=== PATIENT | female | born 1945 | race Two or more races ===

== ENCOUNTER → 2020-07-17 09:01 | Outpatient (REF) | payer MEDICARE, SELFPAY ==
--- NOTE | 2020-07-17 10:30 | CA_ITS ---
Transthoracic Echocardiogram Patient (Last, First, Middle): Meredith Carranza E Gender: Female Date of : 1945 Age: 75 Procedure Date: 07/17/2020 Procedure Type: Transthoracic Echocardiogram Location: OP Height: 160. cm Weight: 68. 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 The visually estimated ejection fraction is between 60-65%. - There is mild calcification of the aortic valve. - There is mild tricuspid valve regurgitation. Findings Left Ventricle Normal left ventricular cavity size. There is normal left ventricular wall thickness. The left ventricular systolic function is normal. The visually estimated ejection fraction is between 60-65%. There is no evidence of regional wall motion abnormalities. E/E prime ratio is between 8 and 15 consistent with indeterminate filling pressures. Evidence suggests grade I (mild) diastolic dysfunction. Right Ventricle Normal right ventricular cavity size and systolic function. Atria The left atrium is normal in size. The right atrium is normal in size. Aortic Valve There is a normal trileaflet aortic valve. There is mild calcification of the aortic valve. There is no aortic valve stenosis. There is no aortic valve regurgitation. Mitral Valve The mitral valve appears normal. There is trace mitral valve regurgitation. There is no mitral valve stenosis. Pulmonic Valve The pulmonic valve was not well visualized. Tricuspid Valve Normal tricuspid valve structure. There is mild tricuspid valve regurgitation. The pulmonary artery systolic pressure is normal. Great Vessels The aortic annulus, sinuses of valsalva, and asc aorta are normal in size. Venous The inferior vena cava is normal in size and collapses greater than 50% with inspiration. Pericardium/Pleural There is no evidence of pericardial effusion. Prior Study Comparison No significant change compared to prior study dated: 01/06/2019. Measurements 2D Linear Measurements IVSd: 1.19 0.6-0.9/0.6-1.0 cm LVIDd: 4.41 3.9-5.3/4.2-5.9 cm LVIDd Index: 2.58 2.4-3.2/2.2-3.1 cm/m2 LVIDs: 2.65 2.0-3.6 cm LVPWd: 0.98 0.7-1.1 cm Ao Root: 2.60 2.1-3.5 cm LA Diam: 3.30 2.7-3.8/3.0-4.0 cm LAIDs Index: 1.93 1.5-2.3 cm/m2 LV Mass: 207.36 67-162/88-224 g LV Mass Index: 121.26 43-95/49-115 g/m2 LVOT Diam: 2.00 3.0+(-)1.3 cm 2D Systolic Function EF 4C: 64.30 >55% EF 2C: 56.60 >55% EF BiP: 59.50 >55% Mitral Valve MV Pk E: 0.58 MV PK A: 0.74 MV Decel Time: 106.00 E/A: 0.80 E'Lateral: 6.87 E'Medial: 5.61 E/E' Med: 10.40 E/E' Lat: 8.50 PHT: 31.00 MVA PHT: 7.10 Decel Mag[place]in: 5.51 Aortic Valve AoV Pk Dominik: 1.33 AoV Pk Grad: 7.00 LVOT LVOT Pk Dominik: 0.98 LVOT Mn Dominik: 0.68 LVOT VTI: 0.23 LVOT Pk Grad: 4.00 LVOT Mn Grad: 2.00 LVOT Diam: 2.00 LVOT Area: 3.14 Diastolic Function MV Pk E: 0.58 MV Pk A: 0.74 E/A: 0.80 E'Medial: 5.61 E/E' Med: 10.40 E' Laterial: 6.87 E/E' Lat: 8.50 Tricuspid Valve TR Pk Dominik: 2.27 TR Pk Grad: 21.00 RA Press: 3.00 RVSP: 24.00 Great Vessels Aorta Ao Root-2D: 2.60 2.0-3.7 cm Ao Asc: 3.40 2.1-3.4 cm Updated in Other Vendor System with Status of Final Vernon Plata MD electronically signed on 07/18/2020 11:09:34 AM with status of Final
== END ==
LOC: HO.CARD 09:01
PROVIDERS: PCP Internal Medicine; Visit Provider Internal Medicine
DX: I25.10 Atherosclerotic heart disease of native coronary artery without angina pectoris (principal); R06.02 Shortness of breath; Z95.5 Presence of coronary angioplasty implant and graft
CPT/HCPCS: 93306

== ENCOUNTER 2020-09-24 11:41 | Outpatient (REF) | payer MEDICARE, SELFPAY ==
--- NOTE | 2020-09-24 | MM_ITS ---
EXAMINATION: MM SCREENING DIGITAL BREAST TOMOSYNTHESIS, BILATERAL CLINICAL INFORMATION: Screening. Asymptomatic. The lifetime risk of breast cancer based on the Tyrer-Cuzick Model is 5%. COMPARISON: Mammography: 01/21/2019, 12/16/2017, 09/18/2016 TECHNIQUE: Digital breast tomosynthesis is performed in both the craniocaudal and mediolateral oblique views along with computer-aided detection (CAD). Synthesized 2D images are generated from the tomosynthesis. FINDINGS: The breasts are heterogeneously dense, which may obscure small masses (ACR BI-RADS breast composition Category c). There are no significant masses, abnormal calcifications, or other abnormalities. There is biopsy clip marker again noted mid upper outer right breast. Scattered bilateral punctate, vascular, and coarse round calcifications are again noted. The axilla and skin contours are unremarkable. No significant changes. MM/MM tomosynthesis screening BI IMPRESSION: No mammographic evidence of malignancy. ASSESSMENT: BI-RADS 2: Benign RECOMMENDATION: Routine annual mammography screening. This patient's information was entered into a reminder system with a target due date for their next mammogram.
== END 2020-09-24 11:42 | disposition home or self-care (01) ==
LOC: HO.MAMMO 11:41
PROVIDERS: Visit Provider Internal Medicine
DX: Z12.31 Encounter for screening mammogram for malignant neoplasm of breast (principal)
CPT/HCPCS: 77063; 77067

== ENCOUNTER 2020-10-02 12:15 | Outpatient (REF) | payer MEDICARE, SELFPAY ==
[2020-10-02 14:10] LABS: MANUAL DIFF FLAG NO
[2020-10-02 14:22] LABS: Basophils Absolute Auto 0.1 X10*3/uL (0.0-0.2); Basophils Percent Auto 0.9 % (0-2); Eosinophils Absolute Auto 0.1 X10*3/uL (0.0-0.4); Eosinophils Percent Auto 1.9 % (0-4); Hematocrit 36.7 % (37-47); Hemoglobin 11.4 g/dl (12.0-16.0); Imm Gran Abs Auto 0.03 X10*3/uL (0.00-0.03); Imm Gran Pct Auto 0.4 % (0.0-0.4); Lymphocytes Percent Auto 29.1 % (20-40); Mean Corpuscular HGB Conc 31.1 g/dl (31.0-35.0); Mean Corpuscular Hemoglobin 27.3 pg (27.0-33.0); Mean Corpuscular Volume 87.8 fL (80-98); Mean Platelet Volume 11.5 fL (9.4-12.3); Monocytes Absolute Auto 0.6 X10*3/uL (0.1-1.2); Monocytes Percent Auto 8.6 % (2-11); Neutrophils Absolute Auto 4.1 X10*3/uL (2.0-8.3); Neutrophils Percent Auto 59.1 % (45-73); Platelet Count 315 X10*3/uL (160-400); Red Blood Count 4.18 X10*6/uL (4.20-5.50); Red Cell Distribution Width 14.7 % (11.0-16.0); White Blood Count 6.9 X10*3/uL (4.8-10.8)
[2020-10-02 14:40] LABS: Creatinine Urine 70.14 mg/dL
[2020-10-02 14:42] LABS: Albumin Level 4.5 g/dL (3.5-5.0); Anion Gap 14 (12-20); Blood Urea Nitrogen 13 mg/dL (9-16); Carbon Dioxide 29 mmol/L (22-29); Chloride 103 mmol/L (96-108); Estimated Glomerular Filt Rate > 60; Magnesium 2.1 mg/dL (1.6-2.6); Phosphorus 3.5 mg/dL (2.7-4.5); Potassium 4.7 mmol/L (3.3-5.1); Sodium 141 mmol/L (135-145)
[2020-10-02 14:48] LABS: Glucose Urine UA NEG (NEG); Leukocyte Esterase Urine NEG (NEG); Nitrite Urine NEG (NEG); Specific Gravity - Urine 1.015 (1.005-1.025); Urine Blood NEG (NEG); Urine Ketones NEG (NEG); Urine Protein TRACE MG/DL (NEG-TRACE)
[2020-10-02 14:49] LABS: Appearance Urine CLEAR; Color Urine YELLOW
== END 2020-10-02 12:16 | disposition home or self-care (01) ==
LOC: HO.LAB 12:15
PROVIDERS: PCP Internal Medicine; Visit Provider Internal Medicine Hypertension Specialist
DX: R80.9 Proteinuria, unspecified (principal); I10 Essential (primary) hypertension; E83.52 Hypercalcemia
CPT/HCPCS: 36415; 80051; 81003; 82040; 82310; 82565; 83735; 84100; 84520; 85025

== ENCOUNTER 2020-11-09 13:04 | Outpatient (REF) | payer MEDICARE, SELFPAY ==
--- NOTE | ~2020-11-09 | CT_ITS ---
EXAMINATION: CT CHEST SCREENING CLINICAL INFORMATION: Lung screen. Pulmonary nodules. COMPARISON: 09/07/2019 and 02/11/2019. TECHNIQUE: Multidetector volumetric CT imaging of the chest is performed without contrast using low dose technique. Additional 2D coronal and sagittal reformatted images and axial 3D maximum intensity projection (MIP) images are generated on the CT workstation. This CT examination was performed using dose optimization techniques as appropriate, variously including the following: *Automated exposure control *Adjustment of mA and/or kV according to patient size (this includes techniques or standardized protocols for targeted exams where dose is matched to indication/reason for exam; i.e. extremities or head) *Use of iterative reconstruction technique DLP: 48 mGy-cm FINDINGS: LUNGS: There are changes of centrilobular emphysema seen bilaterally. Central airways are patent. No bronchial wall thickening seen. No bronchiectasis. Calcified granuloma present right lower lobe. There are a few sub-4 mm densities present bilaterally. Within the right upper lobe posteriorly there is a 6 x 4 mm noncalcified subpleural nodule on image 189 of 515 in series 5. This is stable. There is a 1.5 cm region of ground-glass opacity with microcyst within the superior segment of the right lower lobe which can be seen on image 232 of 515. This is stable. There is a 4 mm noncalcified nodular density seen within the left upper lobe on image 149 of 515. This is stable. There is a region of perivascular ground-glass opacity within the left upper lobe on image 176 of 515. This is stable. MEDIASTINUM: Heart normal size. No thoracic aortic aneurysm. There is aortic valve calcification as well as prominent coronary artery calcification. No pericardial effusion. No mediastinal or hilar lymphadenopathy identified. There is a calcified subcarinal lymph node seen. PLEURA: There is no pleural effusion. No pleural mass or thickening. AXILLA: No lymphadenopathy. UPPER ABDOMEN: Unremarkable. OSSEOUS STRUCTURES: No suspicious destructive bony lesions identified. There is calcific tendinitis of the right shoulder. CT/CT lung screen follow up IMPRESSION: Stable appearance of the chest. Lung nodules and regions of ground-glass opacity with microcyst formation as described. ASSESSMENT: Lung-RADS category 2: Benign. RECOMMENDATION: Routine annual low-dose CT screening in 12 months.
== END 2020-11-09 13:05 | disposition home or self-care (01) ==
LOC: HO.CT 13:04
PROVIDERS: Visit Provider Physician Assistant Medical
DX: Z12.2 Encounter for screening for malignant neoplasm of respiratory organs (principal); Z87.891 Personal history of nicotine dependence
CPT/HCPCS: 71250

== ENCOUNTER → 2020-11-16 11:08 | Outpatient (BNVA) | payer MEDICARE, SELFPAY | PROVIDERS: PCP Internal Medicine; Visit Provider Internal Medicine Pulmonary Disease | DX: J44.9 Chronic obstructive pulmonary disease, unspecified (principal); R91.8 Other nonspecific abnormal finding of lung field; F17.210 Nicotine dependence, cigarettes, uncomplicated; Z71.6 Tobacco abuse counseling | CPT/HCPCS: 99212 ==

== ENCOUNTER 2021-03-06 10:45 | Outpatient (REF) | payer MEDICARE, SELFPAY ==
--- NOTE | ~2021-03-06 | MM_ITS ---
EXAMINATION: BONE DENSITOMETRY CLINICAL INDICATION: Asymptomatic menopausal state. COMPARISON: Baseline BD dated 06/22/2009. TECHNIQUE: Using a [employer] DXA System (software version: 13.1) manufactured by [employer], dual-energy x-ray absorptiometry was performed of the lumbar spine and left hip. The images are of good technical quality. Summary results are attached. FINDINGS: AP SPINE L1-L3 (excluding L4): The data of L1-L4 has been changed to exclude the L4 vertebral body, because degenerative changes at this level may cause overestimation of lumbar spine density. Current: BMD 0.866 g/cm2, Z-score -1.0, T-score -2.5, osteoporosis, 6.3% increase from baseline (<5% change is not significant). Baseline: BMD 0.815 g/cm2. LEFT FEMUR, NECK: Current: BMD 0.736 g/cm2, Z-score -0.3, T-score -2.2, osteopenia. Baseline: BMD 0.870 g/cm2. LEFT FEMUR, TOTAL: Current: BMD 0.787 g/cm2, Z-score -0.1, T-score -1.7, osteopenia, 12.4% decrease from baseline (<5% change is not significant). Baseline: BMD 0.898 g/cm2. IDENTIFIED RISK FACTORS: Osteoporosis, history of fracture (adult), height loss, low calcium intake, anticonvulsants, menopause. HISTORY OF FRACTURE: Sacrum. MEDICATIONS: Calcium supplements or multivitamin, vitamin D. MM/XR DEXA axial skeleton IMPRESSION: 1. DIAGNOSIS: Osteoporosis based on the lowest T-score value of -2.5 in the lumbar spine applying World Health Organization criteria. 2. 10-YEAR FRACTURE RISK PREDICTION, FRAX: Major osteoporotic fracture (clinical spine, forearm, hip or shoulder) 13.0%. Hip fracture 3.3%. 3. Treatment Recommendations: NOF guidelines recommend consideration for treatment in postmenopausal women and men age 50 and older presenting with the following: -A hip or vertebral (clinical or morphometric) fracture. -T-score less than or equal to -2.5 at the femoral neck or spine after appropriate evaluation to exclude secondary causes. -Low bone mass at the hip or spine and a 10-year fracture probability by FRAX of greater than or equal to 3% for hip fracture or greater than or equal to 20% for major osteoporotic fracture based on the [place] adapted WHO algorithm. 4. Other Recommendations: All treatment decisions require clinical judgment and consideration of individual patient factors, including patient preferences, comorbidities, previous drug use, risk factors not captured in the FRAX model (e.g. frailty, falls, vitamin D deficiency, increased bone turnover, interval significant decline in bone density) and possible under or overestimation of fracture risk by FRAX. Additional medical evaluation for secondary cause of low bone mineral density may be appropriate. FUTURE SCAN RECOMMENDATION: People with diagnosed cases of osteoporosis or at high risk for fracture should have regular bone mineral density tests. For patients eligible for Medicare, routine testing is allowed once every 2 years. The testing frequency can be increased to one year for patients who have rapidly progressing disease, those who are receiving or discontinuing medical therapy to restore bone mass, or have additional risk factors.
== END 2021-03-06 10:46 | disposition home or self-care (01) ==
LOC: HO.MAMMO 10:45
PROVIDERS: Visit Provider Internal Medicine
DX: Z13.820 Encounter for screening for osteoporosis (principal); M85.80 Other specified disorders of bone density and structure, unspecified site; Z78.0 Asymptomatic menopausal state; Z87.81 Personal history of (healed) traumatic fracture; Z79.899 Other long term (current) drug therapy
CPT/HCPCS: 77080

== ENCOUNTER → 2021-03-25 11:32 | Outpatient (BNVA) | payer MEDICARE, SELFPAY | PROVIDERS: PCP Internal Medicine; Visit Provider Internal Medicine Pulmonary Disease | DX: J44.9 Chronic obstructive pulmonary disease, unspecified (principal) | CPT/HCPCS: 99212 ==

== ENCOUNTER 2021-05-08 09:20 | Outpatient (REF) | payer MEDICARE, SELFPAY ==
[2021-05-08 10:29] LABS: MANUAL DIFF FLAG NO
[2021-05-08 10:33] LABS: Basophils Absolute Auto 0.1 X10*3/uL (0.0-0.2); Basophils Percent Auto 0.8 % (0-2); Eosinophils Absolute Auto 0.3 X10*3/uL (0.0-0.4); Eosinophils Percent Auto 3.8 % (0-4); Hematocrit 36.1 % (37-47); Hemoglobin 11.3 g/dl (12.0-16.0); Imm Gran Abs Auto 0.02 X10*3/uL (0.00-0.03); Imm Gran Pct Auto 0.3 % (0.0-0.4); Lymphocytes Absolute Auto 2.2 X10*3/uL (1.2-4.9); Lymphocytes Percent Auto 32.8 % (20-40); Mean Corpuscular HGB Conc 31.3 g/dl (31.0-35.0); Mean Corpuscular Hemoglobin 27.6 pg (27.0-33.0); Mean Platelet Volume 11.1 fL (9.4-12.3); Monocytes Absolute Auto 0.6 X10*3/uL (0.1-1.2); Monocytes Percent Auto 9.1 % (2-11); Neutrophils Absolute Auto 3.5 X10*3/uL (2.0-8.3); Neutrophils Percent Auto 53.2 % (45-73); Platelet Count 302 X10*3/uL (160-400); Red Cell Distribution Width 14.1 % (11.0-16.0); White Blood Count 6.6 X10*3/uL (4.8-10.8)
[2021-05-08 10:41] LABS: Appearance Urine CLEAR; Color Urine YELLOW; Glucose Urine UA NEG (NEG); Leukocyte Esterase Urine NEG (NEG); Nitrite Urine NEG (NEG); Urine Blood NEG (NEG); Urine Ketones NEG (NEG); Urine Protein NEG (NEG-TRACE)
[2021-05-08 11:08] LABS: Creatinine Urine 39.94 mg/dL; Microalbum/Creatinine Ratio Ur 37.5 ug/mg cr
[2021-05-08 11:08] LABS: Alanine Aminotransferase 17 U/L (0-31); Albumin Level 4.3 g/dL (3.5-5.0); Alkaline Phosphatase 52 U/L (39-117); Anion Gap 13 (12-20); Aspartate Amino Transferase 18 U/L (5-31); Bilirubin Total 0.5 mg/dL (0.0-1.0); Blood Urea Nitrogen 16 mg/dL (9-16); Calcium 10.4 mg/dL (8.4-10.2); Carbon Dioxide 28 mmol/L (22-29); Chloride 104 mmol/L (96-108); Cholesterol 121 mg/dL; Estimated Glomerular Filt Rate > 60; Glucose Fasting 141 mg/dL (60-99); HDL Cholesterol 40 mg/dL; LDL Cholesterol Calculated 56 mg/dl; Potassium 5.1 mmol/L (3.3-5.1); Sodium 140 mmol/L (135-145); Total Protein 7.2 g/dL (6.5-8.0); Triglycerides 127 mg/dL
[2021-05-08 11:31] LABS: TSH reflex Free T4 3.23 uIU/mL (0.32-4.0)
== END 2021-05-08 09:21 | disposition home or self-care (01) ==
LOC: HO.LAB 09:20
PROVIDERS: PCP Internal Medicine; Visit Provider Internal Medicine
DX: E66.3 Overweight (principal); E78.2 Mixed hyperlipidemia; E11.9 Type 2 diabetes mellitus without complications; I25.10 Atherosclerotic heart disease of native coronary artery without angina pectoris; M51.36 Other intervertebral disc degeneration, lumbar region
CPT/HCPCS: 36415; 80053; 80061; 81003; 82043; 84443; 85025

== ENCOUNTER 2021-05-30 14:26 | Outpatient (REF) | payer MEDICARE, SELFPAY ==
--- NOTE | ~2021-05-30 | US_ITS ---
EXAMINATION: US SOFT TISSUE NECK CLINICAL INFORMATION: Mass of the left jaw. COMPARISON: None TECHNIQUE: Ultrasound of the neck soft tissues is performed with high- frequency webster-scale imaging and color Doppler. FINDINGS: Imaging through the area around the left jaw/area of concern reveals no mass, anechoic fluid collection or abnormal vascularity. The left parotid gland appears homogeneous in echotexture. US/US soft tiss head and/or neck IMPRESSION: No visible mass seen around the left jaw, in the area of concern.
== END 2021-05-30 14:27 | disposition home or self-care (01) ==
LOC: HO.US 14:26
PROVIDERS: Visit Provider Internal Medicine
DX: K11.8 Other diseases of salivary glands (principal)
CPT/HCPCS: 76536

== ENCOUNTER 2021-06-27 03:31 | Emergency (ER) | payer MEDICARE, SELFPAY ==
--- NOTE | ~2021-06-27 | CT_ITS ---
EXAMINATION: CT HEAD WITHOUT CONTRAST CLINICAL INFORMATION: Dizziness, headache COMPARISON: 02/15/2020 TECHNIQUE: Contiguous axial imaging was performed from the skull base to vertex without intravenous administration of contrast. This CT examination was performed using dose optimization techniques as appropriate, variously including the following: *Automated exposure control *Adjustment of mA and/or kV according to patient size (this includes techniques or standardized protocols for targeted exams where dose is matched to indication/reason for exam; i.e. extremities or head) *Use of iterative reconstruction technique DLP: 669 mGy-cm FINDINGS: There is no evidence of acute intracranial hemorrhage or territorial infarction. No abnormal mass effect or midline shift is seen. [place] to white matter differentiation is well preserved. No extra-axial fluid collections are identified. The ventricles are normal in size. There is no abnormal attenuation within the brain parenchyma. The osseous structures and soft tissues are normal. The mastoid air cells and visualized portions of the paranasal sinuses are well aerated. CT/CT head/brain wo con IMPRESSION: No acute intracranial pathology.
[2021-06-27 03:36] VITALS: BP 167/67; PULSE 79; RESP 18; TEMP 37; O2SAT 97; BMI 28.3
[2021-06-27 03:39] VITALS: BP 180/80; PULSE 78; O2SAT 98
--- NOTE | 2021-06-27 03:45 | ECG_ITS ---
Test Reason : dizziness Blood Pressure : / mmHG Vent. Rate : 074 BPM Atrial Rate : 074 BPM P-R Int : 164 ms QRS Dur : 094 ms QT Int : 388 ms P-R-T Axes : 056 -06 027 degrees QTc Int : 430 ms Normal sinus rhythm Normal ECG When compared with ECG of 14-FEB-2020 23:14, No significant change was found Referred By: Rita Rodriguez Electronically Signed By:KESHA ANDUJAR MD
--- NOTE | 2021-06-27 03:46 | ED_ITS ---
HPI - Dizziness General Chief Complaint: Headache Stated Complaint: dizziness,headache and nausea Time Seen by Provider: 06/27/21 03:40 Source: patient Mode of arrival: ambulatory Limitations: no limitations History of Present Illness MD elicited complaint: dizziness and other (headache) Pertinent past history: BPPV Onset (ago): day(s) (3 days of headache, dizziness since 2am) Timing: gradual onset Severity: moderate Description: sense of movement and room spinning Context: change in body position History of similar symptoms: Yes (feels like the onset of her vertigo ) Exacerbating factors: movement/ambulation Relieving factors: remaining still and keeping eyes closed Associated symptoms: nausea Related Data Previous Rx's Medication Instructions Recorded gabapentin 100 mg capsule 100 mg PO TID #90 cap 08/23/20 umeclidinium 62.5 mcg-vilanterol 1 inh INHALATION DAILY 30 Days #1 11/16/20 25 mcg/actuation powdr for ea inhalation (Anoro Ellipta) albuterol sulfate 90 mcg/actuation 2 puff PO Q6H PRN #8.5 g 12/06/20 aerosol inhaler rosuvastatin 40 mg tablet 40 mg PO DAILY #90 tab 12/27/20 metformin 1,000 mg tablet 1,000 mg PO BID #180 tab 03/26/21 aspirin 81 mg tablet,delayed 81 mg PO DAILY #90 tab 06/09/21 release omeprazole 20 mg capsule,delayed 40 mg PO DAILY #180 cap 06/09/21 release alprazolam 0.25 mg tablet 0.25 mg PO BID PRN 30 Days #60 tab 06/10/21 ondansetron 4 mg disintegrating 4 mg PO Q8H PRN #20 tab 06/27/21 tablet Allergies Allergy/AdvReac Type Severity Reaction Status Date / Time clarithromycin [From PREVPAC] Allergy Mild hives Verified 05/15/21 10:42 lansoprazole [From PREVPAC] Allergy Mild hives Verified 05/15/21 10:42 lisinopril [LISINOPRIL] Allergy Mild COUGHING, Verified 05/15/21 10:42 cough, cough amoxicillin [AMOXICILLIN] Allergy Unknown RASH Verified 05/15/21 10:42 cephalexin Allergy Unknown rash Verified 05/15/21 10:42 clavulanic acid [Augmentin] Allergy Unknown rash Verified 05/15/21 10:42 dicyclomine Allergy Unknown loopiness Verified 05/15/21 10:42 duloxetine [Cymbalta] Allergy Unknown weight Verified 05/15/21 10:42 gain, increase appetite levofloxacin [From LEVAQUIN] Allergy Unknown RASH Verified 05/15/21 10:42 linaclotide [Linzess] Allergy Unknown nausea Verified 05/15/21 10:42 penicillin V Allergy Unknown rash Verified 05/15/21 10:42 Penicillins [PENICILLINS] Allergy Unknown RASH Verified 05/15/21 10:42 Prevpac Allergy Unknown rash Verified 05/15/21 10:42 Sulfa (Sulfonamide Allergy Unknown rash Verified 05/15/21 10:42 Antibiotics) tramadol Allergy Unknown pruritus Verified 05/15/21 10:42 triamcinolone [Kenalog] Allergy Unknown Unknown Verified 05/15/21 10:42 umeclidinium Allergy Unknown abdominal Verified 05/15/21 10:42 [Incruse Ellipta] pain prednisone [Prednisone] AdvReac Mild YEAST Verified 05/15/21 10:42 INFECTION cetirizine AdvReac Unknown dizziness? Verified 05/15/21 10:42 Review of Systems Review of Systems: Constitutional : No Fever, No Chills, No Fatigue ENT/Mouth : No sore throat, No Rhinorrhea Eyes: No Eye Pain, No Swelling, No Redness Cardiovascular : No Chest Pain, No SOB, No Dyspnea on Exertion Respiratory : No Cough, No Sputum Gastrointestinal : pos Nausea, No Vomiting, No Diarrhea, No abdominal Pain Genitourinary : No Dysuria, No Urinary Frequency, No Hematuria, Musculoskeletal : No joint pain, No Myalgias, No Joint Swelling Skin : No Skin Lesions, No rash Neuro : No Weakness, No Numbness, pos Dizziness, positive Headache Psych : No Anxiety/Panic, No Depression Heme/Lymph: No Bruising, No Bleeding,No Lymphadenopathy Endocrine : No Polyuria, No Polydipsia All other systems reviewed and are negative PMFSH Past Medical History Attestation statement: The following information was validated with the patient. Medical History Anxiety Asthma Atherosclerotic cardiovascular disease Borderline diabetes Chronic headache Constipation Degenerative lumbar disc Diabetes mellitus Fibromyalgia GERD without esophagitis Hypercholesteremia Irritable bowel syndrome Lumbar degenerative disc disease Mixed hyperlipidemia Osteoporosis Overweight (BMI 25.0-29.9) Pulmonary emphysema Vertigo Vitamin D deficiency Surgical History H/O angioplasty H/O Spinal surgery Hx of tubal ligation Family History Family History Father No problems noted. Mother Depression S/P CABG x 4 Diabetes Hypertension Sister Poor high blood pressure control Cervical cancer Breast cancer Social History Social History Housing: Apartment Alcohol intake: current Alcohol intake frequency: holidays/special occasions only Alcohol type: beer and wine Patient Tobacco Use Status: Former Tobacco user Advance Directives: No Advance Directives Information Provided: Yes service: No Current occupational status: retired and disabled Physical Exam Vital Signs: Vital Signs: Last Vital Signs Temp 98.6 F 06/27/21 03:36 Pulse 80 06/27/21 04:11 Resp 18 06/27/21 04:11 BP 154/68 H 06/27/21 04:11 Pulse Ox 98 06/27/21 04:11 Body Mass Index 28.3 Appearance: Alert. Oriented X3. No acute distress. Eyes: Pupils equal, round and reactive to light. ENT: Pharynx normal. normal TMs, no nystagmus Neck: Normal inspection. Neck supple. CVS: Normal heart rate and rhythm. Pulses normal. Respiratory: No respiratory distress. Breath sounds normal. Abdomen: Soft and nontender. Skin: Skin warm and dry. Normal skin color. Normal skin turgor. Extremities: No lower extremity edema. No calf ttp Neuro: Oriented X 3. No motor deficit. No sensory deficit. no drift, CN 2-12 intact Course Course Course Narrative: refusing pain medications, initially refused labs and IV, now refusing antivert - patient called EMS to take her to the hospital but she is very resistant to care at this time no chest pain/sob. EKG is nonischemic and trop is in her usual range. doubt ACS ortho VS negative, states the symptoms resolve - stable for DC MDM - Dizziness MDM Narrative Medical decision making narrative: 76 yo female with CAD, vertigo, GERD, HLD presents witih a chronic headache but since 2am feels dizzy like the room is spinning worse with turning her head and moving. She states this is typically how her vertigo attacks start. 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 She lacks any neuro deficits so I do not suspect posterior stroke. Lab Data Result diagrams: 06/27/21 03:59 06/27/21 03:59 Labs: Lab Results 06/27/21 06/27/21 06/27/21 Range/Units 03:59 03:59 03:59 WBC 6.1 (4.8-10.8) X10*3/uL RBC 3.87 L (4.20-5.50) X10*6/uL Hgb 11.0 L (12.0-16.0) g/dl Hct 34.8 L (37-47) % MCV 89.9 (80-98) fL MCH 28.4 (27.0-33.0) pg MCHC 31.6 (31.0-35.0) g/dl RDW 14.0 (11.0-16.0) % Plt Count 306 (160-400) X10*3/uL MPV 10.2 (9.4-12.3) fL Immature Gran % (Auto) 0.3 (0.0-0.4) % Neut % (Auto) 49.9 (45-73) % Lymph % (Auto) 36.9 (20-40) % [place] % (Auto) 8.1 (2-11) % Eos % (Auto) 4.0 (0-4) % Baso % (Auto) 0.8 (0-2) % Lymph # (Auto) 2.2 (1.2-4.9) X10*3/uL [place] # (Auto) 0.5 (0.1-1.2) X10*3/uL Eos # (Auto) 0.2 (0.0-0.4) X10*3/uL Baso # (Auto) 0.1 (0.0-0.2) X10*3/uL Abs Immat Gran (auto) 0.02 (0.00-0.03) X10*3/uL Absolute Neuts (auto) 3.0 (2.0-8.3) X10*3/uL Absolute Nucleated RBC 0.000 (0.0-0.012) X10*3/uL Nucleated RBC % (auto) 0.0 (0.0-0.2) /100WBC Sodium 140 (135-145) mmol/L Potassium 3.9 D (3.3-5.1) mmol/L Chloride 106 (96-108) mmol/L Carbon Dioxide 27 (22-29) mmol/L Anion Gap 11 L (12-20) BUN 19 H (9-16) mg/dL Creatinine 0.93 (0.5-1.4) mg/dL Estim Creat Clear Calc 49.0 Estimated GFR 59 Random Glucose 157 H (60-115) mg/dL Calcium 9.6 D (8.4-10.2) mg/dL Magnesium 1.9 (1.6-2.6) mg/dL Total Bilirubin < 0.2 (0.0-1.0) mg/dL Direct Bilirubin < 0.2 (0.0-0.5) mg/dL AST 16 (5-31) U/L ALT 16 (0-31) U/L Alkaline Phosphatase 47 (39-117) U/L Troponin I High Sens (<3.5-17.0) ng/L Total Protein 6.8 (6.5-8.0) g/dL Albumin 4.1 (3.5-5.0) g/dL COVID-19 (BEBA) Negative (Negative) COVID-19 Clin Com See Note 06/27/21 Range/Units 03:59 WBC (4.8-10.8) X10*3/uL RBC (4.20-5.50) X10*6/uL Hgb (12.0-16.0) g/dl Hct (37-47) % MCV (80-98) fL MCH (27.0-33.0) pg MCHC (31.0-35.0) g/dl RDW (11.0-16.0) % Plt Count (160-400) X10*3/uL MPV (9.4-12.3) fL Immature Gran % (Auto) (0.0-0.4) % Neut % (Auto) (45-73) % Lymph % (Auto) (20-40) % [place] % (Auto) (2-11) % Eos % (Auto) (0-4) % Baso % (Auto) (0-2) % Lymph # (Auto) (1.2-4.9) X10*3/uL [place] # (Auto) (0.1-1.2) X10*3/uL Eos # (Auto) (0.0-0.4) X10*3/uL Baso # (Auto) (0.0-0.2) X10*3/uL Abs Immat Gran (auto) (0.00-0.03) X10*3/uL Absolute Neuts (auto) (2.0-8.3) X10*3/uL Absolute Nucleated RBC (0.0-0.012) X10*3/uL Nucleated RBC % (auto) (0.0-0.2) /100WBC Sodium (135-145) mmol/L Potassium (3.3-5.1) mmol/L Chloride (96-108) mmol/L Carbon Dioxide (22-29) mmol/L Anion Gap (12-20) BUN (9-16) mg/dL Creatinine (0.5-1.4) mg/dL Estim Creat Clear Calc Estimated GFR Random Glucose (60-115) mg/dL Calcium (8.4-10.2) mg/dL Magnesium (1.6-2.6) mg/dL Total Bilirubin (0.0-1.0) mg/dL Direct Bilirubin (0.0-0.5) mg/dL AST (5-31) U/L ALT (0-31) U/L Alkaline Phosphatase (39-117) U/L Troponin I High Sens 14.6 (<3.5-17.0) ng/L Total Protein (6.5-8.0) g/dL Albumin (3.5-5.0) g/dL COVID-19 (BEBA) (Negative) COVID-19 Clin Com ECG Data Attestation: I personally reviewed and interpreted this ECG as follows: ECG interpretation date: 06/27/21 ECG interpretation time: 03:57 Interpretation: Rate: 74 Rhythm: NSR [place]: normal Normal P waves. Normal LAURENT. Normal QRS complex. ST T wave : normal no EVELIN qTC: normal prior studies: no acute ischemia The study has been interpreted contemporaneously by me. . Discharge Plan Discharge Clinical Impression: Tension headache, Dizziness Patient Disposition: Home, Self-Care Instructions: Tension Headache (ED), Dizziness (ED) Additional Instructions: return to ED for any worsening symptoms or concerns Prescriptions: New ondansetron 4 mg tablet,disintegrating 4 mg PO Q8H PRN (Reason: nausea and vomiting) Qty: 20 RF: 0 No Action gabapentin 100 mg capsule 100 mg PO TID Qty: 90 RF: 2 albuterol sulfate 90 mcg/actuation HFA aerosol inhaler 2 puff PO Q6H PRN (Reason: for muscle spasm) Qty: 8.5 RF: 3 rosuvastatin 40 mg tablet 40 mg PO DAILY Qty: 90 RF: 1 metformin 1,000 mg tablet 1,000 mg PO BID Qty: 180 RF: 1 omeprazole 20 mg capsule,delayed release(DR/EC) 40 mg PO DAILY Qty: 180 RF: 0 aspirin 81 mg tablet,delayed release (DR/EC) 81 mg PO DAILY Qty: 90 RF: 0 alprazolam 0.25 mg tablet 0.25 mg PO BID PRN (Reason: anxiety) 30 Days Qty: 60 RF: 0 Anoro Ellipta 62.5-25 mcg/actuation blister with device 1 inh inhalation DAILY 30 Days Qty: 1 RF: 6
--- NOTE | 2021-06-27 03:46 | PC.NURSE ---
pt to room with c/o dizziness. Pt arrives alert, respirations easy, n/l. skin w/d. will continue to monitor pt.
[2021-06-27 04:02] VITALS: RESP 18
[2021-06-27 04:03] LABS: MANUAL DIFF FLAG NO
[2021-06-27] MEDS: 0.9 % Sodium Chloride 1,000 ML 999 ML IVCONT (04:03)
[2021-06-27] MEDS: ondansetron HCL 4 MG/2 ML VIAL IVPUSH (04:03)
[2021-06-27 04:04] VITALS: BP 150/70; BP 162/73; PULSE 68; PULSE 74
[2021-06-27 04:05] LABS: Basophils Absolute Auto 0.1 X10*3/uL (0.0-0.2); Basophils Percent Auto 0.8 % (0-2); Eosinophils Absolute Auto 0.2 X10*3/uL (0.0-0.4); Hematocrit 34.8 % (37-47); Imm Gran Abs Auto 0.02 X10*3/uL (0.00-0.03); Imm Gran Pct Auto 0.3 % (0.0-0.4); Lymphocytes Absolute Auto 2.2 X10*3/uL (1.2-4.9); Lymphocytes Percent Auto 36.9 % (20-40); Mean Corpuscular HGB Conc 31.6 g/dl (31.0-35.0); Mean Corpuscular Hemoglobin 28.4 pg (27.0-33.0); Mean Corpuscular Volume 89.9 fL (80-98); Mean Platelet Volume 10.2 fL (9.4-12.3); Monocytes Absolute Auto 0.5 X10*3/uL (0.1-1.2); Monocytes Percent Auto 8.1 % (2-11); Neutrophils Percent Auto 49.9 % (45-73); Platelet Count 306 X10*3/uL (160-400); Red Blood Count 3.87 X10*6/uL (4.20-5.50); White Blood Count 6.1 X10*3/uL (4.8-10.8)
[2021-06-27 04:07] VITALS: BP 154/68; PULSE 80
[2021-06-27 04:11] VITALS: BP 154/68; PULSE 80; RESP 18; O2SAT 98
[2021-06-27 04:19] LABS: COVID-19 Test Negative (Negative)
--- NOTE | 2021-06-27 04:19 | PC.NURSE ---
Ortho's obtained, pt on monitor. IV placed to LAC, labs drawn and COVID swab obtained to lab for eval. pt refuses Morphine which was witness wasted with Sylvia Carlson RN and Meclizine PO. Dr. Rodriguez aware. Pt to [facility] will continue to monitor pt.
[2021-06-27 04:26] LABS: Alanine Aminotransferase 16 U/L (0-31); Albumin Level 4.1 g/dL (3.5-5.0); Alkaline Phosphatase 47 U/L (39-117); Anion Gap 11 (12-20); Aspartate Amino Transferase 16 U/L (5-31); Bilirubin Direct < 0.2 mg/dL (0.0-0.5); Bilirubin Total < 0.2 mg/dL (0.0-1.0); Blood Urea Nitrogen 19 mg/dL (9-16); Calcium 9.6 mg/dL (8.4-10.2); Carbon Dioxide 27 mmol/L (22-29); Chloride 106 mmol/L (96-108); Estimated Glomerular Filt Rate 59; Glucose Random 157 mg/dL (60-115); Magnesium 1.9 mg/dL (1.6-2.6); Potassium 3.9 mmol/L (3.3-5.1); Sodium 140 mmol/L (135-145); Total Protein 6.8 g/dL (6.5-8.0)
[2021-06-27 04:32] LABS: Troponin-I High Sensitivity 14.6 ng/L (<3.5-17.0)
[2021-06-27] MEDS: LORazepam 2 MG/ML VIAL 0.5 MG IVPUSH (04:35)
--- NOTE | 2021-06-27 04:45 | PC.NURSE ---
PT REFUSING TO GET INTO GOWN. NS UP AND RUNNING W/O, SITE INTACT. PT AGREES TO A SMALL DOSE OF ATIVAN. MD AWARE AND PT MEDICATED WITH ATIVAN IVP.
--- NOTE | 2021-06-27 06:04 | PC.NURSE ---
pt made calls to [facility] for ride home. pt requesting water and wants the IV out of her arm. f
--- NOTE | 2021-06-27 07:10 | PC.NURSE ---
pt medically cleared for discharge. discharge summary printed and given by overnight nurse. pt assisted to waiting room by digital editor. vss.
== END 2021-06-27 07:11 | disposition home or self-care (01) ==
PROVIDERS: Emergency Provider Emergency Medicine
DX: G44.209 Tension-type headache, unspecified, not intractable (principal); R42 Dizziness and giddiness; E78.00 Pure hypercholesterolemia, unspecified; Z20.822 Contact with and (suspected) exposure to COVID-19
CPT/HCPCS: 36415; 70450; 80048; 80076; 83735; 84484; 85025; 87635; 93005; 96361; 96374; 96375; 99284; J2060; J2405

== ENCOUNTER 2021-08-10 19:18 | Emergency (ER) | payer MEDICARE, SELFPAY ==
--- NOTE | ~2021-08-10 | CT_ITS ---
EXAMINATION: CT ANGIOGRAM NECK AND HEAD CLINICAL INFORMATION: Lightheadedness COMPARISON: 02/15/2020 TECHNIQUE: Initial noncontrast head CT was performed. Test bolus sequences followed by intravenous administration 70 mL of Omnipaque 350. Helical imaging was performed in the axial plane from the thoracic inlet to the skull vertex. Delayed postcontrast imaging of the head was also performed. The data was processed at the molecular technologist's workstation for generation of MIP sequences. Angled MIPs and volume rendered reformatted images were also generated at an offline 3D workstation. Stenoses are assessed in accordance with NASCET criteria unless otherwise indicated. DOSE LOWERING TECHNIQUES: This CT examination was performed using dose optimization techniques as appropriate, variously including the following: - Automated exposure control - Adjustment of mA and/or kV according to patient size (this includes techniques or standardized protocols for targeted exams were dose is matched to indication/reason for exam; i.e. extremities or head) - Use of iterative reconstruction technique DLP: 2219 mGy-cm FINDINGS: Neck CTA: There is a classic 3 vessel branching pattern of the aortic arch. There is calcification of the aortic arch. No evidence of stenosis at the branch origins. Both vertebral arteries are widely patent throughout their extracranial cervical course. There is calcification at the origin/proximal portions of the bilateral internal carotid arteries, without significant stenosis. Otherwise normal appearance of the common and internal carotid arteries without focal stenosis. Brain CTA: Normal appearance of the intradural vertebral arteries. Normal appearance of the basilar and superior cerebellar arteries. Normally opacified posterior cerebral arteries bilaterally. Normal appearance of the intradural internal carotid arteries without focal stenosis. The A1 segment of the right anterior cerebral artery appears atretic. Otherwise normal appearance of the anterior cerebral and middle cerebral arteries without focal occlusion or stenosis. Normal anterior communicating artery. Normal arborization of the middle cerebral arteries. CT Head: No intracranial mass, hemorrhage, extra-axial collection, or midline shift. The webster-white matter differentiation is preserved. No pathologic intra-axial enhancement or regional oligemia. No hydrocephalus. The mastoid air cells and paranasal sinuses remain well aerated. CT Neck: Right parotid gland appears somewhat atrophic, with a calcification noted. The remaining cervical soft tissues are normal in appearance. Grade 1 anterolisthesis of C7 on T1 is favored to be chronic/degenerative in nature. There is multilevel intervertebral disc space narrowing, endplate osteophyte formation, and facet arthropathy of the cervical spine. Upper Chest: No acute abnormalities in the visualized lung apices or upper mediastinum. Biapical emphysema is noted. CT/CT angio head neck IMPRESSION: No hemodynamically significant stenosis in the major arteries of the neck. No large vessel occlusion or significant stenosis in the intracranial circulation.
[2021-08-10 19:22] VITALS: BP 192/102; PULSE 76; O2SAT 99
[2021-08-10 19:26] VITALS: BP 172/79; PULSE 73; RESP 18; TEMP 36.7; O2SAT 99; BMI 31.8
--- NOTE | 2021-08-10 19:29 | ECG_ITS ---
Test Reason : DIZZY Blood Pressure : / mmHG Vent. Rate : 067 BPM Atrial Rate : 067 BPM P-R Int : 162 ms QRS Dur : 092 ms QT Int : 408 ms P-R-T Axes : 055 -12 028 degrees QTc Int : 431 ms Normal sinus rhythm Normal ECG When compared with ECG of 27-JUN-2021 03:54, No significant change was found Referred By: Blaire Sifuentes Electronically Signed By:Wicho Mosquera
[2021-08-10 19:42] LABS: MANUAL DIFF FLAG NO
[2021-08-10 19:45] LABS: Basophils Absolute Auto 0.1 X10*3/uL (0.0-0.2); Eosinophils Absolute Auto 0.2 X10*3/uL (0.0-0.4); Eosinophils Percent Auto 2.7 % (0-4); Hematocrit 35.8 % (37.0-47.0); Hemoglobin 11.3 g/dl (12.0-16.0); Imm Gran Abs Auto 0.02 X10*3/uL (0.00-0.03); Imm Gran Pct Auto 0.2 % (0.0-0.4); Lymphocytes Absolute Auto 2.6 X10*3/uL (1.2-4.9); Lymphocytes Percent Auto 32.3 % (20-40); Mean Corpuscular HGB Conc 31.6 g/dl (31.0-35.0); Mean Corpuscular Hemoglobin 28.4 pg (27.0-33.0); Mean Corpuscular Volume 89.9 fL (80.0-98.0); Mean Platelet Volume 10.6 fL (9.4-12.3); Monocytes Absolute Auto 0.6 X10*3/uL (0.1-1.2); Neutrophils Absolute Auto 4.6 x10*3/uL (2.0-8.3); Neutrophils Percent Auto 56.8 % (45-73); Platelet Count 282 X10*3/uL (160-400); Red Blood Count 3.98 X10*6/uL (4.20-5.50); Red Cell Distribution Width 13.5 % (11.0-16.0); White Blood Count 8.1 X10*3/uL (4.8-10.8)
[2021-08-10 19:56] LABS: Anion Gap 14 (12-20); Blood Urea Nitrogen 16 mg/dL (9-16); Calcium 10.4 mg/dL (8.4-10.2); Carbon Dioxide 24 mmol/L (22-29); Chloride 106 mmol/L (96-108); Creatinine Clr Calc Pharmacy 53.8; Estimated Glomerular Filt Rate > 60; Glucose Random 88 mg/dL (60-115); Potassium 4.1 mmol/L (3.3-5.1); Sodium 140 mmol/L (135-145)
[2021-08-10 20:04] LABS: Troponin-I High Sensitivity 14.6 ng/L (<3.5-17.0)
--- NOTE | 2021-08-10 22:28 | ED.DIZZY ---
HPI - Dizziness General Chief Complaint: Dizziness Stated Complaint: dizziness/headache Time Seen by Provider: 08/10/21 22:28 Source: patient Mode of arrival: EMS History of Present Illness HPI Narrative: 76-year-old female who presents with onset of lightheadedness that started at 5:45 p.m. this evening. This was not associated with any headache, sweating, nausea, shortness of breath, heart palpitations and patient denied any corresponding extremity numbness/tingling/weakness or speech or hearing changes. Patient denies being ill recently and states that she did not follow-up with her primary care provider after the last incident. Patient states that she is fully vaccinated and that this episode of lightheadedness is less than in May and that it has progressively improved during her with 8 in the waiting area. Related Data Previous Rx's Medication Instructions Recorded gabapentin 100 mg capsule 100 mg PO TID #90 cap 08/23/20 umeclidinium 62.5 mcg-vilanterol 1 inh INHALATION DAILY 30 Days #1 11/16/20 25 mcg/actuation powdr for ea inhalation (Anoro Ellipta) albuterol sulfate 90 mcg/actuation 2 puff PO Q6H PRN #8.5 g 12/06/20 aerosol inhaler rosuvastatin 40 mg tablet 40 mg PO DAILY #90 tab 12/27/20 metformin 1,000 mg tablet 1,000 mg PO BID #180 tab 03/26/21 aspirin 81 mg tablet,delayed 81 mg PO DAILY #90 tab 06/09/21 release ondansetron 4 mg disintegrating 4 mg PO Q8H PRN #20 tab 06/27/21 tablet alprazolam 0.25 mg tablet 0.25 mg PO BID PRN 30 Days #60 tab 08/07/21 omeprazole 20 mg capsule,delayed 40 mg PO DAILY #180 cap 08/07/21 release Allergies Allergy/AdvReac Type Severity Reaction Status Date / Time clarithromycin [[facility]] Allergy Mild hives Verified 05/15/21 10:42 lansoprazole [From [facility]] Allergy Mild hives Verified 05/15/21 10:42 lisinopril [LISINOPRIL] Allergy Mild COUGHING, Verified 05/15/21 10:42 cough, cough amoxicillin [AMOXICILLIN] Allergy Unknown RASH Verified 05/15/21 10:42 cephalexin Allergy Unknown rash Verified 05/15/21 10:42 clavulanic acid [Augmentin] Allergy Unknown rash Verified 05/15/21 10:42 dicyclomine Allergy Unknown loopiness Verified 05/15/21 10:42 duloxetine [Cymbalta] Allergy Unknown weight Verified 05/15/21 10:42 gain, increase appetite levofloxacin [From [facility]] Allergy Unknown RASH Verified 05/15/21 10:42 linaclotide [Linzess] Allergy Unknown nausea Verified 05/15/21 10:42 penicillin V Allergy Unknown rash Verified 05/15/21 10:42 Penicillins [PENICILLINS] Allergy Unknown RASH Verified 05/15/21 10:42 Prevpac Allergy Unknown rash Verified 05/15/21 10:42 Sulfa (Sulfonamide Allergy Unknown rash Verified 05/15/21 10:42 Antibiotics) tramadol Allergy Unknown pruritus Verified 05/15/21 10:42 triamcinolone [Kenalog] Allergy Unknown Unknown Verified 05/15/21 10:42 umeclidinium Allergy Unknown abdominal Verified 05/15/21 10:42 [Incruse Ellipta] pain prednisone [Prednisone] AdvReac Mild YEAST Verified 05/15/21 10:42 INFECTION cetirizine AdvReac Unknown dizziness? Verified 05/15/21 10:42 Review of Systems Review of Systems: Pertinent positives and negatives as stated in HPI 10 point review of systems is otherwise negative. [facility] Past Medical History Source: nursing notes reviewed Medical History Anxiety Asthma Atherosclerotic cardiovascular disease Borderline diabetes Chronic headache Constipation Degenerative lumbar disc Diabetes mellitus Fibromyalgia GERD without esophagitis Hypercholesteremia Irritable bowel syndrome Lumbar degenerative disc disease Mixed hyperlipidemia Osteoporosis Overweight (BMI 25.0-29.9) Pulmonary emphysema Vertigo Vitamin D deficiency Surgical History H/O angioplasty H/O Spinal surgery Hx of tubal ligation Family History Family History Father No problems noted. Mother Depression S/P CABG x 4 Diabetes Hypertension Sister Poor high blood pressure control Cervical cancer Breast cancer Social History Social History Housing: Apartment Alcohol intake: current Alcohol intake frequency: holidays/special occasions only Alcohol type: beer and wine Patient Tobacco Use Status: Former Tobacco user Advance Directives: No Advance Directives Information Provided: Yes service: No Current occupational status: retired and disabled Physical Exam Vital Signs: Vital Signs: Last Vital Signs Temp 98.1 F 08/10/21 19:26 Pulse 60 08/10/21 23:19 Resp 14 08/10/21 23:19 BP 145/72 H 08/10/21 23:19 Pulse Ox 99 08/10/21 19:26 BMI result Body Mass Index 31.8 VITAL SIGNS: Reviewed. GENERAL: Well developed, well nourished, in no acute distress. HEAD: Normocephalic/atraumatic EYES: PERRLA, EOMI intact without pain, no nystagmus EARS: Ext canals without abnormality, TMs non-bulging and non-erythematous NOSE: Nares patent bilateral OROPHARYNX: no oral lesions noted, posterior pharynx clear, mildly dry mucosa NECK: Supple, no adenopathy LUNGS: Normal breath sounds. No adventitious sounds or accessory muscle use. SpO2<99> CARDIOVASCULAR: Regular rate and rhythm without noted murmurs, no JVD or lower extremity edema. ABDOMEN: Soft, non-tender, non-distended with bowel sounds. MUSCULOSKELETAL: No tenderness, deformities, or effusions noted on gross inspection. EXTREMITIES: No cyanosis, clubbing or edema. SKIN: Inspection of the skin reveals no rashes NEUROLOGIC: Alert and oriented x 4. Strength and sensation to light touch were grossly intact x 4, no facial asymmetry, no pronator drift, cranial nerves 2-12 grossly back, cerebellar testing is grossly normal. Course Course Course Narrative: 76-year-old female with history and clinical presentation of recurrent lightheadedness and on review of documentation patient was seen in May for similar symptoms and at that time was noted to reports that she had a history of vertigo but at that time had declined taking any Antivert. Orthostatics are negative and on review of all investigations there are no acute findings such as infection, anemia, arrhythmia to better explain patient's presentation. Patient is adamant in stating that this is different from her prior episodes vertigo but is similar to her episode in May. Review of all investigations negative for acute findings, patient continues to decline Antivert, patient is otherwise completely nonfocal. Patient ambulated around the ER and denies dizziness/vertigo and was noted to be quite steady on her feet. Very low clinical suspicion for posterior circulation issues and patient was discharged home in stable condition. MDM - Dizziness Lab Data Result diagrams: 08/10/21 19:35 08/10/21 19:35 Labs: Lab Results 08/10/21 08/10/21 08/10/21 Range/Units 19:35 19:35 19:35 WBC 8.1 (4.8-10.8) X10*3/uL RBC 3.98 L (4.20-5.50) X10*6/uL Hgb 11.3 L (12.0-16.0) g/dl Hct 35.8 L (37.0-47.0) % MCV 89.9 (80.0-98.0) fL MCH 28.4 (27.0-33.0) pg MCHC 31.6 (31.0-35.0) g/dl RDW 13.5 (11.0-16.0) % Plt Count 282 (160-400) X10*3/uL MPV 10.6 (9.4-12.3) fL Immature Gran % (Auto) 0.2 (0.0-0.4) % Neut % (Auto) 56.8 (45-73) % Lymph % (Auto) 32.3 (20-40) % Vilas % (Auto) 7.0 (2-11) % Eos % (Auto) 2.7 (0-4) % Baso % (Auto) 1.0 (0-2) % Lymph # (Auto) 2.6 (1.2-4.9) X10*3/uL Vilas # (Auto) 0.6 (0.1-1.2) X10*3/uL Eos # (Auto) 0.2 (0.0-0.4) X10*3/uL Baso # (Auto) 0.1 (0.0-0.2) X10*3/uL Abs Immat Gran (auto) 0.02 (0.00-0.03) X10*3/uL Absolute Neuts (auto) 4.6 (2.0-8.3) x10*3/uL Absolute Nucleated RBC 0.000 (0.0-0.012) X10*3/uL Nucleated RBC % (auto) 0.0 (0.0-0.2) /100WBC Sodium 140 (135-145) mmol/L Potassium 4.1 (3.3-5.1) mmol/L Chloride 106 (96-108) mmol/L Carbon Dioxide 24 (22-29) mmol/L Anion Gap 14 (12-20) BUN 16 (9-16) mg/dL Creatinine 0.90 (0.5-1.4) mg/dL Estim Creat Clear Calc 53.8 Estimated GFR > 60 Random Glucose 88 (60-115) mg/dL Calcium 10.4 H D (8.4-10.2) mg/dL Troponin I High Sens 14.6 (<3.5-17.0) ng/L Urine Color Urine Appearance Urine pH (5.0-8.0) Ur Specific [place] (1.005-1.025) Urine Protein (NEG-TRACE) MG/DL Urine Glucose (UA) (NEG) MG/DL Urine Ketones (NEG) MG/DL Urine Blood (NEG) Urine Nitrite (NEG) Ur Leukocyte Esterase (NEG) 08/10/21 Range/Units 23:02 WBC (4.8-10.8) X10*3/uL RBC (4.20-5.50) X10*6/uL Hgb (12.0-16.0) g/dl Hct (37.0-47.0) % MCV (80.0-98.0) fL MCH (27.0-33.0) pg MCHC (31.0-35.0) g/dl RDW (11.0-16.0) % Plt Count (160-400) X10*3/uL MPV (9.4-12.3) fL Immature Gran % (Auto) (0.0-0.4) % Neut % (Auto) (45-73) % Lymph % (Auto) (20-40) % Vilas % (Auto) (2-11) % Eos % (Auto) (0-4) % Baso % (Auto) (0-2) % Lymph # (Auto) (1.2-4.9) X10*3/uL Vilas # (Auto) (0.1-1.2) X10*3/uL Eos # (Auto) (0.0-0.4) X10*3/uL Baso # (Auto) (0.0-0.2) X10*3/uL Abs Immat Gran (auto) (0.00-0.03) X10*3/uL Absolute Neuts (auto) (2.0-8.3) x10*3/uL Absolute Nucleated RBC (0.0-0.012) X10*3/uL Nucleated RBC % (auto) (0.0-0.2) /100WBC Sodium (135-145) mmol/L Potassium (3.3-5.1) mmol/L Chloride (96-108) mmol/L Carbon Dioxide (22-29) mmol/L Anion Gap (12-20) BUN (9-16) mg/dL Creatinine (0.5-1.4) mg/dL Estim Creat Clear Calc Estimated GFR Random Glucose (60-115) mg/dL Calcium (8.4-10.2) mg/dL Troponin I High Sens (<3.5-17.0) ng/L Urine Color STRAW Urine Appearance CLEAR Urine pH 6.5 (5.0-8.0) Ur Specific [place] <= 1.005 (1.005-1.025) Urine Protein NEG (NEG-TRACE) MG/DL Urine Glucose (UA) NEG (NEG) MG/DL Urine Ketones NEG (NEG) MG/DL Urine Blood NEG (NEG) Urine Nitrite NEG (NEG) Ur Leukocyte Esterase NEG (NEG) ECG Data Attestation: I personally reviewed and interpreted this ECG as follows: Prior ECG tracings: available for review Interpretation: Normal sinus rhythm, HR-67, no STEMI, HI/QRS/QTC are within normal limits. Discharge Plan Discharge Clinical Impression: Anxiety, Light-headedness Patient Disposition: Home, Self-Care Instructions: Lightheadedness (ED) Additional Instructions: 1. Resume your home medications as prescribed. 2. Please follow-up with your primary care provider for further evaluation of your blood pressure, intermittent lightheadedness as there are many other reasons that this may be occurring. Return to the emergency room for worsening symptoms. Prescriptions: No Action gabapentin 100 mg capsule 100 mg PO TID Qty: 90 RF: 2 albuterol sulfate 90 mcg/actuation HFA aerosol inhaler 2 puff PO Q6H PRN (Reason: for muscle spasm) Qty: 8.5 RF: 3 rosuvastatin 40 mg tablet 40 mg PO DAILY Qty: 90 RF: 1 metformin 1,000 mg tablet 1,000 mg PO BID Qty: 180 RF: 1 aspirin 81 mg tablet,delayed release (DR/EC) 81 mg PO DAILY Qty: 90 RF: 0 omeprazole 20 mg capsule,delayed release(DR/EC) 40 mg PO DAILY Qty: 180 RF: 0 alprazolam 0.25 mg tablet 0.25 mg PO BID PRN (Reason: anxiety) 30 Days Qty: 60 RF: 0 ondansetron 4 mg tablet,disintegrating 4 mg PO Q8H PRN (Reason: nausea and vomiting) Qty: 20 RF: 0 Anoro Ellipta 62.5-25 mcg/actuation blister with device 1 inh inhalation DAILY 30 Days Qty: 1 RF: 6
[2021-08-10 23:18] VITALS: BP 139/71; BP 142/69; BP 145/72; PULSE 60; PULSE 66; PULSE 68
[2021-08-10 23:19] VITALS: BP 145/72; PULSE 60; RESP 14
[2021-08-10 23:37] LABS: Appearance Urine CLEAR; Color Urine STRAW; Glucose Urine UA NEG (NEG); Leukocyte Esterase Urine NEG (NEG); Nitrite Urine NEG (NEG); PH 6.5 (5.0-8.0); Specific Gravity - Urine <= 1.005 (1.005-1.025); Urine Blood NEG (NEG); Urine Ketones NEG (NEG); Urine Protein NEG (NEG-TRACE)
[2021-08-10 23:41] LABS: UACC Culture Trigger NO
[2021-08-11] MEDS: iohexoL 350 MG/ML 100 ML INFUS..BTL IV (01:28)
--- NOTE | 2021-08-11 02:43 | PC.NURSE ---
pt ambulated around the ed 2 times around with a steady gait and at a very good pace, denies sob, denies dizziness, pt was talking in full sentences the complete time. pt lives alone and has a retail personal banker come to her house to do her house work, shopping. pt states she doesnt get out much. pt hr maintained at 82-84 and sat low of 94 and high of 99%. no increase in rr noted.
== END 2021-08-11 03:07 | disposition home or self-care (01) ==
PROVIDERS: Emergency Medicine; Emergency Provider Student in an Organized Health Care Education/Training Program
DX: R42 Dizziness and giddiness (principal); F41.9 Anxiety disorder, unspecified; E11.9 Type 2 diabetes mellitus without complications; F17.200 Nicotine dependence, unspecified, uncomplicated
CPT/HCPCS: 36415; 70496; 70498; 80048; 81003; 84484; 85025; 93005; 99284; Q9967

== ENCOUNTER 2021-08-20 10:08 | Outpatient (REF) | payer MEDICARE, SELFPAY ==
[2021-08-20 10:27] LABS: MANUAL DIFF FLAG NO
[2021-08-20 10:34] LABS: Basophils Absolute Auto 0.1 X10*3/uL (0.0-0.2); Basophils Percent Auto 0.9 % (0-2); Eosinophils Absolute Auto 0.2 X10*3/uL (0.0-0.4); Eosinophils Percent Auto 3.6 % (0-4); Hematocrit 37.8 % (37.0-47.0); Hemoglobin 11.7 g/dl (12.0-16.0); Imm Gran Abs Auto 0.01 X10*3/uL (0.00-0.03); Imm Gran Pct Auto 0.2 % (0.0-0.4); Lymphocytes Absolute Auto 1.7 X10*3/uL (1.2-4.9); Lymphocytes Percent Auto 28.6 % (20-40); Mean Corpuscular Hemoglobin 27.7 pg (27.0-33.0); Mean Corpuscular Volume 89.6 fL (80.0-98.0); Mean Platelet Volume 10.8 fL (9.4-12.3); Monocytes Absolute Auto 0.5 X10*3/uL (0.1-1.2); Monocytes Percent Auto 8.6 % (2-11); Neutrophils Absolute Auto 3.4 x10*3/uL (2.0-8.3); Neutrophils Percent Auto 58.1 % (45-73); Platelet Count 302 X10*3/uL (160-400); Red Blood Count 4.22 X10*6/uL (4.20-5.50); Red Cell Distribution Width 13.7 % (11.0-16.0); White Blood Count 5.8 X10*3/uL (4.8-10.8)
[2021-08-20 11:03] LABS: Alanine Aminotransferase 17 U/L (0-31); Albumin Level 4.5 g/dL (3.5-5.0); Alkaline Phosphatase 51 U/L (39-117); Anion Gap 13 (12-20); Aspartate Amino Transferase 17 U/L (5-31); Bilirubin Total 0.4 mg/dL (0.0-1.0); Blood Urea Nitrogen 17 mg/dL (9-16); Calcium 10.4 mg/dL (8.4-10.2); Carbon Dioxide 27 mmol/L (22-29); Chloride 105 mmol/L (96-108); Cholesterol 126 mg/dL; Estimated Glomerular Filt Rate 49; Glucose Fasting 130 mg/dL (60-99); HDL Cholesterol 39 mg/dL; LDL Cholesterol Calculated 66 mg/dl; Potassium 4.4 mmol/L (3.3-5.1); Sodium 141 mmol/L (135-145); Total Protein 7.4 g/dL (6.5-8.0); Triglycerides 109 mg/dL
[2021-08-20 11:20] LABS: Estimated Average Glucose 148 mg/dL; Hemoglobin A1c % 6.8 %
[2021-08-20 11:24] LABS: TSH reflex Free T4 4.17 uIU/mL (0.32-4.0); Vitamin D 25-OH Total 26.5 ng/mL (>30)
[2021-08-20 12:04] LABS: Appearance Urine CLEAR; Color Urine YELLOW; Glucose Urine UA NEG (NEG); Leukocyte Esterase Urine NEG (NEG); Nitrite Urine NEG (NEG); Urine Blood NEG (NEG); Urine Ketones NEG (NEG); Urine Protein TRACE MG/DL (NEG-TRACE)
[2021-08-20 12:18] LABS: Creatinine Urine 64.33 mg/dL; Microalbum/Creatinine Ratio Ur 138.3 ug/mg cr
[2021-08-20 13:16] LABS: Free T4 (Free Thyroxine) 0.81 ng/dL (0.71-1.85)
== END 2021-08-20 10:09 | disposition home or self-care (01) ==
LOC: HO.LAB 10:08
PROVIDERS: PCP Internal Medicine; Visit Provider Internal Medicine
DX: E78.00 Pure hypercholesterolemia, unspecified (principal); I10 Essential (primary) hypertension; E55.9 Vitamin D deficiency, unspecified; E11.9 Type 2 diabetes mellitus without complications; E78.2 Mixed hyperlipidemia
CPT/HCPCS: 36415; 80053; 80061; 81003; 82043; 82306; 83036; 84439; 84443; 85025

== ENCOUNTER 2021-11-28 08:18 | Outpatient (REF) | payer OTHER, SELFPAY ==
[2021-11-28 08:49] LABS: MANUAL DIFF FLAG NO
[2021-11-28 08:59] LABS: Basophils Absolute Auto 0.1 X10*3/uL (0.0-0.2); Basophils Percent Auto 0.9 % (0-2); Eosinophils Absolute Auto 0.3 X10*3/uL (0.0-0.4); Eosinophils Percent Auto 4.3 % (0-4); Hematocrit 36.9 % (37.0-47.0); Hemoglobin 11.4 g/dl (12.0-16.0); Imm Gran Abs Auto 0.01 X10*3/uL (0.00-0.03); Imm Gran Pct Auto 0.2 % (0.0-0.4); Lymphocytes Absolute Auto 2.2 X10*3/uL (1.2-4.9); Lymphocytes Percent Auto 34.4 % (20-40); Mean Corpuscular HGB Conc 30.9 g/dl (31.0-35.0); Mean Corpuscular Hemoglobin 27.9 pg (27.0-33.0); Mean Corpuscular Volume 90.4 fL (80.0-98.0); Mean Platelet Volume 10.5 fL (9.4-12.3); Monocytes Absolute Auto 0.6 X10*3/uL (0.1-1.2); Monocytes Percent Auto 8.8 % (2-11); Neutrophils Absolute Auto 3.3 x10*3/uL (2.0-8.3); Neutrophils Percent Auto 51.4 % (45-73); Platelet Count 266 X10*3/uL (160-400); Red Blood Count 4.08 X10*6/uL (4.20-5.50); Red Cell Distribution Width 13.9 % (11.0-16.0); White Blood Count 6.3 X10*3/uL (4.8-10.8)
[2021-11-28 09:05] LABS: Estimated Average Glucose 151 mg/dL; Hemoglobin A1c % 6.9 %
[2021-11-28 09:28] LABS: Alanine Aminotransferase 32 U/L (0-31); Albumin Level 4.3 g/dL (3.5-5.0); Alkaline Phosphatase 52 U/L (39-117); Anion Gap 14 (12-20); Aspartate Amino Transferase 27 U/L (5-31); Bilirubin Total 0.3 mg/dL (0.0-1.0); Blood Urea Nitrogen 15 mg/dL (9-16); Calcium 10.2 mg/dL (8.4-10.2); Carbon Dioxide 26 mmol/L (22-29); Chloride 105 mmol/L (96-108); Cholesterol 115 mg/dL; Estimated Glomerular Filt Rate 58; Glucose Fasting 152 mg/dL (60-99); HDL Cholesterol 38 mg/dL; LDL Cholesterol Calculated 48 mg/dl; Potassium 4.8 mmol/L (3.3-5.1); Sodium 140 mmol/L (135-145); Total Protein 7.3 g/dL (6.5-8.0); Triglycerides 147 mg/dL
[2021-11-28 09:49] LABS: Appearance Urine CLEAR; Color Urine YELLOW; Glucose Urine UA NEG (NEG); Leukocyte Esterase Urine NEG (NEG); Nitrite Urine NEG (NEG); Urine Blood NEG (NEG); Urine Ketones NEG (NEG); Urine Protein NEG (NEG-TRACE)
[2021-11-28 09:51] LABS: TSH reflex Free T4 4.33 uIU/mL (0.32-4.0); Vitamin D 25-OH Total 25.1 ng/mL (>30)
[2021-11-28 10:03] LABS: Folate 11.7 ng/mL (> or = 4.0); Vitamin B12 241 pg/mL (200-900)
[2021-11-28 10:11] LABS: Creatinine Urine 55.29 mg/dL; Microalbum/Creatinine Ratio Ur 30.7 ug/mg cr
[2021-11-28 10:24] LABS: Free T4 (Free Thyroxine) 0.86 ng/dL (0.71-1.85)
== END 2021-11-28 08:19 | disposition home or self-care (01) ==
LOC: HO.LAB 08:18
PROVIDERS: PCP Internal Medicine; Visit Provider Internal Medicine
DX: I10 Essential (primary) hypertension (principal); E11.9 Type 2 diabetes mellitus without complications; E78.00 Pure hypercholesterolemia, unspecified; E55.9 Vitamin D deficiency, unspecified; E53.8 Deficiency of other specified B group vitamins; K21.9 Gastro-esophageal reflux disease without esophagitis; D64.9 Anemia, unspecified; R42 Dizziness and giddiness
CPT/HCPCS: 36415; 80053; 80061; 81003; 82043; 82306; 82607; 82746; 83036; 84439; 84443; 85025

== ENCOUNTER 2021-12-03 11:22 | Outpatient (REF) | payer OTHER, SELFPAY ==
--- NOTE | ~2021-12-03 | XR_ITS ---
EXAMINATION: XR LUMBAR SPINE XR SACROILIAC JOINTS CLINICAL INFORMATION: Low back pain. COMPARISON: Lumbar spine radiographs 03/23/2017. TECHNIQUE: 4 views SI joints, 3 views lumbosacral spine. FINDINGS: Degenerative changes are present in the lumbar spine most marked at L4-L5 with marked disc space narrowing and sclerosis and to a lesser extent L5-S1. There is minimal grade 1 anterolisthesis of L3 upon L4 as well as L4 upon L5. No fractures or bony destructive lesions are seen. Some mild sclerotic changes are present at both SI joints. XR/XR lumbar spine 2-3V IMPRESSION: Degenerative changes lumbar spine predominantly from L4 through S1. Sclerotic changes of both sacroiliac joints. Compared to the prior study appearances are fairly similar, possibly mildly progressed at L4-L5.
--- NOTE | ~2021-12-03 | XR_ITS ---
EXAMINATION: XR LUMBAR SPINE XR SACROILIAC JOINTS CLINICAL INFORMATION: Low back pain. COMPARISON: Lumbar spine radiographs 03/23/2017. TECHNIQUE: 4 views SI joints, 3 views lumbosacral spine. FINDINGS: Degenerative changes are present in the lumbar spine most marked at L4-L5 with marked disc space narrowing and sclerosis and to a lesser extent L5-S1. There is minimal grade 1 anterolisthesis of L3 upon L4 as well as L4 upon L5. No fractures or bony destructive lesions are seen. Some mild sclerotic changes are present at both SI joints. XR/XR sacroiliac joint min 3V IMPRESSION: Degenerative changes lumbar spine predominantly from L4 through S1. Sclerotic changes of both sacroiliac joints. Compared to the prior study appearances are fairly similar, possibly mildly progressed at L4-L5.
== END 2021-12-03 11:23 | disposition home or self-care (01) ==
LOC: HO.XRAY 11:22
PROVIDERS: PCP Internal Medicine; Visit Provider Internal Medicine
DX: M54.50 Low back pain, unspecified (principal)
CPT/HCPCS: 72100; 72202

== ENCOUNTER → 2022-01-24 12:16 | Outpatient (BNVA) | payer MEDICARE, SELFPAY | PROVIDERS: PCP Internal Medicine; Visit Provider Nurse Practitioner | DX: D12.6 Benign neoplasm of colon, unspecified (principal); Z12.11 Encounter for screening for malignant neoplasm of colon | CPT/HCPCS: 99202; 99212 ==

== ENCOUNTER 2022-01-24 17:07 | Outpatient (REF) | payer OTHER, SELFPAY | END 2022-01-24 17:08 | disposition home or self-care (01) | LOC: HO.LNP 17:07 | PROVIDERS: Visit Provider Nurse Practitioner Family | DX: R05.9 Cough, unspecified (principal); R49.0 Dysphonia | CPT/HCPCS: 87071 ==

== ENCOUNTER 2022-03-11 12:45 | Outpatient (REF) | payer OTHER, SELFPAY ==
--- NOTE | ~2022-03-11 | MM_ITS ---
EXAMINATION: MM SCREENING DIGITAL BREAST TOMOSYNTHESIS, BILATERAL CLINICAL INFORMATION: Screening. Asymptomatic. The lifetime risk of breast cancer based on the Tyrer-Cuzick Model is 3%. COMPARISON: Mammography: 09/24/2020, 01/21/2019, 12/16/2017 TECHNIQUE: Digital breast tomosynthesis is performed in both the craniocaudal and mediolateral oblique views along with computer-aided detection (CAD). Synthesized 2D images are generated from the tomosynthesis. FINDINGS: The breasts are heterogeneously dense, which may obscure small masses (ACR BI-RADS breast composition Category c). Parenchymal pattern is similar to prior studies and there is no interval mass or architectural abnormality or developing density. Right breast has biopsy clip marker mid upper outer quadrant. There are scattered bilateral vascular and some round calcifications again seen. The axilla and skin contours are unremarkable. The left MLO view has new calcifications anterior upper breast approximately 5.7 cm from nipple, suspect vascular or fibrocystic rim calcification. Patient will be recalled for additional imaging. MM/MM tomosynthesis screening BI IMPRESSION: Left: -Calcifications anterior upper breast on MLO view, suspect vascular or fibrocystic rim etiology. Right: -No mammographic evidence of malignancy. ASSESSMENT: BI-RADS 0: Incomplete - Need Additional Imaging Evaluation RECOMMENDATION: 1. Additional views of the left breast (magnification CC, magnification ML). 2. Radiology department staff will contact the patient for additional imaging. This patient's information was entered into a reminder system with a target due date for their next mammogram.
== END 2022-03-11 12:46 | disposition home or self-care (01) ==
LOC: HO.MAMMO 12:45
PROVIDERS: PCP Internal Medicine; Visit Provider Internal Medicine
DX: Z12.31 Encounter for screening mammogram for malignant neoplasm of breast (principal)
CPT/HCPCS: 77063; 77067

== ENCOUNTER 2022-03-18 08:49 | Outpatient (REF) | payer OTHER, SELFPAY ==
--- NOTE | ~2022-03-18 | MM_ITS ---
EXAMINATION: MM DIAGNOSTIC DIGITAL MAMMOGRAPHY, LEFT CLINICAL INFORMATION: Recall from screening for some fine calcifications anterior upper left breast on MLO view, likely vascular or fibrocystic rim etiology. COMPARISON: Mammography: 03/11/2022, 09/24/2020 TECHNIQUE: Digital mammography is performed in the following views: Magnification CC, magnification ML x2. FINDINGS: The breasts are heterogeneously dense, which may obscure small masses (ACR BI-RADS breast composition Category c). The additional views show some fine vascular calcifications in the area for recall. There are no pleomorphic or grouped calcifications at this location. There are scattered benign round regional calcifications in the upper and outer left breast, similar to prior studies. Results are discussed with the patient at time of visit. MM/MM added views LT IMPRESSION: Additional magnification views show no abnormal calcifications in the anterior upper left breast. ASSESSMENT: BI-RADS 2: Benign RECOMMENDATION: Routine annual mammography screening. This patient's information was entered into a reminder system with a target due date for their next mammogram.
== END 2022-03-18 08:50 | disposition home or self-care (01) ==
LOC: HO.MAMMO 08:49
PROVIDERS: Visit Provider Internal Medicine
DX: R92.1 Mammographic calcification found on diagnostic imaging of breast (principal)
CPT/HCPCS: 77065

== ENCOUNTER → 2022-04-01 12:21 | Outpatient (BNVA) | payer OTHER, SELFPAY | PROVIDERS: PCP Internal Medicine; Referring Provider Internal Medicine; Visit Provider Internal Medicine | DX: I25.10 Atherosclerotic heart disease of native coronary artery without angina pectoris (principal); I25.2 Old myocardial infarction; Z78.9 Other specified health status | CPT/HCPCS: 99212 ==

== ENCOUNTER 2022-04-18 08:04 | Outpatient (REF) | payer OTHER, SELFPAY ==
[2022-04-18 08:23] LABS: MANUAL DIFF FLAG NO
[2022-04-18 08:35] LABS: Basophils Absolute Auto 0.1 X10*3/uL (0.0-0.2); Basophils Percent Auto 1.4 % (0-2); Eosinophils Absolute Auto 0.2 X10*3/uL (0.0-0.4); Eosinophils Percent Auto 3.8 % (0-4); Hematocrit 35.4 % (37.0-47.0); Hemoglobin 11.2 g/dl (12.0-16.0); Imm Gran Abs Auto 0.01 X10*3/uL (0.00-0.03); Imm Gran Pct Auto 0.2 % (0.0-0.4); Lymphocytes Absolute Auto 2.2 X10*3/uL (1.2-4.9); Lymphocytes Percent Auto 36.9 % (20-40); Mean Corpuscular HGB Conc 31.6 g/dl (31.0-35.0); Mean Corpuscular Hemoglobin 26.9 pg (27.0-33.0); Mean Corpuscular Volume 85.1 fL (80.0-98.0); Mean Platelet Volume 10.3 fL (9.4-12.3); Monocytes Absolute Auto 0.5 X10*3/uL (0.1-1.2); Monocytes Percent Auto 9.1 % (2-11); Neutrophils Absolute Auto 2.9 x10*3/uL (2.0-8.3); Neutrophils Percent Auto 48.6 % (45-73); Platelet Count 337 X10*3/uL (160-400); Red Blood Count 4.16 X10*6/uL (4.20-5.50); Red Cell Distribution Width 14.5 % (11.0-16.0); White Blood Count 5.9 X10*3/uL (4.8-10.8)
[2022-04-18 09:12] LABS: Alanine Aminotransferase 23 U/L (0-31); Albumin Level 4.1 g/dL (3.5-5.0); Alkaline Phosphatase 61 U/L (39-117); Anion Gap 14 (12-20); Aspartate Amino Transferase 20 U/L (5-31); Bilirubin Total 0.4 mg/dL (0.0-1.0); Blood Urea Nitrogen 19 mg/dL (9-16); Calcium 9.9 mg/dL (8.4-10.2); Carbon Dioxide 28 mmol/L (22-29); Chloride 103 mmol/L (96-108); Cholesterol 262 mg/dL; Estimated Glomerular Filt Rate 56; Glucose Fasting 148 mg/dL (60-99); HDL Cholesterol 40 mg/dL; LDL Cholesterol Calculated 174 mg/dl; Potassium 4.8 mmol/L (3.3-5.1); Sodium 140 mmol/L (135-145); Total Protein 7.3 g/dL (6.5-8.0); Triglycerides 241 mg/dL
[2022-04-18 09:21] LABS: TSH reflex Free T4 3.69 uIU/mL (0.32-4.0)
[2022-04-18 09:23] LABS: Appearance Urine Clear; Color Urine Yellow; Glucose Urine UA Negative (Negative); Leukocyte Esterase Urine Negative (Negative); Nitrite Urine Negative (Negative); Specific Gravity - Urine 1.015 (1.005-1.025); Urine Blood Negative (Negative); Urine Ketones Negative (Negative); Urine Protein Negative (Neg-Trace)
== END 2022-04-18 08:05 | disposition home or self-care (01) ==
LOC: HO.LAB 08:04
PROVIDERS: PCP Internal Medicine; Visit Provider Internal Medicine
DX: E78.00 Pure hypercholesterolemia, unspecified (principal); I10 Essential (primary) hypertension
CPT/HCPCS: 36415; 80053; 80061; 81003; 84443; 85025

== ENCOUNTER 2022-06-17 17:06 | Outpatient (REF) | payer OTHER, SELFPAY ==
[2022-06-18 09:22] LABS: BV Int Neg Control Negative (Negative); BV Int Pos Control Positive (Positive)
== END 2022-06-17 17:07 | disposition home or self-care (01) ==
LOC: HO.LNP 17:06
PROVIDERS: Visit Provider Nurse Practitioner Family
DX: N89.8 Other specified noninflammatory disorders of vagina (principal)
CPT/HCPCS: 87480; 87510; 87660

== ENCOUNTER 2022-06-17 23:42 | Emergency (ER) | payer OTHER, SELFPAY ==
[2022-06-17 23:54] VITALS: BP 143/53; BP 188/99; PULSE 74; PULSE 80; RESP 16; TEMP 36.3; O2SAT 96; O2SAT 97; BMI 29.5
--- NOTE | 2022-06-18 00:03 | ED.DIZZY ---
HPI - Dizziness General Chief Complaint: Dizziness Stated Complaint: dizziness Time Seen by Provider: 06/18/22 00:01 Source: patient Mode of arrival: ambulatory Limitations: no limitations History of Present Illness HPI Narrative: Patient history of vertigo in the past noticed similar dizziness started at 22:00 feel everything is spinning as with nausea no headache no any weakness no chest pain or palpitation no tinnitus Related Data Previous Rx's Medication Instructions Recorded gabapentin 100 mg capsule 100 mg PO TID #90 caps 08/23/20 ondansetron 4 mg disintegrating 4 mg PO Q8H PRN nausea and 06/27/21 tablet vomiting #20 tabs omeprazole 20 mg capsule,delayed 40 mg PO DAILY #180 caps 08/07/21 release albuterol sulfate 90 mcg/actuation 2 puff PO Q6H PRN for muscle spasm 09/16/21 aerosol inhaler #8.5 grams blood pressure monitor #1 ea 12/11/21 fluconazole 150 mg tablet 150 mg PO ONCE 1 day #1 tab 01/01/22 benzocaine 15 mg-menthol 2.6 mg 1 gregorio mucous membrane Q4H PRN sore 01/24/22 lozenges (Cepacol Sore Throat throat #16 ea (benzocaine-menthol)) peg 3350-electrolytes 236 240 ml PO Q10M 1 day #4,000 mL 01/24/22 gram-22.74 gram-6.74 gram-5.86 gram solution (Golytely) aspirin 81 mg tablet,delayed 81 mg PO DAILY #90 tabs 02/28/22 release olopatadine 0.1 % eye drops 1 drp ophthalmic (eye) BID PRN 02/28/22 itching of eyes 30 days #5 mL nitroglycerin 0.4 mg sublingual 0.4 mg sublingual Q5M PRN chest 04/02/22 tablet pain #30 tabs metformin 1,000 mg tablet 1,000 mg PO BID #180 tabs 04/10/22 alprazolam 0.25 mg tablet 0.25 mg PO BID PRN anxiety 30 days 05/28/22 #60 tabs miconazole nitrate 100 mg vaginal 100 mg vaginal BEDTIME 7 days #7 ea 06/04/22 suppository (Miconazole-7) nystatin 100,000 unit/gram topical 1 appl topical QID PRN rash 14 06/04/22 powder days #30 grams umeclidinium 62.5 mcg-vilanterol 1 inh inhalation DAILY 30 days #1 06/11/22 25 mcg/actuation powdr for ea inhalation (Anoro Ellipta) rosuvastatin 40 mg tablet 40 mg PO DAILY 90 days #90 tabs 06/13/22 ondansetron 4 mg disintegrating 4 mg PO Q8-12H PRN nausea and 06/18/22 tablet vomiting #7 tabs Allergies Allergy/AdvReac Type Severity Reaction Status Date / Time clarithromycin [From PREVPAC] Allergy Mild hives Verified 06/17/22 14:36 lansoprazole [From PREVPAC] Allergy Mild hives Verified 06/17/22 14:36 lisinopril [LISINOPRIL] Allergy Mild COUGHING, Verified 06/17/22 14:36 cough, cough amoxicillin [AMOXICILLIN] Allergy Unknown RASH Verified 06/17/22 14:36 cephalexin Allergy Unknown rash Verified 06/17/22 14:36 clavulanic acid [Augmentin] Allergy Unknown rash Verified 06/17/22 14:36 duloxetine [Cymbalta] Allergy Unknown weight Verified 06/17/22 14:36 gain, increase appetite levofloxacin [From LEVAQUIN] Allergy Unknown RASH Verified 06/17/22 14:36 linaclotide [Linzess] Allergy Unknown nausea Verified 06/17/22 14:36 penicillin V Allergy Unknown rash Verified 06/17/22 14:36 Penicillins [PENICILLINS] Allergy Unknown RASH Verified 06/17/22 14:36 Prevpac Allergy Unknown rash Verified 06/17/22 14:36 Sulfa (Sulfonamide Allergy Unknown rash Verified 06/17/22 14:36 Antibiotics) tramadol Allergy Unknown pruritus Verified 06/17/22 14:36 triamcinolone [Kenalog] Allergy Unknown Unknown Verified 06/17/22 14:36 umeclidinium Allergy Unknown abdominal Verified 06/17/22 14:36 [Incruse Ellipta] pain prednisone [Prednisone] AdvReac Mild YEAST Verified 06/17/22 14:36 INFECTION cetirizine AdvReac Unknown dizziness? Verified 06/17/22 14:36 [facility] Past Medical History Medical History Anxiety Asthma Atherosclerotic cardiovascular disease Borderline diabetes Chronic headache Constipation Degenerative lumbar disc Diabetes mellitus Fibromyalgia GERD without esophagitis Hypercholesteremia Irritable bowel syndrome Left low back pain Lumbar degenerative disc disease Mixed hyperlipidemia Osteoporosis Overweight (BMI 25.0-29.9) Pulmonary emphysema Vertigo Vitamin D deficiency Surgical History H/O angioplasty H/O heart artery stent H/O Spinal surgery Hx of colonoscopy Hx of tubal ligation Family History Family History Father No problems noted. Mother Depression S/P CABG x 4 Diabetes Hypertension Sister Poor high blood pressure control Cervical cancer Breast cancer Social History Social History Housing: Apartment Alcohol intake: current Alcohol intake frequency: holidays/special occasions only Alcohol type: beer and wine Patient Tobacco Use Status: Former Tobacco user Second Hand Smoke Exposure: Yes Advance Directives: No Advance Directives Information Provided: Yes service: No Current occupational status: retired and disabled Cognitive needs: No Hearing needs: No Vision needs: Yes (glasses) Physical Exam Vital Signs: Vital Signs: Last Vital Signs Temp 96.9 F 06/18/22 02:26 Pulse 70 06/18/22 02:26 Resp 15 06/18/22 02:26 BP 124/62 06/18/22 02:26 Pulse Ox 99 06/18/22 02:26 O2 Del Method 06/18/22 02:26 BMI result Body Mass Index 29.5 Appearance: Alert. Oriented X3. No acute distress. Eyes: PERRLA, No Nystagmus ENT: Pharynx normal. Oral Mucosa moist Neck: Normal inspection. Neck supple. CVS: Normal heart rate and rhythm. Pulses normal. Respiratory: No respiratory distress. Equal air entry bilateral, no wheezing/rales/rhonchi Abdomen: Soft and nontender. Bowel sounds are present, no mass palpable, no CVA tenderness Skin: Skin warm and dry. Normal skin color. Normal skin turgor. Extremities: No lower extremity edema. No calf tenderness Neuro: Oriented X 3. No motor deficit. No sensory deficit.No cerebellar signs , cranial nerves II-XII intact MDM - Dizziness MDM Narrative Medical decision making narrative: Patient clinically with peripheral etiology for vertigo does not want take meclizine as last time when she took it made her sleep for long time. Responded to Ativan p.o.. Will discharge patient home patient just had recent labs done which were stable Lab Data Attestation: I reviewed the patient's lab results. Labs: Lab Results 06/18/22 Range/Units 02:03 POC Glucose 147 H (60-115) mg/dL Discharge Plan Discharge Clinical Impression: Benign paroxysmal positional vertigo Patient Disposition: Home, Self-Care Instructions: Benign Paroxysmal Positional Vertigo (ED) Additional Instructions: Rest at home Take extra alprazolam when you have dizziness Follow-up with your PCP Medicine for nausea as prescribed Prescriptions: New ondansetron 4 mg tablet,disintegrating 4 mg PO Q8-12H PRN (Reason: nausea and vomiting) Qty: 7 0RF No Action gabapentin 100 mg capsule 100 mg PO TID Qty: 90 2RF omeprazole 20 mg capsule,delayed release(DR/EC) 40 mg PO DAILY Qty: 180 0RF albuterol sulfate 90 mcg/actuation HFA aerosol inhaler 2 puff PO Q6H PRN (Reason: for muscle spasm) Qty: 8.5 3RF fluconazole 150 mg tablet 150 mg PO ONCE 1 Days Qty: 1 0RF olopatadine 0.1 % drops 1 drp ophthalmic (eye) BID PRN (Reason: itching of eyes) 30 Days Qty: 5 3RF Rx Instructions: separate doses by at least 6-8 hours aspirin 81 mg tablet,delayed release (DR/EC) 81 mg PO DAILY Qty: 90 1RF metformin 1,000 mg tablet 1,000 mg PO BID Qty: 180 1RF alprazolam 0.25 mg tablet 0.25 mg PO BID PRN (Reason: anxiety) 30 Days Qty: 60 0RF Anoro Ellipta 62.5-25 mcg/actuation blister with device 1 inh inhalation DAILY 30 Days Qty: 1 6RF rosuvastatin 40 mg tablet 40 mg PO DAILY 90 Days Qty: 90 1RF ondansetron 4 mg tablet,disintegrating 4 mg PO Q8H PRN (Reason: nausea and vomiting) Qty: 20 0RF Cepacol Sore Throat (tal-men) 15-2.6 mg lozenge 1 gregorio mucous membrane Q4H PRN (Reason: sore throat) Qty: 16 0RF miconazole nitrate [Miconazole-7] 100 mg suppository 100 mg vaginal BEDTIME 7 Days Qty: 7 0RF nystatin 100,000 unit/gram powder 1 appl topical QID PRN (Reason: rash) 14 Days Qty: 30 0RF (DME) blood pressure monitor Kit See Rx Instructions .Route Qty: 1 0RF Rx Instructions: As directed peg 3350-electrolytes [Golytely] 236-22.74-6.74 -5.86 gram recon soln 240 ml PO Q10M 1 Days Qty: 4000 0RF Rx Instructions: until fecal effluent is clear; do not exceed a total volume of 2,000 mL nitroglycerin 0.4 mg tablet, sublingual 0.4 mg sublingual Q5M PRN (Reason: chest pain) Qty: 30 5RF Rx Instructions: do not exceed 3 doses per episode Interventions: ED Discharge Assessment Last Done: 06/18/22 02:40 Discharge Date/Time: 06/18/22 02:41
[2022-06-18] MEDS: LORazepam 1 MG TABLET PO (00:55)
[2022-06-18] MEDS: Ondansetron ODT 4 MG TAB.RAPDIS TRANSLINGU (00:55)
[2022-06-18 01:54] VITALS: BP 142/56; PULSE 68; RESP 16; O2SAT 98
[2022-06-18 02:09] LABS: Glucose, Whole Blood 147 mg/dL (60-115)
[2022-06-18 02:26] VITALS: BP 124/62; PULSE 70; RESP 15; TEMP 36.1; O2SAT 99
== END 2022-06-18 02:41 | disposition home or self-care (01) ==
PROVIDERS: Emergency Provider Internal Medicine
DX: H81.10 Benign paroxysmal vertigo, unspecified ear (principal); E11.9 Type 2 diabetes mellitus without complications; E78.2 Mixed hyperlipidemia; Z87.891 Personal history of nicotine dependence; Z79.82 Long term (current) use of aspirin; Z79.84 Long term (current) use of oral hypoglycemic drugs; Z79.02 Long term (current) use of antithrombotics/antiplatelets; Z79.899 Other long term (current) drug therapy
CPT/HCPCS: 82947; 99283

== ENCOUNTER 2022-06-20 14:05 | Outpatient (REF) | payer OTHER, SELFPAY ==
--- NOTE | ~2022-06-20 | XR_ITS ---
EXAMINATION: XR HIP, LEFT CLINICAL INFORMATION: Left hip pain COMPARISON: None TECHNIQUE: Two views of the left hip. FINDINGS: Bones and soft tissues are normal. No fracture. Alignment is anatomic. Hip joint space is maintained. XR/XR hip LT min 2V IMPRESSION: Normal left hip.
== END 2022-06-20 14:06 | disposition home or self-care (01) ==
LOC: HO.XRAY 14:05
PROVIDERS: PCP Internal Medicine; Visit Provider Nurse Practitioner Family
DX: M25.552 Pain in left hip (principal)
CPT/HCPCS: 73502

== ENCOUNTER 2022-07-22 08:33 | Outpatient (REF) | payer OTHER, SELFPAY ==
[2022-07-22 08:48] LABS: MANUAL DIFF FLAG NO
[2022-07-22 09:13] LABS: Basophils Absolute Auto 0.1 X10*3/uL (0.0-0.2); Basophils Percent Auto 1.2 % (0-2); Eosinophils Absolute Auto 0.2 X10*3/uL (0.0-0.4); Eosinophils Percent Auto 3.2 % (0-4); Hematocrit 37.3 % (37.0-47.0); Hemoglobin 11.5 g/dl (12.0-16.0); Imm Gran Abs Auto 0.03 X10*3/uL (0.00-0.03); Imm Gran Pct Auto 0.5 % (0.0-0.4); Lymphocytes Percent Auto 29.6 % (20-40); Mean Corpuscular HGB Conc 30.8 g/dl (31.0-35.0); Mean Corpuscular Hemoglobin 25.8 pg (27.0-33.0); Mean Corpuscular Volume 83.6 fL (80.0-98.0); Mean Platelet Volume 10.2 fL (9.4-12.3); Monocytes Absolute Auto 0.5 X10*3/uL (0.1-1.2); Monocytes Percent Auto 7.8 % (2-11); Neutrophils Absolute Auto 3.8 x10*3/uL (2.0-8.3); Neutrophils Percent Auto 57.7 % (45-73); Platelet Count 330 X10*3/uL (160-400); Red Blood Count 4.46 X10*6/uL (4.20-5.50); White Blood Count 6.6 X10*3/uL (4.8-10.8)
[2022-07-22 09:35] LABS: Appearance Urine Clear; Color Urine Yellow; Glucose Urine UA Negative (Negative); Leukocyte Esterase Urine Negative (Negative); Nitrite Urine Negative (Negative); Urine Blood Negative (Negative); Urine Ketones Negative (Negative); Urine Protein Trace mg/dL (Neg-Trace)
[2022-07-22 09:36] LABS: Estimated Average Glucose 160 mg/dL; Hemoglobin A1c % 7.2 %
[2022-07-22 09:44] LABS: Creatinine Urine 54.16 mg/dL; Microalbum/Creatinine Ratio Ur 105.2 ug/mg cr
[2022-07-22 10:11] LABS: Alanine Aminotransferase 26 U/L (0-31); Albumin Level 4.4 g/dL (3.5-5.0); Alkaline Phosphatase 52 U/L (39-117); Anion Gap 16 (12-20); Aspartate Amino Transferase 21 U/L (5-31); Bilirubin Total 0.5 mg/dL (0.0-1.0); Blood Urea Nitrogen 16 mg/dL (9-16); Calcium 10.5 mg/dL (8.4-10.2); Carbon Dioxide 25 mmol/L (22-29); Chloride 104 mmol/L (96-108); Cholesterol 122 mg/dL; Estimated Glomerular Filt Rate > 60; Glucose Fasting 154 mg/dL (60-99); HDL Cholesterol 42 mg/dL; LDL Cholesterol Calculated 56 mg/dl; Sodium 140 mmol/L (135-145); TSH reflex Free T4 3.66 uIU/mL (0.32-4.0); Total Protein 7.6 g/dL (6.5-8.0); Triglycerides 124 mg/dL; Vitamin D 25-OH Total 30.3 ng/mL (>30)
== END 2022-07-22 08:34 | disposition home or self-care (01) ==
LOC: HO.LAB 08:33
PROVIDERS: PCP Internal Medicine; Visit Provider Internal Medicine
DX: E78.00 Pure hypercholesterolemia, unspecified (principal); E55.9 Vitamin D deficiency, unspecified; E11.9 Type 2 diabetes mellitus without complications; I10 Essential (primary) hypertension
CPT/HCPCS: 36415; 80053; 80061; 81003; 82043; 82306; 83036; 84443; 85025

== ENCOUNTER 2022-07-31 12:35 | Outpatient (REF) | payer OTHER, SELFPAY ==
[2022-07-31 12:47] LABS: MANUAL DIFF FLAG NO
[2022-07-31 13:19] LABS: Basophils Absolute Auto 0.1 X10*3/uL (0.0-0.2); Basophils Percent Auto 0.8 % (0-2); Eosinophils Absolute Auto 0.1 X10*3/uL (0.0-0.4); Eosinophils Percent Auto 1.4 % (0-4); Hematocrit 36.3 % (37.0-47.0); Hemoglobin 11.2 g/dl (12.0-16.0); Imm Gran Abs Auto 0.03 X10*3/uL (0.00-0.03); Imm Gran Pct Auto 0.4 % (0.0-0.4); Lymphocytes Percent Auto 24.3 % (20-40); Mean Corpuscular HGB Conc 30.9 g/dl (31.0-35.0); Mean Corpuscular Hemoglobin 26.1 pg (27.0-33.0); Mean Corpuscular Volume 84.6 fL (80.0-98.0); Mean Platelet Volume 10.7 fL (9.4-12.3); Monocytes Absolute Auto 0.5 X10*3/uL (0.1-1.2); Monocytes Percent Auto 6.1 % (2-11); Neutrophils Absolute Auto 5.6 x10*3/uL (2.0-8.3); Platelet Count 337 X10*3/uL (160-400); Red Blood Count 4.29 X10*6/uL (4.20-5.50); Red Cell Distribution Width 15.3 % (11.0-16.0); White Blood Count 8.3 X10*3/uL (4.8-10.8)
[2022-07-31 13:33] LABS: Estimated Average Glucose 157 mg/dL; Hemoglobin A1c % 7.1 %
[2022-07-31 13:56] LABS: Alanine Aminotransferase 23 U/L (0-31); Albumin Level 4.4 g/dL (3.5-5.0); Alkaline Phosphatase 53 U/L (39-117); Anion Gap 11 (12-20); Aspartate Amino Transferase 18 U/L (5-31); Bilirubin Total 0.3 mg/dL (0.0-1.0); Blood Urea Nitrogen 19 mg/dL (9-16); Calcium 10.8 mg/dL (8.4-10.2); Carbon Dioxide 29 mmol/L (22-29); Chloride 102 mmol/L (96-108); Cholesterol 123 mg/dL; Estimated Glomerular Filt Rate > 60; Glucose Fasting 118 mg/dL (60-99); HDL Cholesterol 41 mg/dL; Iron 45 mcg/dL (30-160); LDL Cholesterol Calculated 45 mg/dl; Percent Iron Saturation 14 % (15-50); Potassium 4.7 mmol/L (3.3-5.1); Sodium 137 mmol/L (135-145); TSH reflex Free T4 3.27 uIU/mL (0.32-4.0); Total Iron Binding Capacity 328 mcg/dL (228-428); Total Protein 7.4 g/dL (6.5-8.0); Triglycerides 189 mg/dL; Unsaturated Iron Binding 283 ug/dL; Vitamin D 25-OH Total 28.7 ng/mL (>30)
[2022-08-03 15:39] LABS: Calcium (PTHI) 10.7 mg/dL (8.6-10.4); PTHI 31 pg/mL (16-77)
== END 2022-07-31 12:36 | disposition home or self-care (01) ==
LOC: HO.LAB 12:35
PROVIDERS: PCP Nurse Practitioner Family; Visit Provider Nurse Practitioner Family
DX: I25.10 Atherosclerotic heart disease of native coronary artery without angina pectoris (principal); I25.2 Old myocardial infarction; R07.2 Precordial pain; D64.9 Anemia, unspecified; E11.9 Type 2 diabetes mellitus without complications; E83.52 Hypercalcemia; R53.83 Other fatigue; Z87.891 Personal history of nicotine dependence
CPT/HCPCS: 36415; 80053; 80061; 82306; 83036; 83540; 83970; 84443; 85025; 85027; 93005; 99212

== ENCOUNTER 2022-09-08 13:59 | Outpatient (REF) | payer OTHER, SELFPAY ==
[2022-09-08 14:55] LABS: Influenza A PCR NEGATIVE (Negative); Influenza B PCR NEGATIVE (Negative); Resp Syncy Virus RNA Qual PCR NEGATIVE (Negative); SARS COV2 PCR INHOUSE POSITIVE (Negative)
== END 2022-09-08 14:00 | disposition home or self-care (01) ==
LOC: HO.LAB 13:59
PROVIDERS: Visit Provider Nurse Practitioner Family
DX: Z20.822 Contact with and (suspected) exposure to COVID-19 (principal); R09.89 Other specified symptoms and signs involving the circulatory and respiratory systems
CPT/HCPCS: 0241U

== ENCOUNTER → 2022-09-16 10:16 | Outpatient (BNVA) | payer OTHER, SELFPAY | PROVIDERS: PCP Nurse Practitioner Family; Visit Provider Internal Medicine Endocrinology, Diabetes & Metabolism | DX: E83.52 Hypercalcemia (principal) | CPT/HCPCS: 99202 ==

== ENCOUNTER 2022-09-25 11:05 | Outpatient (REF) | payer OTHER, SELFPAY ==
[2022-09-25 11:58] LABS: Hematocrit 34.9 % (37.0-47.0); Hemoglobin 10.9 g/dl (12.0-16.0); Mean Corpuscular HGB Conc 31.2 g/dl (31.0-35.0); Mean Corpuscular Hemoglobin 26.4 pg (27.0-33.0); Mean Corpuscular Volume 84.5 fL (80.0-98.0); Mean Platelet Volume 10.2 fL (9.4-12.3); Platelet Count 308 X10*3/uL (160-400); Red Blood Count 4.13 X10*6/uL (4.20-5.50); Red Cell Distribution Width 15.1 % (11.0-16.0); White Blood Count 5.9 X10*3/uL (4.8-10.8)
[2022-09-25 12:04] LABS: Influenza A PCR NEGATIVE (Negative); Influenza B PCR NEGATIVE (Negative); Resp Syncy Virus RNA Qual PCR NEGATIVE (Negative); SARS COV2 PCR INHOUSE NEGATIVE (Negative)
[2022-09-25 12:52] LABS: Creatinine Urine 51.43 mg/dL; Microalbum/Creatinine Ratio Ur 101.1 ug/mg cr
[2022-09-25 13:27] LABS: Folate 15.8 ng/mL (> or = 4.0); Vitamin B12 306 pg/mL (200-900)
== END 2022-09-25 11:06 | disposition home or self-care (01) ==
LOC: HO.LAB 11:05
PROVIDERS: PCP Nurse Practitioner Family; Visit Provider Nurse Practitioner Family
DX: Z20.822 Contact with and (suspected) exposure to COVID-19 (principal); D64.9 Anemia, unspecified; R20.2 Paresthesia of skin; E11.9 Type 2 diabetes mellitus without complications
CPT/HCPCS: 0241U; 82043; 82607; 82746; 85027

== ENCOUNTER 2022-10-31 08:24 | Day surgery (SDC) | payer OTHER, SELFPAY ==
[2022-10-31 08:57] VITALS: BMI 27.8
[2022-10-31 09:19] VITALS: BP 165/84; PULSE 95; RESP 16; TEMP 36.5; O2SAT 98
[2022-10-31 09:22] LABS: Glucose, Whole Blood 150 mg/dL (60-115)
--- NOTE | 2022-10-31 10:04 | P.CONAN_ITS ---
HPI - Anesthesia Eval Consult details Narrative: screening [facility] Active Problems Active Problems: All Active Problems (Updated 09/24/22 @ 11:53 by LOLA Gandhi) Tingling of right upper extremity (Acute) COVID-19 (Acute) Precordial chest pain (Acute) Depression (Acute) Hypercalcemia (Acute) Dizziness of unknown cause (Acute) Hearing impairment (Acute) Left hip pain (Acute) Vulvovaginal candidiasis (Acute) Statin intolerance (Acute) Tubular adenoma of colon (Acute) Umbilical hernia (Acute) Eczema (Acute) Rosacea (Acute) History of non-ST elevation myocardial infarction (NSTEMI) (Acute) Abdominal pain (Acute) Unsteadiness (Acute) Left low back pain (Acute) Elevated blood pressure reading (Acute) Dizziness of unknown cause (Acute) Osteoporosis (Acute) Mass of left parotid gland (Acute) GERD without esophagitis (Acute) Constipation (Acute) Menopause (Acute) Multiple pulmonary nodules (Acute) Cigarette smoker (Acute) COPD (chronic obstructive pulmonary disease) (Acute) Lumbar degenerative disc disease (Acute) Overweight (BMI 25.0-29.9) (Acute) Vitamin D deficiency (Acute) Mixed hyperlipidemia (Acute) Atherosclerotic cardiovascular disease (Acute) Pulmonary emphysema (Acute) Diabetes mellitus (Acute) Anemia (Chronic) Anxiety (Acute) Past Medical History Medical History Anxiety Asthma Atherosclerotic cardiovascular disease Borderline diabetes Chronic headache Constipation Degenerative lumbar disc Diabetes mellitus Fibromyalgia GERD without esophagitis Hypercalcemia Hypercholesteremia Irritable bowel syndrome Left low back pain Lumbar degenerative disc disease Mixed hyperlipidemia Osteoporosis Overweight (BMI 25.0-29.9) Pulmonary emphysema Rash Vaginal discharge Vertigo Vitamin D deficiency Family History Family History Father No problems noted. Mother Depression S/P CABG x 4 Diabetes Hypertension Sister Poor high blood pressure control Cervical cancer Breast cancer Family history of problems with anesthesia: No Surgical History Surgical History H/O angioplasty H/O heart artery stent H/O Spinal surgery Hx of colonoscopy Hx of tubal ligation History of Problems with Anesthesia: No Social History Social History Housing: Apartment Alcohol intake: current Alcohol intake frequency: does not drink Alcohol type: beer and wine Patient Tobacco Use Status: Former Tobacco user Second Hand Smoke Exposure: No Use of substances other than those prescribed or required for medical reasons: No Are you DNR?: No Advance Directives: No Advance Directives Information Provided: Yes Advance Directives on File: No service: No Current occupational status: retired and disabled Cognitive needs: No Hearing needs: No Vision needs: Yes (glasses) Meds Allergies Allergy/AdvReac Type Severity Reaction Status Date / Time clarithromycin [From PREVPAC] Allergy Mild hives Verified 09/24/22 11:44 lansoprazole [From PREVPAC] Allergy Mild hives Verified 09/24/22 11:44 lisinopril [LISINOPRIL] Allergy Mild COUGHING, Verified 09/24/22 11:44 cough, cough amoxicillin [AMOXICILLIN] Allergy Unknown RASH Verified 09/24/22 11:44 cephalexin Allergy Unknown rash Verified 09/24/22 11:44 clavulanic acid [Augmentin] Allergy Unknown rash Verified 09/24/22 11:44 duloxetine [Cymbalta] Allergy Unknown weight Verified 09/24/22 11:44 gain, increase appetite levofloxacin [From LEVAQUIN] Allergy Unknown RASH Verified 09/24/22 11:44 linaclotide [Linzess] Allergy Unknown nausea Verified 09/24/22 11:44 penicillin V Allergy Unknown rash Verified 09/24/22 11:44 Penicillins [PENICILLINS] Allergy Unknown RASH Verified 09/24/22 11:44 Sulfa (Sulfonamide Allergy Unknown rash Verified 09/24/22 11:44 Antibiotics) tramadol Allergy Unknown pruritus Verified 09/24/22 11:44 triamcinolone [Kenalog] Allergy Unknown Unknown Verified 09/24/22 11:44 umeclidinium Allergy Unknown abdominal Verified 09/24/22 11:44 [Incruse Ellipta] pain meclizine AdvReac Intermediate fatigue, Verified 09/24/22 11:44 somnolence prednisone [Prednisone] AdvReac Mild YEAST Verified 09/24/22 11:44 INFECTION cetirizine AdvReac Unknown dizziness? Verified 09/24/22 11:44 Exam Exam Date and Time: October 31, 2022 1004 Height,Weight and Vital Signs: Height 5 ft 3 in Weight 71.214 kg Last Vital Signs Temp 97.7 F 10/31/22 09:19 Pulse 95 10/31/22 09:19 Resp 16 10/31/22 09:19 BP 165/84 H 10/31/22 09:19 Pulse Ox 98 10/31/22 09:19 O2 Del Method 10/31/22 09:19 Pertinent Lab Results Pertinent Lab Results: Laboratory Tests 10/31/22 09:13 POC Glucose 150 H Airway Mallampati Class: II TM Dist: >3cm Neck ROM: Full Heart: rr Lungs: cta Assessment and Plan Assessment Anesthesia Assessment: Anesthesia Plan Discussed and Chart Reviewed Final Anesthetic Review Family History of Problems with Anesthesia: No History of Problems with Anesthesia: No NPO: Yes ASA Class: III Final Preanesthetic Review: No Changes in Pt Med Stat, Meds/Allgs Chart Reviewed, Consent Obtained/Reviewed and Anes Risks/Benef Reviewed Patient Risk: Low Procedure Risk: Low Anesthetic Plan Anesthetic Plan: MAC: Disposition: Standard PACU
--- NOTE | 2022-10-31 10:26 | MHC.SHP ---
Pre-Procedural Eval Section A Date of Service: 10/31/22 The patient is an INPATIENT: No The History & Physical has been completed within 30 days and I have reviewed it.: No Section B Chief Complaint: Colon cancer screening, history of colon polyps Details of Present Illness: Colon cancer screening, history of colon polyps Relevant Family History (Specify if Yes): No Relevant Social History: Tobacco Use (Past smoker) Present Medications: see Short Stay Collaborative assessment Medical History: Significant History (Asthma Atherosclerotic cardiovascular disease Borderline diabetes Chronic headache Constipation Degenerative lumbar disc Diabetes mellitus Fibromyalgia GERD without esophagitis Hypercholesteremia Irritable bowel syndrome Left low back pain Lumbar degenerative disc disease Mixed hyperlipidemia Osteop) History of Previous Operations: Relevant previous surgery/procedure and date(s) (H/O angioplasty H/O heart artery stent H/O Spinal surgery Hx of colonoscopy Hx of tubal ligation) Allergies: Allergies Allergy/AdvReac Type Severity Reaction Status Date / Time clarithromycin [From PREVPAC] Allergy Mild hives Verified 09/24/22 11:44 lansoprazole [From PREVPAC] Allergy Mild hives Verified 09/24/22 11:44 lisinopril [LISINOPRIL] Allergy Mild COUGHING, Verified 09/24/22 11:44 cough, cough amoxicillin [AMOXICILLIN] Allergy Unknown RASH Verified 09/24/22 11:44 cephalexin Allergy Unknown rash Verified 09/24/22 11:44 clavulanic acid [Augmentin] Allergy Unknown rash Verified 09/24/22 11:44 duloxetine [Cymbalta] Allergy Unknown weight Verified 09/24/22 11:44 gain, increase appetite levofloxacin [From LEVAQUIN] Allergy Unknown RASH Verified 09/24/22 11:44 linaclotide [Linzess] Allergy Unknown nausea Verified 09/24/22 11:44 penicillin V Allergy Unknown rash Verified 09/24/22 11:44 Penicillins [PENICILLINS] Allergy Unknown RASH Verified 09/24/22 11:44 Sulfa (Sulfonamide Allergy Unknown rash Verified 09/24/22 11:44 Antibiotics) tramadol Allergy Unknown pruritus Verified 09/24/22 11:44 triamcinolone [Kenalog] Allergy Unknown Unknown Verified 09/24/22 11:44 umeclidinium Allergy Unknown abdominal Verified 09/24/22 11:44 [Incruse Ellipta] pain meclizine AdvReac Intermediate fatigue, Verified 09/24/22 11:44 somnolence prednisone [Prednisone] AdvReac Mild YEAST Verified 09/24/22 11:44 INFECTION cetirizine AdvReac Unknown dizziness? Verified 09/24/22 11:44 Review of Systems Sugical H&P ROS: Negative: Constitution, Cardiovascular, Respiratory and Gastrointestinal Exam Surgical H&P Exam: Normal: Heart, Normal: Lungs, Normal: Extremities and Normal: Abdomen Plan Diagnosis/Plan: Unchanged I have reviewed the history and physical and performed a pertinent physical examination on my patient. No changes have occurred unless specified. Time Spent With Patient Time: Total time managing care of this patient today ____ minutes.
--- NOTE | 2022-10-31 10:32 | PM.OP ---
Brief Operative Note Date of Service: 10/31/22 Pre-op diagnosis: Colon cancer screening from a history of colon polyps Post-op diagnosis: other (COLON POLYPS, DIVERTICULOSIS, HEMORRHOIDS) Procedure: COLONOSCOPY TO CECUM WITH BIOPSIES Surgeon: Allen Carrizales MD Anesthesia: MAC Was an Regional Sales Associate used for this Procedure?: Yes Regional Sales Associate: Carole Holt Estimated blood loss (mL): 0 Pathology: other (A. rectal polyps (2)) Condition: stable Disposition: PACU
--- NOTE | 2022-10-31 10:32 | W.PM.OPN ---
Operative Note Operative Note Date of Service: 10/31/22 Narrative: Pre-op diagnosis: Colon cancer screening from a history of colon polyps Post-op diagnosis:?other (COLON POLYPS, DIVERTICULOSIS, HEMORRHOIDS) Surgeon: Allen Carrizales MD Anesthesia:?MAC COLONOSCOPY TILL CECUM WITH BIOPSIES Consent: Indications for the procedure and potential complications of bleeding, perforation, reaction to medications and missed diagnosis were discussed with the patient and informed consent was obtained. Instrument: Olympus PCF H 190 L variable stiffness pediatric colonoscope Monitoring: Vital signs and clinical assessment, intermittent blood pressure monitoring, continuous EKG monitoring, Pulse oximetry and Carbon Dioxide monitoring were done throughout the procedure. Colon withdrawl time was 12 minutes. Procedure: The patient was placed in the left lateral decubitis position and pre-procedure medications were administered. After a digital rectal examination of the ano-rectum, the video colonoscope was inserted into the rectum and advanced through the colon to the cecum. The colonoscope was slowly withdrawn in a retrograde panoramic fashion and the colon mucosa was carefully examined including a retroflexed view of the rectum. Findings and interventions are described below. Procedure Difficulty: Colon was long and tortuous and there was some loop formation. Patient was placed in the supine position and LLQ pressure was applied to intubate the cecum Findings: Terminal Ileum: Not evaluated Cecum: Normal Ascending Colon: Moderate diverticulosis throughout the colon Transverse Colon: Moderate diverticulosis throughout the colon Descending Colon: Moderate diverticulosis throughout the colon Sigmoid Colon: Severe diverticulosis with luminal narrowing Rectum: Two 5 to 8 mm diminutive appearing polyps removed with a cold biopsy Ano-rectum: Moderate internal hemorrhoids Colon preparation: Good Impression and Post Procedure Diagnosis: Colonoscopy Findings: Two small polyps removed Moderate diverticulosis seen in the entire colon Moderate hemorrhoids on retroflexed exam. Plan: Await pathology results Patient has an appointment on 11/21/22 in the [facility] with Nguyen Pereira NP . Repeat Colonoscopy interval based on path results - in 5 years if polyps are adenomatous and 10 years if polyps are hyperplastic. Above findings were reviewed with the patient and colon polyps and diverticulosis handouts were given in the discharge area
--- NOTE | 2022-10-31 11:17 | P.CONAN_ITS ---
HPI - Anesthesia Eval Consult details Narrative: screening [facility] Active Problems Active Problems: All Active Problems (Updated 09/24/22 @ 11:53 by LOLA Gandhi) Tingling of right upper extremity (Acute) COVID-19 (Acute) Precordial chest pain (Acute) Depression (Acute) Hypercalcemia (Acute) Dizziness of unknown cause (Acute) Hearing impairment (Acute) Left hip pain (Acute) Vulvovaginal candidiasis (Acute) Statin intolerance (Acute) Tubular adenoma of colon (Acute) Umbilical hernia (Acute) Eczema (Acute) Rosacea (Acute) History of non-ST elevation myocardial infarction (NSTEMI) (Acute) Abdominal pain (Acute) Unsteadiness (Acute) Left low back pain (Acute) Elevated blood pressure reading (Acute) Dizziness of unknown cause (Acute) Osteoporosis (Acute) Mass of left parotid gland (Acute) GERD without esophagitis (Acute) Constipation (Acute) Menopause (Acute) Multiple pulmonary nodules (Acute) Cigarette smoker (Acute) COPD (chronic obstructive pulmonary disease) (Acute) Lumbar degenerative disc disease (Acute) Overweight (BMI 25.0-29.9) (Acute) Vitamin D deficiency (Acute) Mixed hyperlipidemia (Acute) Atherosclerotic cardiovascular disease (Acute) Pulmonary emphysema (Acute) Diabetes mellitus (Acute) Anemia (Chronic) Anxiety (Acute) Past Medical History Medical History Anxiety Asthma Atherosclerotic cardiovascular disease Borderline diabetes Chronic headache Constipation Degenerative lumbar disc Diabetes mellitus Fibromyalgia GERD without esophagitis Hypercalcemia Hypercholesteremia Irritable bowel syndrome Left low back pain Lumbar degenerative disc disease Mixed hyperlipidemia Osteoporosis Overweight (BMI 25.0-29.9) Pulmonary emphysema Rash Vaginal discharge Vertigo Vitamin D deficiency Family History Family History Father No problems noted. Mother Depression S/P CABG x 4 Diabetes Hypertension Sister Poor high blood pressure control Cervical cancer Breast cancer Family history of problems with anesthesia: No Surgical History Surgical History H/O angioplasty H/O heart artery stent H/O Spinal surgery Hx of colonoscopy Hx of tubal ligation History of Problems with Anesthesia: No Social History Social History Housing: Apartment Alcohol intake: current Alcohol intake frequency: does not drink Alcohol type: beer and wine Patient Tobacco Use Status: Former Tobacco user Second Hand Smoke Exposure: No Use of substances other than those prescribed or required for medical reasons: No Are you DNR?: No Advance Directives: No Advance Directives Information Provided: Yes Advance Directives on File: No service: No Current occupational status: retired and disabled Cognitive needs: No Hearing needs: No Vision needs: Yes (glasses) Meds Allergies Allergy/AdvReac Type Severity Reaction Status Date / Time clarithromycin [From PREVPAC] Allergy Mild hives Verified 09/24/22 11:44 lansoprazole [From PREVPAC] Allergy Mild hives Verified 09/24/22 11:44 lisinopril [LISINOPRIL] Allergy Mild COUGHING, Verified 09/24/22 11:44 cough, cough amoxicillin [AMOXICILLIN] Allergy Unknown RASH Verified 09/24/22 11:44 cephalexin Allergy Unknown rash Verified 09/24/22 11:44 clavulanic acid [Augmentin] Allergy Unknown rash Verified 09/24/22 11:44 duloxetine [Cymbalta] Allergy Unknown weight Verified 09/24/22 11:44 gain, increase appetite levofloxacin [From LEVAQUIN] Allergy Unknown RASH Verified 09/24/22 11:44 linaclotide [Linzess] Allergy Unknown nausea Verified 09/24/22 11:44 penicillin V Allergy Unknown rash Verified 09/24/22 11:44 Penicillins [PENICILLINS] Allergy Unknown RASH Verified 09/24/22 11:44 Sulfa (Sulfonamide Allergy Unknown rash Verified 09/24/22 11:44 Antibiotics) tramadol Allergy Unknown pruritus Verified 09/24/22 11:44 triamcinolone [Kenalog] Allergy Unknown Unknown Verified 09/24/22 11:44 umeclidinium Allergy Unknown abdominal Verified 09/24/22 11:44 [Incruse Ellipta] pain meclizine AdvReac Intermediate fatigue, Verified 09/24/22 11:44 somnolence prednisone [Prednisone] AdvReac Mild YEAST Verified 09/24/22 11:44 INFECTION cetirizine AdvReac Unknown dizziness? Verified 09/24/22 11:44 Exam Exam Date and Time: October 31, 2022 1117 Height,Weight and Vital Signs: Height 5 ft 3 in Weight 71.214 kg Last Vital Signs Temp 97.7 F 10/31/22 09:19 Pulse 95 10/31/22 09:19 Resp 16 10/31/22 09:19 BP 165/84 H 10/31/22 09:19 Pulse Ox 98 10/31/22 09:19 O2 Del Method 10/31/22 09:19 Pertinent Lab Results Pertinent Lab Results: Laboratory Tests 10/31/22 09:13 POC Glucose 150 H Airway Mallampati Class: II TM Dist: >3cm Neck ROM: Full Heart: rr Lungs: cta Assessment and Plan Final Anesthetic Review Family History of Problems with Anesthesia: No History of Problems with Anesthesia: No Anesthetic Plan Anesthetic Plan: MAC: Disposition: Standard PACU
[2022-10-31 11:28] VITALS: BP 139/67; PULSE 77; RESP 16; TEMP 36.4; O2SAT 96
[2022-10-31 11:43] VITALS: BP 145/79; PULSE 66; RESP 16; TEMP 36.4; O2SAT 98
== END 2022-10-31 12:50 | disposition home or self-care (01) ==
PROVIDERS: PCP Nurse Practitioner Family; Visit Provider Internal Medicine Gastroenterology
PROC: 0DJD8ZZ Inspection of Lower Intestinal Tract, Via Natural or Artificial Opening Endoscopic (ICD-10-PCS; CPT 45378; principal; 2022-10-31 10:10)
DX: Z12.11 Encounter for screening for malignant neoplasm of colon (principal); Z86.010 Personal history of colon polyps; D12.8 Benign neoplasm of rectum; K57.30 Diverticulosis of large intestine without perforation or abscess without bleeding; K64.8 Other hemorrhoids; K59.00 Constipation, unspecified; K58.9 Irritable bowel syndrome, unspecified; K21.9 Gastro-esophageal reflux disease without esophagitis; I25.10 Atherosclerotic heart disease of native coronary artery without angina pectoris; Z95.5 Presence of coronary angioplasty implant and graft; E78.00 Pure hypercholesterolemia, unspecified; M79.7 Fibromyalgia; J45.909 Unspecified asthma, uncomplicated; E11.9 Type 2 diabetes mellitus without complications; Z79.84 Long term (current) use of oral hypoglycemic drugs; Z79.51 Long term (current) use of inhaled steroids; Z79.82 Long term (current) use of aspirin; Z88.0 Allergy status to penicillin; Z88.2 Allergy status to sulfonamides; Z88.8 Allergy status to other drugs, medicaments and biological substances
CPT/HCPCS: 45380; 82947; 88305

== ENCOUNTER 2022-11-10 22:45 | Emergency (ER) | payer OTHER, SELFPAY ==
--- NOTE | ~2022-11-10 | CT_ITS ---
EXAMINATION: CT ABDOMEN AND PELVIS WITH CONTRAST CLINICAL INFORMATION: Abdominal pain. Nausea, vomiting and diarrhea. COMPARISON: 06/02/2016 TECHNIQUE: Multidetector volumetric images were obtained from the superior aspect of the liver through the pubic symphysis following administration 85 mL of Omnipaque 350 intravenous contrast. Sagittal and coronal reformatted images were obtained on the technologist's workstation. Oral contrast: No This CT examination was performed using dose optimization techniques as appropriate, variously including the following: *Automated exposure control *Adjustment of mA and/or kV according to patient size (this includes techniques or standardized protocols for targeted exams where dose is matched to indication/reason for exam; i.e. extremities or head) *Use of iterative reconstruction technique DLP: 597 mGy-cm FINDINGS: LUNG BASES: Mild pleural-parenchymal scarring at the lung bases LIVER, GALLBLADDER, AND BILIARY TREE: The liver is normal in size, shape, and attenuation. No focal hepatic lesion or biliary ductal dilatation is present. The gallbladder is unremarkable with no evidence of radiopaque gallstones, gallbladder wall thickening, or obvious pericholecystic inflammatory changes. PANCREAS: There is a 1.4 x 1.0 x 1.3 cm hyperenhancing mass in the pancreatic neck associated with obstruction and mild dilatation of the upstream pancreatic duct which is dilated up to 4 mm. There are a few tiny hypodensities within the pancreatic tail associated with a mildly dilated pancreatic duct likely representing dilated side branches related to the obstruction. No pancreatic inflammation. SPLEEN: Unremarkable. ADRENAL GLANDS: Unremarkable. KIDNEYS AND URETERS: The kidneys are normal in size, shape, and attenuation. No hydronephrosis, hydroureter, or calculi seen. No perinephric stranding. BLADDER: Unremarkable. GASTROINTESTINAL TRACT: Pancolonic diverticulosis, most concentrated within sigmoid colon. No evidence of diverticulitis. Normal appendix. Stomach and small bowel unremarkable. ABDOMINAL WALL: No significant hernia is appreciated. LYMPH NODES: Normal. VASCULAR: Aorta is atherosclerotic but normal caliber. Patent vascular structures. PELVIC VISCERA: Unremarkable. OSSEOUS STRUCTURES: No acute or suspicious osseous abnormalities. CT/CT abdomen pelvis w IV con IMPRESSION: * No acute findings in the abdomen or pelvis on the basis of CT. * Incidental 1.4 cm hyperenhancing mass in the pancreatic neck associated with at least partial obstruction of the pancreatic duct with upstream dilatation to 4 mm. 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 Recommend GI consultation. Gallium 68 Dotatate PET/CT is the of choice for staging these tumors. * Of note, the patient has an elevated lipase, compatible with the clinical diagnosis of pancreatitis. Mild pancreatitis can be occult on the basis of imaging. * Diverticulosis coli. No evidence of diverticulitis. This critical result was discussed with Dr Gonzalez at 11/11/2022 1:42 AM and it was ascertained that the content and urgency of the report was understood at the time of direct communication.
[2022-11-10 22:49] VITALS: BP 156/73; BP 176/81; PULSE 101; PULSE 95; RESP 20; TEMP 37.8; O2SAT 94; O2SAT 95; BMI 27.6
--- NOTE | 2022-11-10 23:48 | ED.ABDPAIN ---
HPI - Abdominal Pain General Chief Complaint: Abdominal Pain Stated Complaint: Not feeling well Time Seen by Provider: 11/10/22 22:55 History of Present Illness HPI narrative: Patient is a 77 presents today with having abdominal nausea vomiting diarrhea. The symptoms started this afternoon. Vomiting 2. Diarrhea is brown color. Mild diffuse abdominal cramping. Patient no travel history no recent antibiotic no cough no congestion history symptoms previous history hysterectomy. Related Data Previous Rx's Medication Instructions Recorded albuterol sulfate 90 mcg/actuation 2 puff PO Q6H PRN for muscle spasm 09/16/21 aerosol inhaler #8.5 grams blood pressure monitor #1 ea 12/11/21 benzocaine 15 mg-menthol 2.6 mg 1 gregorio mucous membrane Q4H PRN sore 01/24/22 lozenges (Cepacol Sore Throat throat #16 ea (benzocaine-menthol)) aspirin 81 mg tablet,delayed 81 mg PO DAILY #90 tabs 02/28/22 release olopatadine 0.1 % eye drops 1 drp ophthalmic (eye) BID PRN 02/28/22 itching of eyes 30 days #5 mL nitroglycerin 0.4 mg sublingual 0.4 mg sublingual Q5M PRN chest 04/02/22 tablet pain #30 tabs nystatin 100,000 unit/gram topical 1 appl topical QID PRN rash 14 06/04/22 powder days #30 grams umeclidinium 62.5 mcg-vilanterol 1 inh inhalation DAILY 30 days #1 06/11/22 25 mcg/actuation powdr for ea inhalation (Anoro Ellipta) rosuvastatin 40 mg tablet 40 mg PO DAILY 90 days #90 tabs 06/13/22 blood sugar diagnostic (FreeStyle #100 ea 06/20/22 Lite Strips) cholecalciferol (vitamin D3) 25 25 mcg PO DAILY #90 tabs 07/29/22 mcg (1,000 unit) tablet fluoxetine 10 mg capsule (Prozac) 10 mg PO DAILY #30 caps 07/29/22 gabapentin 100 mg capsule 100 mg PO TID #90 caps 09/08/22 omeprazole 20 mg capsule,delayed 40 mg PO DAILY #180 caps 09/08/22 release alprazolam 0.25 mg tablet 0.25 mg PO BID PRN anxiety 30 days 10/01/22 #60 tabs metformin 1,000 mg tablet 1,000 mg PO BID #180 tabs 10/01/22 blood-glucose meter (FreeStyle #1 ea 10/09/22 Lite Meter kit) Allergies Allergy/AdvReac Type Severity Reaction Status Date / Time clarithromycin [From PREVPAC] Allergy Mild hives Verified 09/24/22 11:44 lansoprazole [From PREVPAC] Allergy Mild hives Verified 09/24/22 11:44 lisinopril [LISINOPRIL] Allergy Mild COUGHING, Verified 09/24/22 11:44 cough, cough amoxicillin [AMOXICILLIN] Allergy Unknown RASH Verified 09/24/22 11:44 cephalexin Allergy Unknown rash Verified 09/24/22 11:44 clavulanic acid [Augmentin] Allergy Unknown rash Verified 09/24/22 11:44 duloxetine [Cymbalta] Allergy Unknown weight Verified 09/24/22 11:44 gain, increase appetite levofloxacin [From LEVAQUIN] Allergy Unknown RASH Verified 09/24/22 11:44 linaclotide [Linzess] Allergy Unknown nausea Verified 09/24/22 11:44 penicillin V Allergy Unknown rash Verified 09/24/22 11:44 Penicillins [PENICILLINS] Allergy Unknown RASH Verified 09/24/22 11:44 Sulfa (Sulfonamide Allergy Unknown rash Verified 09/24/22 11:44 Antibiotics) tramadol Allergy Unknown pruritus Verified 09/24/22 11:44 triamcinolone [Kenalog] Allergy Unknown Unknown Verified 09/24/22 11:44 umeclidinium Allergy Unknown abdominal Verified 09/24/22 11:44 [Incruse Ellipta] pain meclizine AdvReac Intermediate fatigue, Verified 09/24/22 11:44 somnolence prednisone [Prednisone] AdvReac Mild YEAST Verified 09/24/22 11:44 INFECTION cetirizine AdvReac Unknown dizziness? Verified 09/24/22 11:44 Review of Systems Review of Systems Positive abdominal pain nausea vomiting diarrhea Yes all other systems are reviewed and are negative [facility] Past Medical History Attestation statement: The following information was validated with the patient. Medical History Anxiety Asthma Atherosclerotic cardiovascular disease Borderline diabetes Chronic headache Constipation Degenerative lumbar disc Diabetes mellitus Fibromyalgia GERD without esophagitis Hypercalcemia Hypercholesteremia Irritable bowel syndrome Left low back pain Lumbar degenerative disc disease Mixed hyperlipidemia Osteoporosis Overweight (BMI 25.0-29.9) Pulmonary emphysema Rash Vaginal discharge Vertigo Vitamin D deficiency Surgical History H/O angioplasty H/O heart artery stent H/O Spinal surgery Hx of colonoscopy Hx of tubal ligation Family History Family History Father No problems noted. Mother Depression S/P CABG x 4 Diabetes Hypertension Sister Poor high blood pressure control Cervical cancer Breast cancer Social History Social History Housing: Apartment Alcohol intake: current Alcohol intake frequency: does not drink Alcohol type: beer and wine Patient Tobacco Use Status: Former Tobacco user Second Hand Smoke Exposure: No Advance Directives: No service: No Current occupational status: retired and disabled Cognitive needs: No Hearing needs: No Vision needs: Yes (glasses) Physical Exam ED Vital Signs: Vital Signs - 24 hr 11/10/22 22:49 Temperature 100.1 F Pulse Rate 95 Respiratory Rate 20 Blood Pressure 156/73 H Pulse Oximetry 95 Oxygen Delivery Method Room Air BMI result Body Mass Index 27.6 Appearance: Alert. Oriented X3. No acute distress. Eyes: Pupils equal, round and reactive to light. ENT: Pharynx normal. Neck: Normal inspection. Neck supple. No lymph nodes noted. No crepitus CVS: Normal heart rate and rhythm. Pulses normal. Normal S1 and S2 Respiratory: No respiratory distress. Breath sounds normal. No Wheezing. No rales Abdomen: Soft and nontender. No rigidity. No distention. good BS x4 Skin: Skin warm and dry. Normal skin color. Normal skin turgor. Extremities: No lower extremity edema. Neurovascular intact to all extremities. No Lacerations. No Rash Neuro: Oriented X 3. No motor deficit. No sensory deficit. Moving all extermities. No slurred speech Medical Decision Making Medical Decision Making MDM Narrative: Patient is 77 years old presents today with having nausea not feeling well. Patient's lipase was mildly elevated at 197. LFTs okay. Patient had a colonoscopy done approximately 10 days ago at the time did not show any gross mass no gross findings. Patient had queasiness nausea. CT scan of the abdomen showed no obstruction no abscess no perforation. It did show evidence for a mass at the head of the pancreas may involve the pancreatic duct. Question neuroendocrine tumor. The finding was discussed with Dr. Garrison from GI. Given patient well appearance. Patient can be followed up on an outpatient basis with GI. The exact CT scan finding was given to patient. Explained to patient risk of cancer exists. Patient states understanding. Will discharge home with close follow-up. Differential Diagnosis Differential Diagnoses: The differential diagnosis associated with the presentation includes Obstruction, abscess, perforation, diverticulitis, pancreatic mass Lab Data MDM Lab Attestation statement: I reviewed the patient's lab results. 11/10/22 23:54 11/10/22 23:54 Labs: Lab Results 11/10/22 11/10/22 Range/Units 23:54 23:54 WBC 12.9 H (4.8-10.8) X10*3/uL RBC 4.41 (4.20-5.50) X10*6/uL Hgb 11.6 L (12.0-16.0) g/dl Hct 36.4 L (37.0-47.0) % MCV 82.5 (80.0-98.0) fL MCH 26.3 L (27.0-33.0) pg MCHC 31.9 (31.0-35.0) g/dl RDW 14.5 (11.0-16.0) % Plt Count 275 (160-400) X10*3/uL MPV 10.7 (9.4-12.3) fL Immature Gran % (Auto) 0.8 H (0.0-0.4) % Neut % (Auto) 86.5 H (45-73) % Lymph % (Auto) 7.4 L (20-40) % [place] % (Auto) 4.5 (2-11) % Eos % (Auto) 0.2 (0-4) % Baso % (Auto) 0.6 (0-2) % Lymph # (Auto) 1.0 L (1.2-4.9) X10*3/uL [place] # (Auto) 0.6 (0.1-1.2) X10*3/uL Eos # (Auto) 0.0 (0.0-0.4) X10*3/uL Baso # (Auto) 0.1 (0.0-0.2) X10*3/uL Abs Immat Gran (auto) 0.10 H (0.00-0.03) X10*3/uL Absolute Neuts (auto) 11.1 H (2.0-8.3) x10*3/uL Absolute Nucleated RBC 0.000 (0.0-0.012) X10*3/uL Nucleated RBC % (auto) 0.0 (0.0-0.2) /100WBC Sodium 137 (135-145) mmol/L Potassium 4.7 (3.3-5.1) mmol/L Chloride 103 (96-108) mmol/L Carbon Dioxide 26 (22-29) mmol/L Anion Gap 13 (12-20) BUN 13 (9-16) mg/dL Creatinine 0.86 (0.5-1.4) mg/dL Estim Creat Clear Calc 51.6 Estimated GFR > 60 Random Glucose 157 H (60-115) mg/dL Calcium 9.6 D (8.4-10.2) mg/dL Total Bilirubin 0.5 (0.0-1.0) mg/dL Direct Bilirubin < 0.2 (0.0-0.5) mg/dL AST 26 (5-31) U/L ALT 25 (0-31) U/L Alkaline Phosphatase 53 (39-117) U/L Total Protein 7.4 (6.5-8.0) g/dL Albumin 4.3 (3.5-5.0) g/dL Lipase 195 H (8-78) U/L External Record Review External record reviewed: Inpatient record and Office record Medications Administered Discontinued Medications Generic Name Dose Route Start Last Admin Trade Name Freq PRN Reason Stop Dose Admin Acetaminophen 650 mg 11/11/22 01:09 11/11/22 01:20 Acetaminophen 325 Mg Tablet PO 11/11/22 01:10 650 mg ONCE ONE Administration Al Hydroxide/Mg Hydroxide 30 ml 11/10/22 23:41 11/11/22 00:14 Magnesium Hydrox/Alum Hydrox 30 Ml Oral.Susp PO 11/10/22 23:42 30 ml ONCE ONE Administration Sodium Chloride 1,000 mls @ 999 mls/hr 11/10/22 23:45 11/11/22 01:19 Ns IV 11/11/22 00:45 Infused .Q1H1M PRAVEENA Infusion Iohexol 85 ml 11/11/22 00:55 11/11/22 00:56 Iohexol 350 Mg/Ml 100 Ml Infus..Btl IV 11/11/22 00:56 85 ml ONCE ONE Administration Ondansetron HCl 4 mg 11/10/22 23:40 11/11/22 00:14 Ondansetron Hcl 4 Mg/2 Ml Vial IVPUSH 11/10/22 23:41 4 mg ONCE ONE Administration Discharge Plan Discharge Clinical Impression: Vomiting, Diarrhea Patient Disposition: Home, Self-Care Instructions: Acute Nausea and Vomiting (ED), Acute Diarrhea (ED) Additional Instructions: A mass was found in your pancreas. Please closely follow-up with Dr. Carrizales from GI. Risk of malignancy exists *? No acute findings in the abdomen or pelvis on the basis of CT. *? Incidental 1.4 cm hyperenhancing mass in the pancreatic neck associated with at least partial obstruction of the pancreatic duct with upstream dilatation to 4 mm. 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 Recommend GI consultation. Gallium 68 Dotatate PET/CT is the of choice for staging these tumors. *? Of note, the patient has an elevated lipase, compatible with the clinical diagnosis of pancreatitis. Mild pancreatitis can be occult on the basis of imaging. *? Diverticulosis coli. No evidence of diverticulitis. Prescriptions: No Action albuterol sulfate 90 mcg/actuation HFA aerosol inhaler 2 puff PO Q6H PRN (Reason: for muscle spasm) Qty: 8.5 3RF olopatadine 0.1 % drops 1 drp ophthalmic (eye) BID PRN (Reason: itching of eyes) 30 Days Qty: 5 3RF Rx Instructions: separate doses by at least 6-8 hours aspirin 81 mg tablet,delayed release (DR/EC) 81 mg PO DAILY Qty: 90 1RF Anoro Ellipta 62.5-25 mcg/actuation blister with device 1 inh inhalation DAILY 30 Days Qty: 1 6RF rosuvastatin 40 mg tablet 40 mg PO DAILY 90 Days Qty: 90 1RF omeprazole 20 mg capsule,delayed release(DR/EC) 40 mg PO DAILY Qty: 180 0RF gabapentin 100 mg capsule 100 mg PO TID Qty: 90 2RF metformin 1,000 mg tablet 1,000 mg PO BID Qty: 180 1RF alprazolam 0.25 mg tablet 0.25 mg PO BID PRN (Reason: anxiety) 30 Days Qty: 60 0RF (DME) blood-glucose meter [FreeStyle Lite Meter] Kit See Rx Instructions .ROUTE .MEDSUPPLY Qty: 1 0RF Rx Instructions: daily Cepacol Sore Throat (tal-men) 15-2.6 mg lozenge 1 gregorio mucous membrane Q4H PRN (Reason: sore throat) Qty: 16 0RF nystatin 100,000 unit/gram powder 1 appl topical QID PRN (Reason: rash) 14 Days Qty: 30 0RF fluoxetine [Prozac] 10 mg capsule 10 mg PO DAILY Qty: 30 1RF cholecalciferol (vitamin D3) 25 mcg (1,000 unit) tablet 25 mcg PO DAILY Qty: 90 0RF (DME) blood pressure monitor Kit See Rx Instructions .Route Qty: 1 0RF Rx Instructions: As directed (DME) FreeStyle Lite Strips Strip See Rx Instructions .ROUTE .MEDSUPPLY Qty: 100 12RF Rx Instructions: As directed once a day nitroglycerin 0.4 mg tablet, sublingual 0.4 mg sublingual Q5M PRN (Reason: chest pain) Qty: 30 5RF Rx Instructions: do not exceed 3 doses per episode Referrals: Allen Carrizales MD [Physician] - Print Language: Sami
[2022-11-10 23:58] LABS: MANUAL DIFF FLAG NO
[2022-11-10 23:59] LABS: Basophils Absolute Auto 0.1 X10*3/uL (0.0-0.2); Basophils Percent Auto 0.6 % (0-2); Eosinophils Percent Auto 0.2 % (0-4); Hematocrit 36.4 % (37.0-47.0); Hemoglobin 11.6 g/dl (12.0-16.0); Imm Gran Pct Auto 0.8 % (0.0-0.4); Lymphocytes Percent Auto 7.4 % (20-40); Mean Corpuscular HGB Conc 31.9 g/dl (31.0-35.0); Mean Corpuscular Hemoglobin 26.3 pg (27.0-33.0); Mean Corpuscular Volume 82.5 fL (80.0-98.0); Mean Platelet Volume 10.7 fL (9.4-12.3); Monocytes Absolute Auto 0.6 X10*3/uL (0.1-1.2); Monocytes Percent Auto 4.5 % (2-11); Neutrophils Absolute Auto 11.1 x10*3/uL (2.0-8.3); Neutrophils Percent Auto 86.5 % (45-73); Platelet Count 275 X10*3/uL (160-400); Red Blood Count 4.41 X10*6/uL (4.20-5.50); Red Cell Distribution Width 14.5 % (11.0-16.0); White Blood Count 12.9 X10*3/uL (4.8-10.8)
[2022-11-11] MEDS: Magnesium Hydrox/Alum Hydrox 30 ML ORAL.SUSP PO (00:14)
[2022-11-11] MEDS: ondansetron HCL 4 MG/2 ML VIAL IVPUSH (00:14)
[2022-11-11 00:15] LABS: Alanine Aminotransferase 25 U/L (0-31); Albumin Level 4.3 g/dL (3.5-5.0); Alkaline Phosphatase 53 U/L (39-117); Anion Gap 13 (12-20); Aspartate Amino Transferase 26 U/L (5-31); Bilirubin Direct < 0.2 mg/dL (0.0-0.5); Bilirubin Total 0.5 mg/dL (0.0-1.0); Blood Urea Nitrogen 13 mg/dL (9-16); Calcium 9.6 mg/dL (8.4-10.2); Carbon Dioxide 26 mmol/L (22-29); Chloride 103 mmol/L (96-108); Creatinine Clr Calc Pharmacy 51.6; Estimated Glomerular Filt Rate > 60; Glucose Random 157 mg/dL (60-115); Lipase 195 U/L (8-78); Potassium 4.7 mmol/L (3.3-5.1); Sodium 137 mmol/L (135-145); Total Protein 7.4 g/dL (6.5-8.0)
[2022-11-11] MEDS: 0.9 % Sodium Chloride 1,000 ML 999 ML IV (00:16)
[2022-11-11] MEDS: iohexoL 350 MG/ML 100 ML INFUS..BTL 85 ML IV (00:56)
[2022-11-11] MEDS: Acetaminophen 325 MG TABLET 650 MG PO (01:20)
== END 2022-11-11 02:43 | disposition home or self-care (01) ==
PROVIDERS: Emergency Provider Emergency Medicine Emergency Medical Services
DX: R10.9 Unspecified abdominal pain (principal); R19.7 Diarrhea, unspecified; R11.2 Nausea with vomiting, unspecified; Z79.899 Other long term (current) drug therapy
CPT/HCPCS: 36415; 74177; 80048; 80076; 83690; 85025; 96361; 96374; 99283; 99284; J2405; Q9967

== ENCOUNTER → 2022-11-17 09:29 | Outpatient (BNVA) | payer OTHER, SELFPAY | PROVIDERS: PCP Nurse Practitioner Family; Visit Provider Internal Medicine | DX: K86.89 Other specified diseases of pancreas (principal); D12.6 Benign neoplasm of colon, unspecified | CPT/HCPCS: 99212 ==

== ENCOUNTER → 2022-11-24 13:05 | Outpatient (BNVA) | payer OTHER, SELFPAY | PROVIDERS: PCP Nurse Practitioner Family; Visit Provider Nurse Practitioner Family | DX: R42 Dizziness and giddiness (principal); R51.9 Headache, unspecified; R41.3 Other amnesia; G89.29 Other chronic pain | CPT/HCPCS: 99202 ==

== ENCOUNTER 2022-11-27 10:37 | Outpatient (REF) | payer OTHER, SELFPAY ==
--- NOTE | ~2022-11-27 | MR_ITS ---
EXAMINATION: MR ABDOMEN WITHOUT AND WITH CONTRAST CLINICAL INFORMATION: Pancreatic mass COMPARISON: CT most recent October 2022. TECHNIQUE: MR abdomen was performed without and with use of 7 mL intravenous Gadavist gadolinium contrast. Postcontrast images are performed in multiphase dynamic sequences. Imaging was performed in 3 planes. FINDINGS: LUNG BASES: The visualized lung bases are unremarkable. LIVER, GALLBLADDER, AND BILIARY TREE: The liver is normal in size, smooth in contour. Mild fatty infiltration. No focal hepatic lesion or biliary ductal dilatation is present. The gallbladder is unremarkable with no evidence of gallbladder wall thickening, or obvious pericholecystic inflammatory changes. PANCREAS: Similar findings to recent CT. A 1.1 cm enhancing mass in the neck of the pancreas. Abrupt cut off or narrowing of the main pancreatic duct next to the mass. Main pancreatic duct dilatation in the body and tail of the pancreas and dilated biliary radicals. Normal pancreatic head. Normal. Pancreatic soft tissue and adjacent vasculature. SPLEEN: Normal. ADRENAL GLANDS: Normal. KIDNEYS AND URETERS: The kidneys are normal in size, shape, and enhance symmetrically. No hydronephrosis. No perinephric stranding. GASTROINTESTINAL TRACT: No bowel obstruction. No ascites or fluid collection. Diverticulosis. ABDOMINAL WALL: No significant hernia is appreciated. LYMPH NODES: No lymphadenopathy. VASCULAR: Atherosclerotic disease. Normal celiac axis, SMA , portal and hepatic veins, SMV and splenic vein. OSSEOUS STRUCTURES: Marrow signal normal. Degenerative changes. MR/MR abdomen wo/w con IMPRESSION: 1.1 cm enhancing mass in the neck of the pancreas. Main pancreatic duct dilatation in the body and tail of the pancreas and dilated biliary radicals. Appearance is concerning for primary pancreatic neoplasm. Mild fatty infiltration of the liver. Diverticulosis.
== END 2022-11-27 10:38 | disposition home or self-care (01) ==
LOC: HO.MRI 10:37
PROVIDERS: PCP Nurse Practitioner Family; Visit Provider Internal Medicine
DX: K86.89 Other specified diseases of pancreas (principal)
CPT/HCPCS: 74183; A9585

== ENCOUNTER 2022-12-18 09:57 | Outpatient (RCR) | payer OTHER, SELFPAY | END 2023-01-28 10:09 | disposition home or self-care (01) | LOC: HO.PT 09:57 | PROVIDERS: PCP Nurse Practitioner Family; Visit Provider Nurse Practitioner Family | DX: R42 Dizziness and giddiness (principal) | CPT/HCPCS: 97161 ==

== ENCOUNTER 2022-12-31 12:57 | Outpatient (REF) | payer OTHER, SELFPAY ==
--- NOTE | ~2022-12-31 | MR_ITS ---
EXAMINATION: MR BRAIN WITHOUT AND WITH CONTRAST CLINICAL INFORMATION: Dizziness COMPARISON: MRI of the brain without contrast and 02/17/2017 TECHNIQUE: Multiplanar multisequence MR imaging of the brain was obtained without and following the administration of 7 mL Gadavist intravenous contrast. FINDINGS: There is no acute infarct on diffusion-weighted imaging. There is no intracranial hemorrhage on iron-sensitive imaging. No extra-axial collection or mass effect/herniation. Normal parenchymal signal characteristics. No hydrocephalus. The ventricles are normal in morphology and size. No abnormal parenchymal or extra-axial enhancement. The major flow voids at the skull base are preserved. The midline structures are normal. The cerebellar tonsils are normally positioned. The craniocervical junction is normal. Marrow signal is within normal limits. The visualized soft tissues are without significant abnormality. No signal abnormality within the paranasal sinuses or within the mastoid air cells. MR/MR head/brain wo/w con IMPRESSION: Unremarkable contrast enhanced MRI of the brain.
== END 2022-12-31 12:58 | disposition home or self-care (01) ==
LOC: HO.MRI 12:57
PROVIDERS: PCP Internal Medicine; Visit Provider Nurse Practitioner Family
DX: G89.29 Other chronic pain (principal); K86.89 Other specified diseases of pancreas; R41.3 Other amnesia; R51.9 Headache, unspecified; R42 Dizziness and giddiness
CPT/HCPCS: 70553; A9585

== ENCOUNTER 2023-01-02 10:24 | Outpatient (REF) | payer OTHER, SELFPAY ==
[2023-01-07 06:03] LABS: HPV mRNA E6/E7 rflx Not Detected (Not Detected)
== END 2023-01-02 10:25 | disposition home or self-care (01) ==
LOC: HO.LNP 10:24
PROVIDERS: PCP Internal Medicine; Visit Provider Advanced Practice Midwife
DX: Z01.419 Encounter for gynecological examination (general) (routine) without abnormal findings (principal); Z11.51 Encounter for screening for human papillomavirus (HPV)
CPT/HCPCS: 87624; 88142

== ENCOUNTER → 2023-01-28 14:24 | Outpatient (BNVA) | payer OTHER, SELFPAY | PROVIDERS: PCP Internal Medicine; Referring Provider Internal Medicine; Visit Provider Internal Medicine | DX: D3A.8 Other benign neuroendocrine tumors (principal) | CPT/HCPCS: 99212 ==

== ENCOUNTER 2023-01-29 09:38 | Outpatient (REF) | payer OTHER, SELFPAY ==
[2023-02-11 12:08] LABS: Chromogranin A 1082 ng/mL (ADULTS: <311)
== END 2023-01-29 09:39 | disposition home or self-care (01) ==
LOC: HO.LAB 09:38
PROVIDERS: Internal Medicine; PCP Nurse Practitioner Family; Visit Provider Nurse Practitioner Family
DX: D3A.8 Other benign neuroendocrine tumors (principal)
CPT/HCPCS: 36415; 86316

== ENCOUNTER → 2023-02-18 15:15 | Outpatient (BNV) | payer OTHER, SELFPAY | PROVIDERS: PCP Internal Medicine; Visit Provider Internal Medicine | DX: R59.0 Localized enlarged lymph nodes (principal) | CPT/HCPCS: 99205; 99212; 99213; 99214; G2211 ==

== ENCOUNTER → 2023-03-06 14:29 | Outpatient (BNVA) | payer OTHER, SELFPAY | PROVIDERS: PCP Internal Medicine; Visit Provider Nurse Practitioner Family | DX: R42 Dizziness and giddiness (principal); R51.9 Headache, unspecified; R41.3 Other amnesia; G89.29 Other chronic pain | CPT/HCPCS: 99212 ==

== ENCOUNTER 2023-03-11 11:31 | Outpatient (AMB) | payer OTHER, SELFPAY ==
--- NOTE | 2023-03-11 11:33 | MHC.OFFVIS ---
Intake Vital Signs 03/11/23 11:36 Height 5 ft 3 in Weight 152 lb 1.903 oz BMI 26.9 BP 133/93 H Blood Pressure Location Lt brachial Position Sitting Pulse 71 Intake Visit Reasons: 6 week fu Intake Note: Meredith presents in the office as a 6 week follow up. CC: States she had a biopsy and here for the results. She also had a US. Heavy Duty Mechanic Required: Yes Heavy Duty Mechanic Name: Bob [id number] Allergies clarithromycin [From PREVPAC] Allergy (Mild, Verified 03/11/23 11:37) hives lansoprazole [From PREVPAC] Allergy (Mild, Verified 03/11/23 11:37) hives lisinopril [LISINOPRIL] Allergy (Mild, Verified 03/11/23 11:37) COUGHING, cough, cough amoxicillin [AMOXICILLIN] Allergy (Unknown, Verified 03/11/23 11:37) RASH cephalexin Allergy (Unknown, Verified 03/11/23 11:37) rash clavulanic acid [Augmentin] Allergy (Unknown, Verified 03/11/23 11:37) rash duloxetine [Cymbalta] Allergy (Unknown, Verified 03/11/23 11:37) weight gain, increase appetite levofloxacin [From LEVAQUIN] Allergy (Unknown, Verified 03/11/23 11:37) RASH linaclotide [Linzess] Allergy (Unknown, Verified 03/11/23 11:37) nausea penicillin V Allergy (Unknown, Verified 03/11/23 11:37) rash Penicillins [PENICILLINS] Allergy (Unknown, Verified 03/11/23 11:37) RASH Sulfa (Sulfonamide Antibiotics) Allergy (Unknown, Verified 03/11/23 11:37) rash tramadol Allergy (Unknown, Verified 03/11/23 11:37) pruritus triamcinolone [Kenalog] Allergy (Unknown, Verified 03/11/23 11:37) Unknown meclizine Adverse Reaction (Intermediate, Verified 03/11/23 11:37) fatigue, somnolence prednisone [Prednisone] Adverse Reaction (Mild, Verified 03/11/23 11:37) YEAST INFECTION cetirizine Adverse Reaction (Unknown, Verified 03/11/23 11:37) dizziness? HPI HPI Comments History of Present Illness Details This is a 77-year-old female with past medical history of extensive smoking history, COPD, diabetes, osteoporosis, tubular adenoma x2 (10/2022), who is following up for the following below: 11/17/22: -Panc mass: Patient was seen in the emergency room on 11/10/2022 for abdominal cramping, nausea, vomiting and frequent bowel movements. Symptoms were sudden in onset x 1 day. Abdominal pain was mild but associated with significant vomiting, patient reports 4-5 episodes that day. Responded very quickly to 1 dose of ondansetron. With the vomiting, she also had frequent bowel movements, which she attributes to forceful retching and increase in abdominal pressure. Sx duration was only one day as noted above and now back to baseline. Thinks she may have lost a few lb in the last 1 month, as her clothes feel a bit loose on her. No changes in appetite. On further questioning recalls that she has also been experiencing sensation of food getting stuck mid chest x 1-2 months, intermittently, mostly to solid foods with tough consistency. Does not think it is progressing. Has known longstanding T2DM which has been well controlled. No prior hx of pancreatitis. Patient does not drink. Has 55 pack year history, quit smoking in 2007. No family history of pancreatic cancer. Workup in the emergency room included a CT abdomen and pelvis with contrast that showed 1.4 x 1 x 1.3 cm hyperenhancing mass in the neck associated with upstream dilation of PD to 4 mm. Liver normal in size and no focal lesions seen. -[place] results: 10/31/22 (Dr Carrizales) Diverticulosis throughout the colon most severe in sigmoid colon. x2 5-8mm rectal polyps s/p cold forceps polypectomy. Path: Tubular adenomas. Moderate internal hemorrhoids Colon preparation:? Good? Colon withdrawal time 12 mins. 01/28/23: [place] scan results reviewed consistent with neuroendocrine tumor. [facility] GI referral for EUS still pending. Pt continues to have intermittent abdominal discomfort but otherwise no diarrhea, change in appetite, brittle sugars to suspect functional tumor at this time. 03/11/23: Comes in for follow up. Had EUS guided FNA on 02/24 however cytology was nondiagnostic. Patient and daughter were initially hesitant to pursue a repeat EUS however now agreeable and in fact she has the EUS FNA with EDGARD guzmanw afternoon. Otherwise, feels well. No other gastrointestinal complaints. FORMERLY [facility], LATER [facility] Medical History Anxiety Asthma Atherosclerotic cardiovascular disease Borderline diabetes Chronic headache Constipation Degenerative lumbar disc Diabetes mellitus Dizziness Fibromyalgia GERD without esophagitis Hypercalcemia Hypercholesteremia Irritable bowel syndrome Left low back pain Lumbar degenerative disc disease Mixed hyperlipidemia Osteoporosis Overweight (BMI 25.0-29.9) Pulmonary emphysema Rash Vaginal discharge Vertigo Vitamin D deficiency Surgical History H/O angioplasty H/O heart artery stent H/O Spinal surgery History of loop electrical excision procedure (LEEP) Hx of colonoscopy Hx of tubal ligation Family History Father No problems noted. Mother Depression S/P CABG x 4 Diabetes Hypertension Sister Poor high blood pressure control Cervical cancer Breast cancer Social History Household Members: None Housing: Apartment Alcohol intake: current Alcohol intake frequency: does not drink Alcohol type: beer and wine Patient Tobacco Use Status: Former Tobacco user Tobacco use type: Cigarette e-Cigarette/Vaping Use: Never Used Second Hand Smoke Exposure: No service: No Current occupational status: retired and disabled Cognitive needs: No Hearing needs: No Vision needs: Yes (glasses) Female Reproductive History Menstrual Age of Menarche: 13 Physical Exam Vital Signs: Last Vital Signs Pulse 71 03/11/23 11:36 BP 133/93 H 03/11/23 11:36 BMI result Body Mass Index 26.9 Gen appear: NAD HEENT: nonicteric, no cervical lymphadenopathy Chest: CTA CVS: Regular S1/S2 Abd: soft, nontender, nondistended, bowel sounds + Ext: no peripheral edema Neuro: A/Ox3, noted to move all extremities spontaneously Psych: interacting appropriately Assessment & Plan Assessment & Plan (1) Neuroendocrine tumor of pancreas: Code(s): D3A.8 - Other benign neuroendocrine tumors (2) Pancreatic mass: Code(s): K86.89 - Other specified diseases of pancreas Plan s/p EUS with FNA last month however FNA was nondiagnostic. Repeat EUS at [facility] scheduled for tmrw. Will keep a close follow up in 3 weeks. Coding Level of Care Code Est Pt Level 4 (96058) Diagnoses Neuroendocrine tumor of pancreas D3A.8 Pancreatic mass K86.89
[2023-03-11 11:36] VITALS: BP 133/93; PULSE 71; BMI 26.9
== END 2023-03-11 12:31 | disposition home or self-care (01) ==
PROVIDERS: Visit Provider Internal Medicine
DX: D3A.8 Other benign neuroendocrine tumors (principal); K86.89 Other specified diseases of pancreas
CPT/HCPCS: 99214

== ENCOUNTER → 2023-03-11 11:31 | Outpatient (BNVA) | payer OTHER, SELFPAY | PROVIDERS: Visit Provider Internal Medicine | DX: D3A.8 Other benign neuroendocrine tumors (principal); K86.89 Other specified diseases of pancreas | CPT/HCPCS: 99212 ==

== ENCOUNTER 2023-04-08 09:56 | Outpatient (AMB) | payer OTHER, SELFPAY ==
--- NOTE | 2023-04-08 09:59 | A.OFFVIS_ITS ---
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: No Accompanied by: Daughter Allergies clarithromycin [From PREVPAC] Allergy (Mild, Verified 04/08/23 10:01) hives lansoprazole [From PREVPAC] Allergy (Mild, Verified 04/08/23 10:01) hives lisinopril [LISINOPRIL] Allergy (Mild, Verified 04/08/23 10:01) COUGHING, cough, cough amoxicillin [AMOXICILLIN] Allergy (Unknown, Verified 04/08/23 10:01) RASH cephalexin Allergy (Unknown, Verified 04/08/23 10:01) rash clavulanic acid [Augmentin] Allergy (Unknown, Verified 04/08/23 10:01) rash duloxetine [Cymbalta] Allergy (Unknown, Verified 04/08/23 10:01) weight gain, increase appetite levofloxacin [From LEVAQUIN] Allergy (Unknown, Verified 04/08/23 10:01) RASH linaclotide [Linzess] Allergy (Unknown, Verified 04/08/23 10:01) nausea penicillin V Allergy (Unknown, Verified 04/08/23 10:01) rash Penicillins [PENICILLINS] Allergy (Unknown, Verified 04/08/23 10:01) RASH Sulfa (Sulfonamide Antibiotics) Allergy (Unknown, Verified 04/08/23 10:01) rash tramadol Allergy (Unknown, Verified 04/08/23 10:01) pruritus triamcinolone [Kenalog] Allergy (Unknown, Verified 04/08/23 10:01) Unknown meclizine Adverse Reaction (Intermediate, Verified 04/08/23 10:01) fatigue, somnolence prednisone [Prednisone] Adverse Reaction (Mild, Verified 04/08/23 10:01) YEAST INFECTION cetirizine Adverse Reaction (Unknown, Verified 04/08/23 10:01) dizziness? Medication List - Last Reconciled 04/08/23 by Berkley Wen NP albuterol sulfate 90 mcg/actuation 2 puffs PO Q6H PRN alprazolam 0.25 mg PO BID PRN aspirin 81 mg PO DAILY blood pressure monitor As directed blood sugar diagnostic (FreeStyle Lite Strips) As directed once a day blood-glucose meter (FreeStyle Lite Meter kit) daily gabapentin 100 mg PO DAILY PRN metformin 1,000 mg PO BID nitroglycerin 0.4 mg sublingual Q5M PRN olopatadine 0.1% 1 drp ophthalmic (eye) BID PRN 30 days omeprazole 40 mg (2 x 20 mg) PO DAILY ondansetron 4 mg PO Q6H PRN 30 days rosuvastatin 40 mg PO DAILY 90 days umeclidinium-vilanterol 62.5-25 mcg/actuation (Anoro Ellipta) 1 inh inhalation DAILY 30 days HPI HPI Comments History of Present Illness Details 78-year-old female presents with her daughter for a follow-up. Patient and daughter report only concern is her increasing overwhelming fatigue. The fatigue has been occurring since her NSTEMI in 2015. She states she has been getting 6-7 hours of sleep a night and will either fall back asleep or shortly after 2+ hour nap and lay in bed due to the overwhelming fatigue.She has been getting worked up for cancer [facility]. She denies Shortness of breath and chest pains. She quit smoking many years ago and has not resumed. She had a stent placed in her LAD in 2016 and 2019. In 2016 she had NSTEMI. She reports compliance with her medications. FORMERLY [facility] Medical History Anxiety Asthma Atherosclerotic cardiovascular disease Borderline diabetes Chronic headache Constipation Degenerative lumbar disc Diabetes mellitus Dizziness Fibromyalgia GERD without esophagitis Hypercalcemia Hypercholesteremia Irritable bowel syndrome Left low back pain Lumbar degenerative disc disease Mixed hyperlipidemia Osteoporosis Overweight (BMI 25.0-29.9) Pulmonary emphysema Rash Vaginal discharge Vertigo Vitamin D deficiency Surgical History H/O angioplasty H/O heart artery stent H/O Spinal surgery History of biopsy History of loop electrical excision procedure (LEEP) Hx of colonoscopy Hx of tubal ligation Family History Father No problems noted. Mother Depression S/P CABG x 4 Diabetes Hypertension Sister Poor high blood pressure control Cervical cancer Breast cancer Social History Household Members: None Housing: Apartment Alcohol intake: current Alcohol intake frequency: does not drink Alcohol type: beer and wine Patient Tobacco Use Status: Former Tobacco user e-Cigarette/Vaping Use: Never Used Second Hand Smoke Exposure: No service: No Current occupational status: retired and disabled Cognitive needs: No Hearing needs: No Vision needs: Yes (glasses) Female Reproductive History Menstrual Age of Menarche: 13 Review of Systems Const All systems reviewed & are unremarkable except as noted in HPI and below Reports as per HPI, Denies difficulty sleeping, Reports fatigue, Denies fever(s), Denies frequent falls, Denies headache(s), Reports lethargy, Denies weakness, Denies weight gain and Denies weight loss Eyes Reports no additional complaints ENT Denies dizziness and Denies headache(s) Card Denies chest pain, Denies chest pain at rest, Denies chest pain with activity, Denies rapid heart rate, Denies edema, Denies irregular heart rhythm, Denies lightheadedness, Denies palpitations, Denies dyspnea, Denies dyspnea on exertion and Denies orthopnea Resp Denies cough, Denies dyspnea and Denies dyspnea on exertion GI Reports no additional complaints, Denies melena, Denies hematochezia and Denies change in bowel habits Musc Denies abnormal gait, Denies myalgias, Denies muscle cramps, Denies muscle weakness, Denies numbness and Denies tingling Neuro Denies abnormal gait, Denies dizziness, Denies frequent falls, Denies headache(s), Denies numbness, Denies tingling and Denies weakness Psych Reports no additional complaints Endo Reports fatigue and Denies palpitations Physical Exam Vital Signs: Last Vital Signs Pulse 85 04/08/23 10:01 BP 132/70 04/08/23 10:01 BMI result Body Mass Index 26.6 Const General: cooperative, no acute distress, alert and awake Orientation/consciousness: patient oriented x3 HEENT Head: Yes normal to inspection Eyes General: appearance normal, both eyes and all related structures Neck Neck: Yes normal visual inspection and Yes no JVD Chest Chest palpation & inspection: normal inspection of the chest Resp Effort & Inspection: normal respiratory effort Auscultation: clear to auscultation bilaterally Cardio Jugular venous distension: no JVD Palpation: normal PMI Heart sounds: S1 normal heart sound present, S2 normal heart sound present, no click, no gallops and no murmurs GI Inspection: Yes normal to inspection Palpation (GI): Soft to palpation Skin General skin exam: no rashes or lesions noted Neuro General: patient oriented x3 and gait normal Extrem General: Yes normal to inspection Psych Appearance: grossly normal Assessment & Plan Assessment & Plan (1) Fatigue: Code(s): R53.83 - Other fatigue (2) Cigarette smoker: Code(s): F17.210 - Nicotine dependence, cigarettes, uncomplicated (3) History of non-ST elevation myocardial infarction (NSTEMI): Code(s): I25.2 - Old myocardial infarction (4) Atherosclerotic cardiovascular disease: Code(s): I25.10 - Atherosclerotic heart disease of [place] coronary artery without angina pectoris (5) Mixed hyperlipidemia: Code(s): E78.2 - Mixed hyperlipidemia Plan PT reports overwhelming fatigue and needing to take naps. Sleep study to assess for sleep apnea. She continues on aspirin 81mg, rosuvastatin 40mg QD. She cotninues to not smoke and is congraulated for that. Discussed possibly doing a stress test and she declines to have another done again and will like to start with the sleep study first. Will call with her results. Will call with results. Will follow-up in 1 year - sooner if needed. Orders: Orders RT home sleep study Today R53.83 - Other fatigue Medications: Changed From alprazolam 0.25 mg PO BID 30 days PRN 60 tabs 0RF anxiety To alprazolam 0.25 mg PO BID PRN anxiety Coding Level of Care Code Est Pt Level 3 (25656) Diagnoses Fatigue R53.83 Cigarette smoker F17.210 History of non-ST elevation myocardial infarction (NSTEMI) I25.2 Atherosclerotic cardiovascular disease I25.10 Mixed hyperlipidemia E78.2
[2023-04-08 10:01] VITALS: BP 132/70; PULSE 85; BMI 26.6
== END 2023-04-08 10:50 | disposition home or self-care (01) ==
LOC: HO.HCS 09:56
PROVIDERS: PCP Internal Medicine; Referring Provider Internal Medicine; Visit Provider Nurse Practitioner
DX: R53.83 Other fatigue (principal); F17.210 Nicotine dependence, cigarettes, uncomplicated; I25.2 Old myocardial infarction; I25.10 Atherosclerotic heart disease of native coronary artery without angina pectoris; E78.2 Mixed hyperlipidemia
CPT/HCPCS: 99213

== ENCOUNTER → 2023-04-08 09:56 | Outpatient (BNVA) | payer OTHER, SELFPAY | PROVIDERS: PCP Internal Medicine; Referring Provider Internal Medicine; Visit Provider Nurse Practitioner | DX: R53.83 Other fatigue (principal); I25.2 Old myocardial infarction; I25.10 Atherosclerotic heart disease of native coronary artery without angina pectoris; E78.2 Mixed hyperlipidemia | CPT/HCPCS: 99212 ==

== ENCOUNTER → 2023-05-18 14:44 | Outpatient (REF) | payer OTHER, SELFPAY | LOC: HO.SL 14:44 | PROVIDERS: PCP Internal Medicine; Visit Provider Nurse Practitioner | DX: Z13.89 Encounter for screening for other disorder (principal) ==

== ENCOUNTER 2023-05-19 09:35 | Outpatient (REF) | payer OTHER, SELFPAY ==
[2023-05-19 09:51] LABS: MANUAL DIFF FLAG NO
[2023-05-19 10:08] LABS: Basophils Absolute Auto 0.1 X10*3/uL (0.0-0.2); Basophils Percent Auto 1.7 % (0-2); Eosinophils Absolute Auto 0.2 X10*3/uL (0.0-0.4); Eosinophils Percent Auto 4.2 % (0-4); Hematocrit 35.5 % (37.0-47.0); Hemoglobin 10.7 g/dl (12.0-16.0); Imm Gran Abs Auto 0.01 X10*3/uL (0.00-0.03); Imm Gran Pct Auto 0.2 % (0.0-0.4); Lymphocytes Absolute Auto 1.6 X10*3/uL (1.2-4.9); Lymphocytes Percent Auto 28.3 % (20-40); Mean Corpuscular HGB Conc 30.1 g/dl (31.0-35.0); Mean Corpuscular Hemoglobin 26.2 pg (27.0-33.0); Mean Platelet Volume 10.6 fL (9.4-12.3); Monocytes Absolute Auto 0.5 X10*3/uL (0.1-1.2); Monocytes Percent Auto 8.9 % (2-11); Neutrophils Absolute Auto 3.3 x10*3/uL (2.0-8.3); Neutrophils Percent Auto 56.7 % (45-73); Platelet Count 401 X10*3/uL (160-400); Red Blood Count 4.08 X10*6/uL (4.20-5.50); Red Cell Distribution Width 15.2 % (11.0-16.0); White Blood Count 5.7 X10*3/uL (4.8-10.8)
[2023-05-19 10:27] LABS: Estimated Average Glucose 157 mg/dL; Hemoglobin A1c % 7.1 % (<6.0)
[2023-05-19 11:05] LABS: Appearance Urine Clear; Color Urine Yellow; Glucose Urine UA Negative (Negative); Leukocyte Esterase Urine Negative (Negative); Nitrite Urine Negative (Negative); Specific Gravity - Urine 1.015 (1.005-1.025); Urine Blood Negative (Negative); Urine Ketones Negative (Negative); Urine Protein Negative (Neg-Trace)
[2023-05-19 11:14] LABS: Alanine Aminotransferase 14 U/L (0-31); Albumin Level 4.1 g/dL (3.5-5.0); Alkaline Phosphatase 52 U/L (39-117); Anion Gap 11 (12-20); Aspartate Amino Transferase 17 U/L (5-31); Bilirubin Total 0.2 mg/dL (0.0-1.0); Blood Urea Nitrogen 17 mg/dL (9-16); Calcium 9.7 mg/dL (8.4-10.2); Carbon Dioxide 27 mmol/L (22-29); Chloride 107 mmol/L (96-108); Cholesterol 268 mg/dL (<200); Estimated Glomerular Filt Rate 60; Glucose Fasting 144 mg/dL (60-99); HDL Cholesterol 44 mg/dL (>40); LDL Cholesterol Calculated 173 mg/dL (<100); Potassium 4.4 mmol/L (3.3-5.1); Sodium 141 mmol/L (135-145); Total Protein 7.6 g/dL (6.5-8.0); Triglycerides 256 mg/dL (<150)
[2023-05-19 11:30] LABS: TSH reflex Free T4 3.22 uIU/mL (0.32-4.0); Vitamin D 25-OH Total 81.5 ng/mL (>30)
[2023-05-19 11:43] LABS: Folate 13.8 ng/mL (> or = 4.0); Vitamin B12 452 pg/mL (200-900)
[2023-05-19 11:48] LABS: Creatinine Urine 58.57 mg/dL; Microalbum/Creatinine Ratio Ur 37.5 ug/mg cr (<30)
== END 2023-05-19 09:36 | disposition home or self-care (01) ==
LOC: HO.LAB 09:35
PROVIDERS: PCP Internal Medicine; Visit Provider Internal Medicine
DX: I10 Essential (primary) hypertension (principal); E78.00 Pure hypercholesterolemia, unspecified; E55.9 Vitamin D deficiency, unspecified; E11.9 Type 2 diabetes mellitus without complications; E53.8 Deficiency of other specified B group vitamins; R30.0 Dysuria
CPT/HCPCS: 36415; 80053; 80061; 81003; 82043; 82306; 82570; 82607; 82746; 83036; 84443; 85025

== ENCOUNTER 2023-05-21 10:50 | Outpatient (AMB) | payer OTHER, SELFPAY ==
[2023-05-21 11:07] VITALS: BP 140/70; PULSE 71; O2SAT 97; BMI 26.6
--- NOTE | 2023-05-21 11:07 | MHC.PC.OV ---
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: Yes Accompanied by: Self / Same As Patient Allergies clarithromycin [From PREVPAC] Allergy (Mild, Verified 05/21/23 12:02) hives lansoprazole [From PREVPAC] Allergy (Mild, Verified 05/21/23 12:02) hives lisinopril [LISINOPRIL] Allergy (Mild, Verified 05/21/23 12:02) COUGHING, cough, cough amoxicillin [AMOXICILLIN] Allergy (Unknown, Verified 05/21/23 12:02) RASH cephalexin Allergy (Unknown, Verified 05/21/23 12:02) rash clavulanic acid [Augmentin] Allergy (Unknown, Verified 05/21/23 12:02) rash duloxetine [Cymbalta] Allergy (Unknown, Verified 05/21/23 12:02) weight gain, increase appetite levofloxacin [From LEVAQUIN] Allergy (Unknown, Verified 05/21/23 12:02) RASH linaclotide [Linzess] Allergy (Unknown, Verified 05/21/23 12:02) nausea penicillin V Allergy (Unknown, Verified 05/21/23 12:02) rash Penicillins [PENICILLINS] Allergy (Unknown, Verified 05/21/23 12:02) RASH Sulfa (Sulfonamide Antibiotics) Allergy (Unknown, Verified 05/21/23 12:02) rash tramadol Allergy (Unknown, Verified 05/21/23 12:02) pruritus triamcinolone [Kenalog] Allergy (Unknown, Verified 05/21/23 12:02) Unknown meclizine Adverse Reaction (Intermediate, Verified 05/21/23 12:02) fatigue, somnolence prednisone [Prednisone] Adverse Reaction (Mild, Verified 05/21/23 12:02) YEAST INFECTION cetirizine Adverse Reaction (Unknown, Verified 05/21/23 12:02) dizziness? Medication List - Last Reconciled 05/21/23 by Jonatan Cardoso MD albuterol sulfate 90 mcg/actuation 2 puffs PO Q6H PRN alprazolam 0.25 mg PO BID PRN aspirin 81 mg PO DAILY azithromycin take 500 mg today (day 1), then 250 mg for 4 days (days 2-5) PO blood pressure monitor As directed blood sugar diagnostic (FreeStyle Lite Strips) As directed once a day blood-glucose meter (FreeStyle Lite Meter kit) daily gabapentin 100 mg PO DAILY PRN [HANDHELD SHOWER HEAD As directed] metformin 1,000 mg PO BID nitroglycerin 0.4 mg sublingual Q5M PRN olopatadine 0.1% 1 drp ophthalmic (eye) BID PRN 30 days omeprazole 40 mg (2 x 20 mg) PO DAILY ondansetron 4 mg PO Q6H PRN 30 days rosuvastatin 40 mg PO DAILY 90 days umeclidinium-vilanterol 62.5-25 mcg/actuation (Anoro Ellipta) 1 inh inhalation DAILY 30 days Tobacco use date assessed: 05/21/23 Fall risk assessment: No Falls in past year Last assessed Fall Risk: 05/21/23 Dental Screening Dental Screen Date: 05/21/23 Did you have a dental visit in the last 12 months?: No Did you have a dental problem in the last 6 months where you did not have access to dental care?: No Was dental information given to patient?: Patient has dentist HPI 3mth f/u HPI Details Patient comes in today for her follow up visit States that she feels okay except for increasing left shoulder pain, which she states has been bothering her for about 1 week now Notes (+) burning sensation in her shoulder at times lately Does not recall any recent injury or trauma to her shoulder She denies any headaches or dizziness Denies any chest pains, no SOB No nausea/vomiting, no abdominal pain No change in bowel habits noted Was seen by surgical oncology at [facility] last month (Dr. Hammond) for her recently diagnosed neuroendocrine pancreatic tumor but she declined any surgical intervention She was advised that they can call Dr. Hammond and return to her at any time if she changes her mind about surgical intervention She had her follow up labs done a couple of days ago - to discuss her results [facility] Medical History Vaginal discharge Rash Left low back pain Dizziness Osteoporosis Hypercalcemia GERD without esophagitis Constipation Lumbar degenerative disc disease Overweight (BMI 25.0-29.9) Vitamin D deficiency Mixed hyperlipidemia Atherosclerotic cardiovascular disease Pulmonary emphysema Diabetes mellitus Vertigo Degenerative lumbar disc Irritable bowel syndrome Fibromyalgia Borderline diabetes Hypercholesteremia Asthma Chronic headache Anxiety Surgical History History of biopsy History of loop electrical excision procedure (LEEP) H/O heart artery stent Hx of colonoscopy H/O angioplasty H/O Spinal surgery Hx of tubal ligation Family History Father No problems noted. Mother Depression S/P CABG x 4 Diabetes Hypertension Sister Poor high blood pressure control Cervical cancer Breast cancer Social History Household Members: None Housing: Apartment Alcohol intake: current Alcohol intake frequency: does not drink Alcohol type: beer and wine Patient Tobacco Use Status: Former Tobacco user e-Cigarette/Vaping Use: Never Used Second Hand Smoke Exposure: No service: No Current occupational status: retired and disabled Cognitive needs: No Hearing needs: No Vision needs: Yes (glasses) Female Reproductive History Menstrual Age of Menarche: 13 Questionnaire PHQ-9 Over the last 2 weeks, how often have you been bothered by any of the following problems? 1. Little interest or pleasure in doing things: nearly every day 2. Feeling down, depressed, or hopeless: nearly every day 3. Trouble falling or staying asleep, or sleeping too much: nearly every day (sleeping too much ) 4. Feeling tired or having little energy: nearly every day 5. Poor appetite or overeating: several days 6. Feeling bad about yourself - or that you are a failure or have let yourself or your family down: more than half the days 7. Trouble concentrating on things, such as reading the newspaper or watching television: nearly every day 8. Moving or speaking so slowly that other people could have noticed. Or the opposite - being so fidgety or restless that you have been moving around a lot more than usual: nearly every day 9. Thoughts that you would be better off or of hurting yourself in some way: not at all Total score: 21 Depression Screening Interpretation: Positive Depression Screening Follow-up: Existing condition and In treatment 90974 - PHQ-9 Billing: Yes Source: Developed by Drs. Anthony Whelan, Vivek Menon and colleagues, with an educational irena from [employer]. Thrive Questionnaire Date Thrive assessed: 05/21/23 I am a: Patient What is your living situation today?: I have a steady place to live Within the past 12 months, did the food you bought not last and you didn't have the money to get more?: Never true Within the past 12 months, did you worry whether your food would run out before you got money to buy more?: Never true Do you have trouble paying for medicines?: No Do you have trouble getting transportation to medical appointments?: No Do you have trouble paying your heating and electricity bill?: No Do you have trouble taking care of your child, family member or friend?: No Do you have trouble with day-to-day activities such as bathing, preparing meals, shopping, managing finances, etc.?: No Are you currently unemployed and looking for a job?: No Are you interested in more education?: No Please select the resources that you would like help with: None Currently or been in a relationship where the following occur: no concerns reported AUDIT C Alcohol Use Questionnaire (AUDIT-C) 1. How often do you have a drink containing alcohol?: Never 3. How often do you have six or more drinks on one occasion?: Never Total Score: 0 Score Reviewed/Action Taken: Yes VIOLET-7 AMB Questionnaire VIOLET-7 Date VIOLET - 7 assessed: 05/21/23 Feeling nervous, anxious, or on edge: 0 = Not at all Not being able to stop or control worryin = Not at all Worrying too much about different things: 0 = Not at all Trouble relaxin = Not at all Being so restless that it is hard to sit still: 0 = Not at all Becoming easily annoyed or irritable: 0 = Not at all Feeling afraid as if something awful might happen: 0 = Not at all Total VIOLET-7 score (0-4 normal; 5-9 mild; 10-14 moderate; 15-21 severe): 0 Source: Developed by Drs. Anthony Whelan, Vivek Menon and colleagues, with an educational irena from [employer]. Review of Systems Const Denies chills, Reports fatigue (mild), Denies fever(s), Denies headache(s) and Denies weight loss ENT Denies dysphagia, Denies dizziness, Denies otalgia, Denies headache(s), Denies neck pain, Denies odynophagia and Denies sore throat Card Denies chest pain, Denies palpitations and Denies dyspnea Resp Denies cough and Denies dyspnea GI Denies abdominal pain, Denies bloating, Denies constipation, Denies dysphagia, Denies heartburn, Denies diarrhea, Denies nausea, Denies odynophagia and Denies vomiting Denies difficulty voiding, Denies nocturia and Denies dysuria Musc Reports arthralgias (increasing pain over the left shoulder - see HPI) and Denies neck pain Skin/Breast Denies rash Neuro Denies dizziness and Denies headache(s) Endo Reports fatigue (mild) and Denies palpitations Physical exam (Primary Care) Vital Signs: Last Vital Signs Pulse 71 05/21/23 11:07 BP 140/70 H 05/21/23 11:07 Pulse Ox 97 05/21/23 11:07 Oxygen Delivery Method Room Air 05/21/23 11:07 BMI result Body Mass Index 26.6 Tobacco/Smoking Status: Tobacco use Status Tobacco use date assessed 05/21/23 05/21/23 11:09 Patient Tobacco Use Status Former Tobacco user 05/21/23 11:09 Tobacco use type 04/16/23 13:51 e-Cigarette/Vaping Use Never Used 05/21/23 11:09 PHQ-9: PHQ-9 Score PHQ-9: Total score 21 05/21/23 12:07 Depression Screening Interpretation: Positive Depression Screening Follow-up: Existing condition and In treatment Thrive Assessment: Date of Thrive Assessment Date Thrive assessed 05/21/23 05/21/23 11:09 Currently or been in a relationship where the following occur: no concerns reported Const General: no acute distress and alert HENMT Ears: TM's normal bilaterally and EAC's normal Throat: Yes posterior oropharynx normal and Yes tonsils normal Neck Neck: Yes supple and Yes lymphadenopathy (bilaterally, over the anterior cervical areas) Resp Auscultation: clear to auscultation bilaterally, no rales and no wheezes Cardio Rate: regular rate Rhythm: regular rhythm Heart sounds: no murmurs GI Palpation (GI): Soft to palpation, nontender, no guarding and No hepatosplenomegaly present Auscultation: normal bowel sounds Skin Rashes: no rashes Extrem General: Yes no clubbing, cyanosis or edema Left upper extremity: shoulder/upper arm Details: tenderness Location: of the A-C joint; no swelling Results Reviewed Results Reviewed: Laboratory Tests 07/31/22 07/31/22 05/19/23 12:46 12:46 09:47 WBC Hgb Hct Plt Count Sodium Potassium Creatinine Estimated GFR Fasting Glucose Hemoglobin A1c % Calcium AST ALT Triglycerides 189 Cholesterol 123 LDL Cholesterol, Calc 45 HDL Cholesterol 41 Vitamin B12 25-OH Vitamin D Total TSH Ur Specific [place] 1.015 Urine Protein Negative Urine Glucose (UA) Negative Urine Blood Negative Microalb/Creat Ratio 37.5 H 05/19/23 05/19/23 05/19/23 09:50 09:50 09:50 WBC 5.7 Hgb 10.7 L Hct 35.5 L Plt Count 401 H D Sodium 141 Potassium 4.4 Creatinine 0.91 Estimated GFR 60 Fasting Glucose 144 H Hemoglobin A1c % 7.1 H Calcium 9.7 D AST 17 ALT 14 Triglycerides 256 H Cholesterol 268 H LDL Cholesterol, Calc 173 H HDL Cholesterol 44 Vitamin B12 25-OH Vitamin D Total TSH Ur Specific [place] Urine Protein Urine Glucose (UA) Urine Blood Microalb/Creat Ratio 05/19/23 09:50 WBC Hgb Hct Plt Count Sodium Potassium Creatinine Estimated GFR Fasting Glucose Hemoglobin A1c % Calcium AST ALT Triglycerides Cholesterol LDL Cholesterol, Calc HDL Cholesterol Vitamin B12 452 25-OH Vitamin D Total 81.5 TSH 3.22 Ur Specific [place] Urine Protein Urine Glucose (UA) Urine Blood Microalb/Creat Ratio Assessment and Plan Assessment & Plan (1) Left shoulder pain: Code(s): M25.512 - Pain in left shoulder Qualifiers: Chronicity: unspecified Qualified Code(s): M25.512 - Pain in left shoulder Plan: Will send for x-rays of the left shoulder MARY for further evaluation (2) Pancreatic mass: Code(s): K86.89 - Other specified diseases of pancreas Plan: Abdominal CT and MRI done a few months ago both revealed the presence of a pancreatic neck mass that is suspicious for a primary malignancy, 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 Hammond) at [facility] last month and recommended surgical exploration / intervention given the uncertainty as to how long the patient's tumor has actually been present but patient has steadfastly declined any surgical option/intervention - states that she has no symptoms related to the tumor and is adamant about not wanting any surgery done Has been advised that since she declines surgery, there is nothing else to offer her at [facility] but she can call at any time if she changes her mind about her decided course of action Follow up with GI and [place] [facility] [place] (3) Atherosclerotic cardiovascular disease: Code(s): I25.10 - Atherosclerotic heart disease of [place] coronary artery without angina pectoris Plan: S/P REJI to LAD x 2 (2015 & 2017); S/P NSTEMI in 2016 S/P dual anti-platelet therapy with Brilinta 90 mg BID x 1 year (Rx discontinued since) and low-dose Aspirin 81 mg QD Is currently only on low dose Aspirin 81 mg QD Follow-up with cardiology as scheduled (4) Diabetes mellitus: Code(s): E11.9 - Type 2 diabetes mellitus without complications Qualifiers: Diabetes mellitus type: type 2 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: without [facility] use Diabetes mellitus complication status: without complication Qualified Code(s): E11.9 - Type 2 diabetes mellitus without complications Plan: HgbA1c was at 7.1% on her labs done a couple of days ago (in-office HgbA1c was at 7.3% previously) - goal is < 7.0% Reinforced diabetic diet Continue Metformin 1000 mg BID (5) Mixed hyperlipidemia: Code(s): E78.2 - Mixed hyperlipidemia Plan: Results of her labs done a couple of days ago reviewed and discussed with patient - patient is cautioned that her cholesterol levels have all increased significantly from previous She now admits that she stopped taking her Rosuvastatin on her own about a month ago Reinforced low cholesterol diet She is advised to start back on her Rosuvastatin 40 mg QD MARY Will recheck her labs and fasting lipids in 3 months for follow up (6) Pulmonary emphysema: Code(s): J43.9 - Emphysema, unspecified Qualifiers: Emphysema type: unspecified Qualified Code(s): J43.9 - Emphysema, unspecified Plan: Is doing well on her current Rx - to continue on Anoro Ellipta 62.5-25 mcg 1 inhalation QD and Albuterol HFA 2 puffs 4 times a day PRN Chest CT screening done in January 2019 revealed evidence of mild paraseptal emphysema with peripheral interstitial markings suggestive of interstitial lung disease Follow up with pulmonary as scheduled (7) Osteoporosis: Code(s): M81.0 - Age-related osteoporosis without current pathological fracture Qualifiers: Osteoporosis type: age-related Presence of current pathological fracture: without current pathological fracture Qualified Code(s): M81.0 - Age-related osteoporosis without current pathological fracture Plan: Repeat BMD done in February 2021 revealed (+) osteoporosis, with a slight improvement in BMD of the AP spine and (+) decline in BMD at the femur Encouraged again on daily exercise but reinforced fall precautions Continue Vitamin D supplements but because of her previous hypercalcemia, do not recommend she take any calcium supplements for now (8) Overweight (BMI 25.0-29.9): Code(s): E66.3 - Overweight Plan: Reinforced diet; exercise and weight loss are not practical at this time due to her age and current comorbidities Plan Folow up in 3 months Orders: Orders Comprehensive [place]. Panel Fast 3 Months E78.00 - Pure hypercholesterolemia, unspecified Complete Blood Count Auto Diff 3 Months I10 - Essential (primary) hypertension Microalbumin, Random (w Creat) 3 Months E11.9 - Type 2 diabetes mellitus without complications UA CC w/rflx Micro + Cult 3 Months R30.0 - Dysuria XR shoulder LT min 2V 05/21/ M25.512 - Pain in left shoulder Lipid Panel 3 Months E78.00 - Pure hypercholesterolemia, unspecified Hemoglobin A1c 3 Months E11.9 - Type 2 diabetes mellitus without complications IRON PROFILE 3 Months D50.9 - Iron deficiency anemia, unspecified TSH reflex Free T4 3 Months E78.00 - Pure hypercholesterolemia, unspecified Vitamin B12 and Folate 3 Months E53.8 - Deficiency of other specified B group vitamins Vitamin D 25-OH Total 3 Months E55.9 - Vitamin D deficiency, unspecified Coding Level of Care Code Est Pt Level 4 (04861) Diagnoses Left shoulder pain, unspecified chronicity M25.512 Chronicity: unspecified Pancreatic mass K86.89 Atherosclerotic cardiovascular disease I25.10 Type 2 diabetes mellitus without complication, without long-term current use of insulin E11.9 Diabetes mellitus type: type 2 Diabetes mellitus [facility] insulin use: without [facility] use Diabetes mellitus complication status: without complication Mixed hyperlipidemia E78.2 Pulmonary emphysema, unspecified emphysema type J43.9 Emphysema type: unspecified Age-related osteoporosis without current pathological fracture M81.0 Osteoporosis type: age-related Presence of current pathological fracture: without current pathological fracture Overweight (BMI 25.0-29.9) E66.3
== END 2023-05-21 12:17 | disposition home or self-care (01) ==
PROVIDERS: PCP Nurse Practitioner Family; Visit Provider Internal Medicine
DX: E11.9 Type 2 diabetes mellitus without complications (principal); J43.9 Emphysema, unspecified; M25.512 Pain in left shoulder; K86.89 Other specified diseases of pancreas; I25.10 Atherosclerotic heart disease of native coronary artery without angina pectoris; E78.2 Mixed hyperlipidemia; M81.0 Age-related osteoporosis without current pathological fracture; E66.3 Overweight; Z68.26 Body mass index [BMI] 26.0-26.9, adult
CPT/HCPCS: 99214

== ENCOUNTER 2023-05-21 12:34 | Outpatient (REF) | payer OTHER, SELFPAY ==
--- NOTE | ~2023-05-21 | XR_ITS ---
EXAMINATION: XR SHOULDER, LEFT CLINICAL INFORMATION: Left shoulder pain. COMPARISON: None available. TECHNIQUE: AP external rotation, Grashey, scapular Y, and axillary views of the left shoulder. FINDINGS: No acute fracture or dislocation. Mild acromioclavicular joint space narrowing with small marginal osteophytes. Unremarkable glenohumeral joint. Degenerative cystic change within the greater tuberosity. No concerning lytic or blastic osseous lesion. No abnormal soft tissue calcification. XR/XR shoulder LT min 2V IMPRESSION: Mild acromioclavicular osteoarthritis.
== END 2023-05-21 12:35 | disposition home or self-care (01) ==
LOC: HO.XRAY 12:34
PROVIDERS: PCP Internal Medicine; Visit Provider Internal Medicine
DX: M25.512 Pain in left shoulder (principal)
CPT/HCPCS: 73030

== ENCOUNTER 2023-07-01 10:45 | Outpatient (AMB) | payer OTHER, SELFPAY ==
[2023-07-01 11:14] VITALS: BP 130/72; PULSE 88; O2SAT 98; BMI 26.5
--- NOTE | 2023-07-01 11:14 | A.OFFPC_ITS ---
Vital Signs 07/01/23 11:14 Height 5 ft 3 in Weight 149 lb 8 oz BMI 26.5 BP 130/72 Blood Pressure Location Lt brachial Position Sitting Pulse 88 Pulse Source Pulse Oximeter Pulse Oximetry (%) 98 Oxygen Delivery Method Room Air Intake Visit Reasons: DM Clinical Appeals Auditor Required: No Accompanied by: Self / Same As Patient Allergies clarithromycin [From PREVPAC] Allergy (Mild, Verified 07/01/23 12:01) hives lansoprazole [From PREVPAC] Allergy (Mild, Verified 07/01/23 12:) hives lisinopril [LISINOPRIL] Allergy (Mild, Verified 07/01/23 12:01) COUGHING, cough, cough amoxicillin [AMOXICILLIN] Allergy (Unknown, Verified 07/01/23 12:) RASH cephalexin Allergy (Unknown, Verified 07/01/23 12:) rash clavulanic acid [Augmentin] Allergy (Unknown, Verified 07/01/23 12:01) rash duloxetine [Cymbalta] Allergy (Unknown, Verified 07/01/23 12:01) weight gain, increase appetite levofloxacin [From LEVAQUIN] Allergy (Unknown, Verified 07/01/23 12:01) RASH linaclotide [Linzess] Allergy (Unknown, Verified 07/01/23 12:01) nausea penicillin V Allergy (Unknown, Verified 07/01/23 12:) rash Penicillins [PENICILLINS] Allergy (Unknown, Verified 07/01/23 12:01) RASH Sulfa (Sulfonamide Antibiotics) Allergy (Unknown, Verified 07/01/23 12:01) rash tramadol Allergy (Unknown, Verified 07/01/23 12:01) pruritus triamcinolone [Kenalog] Allergy (Unknown, Verified 07/01/23 12:01) Unknown meclizine Adverse Reaction (Intermediate, Verified 07/01/23 12:01) fatigue, somnolence prednisone [Prednisone] Adverse Reaction (Mild, Verified 07/01/23 12:01) YEAST INFECTION cetirizine Adverse Reaction (Unknown, Verified 07/01/23 12:01) dizziness? Medication List - Last Reconciled 07/01/23 by Jonatan Cardoso MD albuterol sulfate 90 mcg/actuation 2 puffs PO Q6H PRN alprazolam 0.25 mg PO BID PRN aspirin 81 mg PO DAILY blood pressure monitor As directed blood sugar diagnostic (FreeStyle Lite Strips) As directed once a day blood-glucose meter (FreeStyle Lite Meter kit) daily gabapentin 100 mg PO DAILY PRN [HANDHELD SHOWER HEAD As directed] metformin 1,000 mg PO BID nitroglycerin 0.4 mg sublingual Q5M PRN olopatadine 0.1% 1 drp ophthalmic (eye) BID PRN 30 days omeprazole 40 mg (2 x 20 mg) PO DAILY ondansetron 4 mg PO Q6H PRN 30 days rosuvastatin 40 mg PO DAILY 90 days umeclidinium-vilanterol 62.5-25 mcg/actuation (Anoro Ellipta) 1 inh inhalation DAILY 30 days Tobacco use date assessed: 07/01/23 Fall risk assessment: No Falls in past year Last assessed Fall Risk: 07/01/23 Dental Screening Dental Screen Date: 07/01/23 Did you have a dental visit in the last 12 months?: No Did you have a dental problem in the last 6 months where you did not have access to dental care?: No Was dental information given to patient?: Patient has dentist HPI DM HPI Details Patient comes in today for her follow up visit States that she has been experiencing some pain in her throat and trouble swallowing since 2 nights ago She is currently on Omeprazole 40 mg QD Adds that she still has increased pain over her lower back, which has been going on for > 1 month now Would also like to see if she can be started on some on the newer injectable medication for her diabetes like Ozempic as she would like to try coming off Metformin, which she states she has been on for many years now States that she does not have any problems with the medication but just wants to try coming off of it She denies any headaches or dizziness Denies any chest pains, no SOB No nausea/vomiting, no abdominal pain No change in bowel habits noted Also needs her allergy eyedrops Rx refilled PFSH Medical History Vaginal discharge Rash Left low back pain Dizziness Osteoporosis Hypercalcemia GERD without esophagitis Constipation Lumbar degenerative disc disease Overweight (BMI 25.0-29.9) Vitamin D deficiency Mixed hyperlipidemia Atherosclerotic cardiovascular disease Pulmonary emphysema Diabetes mellitus Vertigo Degenerative lumbar disc Irritable bowel syndrome Fibromyalgia Borderline diabetes Hypercholesteremia Asthma Chronic headache Anxiety Surgical History History of biopsy History of loop electrical excision procedure (LEEP) H/O heart artery stent Hx of colonoscopy H/O angioplasty H/O Spinal surgery Hx of tubal ligation Family History Father No problems noted. Mother Depression S/P CABG x 4 Diabetes Hypertension Sister Poor high blood pressure control Cervical cancer Breast cancer Social History Household Members: None Housing: Apartment Alcohol intake: current Alcohol intake frequency: does not drink Alcohol type: beer and wine Patient Tobacco Use Status: Former Tobacco user e-Cigarette/Vaping Use: Never Used Second Hand Smoke Exposure: No service: No Current occupational status: retired and disabled Cognitive needs: No Hearing needs: No Vision needs: Yes (glasses) Female Reproductive History Menstrual Age of Menarche: 13 Questionnaire PHQ-9 Over the last 2 weeks, how often have you been bothered by any of the following problems? 1. Little interest or pleasure in doing things: nearly every day 2. Feeling down, depressed, or hopeless: nearly every day 3. Trouble falling or staying asleep, or sleeping too much: nearly every day (sleeping too much ) 4. Feeling tired or having little energy: nearly every day 5. Poor appetite or overeating: several days 6. Feeling bad about yourself - or that you are a failure or have let yourself or your family down: more than half the days 7. Trouble concentrating on things, such as reading the newspaper or watching television: nearly every day 8. Moving or speaking so slowly that other people could have noticed. Or the opposite - being so fidgety or restless that you have been moving around a lot more than usual: nearly every day 9. Thoughts that you would be better off or of hurting yourself in some way: not at all Total score: 21 Depression Screening Interpretation: Positive Depression Screening Follow-up: Existing condition and In treatment Depression Screening Done: Yes 87438 - PHQ-9 Billing: Yes Source: Developed by Drs. Anthony Whelan, Vivek Menon and colleagues, with an educational irena from [employer]. Thrive Questionnaire Date Thrive assessed: 07/01/23 I am a: Patient What is your living situation today?: I have a steady place to live Within the past 12 months, did the food you bought not last and you didn't have the money to get more?: Never true Within the past 12 months, did you worry whether your food would run out before you got money to buy more?: Never true Do you have trouble paying for medicines?: No Do you have trouble getting transportation to medical appointments?: No Do you have trouble paying your heating and electricity bill?: No Do you have trouble taking care of your child, family member or friend?: No Do you have trouble with day-to-day activities such as bathing, preparing meals, shopping, managing finances, etc.?: No Are you currently unemployed and looking for a job?: No Are you interested in more education?: No Please select the resources that you would like help with: None Currently or been in a relationship where the following occur: no concerns reported AUDIT C Alcohol Use Questionnaire (AUDIT-C) 1. How often do you have a drink containing alcohol?: Never 3. How often do you have six or more drinks on one occasion?: Never Total Score: 0 Score Reviewed/Action Taken: Yes VIOLET-7 AMB Questionnaire VIOLET-7 Date VIOLET - 7 assessed: 07/01/23 Feeling nervous, anxious, or on edge: 0 = Not at all Not being able to stop or control worryin = Not at all Worrying too much about different things: 0 = Not at all Trouble relaxin = Not at all Being so restless that it is hard to sit still: 0 = Not at all Becoming easily annoyed or irritable: 0 = Not at all Feeling afraid as if something awful might happen: 0 = Not at all Total VIOLET-7 score (0-4 normal; 5-9 mild; 10-14 moderate; 15-21 severe): 0 Source: Developed by Drs. Anthony Whelan, Vivek Menon and colleagues, with an educational irena from [employer]. Review of Systems Const Denies chills, Reports fatigue (mild), Denies fever(s), Denies headache(s) and Denies weight loss ENT Denies dysphagia, Denies dizziness, Denies otalgia, Denies headache(s), Denies neck pain, Reports odynophagia (mild, for a couple of days now) and Reports sore throat Card Denies chest pain, Denies palpitations and Denies dyspnea Resp Denies cough and Denies dyspnea GI Denies abdominal pain, Denies bloating, Denies constipation, Denies dysphagia, Denies heartburn, Denies diarrhea, Denies nausea, Reports odynophagia (mild, for a couple of days now) and Denies vomiting Denies difficulty voiding, Denies nocturia and Denies dysuria Musc Reports back pain (over the lower back), Reports arthralgias (over the left shoulder) and Denies neck pain Skin/Breast Denies rash Neuro Denies dizziness and Denies headache(s) Endo Reports fatigue (mild) and Denies palpitations Physical exam (Primary Care) Vital Signs: Last Vital Signs Pulse 88 07/01/23 11:14 BP 130/72 07/01/23 11:14 Pulse Ox 98 07/01/23 11:14 Oxygen Delivery Method Room Air 07/01/23 11:14 BMI result Body Mass Index 26.5 Tobacco/Smoking Status: Tobacco use Status Tobacco use date assessed 07/01/23 07/01/23 11:21 Patient Tobacco Use Status Former Tobacco user 07/01/23 11:21 Tobacco use type 04/16/23 13:51 e-Cigarette/Vaping Use Never Used 07/01/23 11:21 PHQ-9: PHQ-9 Score PHQ-9: Total score 21 07/05/23 09:24 Depression Screening Interpretation: Positive Depression Screening Follow-up: Existing condition and In treatment Thrive Assessment: Date of Thrive Assessment Date Thrive assessed 07/01/23 07/01/23 11:21 Currently or been in a relationship where the following occur: no concerns reported Const General: no acute distress and alert HENMT Ears: TM's normal bilaterally and EAC's normal Throat: Yes tonsils normal and Yes posterior oropharynx abnormal ((+) mild erythema of the posterior pharynx) Neck Neck: Yes supple and Yes lymphadenopathy (bilaterally, over the anterior cervical areas) Resp Auscultation: clear to auscultation bilaterally, no rales and no wheezes Cardio Rate: regular rate Rhythm: regular rhythm Heart sounds: no murmurs GI Palpation (GI): Soft to palpation, nontender, no guarding and No hepatosplenomegaly present Auscultation: normal bowel sounds Back/Spine/Pelvis Thoracic/Lumbar Spine: lumbar spinal tenderness (mild) Skin Rashes: no rashes Extrem General: Yes no clubbing, cyanosis or edema Left upper extremity: shoulder/upper arm Details: tenderness Location: of the A- C joint; no swelling Assessment and Plan Assessment & Plan (1) Pharyngitis: Code(s): J02.9 - Acute pharyngitis, unspecified Qualifiers: Pharyngitis/tonsillitis etiology: unspecified etiology Qualified Code(s): J02.9 - Acute pharyngitis, unspecified Plan: Per request, will start patient on empiric Abx Tx with Doxycycline 100 mg BID x 7 days for her sore throat (2) Neuroendocrine tumor of pancreas: Code(s): D3A.8 - Other benign neuroendocrine tumors Plan: Patient most likely has a nonfunctional neuroendocrine tumor (NET), based on the results of her work ups She has been advised to undergo surgical resection of her pancreatic mass but she declined surgery and just wants to be monitored regularly Follow up with oncology and with gastroenterology as scheduled (3) Atherosclerotic cardiovascular disease: Code(s): I25.10 - Atherosclerotic heart disease of [place] coronary artery without angina pectoris Plan: S/P REJI to LAD x 2 (2015 & 2018); S/P NSTEMI in 2016 S/P dual anti-platelet therapy with Brilinta 90 mg BID x 1 year (Rx discontinued since) and low-dose Aspirin 81 mg QD Is currently only on low dose Aspirin 81 mg QD Follow-up with cardiology as scheduled (4) Diabetes mellitus: Code(s): E11.9 - Type 2 diabetes mellitus without complications Qualifiers: Diabetes mellitus type: type 2 Diabetes mellitus ocean transportation intermediary insulin use: without senior living use Diabetes mellitus complication status: without complication Qualified Code(s): E11.9 - Type 2 diabetes mellitus without complications Plan: HgbA1c was at 7.1% on her labs done a couple of months ago (in-office HgbA1c was at 7.3% previously) - goal is < 7.0% Reinforced diabetic diet Continue Metformin 1000 mg BID for now She is advised that with her pancreatic mass, she will want to stay away from the GLP-1 inhibitors as they may trigger some untoward changes in her pancreas, which may accelerate her current condition WIll start her additionally on Jardiance 25 mg QD for now and depending on how her diabetes responds, may be able to take her off Metformin, as she desires, at some point (5) Mixed hyperlipidemia: Code(s): E78.2 - Mixed hyperlipidemia Plan: Reinforced low cholesterol diet Continue Rosuvastatin 40 mg QD Will recheck her labs and fasting lipids as scheduled in August 2023 for follow up (6) Pulmonary emphysema: Code(s): J43.9 - Emphysema, unspecified Qualifiers: Emphysema type: unspecified Qualified Code(s): J43.9 - Emphysema, unspecified Plan: Is doing well on her current Rx - continue on Anoro Ellipta 62.5-25 mcg 1 inhalation QD and Albuterol HFA 2 puffs 4 times a day PRN Chest CT screening done in January 2019 revealed evidence of mild paraseptal emphysema with peripheral interstitial markings suggestive of interstitial lung disease Follow up with pulmonary as scheduled (7) Osteoporosis: Code(s): M81.0 - Age-related osteoporosis without current pathological fracture Qualifiers: Osteoporosis type: age-related Presence of current pathological fracture: without current pathological fracture Qualified Code(s): M81.0 - Age- related osteoporosis without current pathological fracture Plan: Repeat BMD done in February 2021 revealed (+) osteoporosis, with a slight improvement in BMD of the AP spine and (+) decline in BMD at the femur Encouraged again on daily exercise but reinforced fall precautions Continue Vitamin D supplements but because of her previous hypercalcemia, do not recommend she take any calcium supplements for now Plan Follow up as scheduled in August 2023 Medications: New Jardiance (empagliflozin) 25 mg PO QAM 30 days 30 tabs 3RF NS doxycycline hyclate 100 mg PO BID 7 days 14 caps 0RF Refilled olopatadine 0.1% separate doses by at least 6-8 hours 1 drp ophthalmic (eye) BID 30 days PRN 5 mL 3RF itching of eyes Coding Level of Care Code Est Pt Level 4 (84953) Diagnoses Pharyngitis, unspecified etiology J02.9 Pharyngitis/tonsillitis etiology: unspecified etiology Neuroendocrine tumor of pancreas D3A.8 Atherosclerotic cardiovascular disease I25.10 Type 2 diabetes mellitus without complication, without long-term current use of insulin E11.9 Diabetes mellitus type: type 2 Diabetes mellitus ocean transportation intermediary insulin use: without senior living use Diabetes mellitus complication status: without complication Mixed hyperlipidemia E78.2 Pulmonary emphysema, unspecified emphysema type J43.9 Emphysema type: unspecified Age-related osteoporosis without current pathological fracture M81.0 Osteoporosis type: age-related Presence of current pathological fracture: without current pathological fracture
== END 2023-07-01 12:17 | disposition home or self-care (01) ==
PROVIDERS: PCP Internal Medicine; Visit Provider Internal Medicine
DX: J02.9 Acute pharyngitis, unspecified (principal); D3A.8 Other benign neuroendocrine tumors; E11.9 Type 2 diabetes mellitus without complications; J43.9 Emphysema, unspecified; M81.0 Age-related osteoporosis without current pathological fracture
CPT/HCPCS: 99214

== ENCOUNTER 2023-07-17 09:41 | Outpatient (AMB) | payer OTHER, SELFPAY ==
[2023-07-17 09:45] VITALS: BP 140/80; PULSE 83; O2SAT 97
--- NOTE | 2023-07-17 09:45 | MHC.PC.OV ---
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 Accompanied by: Self / Same As Patient Allergies clarithromycin [From PREVPAC] Allergy (Mild, Verified 07/17/23 11:06) hives lansoprazole [From PREVPAC] Allergy (Mild, Verified 07/17/23 11:06) hives lisinopril [LISINOPRIL] Allergy (Mild, Verified 07/17/23 11:06) COUGHING, cough, cough amoxicillin [AMOXICILLIN] Allergy (Unknown, Verified 07/17/23 11:06) RASH cephalexin Allergy (Unknown, Verified 07/17/23 11:06) rash clavulanic acid [Augmentin] Allergy (Unknown, Verified 07/17/23 11:06) rash duloxetine [Cymbalta] Allergy (Unknown, Verified 07/17/23 11:06) weight gain, increase appetite levofloxacin [From LEVAQUIN] Allergy (Unknown, Verified 07/17/23 11:06) RASH linaclotide [Linzess] Allergy (Unknown, Verified 07/17/23 11:06) nausea penicillin V Allergy (Unknown, Verified 07/17/23 11:06) rash Penicillins [PENICILLINS] Allergy (Unknown, Verified 07/17/23 11:06) RASH Sulfa (Sulfonamide Antibiotics) Allergy (Unknown, Verified 07/17/23 11:06) rash tramadol Allergy (Unknown, Verified 07/17/23 11:06) pruritus triamcinolone [Kenalog] Allergy (Unknown, Verified 07/17/23 11:06) Unknown meclizine Adverse Reaction (Intermediate, Verified 07/17/23 11:06) fatigue, somnolence prednisone [Prednisone] Adverse Reaction (Mild, Verified 07/17/23 11:06) YEAST INFECTION cetirizine Adverse Reaction (Unknown, Verified 07/17/23 11:06) dizziness? Medication List - Last Reconciled 07/17/23 by Jonatan Cardoso MD albuterol sulfate 90 mcg/actuation 2 puffs PO Q6H PRN alprazolam 0.25 mg PO BID PRN aspirin 81 mg PO DAILY blood pressure monitor As directed blood sugar diagnostic (FreeStyle Lite Strips) As directed once a day blood-glucose meter (FreeStyle Lite Meter kit) daily gabapentin 100 mg PO DAILY PRN [HANDHELD SHOWER HEAD As directed] Jardiance (empagliflozin) 25 mg PO QAM 30 days NS metformin 1,000 mg PO BID nitroglycerin 0.4 mg sublingual Q5M PRN olopatadine 0.1% 1 drp ophthalmic (eye) BID PRN 30 days omeprazole 40 mg (2 x 20 mg) PO DAILY ondansetron 4 mg PO Q6H PRN 30 days rosuvastatin 40 mg PO DAILY 90 days umeclidinium-vilanterol 62.5-25 mcg/actuation (Anoro Ellipta) 1 inh inhalation DAILY 30 days Tobacco use date assessed: 07/17/23 Fall risk assessment: No Falls in past year Last assessed Fall Risk: 07/17/23 Dental Screening Dental Screen Date: 07/17/23 Did you have a dental visit in the last 12 months?: Yes Did you have a dental problem in the last 6 months where you did not have access to dental care?: No Was dental information given to patient?: Patient has dentist HPI pain in eye/ mucus HPI Details Patient comes in today complaining of a burning sensation in her left eye for the past 4 days Notes that her vision has also been blurry and that she's had increased sinus congestion and discomfort lately; also notes (+) headaches at times States that she would sometimes pass out some blood when she blows her nose She denies any fever or sore throat Denies dizziness Denies any chest pains, no SOB No nausea/vomiting, no abdominal pain No change in bowel habits noted PFSH Medical History Vaginal discharge Rash Left low back pain Dizziness Osteoporosis Hypercalcemia GERD without esophagitis Constipation Lumbar degenerative disc disease Overweight (BMI 25.0-29.9) Vitamin D deficiency Mixed hyperlipidemia Atherosclerotic cardiovascular disease Pulmonary emphysema Diabetes mellitus Vertigo Degenerative lumbar disc Irritable bowel syndrome Fibromyalgia Borderline diabetes Hypercholesteremia Asthma Chronic headache Anxiety Surgical History History of biopsy History of loop electrical excision procedure (LEEP) H/O heart artery stent Hx of colonoscopy H/O angioplasty H/O Spinal surgery Hx of tubal ligation Family History Father No problems noted. Mother Depression S/P CABG x 4 Diabetes Hypertension Sister Poor high blood pressure control Cervical cancer Breast cancer Social History Household Members: None Housing: Apartment Alcohol intake: current Alcohol intake frequency: does not drink Alcohol type: beer and wine Patient Tobacco Use Status: Former Tobacco user e-Cigarette/Vaping Use: Never Used Second Hand Smoke Exposure: No service: No Current occupational status: retired and disabled Cognitive needs: No Hearing needs: No Vision needs: Yes (glasses) Female Reproductive History Menstrual Age of Menarche: 13 Questionnaire PHQ-9 Over the last 2 weeks, how often have you been bothered by any of the following problems? 1. Little interest or pleasure in doing things: nearly every day 2. Feeling down, depressed, or hopeless: nearly every day 3. Trouble falling or staying asleep, or sleeping too much: nearly every day (sleeping too much ) 4. Feeling tired or having little energy: nearly every day 5. Poor appetite or overeating: several days 6. Feeling bad about yourself - or that you are a failure or have let yourself or your family down: more than half the days 7. Trouble concentrating on things, such as reading the newspaper or watching television: nearly every day 8. Moving or speaking so slowly that other people could have noticed. Or the opposite - being so fidgety or restless that you have been moving around a lot more than usual: nearly every day 9. Thoughts that you would be better off or of hurting yourself in some way: not at all Total score: 21 Depression Screening Interpretation: Positive Depression Screening Follow-up: Existing condition and In treatment Depression Screening Done: Yes 32540 - PHQ-9 Billing: Yes Source: Developed by Drs. Anthony Whelan, Chayo Romano, Vivek Avila and colleagues, with an educational irena from [employer]. Thrive Questionnaire Date Thrive assessed: 07/17/23 I am a: Patient What is your living situation today?: I have a steady place to live Within the past 12 months, did the food you bought not last and you didn't have the money to get more?: Never true Within the past 12 months, did you worry whether your food would run out before you got money to buy more?: Never true Do you have trouble paying for medicines?: No Do you have trouble getting transportation to medical appointments?: No Do you have trouble paying your heating and electricity bill?: No Do you have trouble taking care of your child, family member or friend?: No Do you have trouble with day-to-day activities such as bathing, preparing meals, shopping, managing finances, etc.?: No Are you currently unemployed and looking for a job?: No Are you interested in more education?: No Please select the resources that you would like help with: None Currently or been in a relationship where the following occur: no concerns reported AUDIT C Alcohol Use Questionnaire (AUDIT-C) 1. How often do you have a drink containing alcohol?: Never 3. How often do you have six or more drinks on one occasion?: Never Total Score: 0 Score Reviewed/Action Taken: Yes VIOLET-7 AMB Questionnaire VIOLET-7 Date VIOLET - 7 assessed: 07/17/23 Feeling nervous, anxious, or on edge: 0 = Not at all Not being able to stop or control worryin = Not at all Worrying too much about different things: 0 = Not at all Trouble relaxin = Not at all Being so restless that it is hard to sit still: 0 = Not at all Becoming easily annoyed or irritable: 0 = Not at all Feeling afraid as if something awful might happen: 0 = Not at all Total VIOLET-7 score (0-4 normal; 5-9 mild; 10-14 moderate; 15-21 severe): 0 Source: Developed by Drs. Anthony Whelan, Chayo Romano, Vivek Avila and colleagues, with an educational irena from [employer]. Review of Systems Const Denies chills, Reports fatigue (mild), Denies fever(s) and Reports headache(s) Eyes Reports blurry vision and Reports eye pain (burning sensation in eyes) ENT Denies dysphagia, Denies dizziness, Denies otalgia, Reports headache(s), Denies epistaxis (but (+) blood at times when she blows her nose), Reports nasal congestion, Denies neck pain, Reports odynophagia (mild, for a couple of days now), Reports sinus pain, Reports sinus pressure and Denies sore throat Card Denies chest pain, Denies palpitations and Denies dyspnea Resp Denies cough and Denies dyspnea GI Denies abdominal pain, Denies bloating, Denies constipation, Denies dysphagia, Denies heartburn, Denies diarrhea, Denies nausea, Reports odynophagia (mild, for a couple of days now) and Denies vomiting Denies difficulty voiding, Denies nocturia and Denies dysuria Musc Reports back pain (over the lower back), Reports arthralgias (over the left shoulder) and Denies neck pain Skin/Breast Denies rash Neuro Denies dizziness and Reports headache(s) Endo Reports fatigue (mild) and Denies palpitations Physical exam (Primary Care) Vital Signs: Last Vital Signs Pulse 83 07/17/23 09:45 BP 140/80 H 07/17/23 09:45 Pulse Ox 97 07/17/23 09:45 Oxygen Delivery Method Room Air 07/17/23 09:45 Tobacco/Smoking Status: Tobacco use Status Tobacco use date assessed 07/17/23 07/17/23 09:49 Patient Tobacco Use Status Former Tobacco user 07/17/23 09:49 Tobacco use type 04/16/23 13:51 e-Cigarette/Vaping Use Never Used 07/17/23 09:49 PHQ-9: PHQ-9 Score PHQ-9: Total score 21 07/19/23 18:42 Depression Screening Interpretation: Positive Depression Screening Follow-up: Existing condition and In treatment Thrive Assessment: Date of Thrive Assessment Date Thrive assessed 07/17/23 07/17/23 09:49 Currently or been in a relationship where the following occur: no concerns reported Const General: no acute distress and alert HENMT Ears: TM's normal bilaterally and EAC's normal Face and sinus: Yes sinus tenderness (bilaterally) Throat: Yes tonsils normal and Yes posterior oropharynx abnormal ((+) mild erythema of the posterior pharynx) Eyes Conjunctivae: conjunctival abnormal (mildly hyperemic) bilateral Neck Neck: Yes supple and Yes lymphadenopathy (bilaterally, over the anterior cervical areas) Resp Auscultation: clear to auscultation bilaterally, no rales and no wheezes Cardio Rate: regular rate Rhythm: regular rhythm Heart sounds: no murmurs GI Palpation (GI): Soft to palpation, nontender, no guarding and No hepatosplenomegaly present Auscultation: normal bowel sounds Back/Spine/Pelvis Thoracic/Lumbar Spine: lumbar spinal tenderness (mild) Skin Rashes: no rashes Extrem General: Yes no clubbing, cyanosis or edema Left upper extremity: shoulder/upper arm Details: tenderness Location: of the A-C joint; no swelling Assessment and Plan Assessment & Plan (1) Sinusitis: Code(s): J32.9 - Chronic sinusitis, unspecified Qualifiers: Sinusitis location: unspecified location Chronicity: acute Recurrence: non-recurrent Qualified Code(s): J01.90 - Acute sinusitis, unspecified Plan: Will start patient again on oral Doxycycline 100 mg BID x 7 days Will also provide her with Rx for single dose Fluconazole 150 mg to take after she completes her Abx Tx for Abx-induced vaginal yeast infection, which she is prone to whenever she takes Abx Rx (2) Conjunctivitis: Code(s): H10.9 - Unspecified conjunctivitis Qualifiers: Conjunctivitis type: acute Laterality: unspecified laterality Acute conjunctivitis type: unspecified Qualified Code(s): H10.30 - Unspecified acute conjunctivitis, unspecified eye Plan: Mild; mostly related to her current sinus/respiratory tract infection Will start her on Polytrim eyedrops 1 drop Q 3 to 4 hours x 7 days (3) Nasal mucosa dry: Code(s): J34.89 - Other specified disorders of nose and nasal sinuses Plan: Advised that her recent bloody nasal discharge is mostly due to her nasal mucosa getting very dry, especially with the change in season and the cold, dry air that is common at this time of the year Have advised her to start applying/using OTC saline nasal spray into each nostril up to 6 to 8 times a day as needed for symptomatic relief Plan Follow up as scheduled in August 2023 Medications: New doxycycline monohydrate 100 mg PO BID 7 days 14 caps 0RF sodium chloride 0.65% (Saline Nasal) 2 sprays intranasal QID PRN 88 mL 5RF dry nasal passages polymyxin B sulf-trimethoprim 10,000 unit- 1 mg/mL (Polytrim) while awake; do not exceed 6 doses in 24 hours 1 drp ophthalmic-Left Q3H 7 days 10 mL 0RF Refilled fluconazole 150 mg PO ONCE 1 tab 0RF Coding Level of Care Code Est Pt Level 3 (06200) Diagnoses Acute non-recurrent sinusitis, unspecified location J01.90 Sinusitis location: unspecified location Chronicity: acute Recurrence: non-recurrent Acute conjunctivitis, unspecified acute conjunctivitis type, unspecified laterality H10.30 Conjunctivitis type: acute Laterality: unspecified laterality Acute conjunctivitis type: unspecified Nasal mucosa dry J34.89
== END 2023-07-17 11:18 | disposition home or self-care (01) ==
PROVIDERS: PCP Internal Medicine; Visit Provider Internal Medicine
DX: J01.90 Acute sinusitis, unspecified (principal); H10.30 Unspecified acute conjunctivitis, unspecified eye; J34.89 Other specified disorders of nose and nasal sinuses
CPT/HCPCS: 99213

== ENCOUNTER 2023-08-13 14:21 | Outpatient (REF) | payer OTHER, SELFPAY ==
--- NOTE | ~2023-08-13 | XR_ITS ---
EXAMINATION: XR WRIST, LEFT XR HAND, LEFT CLINICAL INFORMATION: Injury COMPARISON: Radiographs 03/04/2013 TECHNIQUE: PA, lateral, oblique, and scaphoid views of the left wrist and PA, lateral, and oblique views of the left hand FINDINGS: LEFT WRIST: No acute fracture or malalignment. 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 LEFT HAND: No acute fracture or malalignment. No active erosions or suspicious soft tissue calcifications. No significant degenerative findings. XR/XR hand wrist LT IMPRESSION: No acute fracture or malalignment. 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
== END 2023-08-13 14:22 | disposition home or self-care (01) ==
LOC: HO.XRAY 14:21
PROVIDERS: PCP Internal Medicine; Visit Provider Nurse Practitioner Family
DX: M25.432 Effusion, left wrist (principal); M25.532 Pain in left wrist; W19.XXXA Unspecified fall, initial encounter
CPT/HCPCS: 73110; 73130

== ENCOUNTER 2023-09-10 09:44 | Outpatient (REF) | payer OTHER, SELFPAY ==
[2023-09-10 10:17] LABS: MANUAL DIFF FLAG NO
[2023-09-10 10:37] LABS: Basophils Absolute Auto 0.1 X10*3/uL (0.0-0.2); Basophils Percent Auto 1.4 % (0-2); Eosinophils Absolute Auto 0.2 X10*3/uL (0.0-0.4); Hematocrit 34.7 % (37.0-47.0); Hemoglobin 10.6 g/dl (12.0-16.0); Imm Gran Abs Auto 0.02 X10*3/uL (0.00-0.03); Imm Gran Pct Auto 0.3 % (0.0-0.4); Lymphocytes Percent Auto 35.5 % (20-40); Mean Corpuscular HGB Conc 30.5 g/dl (31.0-35.0); Mean Corpuscular Hemoglobin 25.7 pg (27.0-33.0); Mean Corpuscular Volume 84.2 fL (80.0-98.0); Mean Platelet Volume 10.4 fL (9.4-12.3); Monocytes Absolute Auto 0.4 X10*3/uL (0.1-1.2); Monocytes Percent Auto 7.7 % (2-11); Neutrophils Percent Auto 52.1 % (45-73); Platelet Count 414 X10*3/uL (160-400); Red Blood Count 4.12 X10*6/uL (4.20-5.50); Red Cell Distribution Width 15.3 % (11.0-16.0); White Blood Count 5.7 X10*3/uL (4.8-10.8)
[2023-09-10 10:52] LABS: Estimated Average Glucose 146 mg/dL; Hemoglobin A1c % 6.7 % (<6.0)
[2023-09-10 11:12] LABS: Appearance Urine Clear; Color Urine Yellow; Glucose Urine UA 500 mg/dL (Negative); Leukocyte Esterase Urine Negative (Negative); Nitrite Urine Negative (Negative); Urine Blood Negative (Negative); Urine Ketones Negative (Negative); Urine Protein Negative (Neg-Trace)
[2023-09-10 11:15] LABS: Alanine Aminotransferase 13 U/L (0-31); Albumin Level 4.2 g/dL (3.5-5.0); Alkaline Phosphatase 53 U/L (39-117); Anion Gap 13 (12-20); Aspartate Amino Transferase 16 U/L (5-31); Bilirubin Total 0.4 mg/dL (0.0-1.0); Blood Urea Nitrogen 16 mg/dL (9-16); Calcium 10.6 mg/dL (8.4-10.2); Carbon Dioxide 28 mmol/L (22-29); Chloride 105 mmol/L (96-108); Cholesterol 130 mg/dL (<200); Estimated Glomerular Filt Rate > 60; Glucose Fasting 127 mg/dL (60-99); HDL Cholesterol 42 mg/dL (>40); Iron 49 mcg/dL (30-160); LDL Cholesterol Calculated 68 mg/dL (<100); Percent Iron Saturation 17 % (15-50); Potassium 5.1 mmol/L (3.3-5.1); Sodium 141 mmol/L (135-145); Total Iron Binding Capacity 292 mcg/dL (228-428); Total Protein 7.7 g/dL (6.5-8.0); Triglycerides 102 mg/dL (<150); Unsaturated Iron Binding 243 ug/dL
[2023-09-10 11:22] LABS: TSH reflex Free T4 3.79 uIU/mL (0.32-4.0); Vitamin D 25-OH Total 111.8 ng/mL (>30)
[2023-09-10 11:32] LABS: Folate 15.8 ng/mL (> or = 4.0); Vitamin B12 502 pg/mL (200-900)
[2023-09-10 12:22] LABS: Creatinine Urine 38.84 mg/dL; Microalbum/Creatinine Ratio Ur 38.6 ug/mg cr (<30)
== END 2023-09-10 09:45 | disposition home or self-care (01) ==
LOC: HO.LAB 09:44
PROVIDERS: PCP Internal Medicine; Visit Provider Internal Medicine
DX: E78.00 Pure hypercholesterolemia, unspecified (principal); I10 Essential (primary) hypertension; E11.9 Type 2 diabetes mellitus without complications; D50.9 Iron deficiency anemia, unspecified; E53.8 Deficiency of other specified B group vitamins; R30.0 Dysuria; E55.9 Vitamin D deficiency, unspecified
CPT/HCPCS: 36415; 80053; 80061; 81003; 82043; 82306; 82570; 82607; 82746; 83036; 83540; 84443; 85025

== ENCOUNTER 2023-09-11 12:14 | Outpatient (AMB) | payer OTHER, SELFPAY ==
[2023-09-11 12:34] VITALS: BP 124/62; PULSE 88; O2SAT 98; BMI 25.4
--- NOTE | 2023-09-11 12:34 | MHC.PC.OV ---
Vital Signs 09/11/23 12:34 Height 5 ft 3 in Weight 143 lb 6 oz BMI 25.4 BP 124/62 Blood Pressure Location Lt brachial Position Sitting Pulse 88 Pulse Source Pulse Oximeter Pulse Oximetry (%) 98 Oxygen Delivery Method Room Air Intake Visit Reasons: pancreatic tumor, hyperlipidemia, DM Engineering Specialist Required: Yes Accompanied by: Self / Same As Patient Allergies clarithromycin [From PREVPAC] Allergy (Mild, Verified 09/11/23 12:54) hives lansoprazole [From PREVPAC] Allergy (Mild, Verified 09/11/23 12:54) hives lisinopril [LISINOPRIL] Allergy (Mild, Verified 09/11/23 12:54) COUGHING, cough, cough amoxicillin [AMOXICILLIN] Allergy (Unknown, Verified 09/11/23 12:54) RASH cephalexin Allergy (Unknown, Verified 09/11/23 12:54) rash clavulanic acid [Augmentin] Allergy (Unknown, Verified 09/11/23 12:54) rash duloxetine [Cymbalta] Allergy (Unknown, Verified 09/11/23 12:54) weight gain, increase appetite levofloxacin [From LEVAQUIN] Allergy (Unknown, Verified 09/11/23 12:54) RASH linaclotide [Linzess] Allergy (Unknown, Verified 09/11/23 12:54) nausea penicillin V Allergy (Unknown, Verified 09/11/23 12:54) rash Penicillins [PENICILLINS] Allergy (Unknown, Verified 09/11/23 12:54) RASH Sulfa (Sulfonamide Antibiotics) Allergy (Unknown, Verified 09/11/23 12:54) rash tramadol Allergy (Unknown, Verified 09/11/23 12:54) pruritus triamcinolone [Kenalog] Allergy (Unknown, Verified 09/11/23 12:54) Unknown meclizine Adverse Reaction (Intermediate, Verified 09/11/23 12:54) fatigue, somnolence prednisone [Prednisone] Adverse Reaction (Mild, Verified 09/11/23 12:54) YEAST INFECTION cetirizine Adverse Reaction (Unknown, Verified 09/11/23 12:54) dizziness? Medication List - Last Reconciled 09/11/23 by Jonatan Cardoso MD albuterol sulfate 90 mcg/actuation 2 puffs PO Q6H PRN alprazolam 0.25 mg PO BID PRN aspirin 81 mg PO DAILY blood pressure monitor As directed blood sugar diagnostic (FreeStyle Lite Strips) As directed once a day blood-glucose meter (FreeStyle Lite Meter kit) daily doxycycline monohydrate 100 mg PO BID 7 days fluconazole 150 mg PO ONCE gabapentin 100 mg PO DAILY PRN [HANDHELD SHOWER HEAD As directed] Jardiance (empagliflozin) 25 mg PO QAM 30 days NS metformin 1,000 mg PO BID nitroglycerin 0.4 mg sublingual Q5M PRN olopatadine 0.1% 1 drp ophthalmic (eye) BID PRN 30 days omeprazole 40 mg (2 x 20 mg) PO DAILY ondansetron 4 mg PO Q6H PRN 30 days polymyxin B sulf-trimethoprim 10,000 unit- 1 mg/mL (Polytrim) 1 drp ophthalmic-Left Q3H 7 days rosuvastatin 40 mg PO DAILY 90 days sodium chloride 0.65% (Saline Nasal) 2 sprays intranasal QID PRN umeclidinium-vilanterol 62.5-25 mcg/actuation (Anoro Ellipta) 1 inh inhalation DAILY 30 days Tobacco use date assessed: 09/11/23 Fall risk assessment: 1 Fall in past year Last assessed Fall Risk: 09/11/23 Dental Screening Dental Screen Date: 09/11/23 Did you have a dental visit in the last 12 months?: No Did you have a dental problem in the last 6 months where you did not have access to dental care?: No Was dental information given to patient?: Patient has dentist HPI pancreatic tumor, hyperlipidemia, DM HPI Details Patient comes in today for her follow up visit States that she currently feels okay although she was sick for a while over the past couple of months with some recurrent respiratory symptoms States that she was checked [facility] least a couple of times over the past few months when she got sick and was prescribed some meds that gradually helped clear up her symptoms She presently denies any headaches or dizziness; denies any fever or sore throat Denies any chest pains, no increased SOB No nausea/vomiting, no abdominal pain No change in bowel habits noted Had her follow up labs done yesterday - to discuss her results [facility] Medical History Vaginal discharge Rash Left low back pain Dizziness Osteoporosis Hypercalcemia GERD without esophagitis Constipation Lumbar degenerative disc disease Overweight (BMI 25.0-29.9) Vitamin D deficiency Mixed hyperlipidemia Atherosclerotic cardiovascular disease Pulmonary emphysema Diabetes mellitus Vertigo Degenerative lumbar disc Irritable bowel syndrome Fibromyalgia Borderline diabetes Hypercholesteremia Asthma Chronic headache Anxiety Surgical History History of biopsy History of loop electrical excision procedure (LEEP) H/O heart artery stent Hx of colonoscopy H/O angioplasty H/O Spinal surgery Hx of tubal ligation Family History Father No problems noted. Mother Depression S/P CABG x 4 Diabetes Hypertension Sister Poor high blood pressure control Cervical cancer Breast cancer Social History Household Members: None Housing: Apartment Alcohol intake: current Alcohol intake frequency: does not drink Alcohol type: beer and wine Patient Tobacco Use Status: Former Tobacco user e-Cigarette/Vaping Use: Never Used Second Hand Smoke Exposure: No service: No Current occupational status: retired and disabled Cognitive needs: No Hearing needs: No Vision needs: Yes (glasses) Female Reproductive History Menstrual Age of Menarche: 13 Questionnaire PHQ-9 Over the last 2 weeks, how often have you been bothered by any of the following problems? 1. Little interest or pleasure in doing things: nearly every day 2. Feeling down, depressed, or hopeless: nearly every day 3. Trouble falling or staying asleep, or sleeping too much: nearly every day (sleeping too much ) 4. Feeling tired or having little energy: nearly every day 5. Poor appetite or overeating: several days 6. Feeling bad about yourself - or that you are a failure or have let yourself or your family down: more than half the days 7. Trouble concentrating on things, such as reading the newspaper or watching television: nearly every day 8. Moving or speaking so slowly that other people could have noticed. Or the opposite - being so fidgety or restless that you have been moving around a lot more than usual: nearly every day 9. Thoughts that you would be better off or of hurting yourself in some way: not at all Total score: 21 Depression Screening Interpretation: Positive Depression Screening Follow-up: Existing condition and In treatment Depression Screening Done: Yes 83993 - PHQ-9 Billing: Yes Source: Developed by Drs. Anthony Whelan, Chayo Romano, Vivek Avila and colleagues, with an educational irena from [employer]. Thrive Questionnaire Date Thrive assessed: 09/11/23 I am a: Patient What is your living situation today?: I have a steady place to live Within the past 12 months, did the food you bought not last and you didn't have the money to get more?: Never true Within the past 12 months, did you worry whether your food would run out before you got money to buy more?: Never true Do you have trouble paying for medicines?: No Do you have trouble getting transportation to medical appointments?: No Do you have trouble paying your heating and electricity bill?: No Do you have trouble taking care of your child, family member or friend?: No Do you have trouble with day-to-day activities such as bathing, preparing meals, shopping, managing finances, etc.?: No Are you currently unemployed and looking for a job?: No Are you interested in more education?: No Please select the resources that you would like help with: None Currently or been in a relationship where the following occur: no concerns reported AUDIT C Alcohol Use Questionnaire (AUDIT-C) 1. How often do you have a drink containing alcohol?: Never 3. How often do you have six or more drinks on one occasion?: Never Total Score: 0 Score Reviewed/Action Taken: Yes VIOLET-7 AMB Questionnaire VIOLET-7 Date VIOLET - 7 assessed: 09/11/23 Feeling nervous, anxious, or on edge: 0 = Not at all Not being able to stop or control worryin = Not at all Worrying too much about different things: 0 = Not at all Trouble relaxin = Not at all Being so restless that it is hard to sit still: 0 = Not at all Becoming easily annoyed or irritable: 0 = Not at all Feeling afraid as if something awful might happen: 0 = Not at all Total VIOLET-7 score (0-4 normal; 5-9 mild; 10-14 moderate; 15-21 severe): 0 Source: Developed by Drs. Anthony Whelan, Chayo Romano, Vivek Avila and colleagues, with an educational irena from [employer]. Review of Systems Const Denies chills, Reports fatigue, Denies fever(s) and Denies headache(s) ENT Denies dysphagia, Denies dizziness, Denies otalgia, Denies headache(s), Denies neck pain, Denies odynophagia, Denies sinus pain and Denies sore throat Card Denies chest pain, Denies palpitations, Reports dyspnea and Reports dyspnea on exertion (mild) Resp Denies chest congestion, Denies cough, Reports dyspnea, Reports dyspnea on exertion (mild) and Denies wheezing GI Denies abdominal pain, Denies constipation, Denies dysphagia, Denies heartburn, Denies diarrhea, Denies nausea, Denies odynophagia and Denies vomiting Denies difficulty voiding, Denies nocturia and Denies dysuria Musc Reports back pain (over the lower back), Reports arthralgias (over the left shoulder) and Denies neck pain Skin/Breast Denies rash Neuro Denies dizziness and Denies headache(s) Endo Reports fatigue and Denies palpitations Aller/Immun Denies wheezing Physical exam (Primary Care) Vital Signs: Last Vital Signs Pulse 88 09/11/23 12:34 BP 124/62 09/11/23 12:34 Pulse Ox 98 09/11/23 12:34 Oxygen Delivery Method Room Air 09/11/23 12:34 BMI result Body Mass Index 25.4 Tobacco/Smoking Status: Tobacco use Status Tobacco use date assessed 09/11/23 09/11/23 12:40 Patient Tobacco Use Status Former Tobacco user 09/11/23 12:40 Tobacco use type 04/16/23 13:51 e-Cigarette/Vaping Use Never Used 09/11/23 12:40 PHQ-9: PHQ-9 Score PHQ-9: Total score 21 09/11/23 12:43 Depression Screening Interpretation: Positive Depression Screening Follow-up: Existing condition and In treatment Thrive Assessment: Date of Thrive Assessment Date Thrive assessed 09/11/23 09/11/23 12:40 Currently or been in a relationship where the following occur: no concerns reported Const General: no acute distress and alert HENMT Ears: TM's normal bilaterally and EAC's normal Face and sinus: No sinus tenderness Throat: Yes posterior oropharynx normal and Yes tonsils normal Neck Neck: Yes no lymphadenopathy and Yes supple Resp Auscultation: clear to auscultation bilaterally, no crackles, no rales and no wheezes Cardio Rate: regular rate Rhythm: regular rhythm Heart sounds: no murmurs GI Palpation (GI): Soft to palpation and nontender Auscultation: normal bowel sounds Back/Spine/Pelvis Thoracic/Lumbar Spine: lumbar spinal tenderness (mild) Skin Rashes: no rashes Extrem General: Yes no clubbing, cyanosis or edema Left upper extremity: shoulder/upper arm Details: tenderness Location: of the A-C joint; no swelling Results Reviewed Results Reviewed: Laboratory Tests 09/10/23 09/10/23 09/10/23 10:10 10:10 10:16 WBC 5.7 Hgb 10.6 L Hct 34.7 L Plt Count 414 H Sodium 141 Potassium 5.1 Creatinine 0.83 Estimated GFR > 60 Fasting Glucose Hemoglobin A1c % 6.7 H Calcium 10.6 H D Iron 49 TIBC 292 % Saturation 17 AST 16 ALT 13 Triglycerides 102 Cholesterol 130 LDL Cholesterol, Calc 68 HDL Cholesterol 42 25-OH Vitamin D Total 111.8 Folate 15.8 TSH 3.79 Ur Specific [place] 1.020 Urine Protein Negative Urine Glucose (UA) 500 H Urine Blood Negative Urine Nitrite Negative Ur Leukocyte Esterase Negative Microalb/Creat Ratio 38.6 H 09/10/23 10:16 WBC Hgb Hct Plt Count Sodium Potassium Creatinine Estimated GFR Fasting Glucose 127 H Hemoglobin A1c % Calcium Iron TIBC % Saturation AST ALT Triglycerides Cholesterol LDL Cholesterol, Calc HDL Cholesterol 25-OH Vitamin D Total Folate TSH Ur Specific [place] Urine Protein Urine Glucose (UA) Urine Blood Urine Nitrite Ur Leukocyte Esterase Microalb/Creat Ratio Assessment and Plan Assessment & Plan (1) Neuroendocrine tumor of pancreas: Code(s): D3A.8 - Other benign neuroendocrine tumors Plan: Patient 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 Olivas here at [facility] [place] [facility] for oncology follow up (2) Atherosclerotic cardiovascular disease: Code(s): I25.10 - Atherosclerotic heart disease of [place] coronary artery without angina pectoris Plan: S/P REJI to LAD x 2 (2016 & 2018); S/P NSTEMI in 2016 S/P dual anti-platelet therapy with Brilinta 90 mg BID x 1 year (Rx discontinued since) and low-dose Aspirin 81 mg QD Is currently only on low dose Aspirin 81 mg QD - need lifetime Aspirin Tx Follow-up with cardiology as scheduled (3) Mixed hyperlipidemia: Code(s): E78.2 - Mixed hyperlipidemia Plan: Results of her labs done yesterday reviewed and discussed with patient - she is advised that her cholesterol levels have all improved significantly from previous, with her total and LDL cholesterol levels practically cut in half or more Reinforced low cholesterol diet Continue Rosuvastatin 40 mg QD Will recheck her labs and fasting lipids in 4 months for follow up (4) Diabetes mellitus: Code(s): E11.9 - Type 2 diabetes mellitus without complications Qualifiers: Diabetes mellitus type: type 2 Diabetes mellitus group home insulin use: without group home use Diabetes mellitus complication status: without complication Qualified Code(s): E11.9 - Type 2 diabetes mellitus without complications Plan: HgbA1c was at 6.7% on her labs done yesterday (was at 7.1% a few months ago) - goal is < 7.0% Reinforced diabetic diet Continue Metformin 1000 mg BID and Jardiance 25 mg QD She is advised again that with her pancreatic mass, she will want to stay away from the GLP-1 inhibitors as they may trigger some untoward changes in her pancreas, which may accelerate her current condition (5) Pulmonary emphysema: Code(s): J43.9 - Emphysema, unspecified Qualifiers: Emphysema type: unspecified Qualified Code(s): J43.9 - Emphysema, unspecified Plan: Patient is still doing well on her current Rx - to continue on Anoro Ellipta 62.5-25 mcg 1 inhalation QD and Albuterol HFA 2 puffs 4 times a day PRN Chest CT screening done in January 2019 revealed evidence of mild paraseptal emphysema with peripheral interstitial markings suggestive of interstitial lung disease Follow up with pulmonary as scheduled (6) Osteoporosis: Code(s): M81.0 - Age-related osteoporosis without current pathological fracture Qualifiers: Osteoporosis type: age-related Presence of current pathological fracture: without current pathological fracture Qualified Code(s): M81.0 - Age-related osteoporosis without current pathological fracture Plan: Repeat BMD done in February 2021 revealed (+) osteoporosis, with a slight improvement in BMD of the AP spine and (+) decline in BMD at the femur Encouraged again on daily exercise but reinforced fall precautions Continue Vitamin D supplements but because of her previous hypercalcemia, do not recommend she take any calcium supplements for now (7) Anemia: Code(s): D64.9 - Anemia, unspecified Qualifiers: Anemia type: unspecified type Qualified Code(s): D64.9 - Anemia, unspecified Plan: Advised that she is still anemic but her H/H remain stable at 10.6/34.7 Her iron function studies came back normal and B12 level was also normal when recently checked Is advised that her anemia is most likely anemia of chronic disease; previous hematologic work ups have all been negative Will continue to monitor her CBC regularly Follow up with hematology as scheduled (8) Vitamin D deficiency: Code(s): E55.9 - Vitamin D deficiency, unspecified Plan: Patient is advised that her Vitamin D level is now very high at 111.8 ng/ml on her recent labs She is presently taking about 5000 units daily of her OTC Vitamin D supplements and she is instructed to cut that back to around 2000 units QD Will recheck her Vitamin D level in 4 months for follow up (9) GERD without esophagitis: Code(s): K21.9 - Gastro-esophageal reflux disease without esophagitis Plan: Dietary restrictions reinforced Continue Omeprazole 40 mg QD Plan Follow up in 4 months Orders: Orders Comprehensive [place]. Panel Fast 4 Months E78.00 - Pure hypercholesterolemia, unspecified Microalbumin, Random (w Creat) 4 Months E11.9 - Type 2 diabetes mellitus without complications Vitamin D 25-OH Total 4 Months E55.9 - Vitamin D deficiency, unspecified Vitamin B12 and Folate 4 Months E53.8 - Deficiency of other specified B group vitamins Lipid Panel 4 Months E78.00 - Pure hypercholesterolemia, unspecified Complete Blood Count Auto Diff 4 Months D64.9 - Anemia, unspecified Hemoglobin A1c 4 Months E11.9 - Type 2 diabetes mellitus without complications TSH reflex Free T4 4 Months E78.00 - Pure hypercholesterolemia, unspecified UA CC w/rflx Micro + Cult 4 Months R30.0 - Dysuria Coding Level of Care Code Est Pt Level 4 (21569) Diagnoses Neuroendocrine tumor of pancreas D3A.8 Atherosclerotic cardiovascular disease I25.10 Mixed hyperlipidemia E78.2 Type 2 diabetes mellitus without complication, without long-term current use of insulin E11.9 Diabetes mellitus type: type 2 Diabetes mellitus terminal clerk insulin use: without group home use Diabetes mellitus complication status: without complication Pulmonary emphysema, unspecified emphysema type J43.9 Emphysema type: unspecified Age-related osteoporosis without current pathological fracture M81.0 Osteoporosis type: age-related Presence of current pathological fracture: without current pathological fracture Anemia, unspecified type D64.9 Anemia type: unspecified type Vitamin D deficiency E55.9 GERD without esophagitis K21.9
== END 2023-09-11 12:56 | disposition home or self-care (01) ==
PROVIDERS: PCP Internal Medicine; Visit Provider Internal Medicine
DX: D3A.8 Other benign neuroendocrine tumors (principal); E11.9 Type 2 diabetes mellitus without complications; J43.9 Emphysema, unspecified; I25.10 Atherosclerotic heart disease of native coronary artery without angina pectoris; E78.2 Mixed hyperlipidemia; M81.0 Age-related osteoporosis without current pathological fracture; D64.9 Anemia, unspecified; E55.9 Vitamin D deficiency, unspecified; K21.9 Gastro-esophageal reflux disease without esophagitis
CPT/HCPCS: 99214

== ENCOUNTER 2024-01-13 09:45 | Outpatient (REF) | payer OTHER, SELFPAY ==
[2024-01-13 10:30] LABS: Basophils Absolute Auto 0.1 X10*3/uL (0.0-0.2); Basophils Percent Auto 1.2 % (0-2); Eosinophils Absolute Auto 0.2 X10*3/uL (0.0-0.4); Eosinophils Percent Auto 3.4 % (0-4); Hematocrit 34.1 % (37.0-47.0); Hemoglobin 10.5 g/dl (12.0-16.0); Imm Gran Abs Auto 0.02 X10*3/uL (0.00-0.03); Imm Gran Pct Auto 0.3 % (0.0-0.4); Lymphocytes Absolute Auto 2.4 X10*3/uL (1.2-4.9); Lymphocytes Percent Auto 40.9 % (20-40); MANUAL DIFF FLAG SCAN; Mean Corpuscular HGB Conc 30.8 g/dl (31.0-35.0); Mean Corpuscular Hemoglobin 25.7 pg (27.0-33.0); Mean Corpuscular Volume 83.6 fL (80.0-98.0); Mean Platelet Volume 10.7 fL (9.4-12.3); Monocytes Absolute Auto 0.5 X10*3/uL (0.1-1.2); Monocytes Percent Auto 7.9 % (2-11); Neutrophils Absolute Auto 2.7 x10*3/uL (2.0-8.3); Neutrophils Percent Auto 46.3 % (45-73); Platelet Count 290 X10*3/uL (160-400); Red Blood Count 4.08 X10*6/uL (4.20-5.50); Red Cell Distribution Width 16.5 % (11.0-16.0); SCAN SMEAR FLAG 1; White Blood Count 5.8 X10*3/uL (4.8-10.8)
[2024-01-13 10:37] LABS: Estimated Average Glucose 154 mg/dL
[2024-01-13 10:40] LABS: Appearance Urine Clear; Color Urine Yellow; Glucose Urine UA >=1000 mg/dL (Negative); Leukocyte Esterase Urine Negative (Negative); Nitrite Urine Negative (Negative); Specific Gravity - Urine 1.015 (1.005-1.025); UMIC TRIGGER UACC YES; Urine Blood Negative (Negative); Urine Ketones Negative (Negative); Urine Protein Negative (Neg-Trace)
[2024-01-13 10:43] LABS: Bacteria Urine None Seen (None Seen); Hyaline Casts Urine 0-2 /LPF (0-2); RBC Urine 0-2 /HPF (0-2); Squamous Epithelial Cell Urine 0-2 /HPF (0-2); WBC Urine 0-5 /HPF (0-5)
[2024-01-13 10:50] LABS: SLIDE REVIEW VERIFIED
[2024-01-13 11:31] LABS: Alanine Aminotransferase 13 U/L (0-31); Albumin Level 4.3 g/dL (3.5-5.0); Alkaline Phosphatase 51 U/L (39-117); Anion Gap 13 (12-20); Aspartate Amino Transferase 15 U/L (5-31); Bilirubin Total 0.3 mg/dL (0.0-1.0); Blood Urea Nitrogen 15 mg/dL (9-16); Carbon Dioxide 27 mmol/L (22-29); Chloride 104 mmol/L (96-108); Cholesterol 146 mg/dL (<200); Estimated Glomerular Filt Rate > 60; Glucose Fasting 112 mg/dL (60-99); HDL Cholesterol 51 mg/dL (>40); LDL Cholesterol Calculated 77 mg/dL (<100); Potassium 4.4 mmol/L (3.3-5.1); Sodium 140 mmol/L (135-145); TSH reflex Free T4 3.07 uIU/mL (0.32-4.0); Total Protein 7.6 g/dL (6.5-8.0); Triglycerides 90 mg/dL (<150); Vitamin D 25-OH Total 90.2 ng/mL (>30)
[2024-01-13 11:33] LABS: Creatinine Urine 31.78 mg/dL; Microalbum/Creatinine Ratio Ur 34.6 ug/mg cr (<30)
[2024-01-13 11:34] LABS: Folate 15.3 ng/mL (> or = 4.0); Vitamin B12 1727 pg/mL (200-900)
== END 2024-01-13 09:46 | disposition home or self-care (01) ==
LOC: HO.LAB 09:45
PROVIDERS: PCP Internal Medicine; Visit Provider Internal Medicine
DX: E78.00 Pure hypercholesterolemia, unspecified (principal); E53.8 Deficiency of other specified B group vitamins; E11.9 Type 2 diabetes mellitus without complications; E55.9 Vitamin D deficiency, unspecified; D64.9 Anemia, unspecified
CPT/HCPCS: 36415; 80053; 80061; 81001; 82043; 82306; 82570; 82607; 82746; 83036; 84443; 85025

== ENCOUNTER 2024-01-15 10:39 | Outpatient (AMB) | payer OTHER, SELFPAY ==
[2024-01-15 10:44] VITALS: BP 130/60; PULSE 67; O2SAT 98; BMI 25.9
--- NOTE | 2024-01-15 10:44 | A.OFFPC_ITS ---
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 per policy Accompanied by: Self / Same As Patient Allergies clarithromycin [From PREVPAC] Allergy (Mild, Verified 01/15/24 11:28) hives lansoprazole [From PREVPAC] Allergy (Mild, Verified 01/15/24 11:28) hives lisinopril [LISINOPRIL] Allergy (Mild, Verified 01/15/24 11:28) COUGHING, cough, cough amoxicillin [AMOXICILLIN] Allergy (Unknown, Verified 01/15/24 11:) RASH cephalexin Allergy (Unknown, Verified 01/15/24 11:28) rash clavulanic acid [Augmentin] Allergy (Unknown, Verified 01/15/24 11:) rash duloxetine [Cymbalta] Allergy (Unknown, Verified 01/15/24 11:28) weight gain, increase appetite levofloxacin [From LEVAQUIN] Allergy (Unknown, Verified 01/15/24 11:28) RASH linaclotide [Linzess] Allergy (Unknown, Verified 01/15/24 11:28) nausea penicillin V Allergy (Unknown, Verified 01/15/24 11:28) rash Penicillins [PENICILLINS] Allergy (Unknown, Verified 01/15/24 11:28) RASH Sulfa (Sulfonamide Antibiotics) Allergy (Unknown, Verified 01/15/24 11:28) rash tramadol Allergy (Unknown, Verified 01/15/24 11:28) pruritus triamcinolone [Kenalog] Allergy (Unknown, Verified 01/15/24 11:28) Unknown meclizine Adverse Reaction (Intermediate, Verified 01/15/24 11:28) fatigue, somnolence prednisone [Prednisone] Adverse Reaction (Mild, Verified 01/15/24 11:28) YEAST INFECTION cetirizine Adverse Reaction (Unknown, Verified 01/15/24 11:28) dizziness? Medication List - Last Reconciled 01/15/24 by Jonatan Cardoso MD albuterol sulfate 90 mcg/actuation 2 puffs PO Q6H PRN alprazolam 0.25 mg PO BID PRN aspirin 81 mg PO DAILY blood pressure monitor As directed blood sugar diagnostic (FreeStyle Lite Strips) As directed once a day blood-glucose meter (FreeStyle Lite Meter kit) daily gabapentin 100 mg PO DAILY PRN 90 days [HANDHELD SHOWER HEAD As directed] Jardiance (empagliflozin) 25 mg PO QAM 30 days NS metformin 1,000 mg PO BID nitroglycerin 0.4 mg sublingual Q5M PRN olopatadine 0.1% 1 drp ophthalmic (eye) BID PRN 30 days omeprazole 40 mg (2 x 20 mg) PO DAILY polymyxin B sulf-trimethoprim 10,000 unit- 1 mg/mL (Polytrim) 1 drp ophthalmic- Left Q3H 7 days Prozac (fluoxetine) 10 mg PO DAILY 30 days NS rosuvastatin 40 mg PO DAILY 90 days umeclidinium-vilanterol 62.5-25 mcg/actuation (Anoro Ellipta) 1 inh inhalation DAILY 30 days Tobacco use date assessed: 09/11/23 Fall risk assessment: No Falls in past year Last assessed Fall Risk: 01/15/24 Dental Screening Dental Screen Date: 09/11/23 HPI 4mth f/u HPI Details Patient comes in today for her follow up visit States that she has been feeling depressed lately and that is why she requested to be started back on Prozac a couple of weeks ago but states that her insurance did not approve the branded Rx and will only allow her to get the generic Fluoxetine Rx, which she cannot tolerate due to GI side effects She still feels fatigued often but is otherwise doing okay Would like to know how she did on her labs done a couple of days ago and to again see if she can cut back on her Metformin dose She denies any headaches or dizziness Denies any chest pains, no increased SOB No nausea/vomiting, no abdominal pain No change in bowel habits noted Needs a couple of her Rx refilled [facility] Medical History Vaginal discharge Rash Left low back pain Dizziness Osteoporosis Hypercalcemia GERD without esophagitis Constipation Lumbar degenerative disc disease Overweight (BMI 25.0-29.9) Vitamin D deficiency Mixed hyperlipidemia Atherosclerotic cardiovascular disease Pulmonary emphysema Diabetes mellitus Vertigo Degenerative lumbar disc Irritable bowel syndrome Fibromyalgia Borderline diabetes Hypercholesteremia Asthma Chronic headache Anxiety Surgical History History of biopsy History of loop electrical excision procedure (LEEP) H/O heart artery stent Hx of colonoscopy H/O angioplasty H/O Spinal surgery Hx of tubal ligation Family History Father No problems noted. Mother Depression S/P CABG x 4 Diabetes Hypertension Sister Poor high blood pressure control Cervical cancer Breast cancer Social History Household Members: None Housing: Apartment Alcohol intake: current Alcohol intake frequency: does not drink Alcohol type: beer and wine Patient Tobacco Use Status: Former Tobacco user e-Cigarette/Vaping Use: Never Used Second Hand Smoke Exposure: No service: No Current occupational status: retired and disabled Cognitive needs: No Hearing needs: No Vision needs: Yes (glasses) Female Reproductive History Menstrual Age of Menarche: 13 Questionnaire Thrive Questionnaire Date Thrive assessed: 09/11/23 VIOLET-7 AMB Questionnaire VIOLET-7 Date VIOLET - 7 assessed: 09/11/23 Source: Developed by Drs. Anthony Whelan, Chayo Romano, Vivek Avila and colleagues, with an educational irena from [id number] Review of Systems Const Denies chills, Reports fatigue, Denies fever(s) and Denies headache(s) ENT Denies dysphagia, Denies dizziness, Denies otalgia, Denies headache(s), Denies neck pain, Denies odynophagia and Denies sore throat Card Denies chest pain, Denies palpitations and Reports dyspnea on exertion (mild) Resp Denies chest congestion, Denies cough, Reports dyspnea on exertion (mild) and Denies wheezing GI Denies abdominal pain, Denies constipation, Denies dysphagia, Denies heartburn, Denies diarrhea, Denies nausea, Denies odynophagia and Denies vomiting Denies difficulty voiding, Denies nocturia, Denies dysuria and Denies urinary urgency Musc Reports back pain (over the lower back), Reports arthralgias (over the left shoulder) and Denies neck pain Skin/Breast Denies rash Neuro Denies dizziness and Denies headache(s) Endo Reports fatigue and Denies palpitations Aller/Immun Denies wheezing Physical exam (Primary Care) Vital Signs: Last Vital Signs Pulse 67 01/15/24 10:44 BP 130/60 01/15/24 10:44 Pulse Ox 98 01/15/24 10:44 Oxygen Delivery Method Room Air 01/15/24 10:44 BMI result Body Mass Index 25.9 Tobacco/Smoking Status: Tobacco use Status Tobacco use date assessed 09/11/23 01/15/24 10:45 Patient Tobacco Use Status Former Tobacco user 01/15/24 10:45 Tobacco use type 04/16/23 13:51 e-Cigarette/Vaping Use Never Used 01/15/24 10:45 Thrive Assessment: Date of Thrive Assessment Date Thrive assessed 09/11/23 01/15/24 10:45 Const General: no acute distress and alert HENMT Ears: TM's normal bilaterally and EAC's normal Throat: Yes posterior oropharynx normal and Yes tonsils normal Neck Neck: Yes no lymphadenopathy and Yes supple Resp Auscultation: clear to auscultation bilaterally, no rales and no wheezes Cardio Rate: regular rate Rhythm: regular rhythm Heart sounds: no murmurs GI Palpation (GI): Soft to palpation and nontender Auscultation: normal bowel sounds Back/Spine/Pelvis Thoracic/Lumbar Spine: lumbar spinal tenderness (mild) Skin Rashes: no rashes Extrem General: Yes no clubbing, cyanosis or edema Left upper extremity: shoulder/upper arm Details: tenderness Location: of the A- C joint; no swelling Results Reviewed Results Reviewed: Laboratory Tests 01/13/24 01/13/24 10:10 10:15 WBC 5.8 Hgb 10.5 L Hct 34.1 L Plt Count 290 Sodium 140 Potassium 4.4 Creatinine 0.84 Estimated GFR > 60 Fasting Glucose 112 H Hemoglobin A1c % 7.0 H Calcium 10.0 D AST 15 ALT 13 Triglycerides 90 Cholesterol 146 LDL Cholesterol, Calc 77 HDL Cholesterol 51 Vitamin B12 1727 H 25-OH Vitamin D Total 90.2 TSH 3.07 Urine Protein Negative Urine Glucose (UA) >=1000 H Urine Blood Negative Urine Nitrite Negative Ur Leukocyte Esterase Negative Microalb/Creat Ratio 34.6 H Assessment and Plan Assessment & Plan (1) Neuroendocrine tumor of pancreas: Code(s): D3A.8 - Other benign neuroendocrine tumors Plan: 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 Olivas here at [facility] [place] for oncology follow up (2) Atherosclerotic cardiovascular disease: Code(s): I25.10 - Atherosclerotic heart disease of [place] coronary artery without angina pectoris Plan: S/P REJI to LAD x 2 (2016 & 2018); S/P NSTEMI in 2016 S/P dual anti-platelet therapy with Brilinta 90 mg BID x 1 year (Rx discontinued since) and low-dose Aspirin 81 mg QD Is currently only on low dose Aspirin 81 mg QD - need lifetime Aspirin Tx Follow-up with cardiology as scheduled (3) Mixed hyperlipidemia: Code(s): E78.2 - Mixed hyperlipidemia Plan: Results of her labs done a couple of days ago reviewed and discussed with patient Reinforced low cholesterol diet Continue Rosuvastatin 40 mg QD Will recheck her labs and fasting lipids in 4 months for follow up (4) Diabetes mellitus: Code(s): E11.9 - Type 2 diabetes mellitus without complications Qualifiers: Diabetes mellitus type: type 2 Diabetes mellitus usp insulin use: without usp use Diabetes mellitus complication status: without complication Qualified Code(s): E11.9 - Type 2 diabetes mellitus without complications Plan: Her HgbA1c was at 7.0% on her labs done a couple of days ago (was at 6.7% a few months ago) - goal is < 7.0% Reinforced diabetic diet - admits that she eats a lot of rice and have advised that to be able to keep her diabetes controlled, she has to cut back on her carb intake Continue Jardiance 25 mg QD; per her request, will try lowering her Metformin from 1000 mg BID to 1000 mg Q PM She is advised again that with her pancreatic mass, she will want to stay away from the GLP-1 inhibitors as they may trigger some untoward changes in her pancreas, which may accelerate her current condition (5) Pulmonary emphysema: Code(s): J43.9 - Emphysema, unspecified Qualifiers: Emphysema type: unspecified Qualified Code(s): J43.9 - Emphysema, unspecified Plan: Patient is still doing well on her current Rx - continue on Anoro Ellipta 62.5- 25 mcg 1 inhalation QD and Albuterol HFA 2 puffs 4 times a day PRN Chest CT screening done in January 2019 revealed evidence of mild paraseptal emphysema with peripheral interstitial markings suggestive of interstitial lung disease Follow up with pulmonary as scheduled (6) Osteoporosis: Code(s): M81.0 - Age-related osteoporosis without current pathological fracture Qualifiers: Osteoporosis type: age-related Presence of current pathological fracture: without current pathological fracture Qualified Code(s): M81.0 - Age- related osteoporosis without current pathological fracture Plan: Repeat BMD done in February 2021 revealed (+) osteoporosis, with a slight improvement in BMD of the AP spine and (+) decline in BMD at the femur Encouraged again on daily exercise but reinforced fall precautions Continue Vitamin D supplements but because of her previous hypercalcemia, do not recommend she take any calcium supplements for now (7) Anemia: Code(s): D64.9 - Anemia, unspecified Qualifiers: Anemia type: unspecified type Qualified Code(s): D64.9 - Anemia, unspecified Plan: Advised that she is still anemic but her H/H remain stable at 10.5/34.1 Her iron function studies came back normal and B12 level was also normal when recently checked She is advised that her B12 level is now very high (>1500) on her recent labs and she should cut back on her B12 tablets to once a week for now Is advised that her anemia is most likely anemia of chronic disease; previous hematologic work ups have all been negative Will continue to monitor her CBC regularly Follow up with hematology as scheduled (8) Vitamin D deficiency: Code(s): E55.9 - Vitamin D deficiency, unspecified Plan: Continue Vitamin D3 2000 units QD Will recheck her Vitamin D level in 4 months for follow up (9) GERD without esophagitis: Code(s): K21.9 - Gastro-esophageal reflux disease without esophagitis Plan: Dietary restrictions reinforced Continue Omeprazole 40 mg QD Plan Follow up in 4 months Orders: Orders Lipid Panel 4 Months E78.00 - Pure hypercholesterolemia, unspecified Comprehensive [place]. Panel Fast 4 Months E78.00 - Pure hypercholesterolemia, unspecified Microalbumin, Random (w Creat) 4 Months E11.9 - Type 2 diabetes mellitus without complications Vitamin D 25-OH Total 4 Months E55.9 - Vitamin D deficiency, unspecified Vitamin B12 and Folate 4 Months E53.8 - Deficiency of other specified B group vitamins Hemoglobin A1c 4 Months E11.9 - Type 2 diabetes mellitus without complications Complete Blood Count Auto Diff 4 Months D64.9 - Anemia, unspecified TSH reflex Free T4 4 Months E78.00 - Pure hypercholesterolemia, unspecified UA CC w/rflx Micro + Cult 4 Months R30.0 - Dysuria Medications: Changed From metformin 1,000 mg PO BID 180 tabs 1RF To metformin 1,000 mg PO QPM 90 days 90 tabs 1RF Refilled Prozac (fluoxetine) 10 mg PO DAILY 30 days 30 caps 2RF NS F32.A - Depression, unspecified Prozac (fluoxetine) 10 mg PO DAILY 30 days 30 caps 2RF NS F32.A - Depression, unspecified rosuvastatin 40 mg PO DAILY 90 days 90 tabs 1RF E78.2 - Mixed hyperlipidemia, I25.10 - Atherosclerotic heart disease of [place] coronary artery without angina pectoris umeclidinium-vilanterol 62.5-25 mcg/actuation (Anoro Ellipta) 1 inh inhalation DAILY 30 days 60 ea 6RF Discontinued polymyxin B sulf-trimethoprim 10,000 unit- 1 mg/mL (Polytrim) while awake; do not exceed 6 doses in 24 hours Discontinued Reason: Patient Completed Course 1 drp ophthalmic-Left Q3H 7 days 10 mL 0RF Coding Level of Care Code Est Pt Level 4 (06516) Diagnoses Neuroendocrine tumor of pancreas D3A.8 Atherosclerotic cardiovascular disease I25.10 Mixed hyperlipidemia E78.2 Type 2 diabetes mellitus without complication, without long-term current use of insulin E11.9 Diabetes mellitus type: type 2 Diabetes mellitus usp insulin use: without usp use Diabetes mellitus complication status: without complication Pulmonary emphysema, unspecified emphysema type J43.9 Emphysema type: unspecified Age-related osteoporosis without current pathological fracture M81.0 Osteoporosis type: age-related Presence of current pathological fracture: without current pathological fracture Anemia, unspecified type D64.9 Anemia type: unspecified type Vitamin D deficiency E55.9 GERD without esophagitis K21.9
== END 2024-01-15 11:29 | disposition home or self-care (01) ==
PROVIDERS: PCP Internal Medicine; Visit Provider Internal Medicine
DX: E11.69 Type 2 diabetes mellitus with other specified complication (principal); D3A.8 Other benign neuroendocrine tumors; J43.9 Emphysema, unspecified; I25.10 Atherosclerotic heart disease of native coronary artery without angina pectoris; E78.2 Mixed hyperlipidemia; M81.0 Age-related osteoporosis without current pathological fracture; D64.9 Anemia, unspecified; E55.9 Vitamin D deficiency, unspecified; K21.9 Gastro-esophageal reflux disease without esophagitis
CPT/HCPCS: 99214

== ENCOUNTER 2024-01-16 13:30 | Emergency (ER) | payer OTHER, SELFPAY ==
[2024-01-16] VITALS (8 sets, daily range): BP systolic 143–215; BP diastolic 67–92; PULSE 69–79; RESP 14–20; TEMP 36.4–37; O2SAT 97–98; BMI 25.9
--- NOTE | ~2024-01-16 | CT_ITS ---
EXAMINATION: CT head/brain wo IV con CLINICAL INFORMATION: dizziness COMPARISON: MRI 12/31/2022, CTA head 06/19/2021 TECHNIQUE: Contiguous axial imaging was performed from the skull base to vertex without intravenous contrast. This CT examination was performed using dose optimization techniques as appropriate, variously including the following: * Automated exposure control * Adjustment of mA and/or kV according to patient size (this includes techniques or standardized protocols for targeted exams where dose is matched to indication/reason for exam; i.e. extremities or head) * Use of iterative reconstruction technique DLP: 623 mGy-cm. FINDINGS: There is no evidence of acute intracranial hemorrhage or territorial infarction. [place] to white matter differentiation is well preserved. No abnormal mass effect or midline shift is seen. No extra-axial fluid collections are identified. No hydrocephalus. Mineralization the bilateral basal ganglia, as before. No significant volume loss. Patchy periventricular and deep white matter hypoattenuation is consistent with mild small vessel ischemic changes. The cerebellar tonsils are well positioned. No acute osseous or soft tissue abnormality. Visualized portions of the orbits are unremarkable. The mastoid air cells and visualized portions of the paranasal sinuses are well aerated. CT/CT head/brain wo IV con IMPRESSION: No acute intracranial pathology.
--- NOTE | 2024-01-16 13:51 | ED.DIZZY ---
HPI - Dizziness General Chief Complaint: Dizziness Stated Complaint: WEAKNESS/DIZZINESS X 3 DAYS Time Seen by Provider: 01/16/24 20:54 Source: patient Mode of arrival: ambulatory Limitations: no limitations History of Present Illness HPI Narrative: Patient's history of vertigo been having vertigo feeling for last 1 week specially when she moves her head to the right side with tinnitus in the right ear little bit off balance used to take meclizine she does not like the side effect of it no chest pain no palpitation no tremors. Patient had MRI in the past which was negative for CVA Related Data Previous Rx's ?Medication ?Instructions ?Recorded blood pressure monitor #1 ea 12/11/21 nitroglycerin 0.4 mg sublingual 0.4 mg sublingual Q5M PRN chest 04/02/22 tablet pain #30 tabs blood sugar diagnostic (FreeStyle #100 ea 06/20/22 Lite Strips) blood-glucose meter (FreeStyle #1 ea 10/09/22 Lite Meter kit) HANDHELD SHOWER HEAD #1 ea 05/14/23 albuterol sulfate 90 mcg/actuation 2 puff PO Q6H PRN for muscle spasm 05/14/23 aerosol inhaler #8.5 grams omeprazole 20 mg capsule,delayed 40 mg (2 x 20 mg) PO DAILY #180 11/04/23 release caps aspirin 81 mg tablet,delayed 81 mg PO DAILY #90 tabs 11/20/23 release alprazolam 0.25 mg tablet 0.25 mg PO BID PRN anxiety #60 tabs 12/08/23 gabapentin 100 mg capsule 100 mg PO DAILY PRN Pain 90 days 12/08/23 #90 caps Jardiance 25 mg tablet 25 mg PO QAM 30 days #30 tabs 12/28/23 (empagliflozin) olopatadine 0.1 % eye drops 1 drp ophthalmic (eye) BID PRN 01/05/24 itching of eyes 30 days #5 mL Prozac 10 mg capsule (fluoxetine) 10 mg PO DAILY 30 days #30 caps 01/15/24 metformin 1,000 mg tablet 1,000 mg PO QPM 90 days #90 tabs 01/15/24 rosuvastatin 40 mg tablet 40 mg PO DAILY 90 days #90 tabs 01/15/24 umeclidinium 62.5 mcg-vilanterol 1 inh inhalation DAILY 30 days #60 01/15/24 25 mcg/actuation powdr for ea inhalation (Anoro Ellipta) Allergies Allergy/AdvReac Type Severity Reaction Status Date / Time clarithromycin [From PREVPAC] Allergy Mild hives Verified 01/16/24 13:52 lansoprazole [From PREVPAC] Allergy Mild hives Verified 01/16/24 13:52 lisinopril [LISINOPRIL] Allergy Mild COUGHING, Verified 01/16/24 13:52 cough, cough amoxicillin [AMOXICILLIN] Allergy Unknown RASH Verified 01/16/24 13:52 cephalexin Allergy Unknown rash Verified 01/16/24 13:52 clavulanic acid [Augmentin] Allergy Unknown rash Verified 01/16/24 13:52 duloxetine [Cymbalta] Allergy Unknown weight Verified 01/16/24 13:52 gain, increase appetite levofloxacin [From LEVAQUIN] Allergy Unknown RASH Verified 01/16/24 13:52 linaclotide [Linzess] Allergy Unknown nausea Verified 01/16/24 13:52 penicillin V Allergy Unknown rash Verified 01/16/24 13:52 Penicillins [PENICILLINS] Allergy Unknown RASH Verified 01/16/24 13:52 Sulfa (Sulfonamide Allergy Unknown rash Verified 01/16/24 13:52 Antibiotics) tramadol Allergy Unknown pruritus Verified 01/16/24 13:52 triamcinolone [Kenalog] Allergy Unknown Unknown Verified 01/16/24 13:52 meclizine AdvReac Intermediate fatigue, Verified 01/16/24 13:52 somnolence prednisone [Prednisone] AdvReac Mild YEAST Verified 01/16/24 13:52 INFECTION cetirizine AdvReac Unknown dizziness? Verified 01/16/24 13:52 Review of Systems Review of Systems: Yes all other systems are reviewed and are negative [facility] Past Medical History Medical History Vaginal discharge Rash Left low back pain Dizziness Osteoporosis Hypercalcemia GERD without esophagitis Constipation Lumbar degenerative disc disease Overweight (BMI 25.0-29.9) Vitamin D deficiency Mixed hyperlipidemia Atherosclerotic cardiovascular disease Pulmonary emphysema Diabetes mellitus Vertigo Degenerative lumbar disc Irritable bowel syndrome Fibromyalgia Borderline diabetes Hypercholesteremia Asthma Chronic headache Anxiety Surgical History History of biopsy History of loop electrical excision procedure (LEEP) H/O heart artery stent Hx of colonoscopy H/O angioplasty H/O Spinal surgery Hx of tubal ligation Family History Family History Father No problems noted. Mother Depression S/P CABG x 4 Diabetes Hypertension Sister Poor high blood pressure control Cervical cancer Breast cancer Social History Social History Household Members: None Housing: Apartment Alcohol intake: current Alcohol intake frequency: does not drink Alcohol type: beer and wine Patient Tobacco Use Status: Former Tobacco user e-Cigarette/Vaping Use: Never Used Second Hand Smoke Exposure: No Advance Directives: No Advance Directives Information Provided: No service: No Current occupational status: retired and disabled Cognitive needs: No Hearing needs: No Vision needs: Yes (glasses) Physical Exam Vital Signs: Vital Signs: Last Vital Signs Temp 97.6 F 01/16/24 21:05 Pulse 69 01/16/24 21:05 Resp 14 01/16/24 21:05 BP 147/67 H 01/16/24 21:05 Pulse Ox 97 01/16/24 21:05 O2 Del Method Room Air 01/16/24 21:05 BMI result Body Mass Index 25.9 Appearance: Alert. Oriented X3. No acute distress. Eyes: PERRLA, No Nystagmus increased dizziness on turning the head to the right side ENT: Pharynx normal. Oral Mucosa moist Neck: Normal inspection. Neck supple. CVS: Normal heart rate and rhythm. Pulses normal. Respiratory: No respiratory distress. Equal air entry bilateral, no wheezing/rales/rhonchi Abdomen: Soft and nontender. Bowel sounds are present, no mass palpable, no CVA tenderness Skin: Skin warm and dry. Normal skin color. Normal skin turgor. Extremities: No lower extremity edema. No calf tenderness Neuro: Oriented X 3. No motor deficit. No sensory deficit.No cerebellar signs , cranial nerves II-XII intact Course Course Course Narrative: This is a rapid medical exam. Deferred additional HPI, ROS, PE to primary provider. 79 yo female with history of DM, COPD, asthma, here with complaints of dizziness x several weeks. Will need labs, EKG, orthos VSS -A. [employer] Medications Administered Discontinued Medications Generic Name Dose Route Start Last Admin Trade Name Jody PRN Reason Stop Dose Admin Lorazepam 0.5 mg 01/16/24 21:35 01/16/24 23:08 Lorazepam 0.5 Mg Tablet PO 01/16/24 21:36 Not Given ONCE ONE Medical Decision Making Medical Decision Making [facility] Narrative: Patient with benign positional vertigo history of same in the past does not like meclizine head CT was done without any central nervous system involvement no focal deficit no signs of stroke patient has improved after Ativan labs were stable discharge patient Differential Diagnosis Differential Diagnoses: The differential diagnosis associated with the presentation includes Benign positional vertigo/CVA lost/hyponatremia/metabolic encephalopathy Admission/Observation Consideration of admission/observation: Escalation of care including admission/observation considered Lab Data [facility] Lab Attestation statement: I reviewed the patient's lab results. 01/16/24 18:50 01/16/24 18:50 Labs: Lab Results 01/16/24 01/16/24 Range/Units 18:50 21:49 WBC 6.7 (4.8-10.8) X10*3/uL RBC 4.52 (4.20-5.50) X10*6/uL Hgb 11.9 L (12.0-16.0) g/dl Hct 37.4 (37.0-47.0) % MCV 82.7 (80.0-98.0) fL MCH 26.3 L (27.0-33.0) pg MCHC 31.8 (31.0-35.0) g/dl RDW 16.5 H (11.0-16.0) % Plt Count 305 (160-400) X10*3/uL MPV 10.2 (9.4-12.3) fL Immature Gran % (Auto) 0.1 (0.0-0.4) % Neut % (Auto) 53.9 (45-73) % Lymph % (Auto) 34.9 (20-40) % [place] % (Auto) 7.4 (2-11) % Eos % (Auto) 2.4 (0-4) % Baso % (Auto) 1.3 (0-2) % Lymph # (Auto) 2.4 (1.2-4.9) X10*3/uL [place] # (Auto) 0.5 (0.1-1.2) X10*3/uL Eos # (Auto) 0.2 (0.0-0.4) X10*3/uL Baso # (Auto) 0.1 (0.0-0.2) X10*3/uL Abs Immat Gran (auto) 0.01 (0.00-0.03) X10*3/uL Absolute Neuts (auto) 3.6 (2.0-8.3) x10*3/uL Absolute Nucleated RBC 0.000 (0.0-0.012) X10*3/uL Nucleated RBC % (auto) 0.0 (0.0-0.2) /100WBC Sodium 139 (135-145) mmol/L Potassium 4.3 (3.3-5.1) mmol/L Chloride 102 (96-108) mmol/L Carbon Dioxide 27 (22-29) mmol/L Anion Gap 14 (12-20) BUN 15 (9-16) mg/dL Creatinine 0.82 (0.5-1.4) mg/dL Estim Creat Clear Calc 50.8 Estimated GFR > 60 Random Glucose 88 (60-115) mg/dL Calcium 10.3 H (8.4-10.2) mg/dL Magnesium 2.2 (1.6-2.6) mg/dL Total Bilirubin 0.3 (0.0-1.0) mg/dL Direct Bilirubin 0.1 (0.0-0.5) mg/dL AST 23 (5-31) U/L ALT 17 (0-31) U/L Alkaline Phosphatase 57 (39-117) U/L Troponin I High Sens 11.6 (<3.5-17.0) ng/L Total Protein 8.3 H (6.5-8.0) g/dL Albumin 4.6 (3.5-5.0) g/dL Urine Color Yellow Urine Appearance Clear Urine pH 7.5 (5.0-9.0) Ur Specific [place] 1.015 (1.005-1.025) Urine Protein Negative (Neg-Trace) mg/dL Urine Glucose (UA) >=1000 H (Negative) mg/dL Urine Ketones Negative (Negative) mg/dL Urine Blood Negative (Negative) Urine Nitrite Negative (Negative) Ur Leukocyte Esterase Negative (Negative) Urine RBC 0-2 (0-2) /HPF Urine WBC 0-5 (0-5) /HPF Ur Squamous Epith Cells 0-2 (0-2) /HPF Urine Bacteria None Seen (None Seen) Hyaline Casts 0-2 (0-2) /LPF Independent Interpretation I performed an independent interpretation of an: EKG Interpretation: Normal sinus rhythm heart rate 70 beats per minute normal interval normal axis no acute ST T wave changes no acute ischemia Discharge Plan Discharge Clinical Impression: Benign paroxysmal positional vertigo Patient Disposition: Home, Self-Care Instructions: Benign Paroxysmal Positional Vertigo (ED) Additional Instructions: Take your alprazolam twice daily as prescribed which will help in dizziness also Do not move your head/body very quick take your own time Follow with PCP if not better Prescriptions: No Action (DME) blood-glucose meter [FreeStyle Lite Meter] Kit See Rx Instructions .ROUTE .MEDSUPPLY Qty: 1 0RF Rx Instructions: daily (DME) HANDHELD SHOWER HEAD See Rx Instructions .Route .MEDSUPPLY Qty: 1 0RF Rx Instructions: As directed albuterol sulfate 90 mcg/actuation HFA aerosol inhaler 2 puff PO Q6H PRN (Reason: for muscle spasm) Qty: 8.5 3RF omeprazole 20 mg capsule,delayed release(DR/EC) 40 mg PO DAILY Qty: 180 0RF aspirin 81 mg tablet,delayed release (DR/EC) 81 mg PO DAILY Qty: 90 1RF alprazolam 0.25 mg tablet 0.25 mg PO BID PRN (Reason: anxiety) Qty: 60 0RF gabapentin 100 mg capsule 100 mg PO DAILY PRN (Reason: Pain) 90 Days Qty: 90 0RF Jardiance 25 mg tablet 25 mg PO QAM 30 Days Qty: 30 3RF olopatadine 0.1 % drops 1 drp ophthalmic (eye) BID PRN (Reason: itching of eyes) 30 Days Qty: 5 3RF Rx Instructions: separate doses by at least 6-8 hours fluoxetine [Prozac] 10 mg capsule 10 mg PO DAILY 30 Days Qty: 30 2RF rosuvastatin 40 mg tablet 40 mg PO DAILY 90 Days Qty: 90 1RF Anoro Ellipta 62.5-25 mcg/actuation blister with device 1 inh inhalation DAILY 30 Days Qty: 60 6RF metformin 1,000 mg tablet 1,000 mg PO QPM 90 Days Qty: 90 1RF (DME) blood pressure monitor Kit See Rx Instructions .Route Qty: 1 0RF Rx Instructions: As directed (DME) FreeStyle Lite Strips Strip See Rx Instructions .ROUTE .MEDSUPPLY Qty: 100 12RF Rx Instructions: As directed once a day nitroglycerin 0.4 mg tablet, sublingual 0.4 mg sublingual Q5M PRN (Reason: chest pain) Qty: 30 5RF Rx Instructions: do not exceed 3 doses per episode Discharge Date/Time: 01/16/24 23:09 Print Language: Kiswahili
--- NOTE | 2024-01-16 13:52 | ECG_ITS ---
Test Reason : dizziness Blood Pressure : / mmHG Vent. Rate : 070 BPM Atrial Rate : 070 BPM P-R Int : 160 ms QRS Dur : 090 ms QT Int : 390 ms P-R-T Axes : 055 -13 015 degrees QTc Int : 421 ms Normal sinus rhythm Normal ECG When compared with ECG of 10-AUG-2021 20:02, No significant change was found Referred By: Deirdre Barker Electronically Signed By:RAMIRO FUNES MD
--- NOTE | 2024-01-16 18:14 | PC.NURSE ---
This RN called pt in for r-assessment, pt had been refusing labs/ekg, stating she only wanted a CT. She was told by an outside provider that was all she needed. Pt educated that we need her lab/ekg and our orders to be completed in order to fully take care of her, and that even though the outside provider told her one thing he does not work for our hospital and that we unfortunately need to do our own protocol. Pt in agreement at this time to let us perform lab work
[2024-01-16 18:56] LABS: MANUAL DIFF FLAG NO
[2024-01-16 18:58] LABS: Basophils Absolute Auto 0.1 X10*3/uL (0.0-0.2); Basophils Percent Auto 1.3 % (0-2); Eosinophils Absolute Auto 0.2 X10*3/uL (0.0-0.4); Eosinophils Percent Auto 2.4 % (0-4); Hematocrit 37.4 % (37.0-47.0); Hemoglobin 11.9 g/dl (12.0-16.0); Imm Gran Abs Auto 0.01 X10*3/uL (0.00-0.03); Imm Gran Pct Auto 0.1 % (0.0-0.4); Lymphocytes Absolute Auto 2.4 X10*3/uL (1.2-4.9); Lymphocytes Percent Auto 34.9 % (20-40); Mean Corpuscular HGB Conc 31.8 g/dl (31.0-35.0); Mean Corpuscular Hemoglobin 26.3 pg (27.0-33.0); Mean Corpuscular Volume 82.7 fL (80.0-98.0); Mean Platelet Volume 10.2 fL (9.4-12.3); Monocytes Absolute Auto 0.5 X10*3/uL (0.1-1.2); Monocytes Percent Auto 7.4 % (2-11); Neutrophils Absolute Auto 3.6 x10*3/uL (2.0-8.3); Neutrophils Percent Auto 53.9 % (45-73); Platelet Count 305 X10*3/uL (160-400); Red Blood Count 4.52 X10*6/uL (4.20-5.50); Red Cell Distribution Width 16.5 % (11.0-16.0); White Blood Count 6.7 X10*3/uL (4.8-10.8)
[2024-01-16 19:29] LABS: Alanine Aminotransferase 17 U/L (0-31); Albumin Level 4.6 g/dL (3.5-5.0); Alkaline Phosphatase 57 U/L (39-117); Anion Gap 14 (12-20); Aspartate Amino Transferase 23 U/L (5-31); Bilirubin Direct 0.1 mg/dL (0.0-0.5); Bilirubin Total 0.3 mg/dL (0.0-1.0); Blood Urea Nitrogen 15 mg/dL (9-16); Calcium 10.3 mg/dL (8.4-10.2); Carbon Dioxide 27 mmol/L (22-29); Chloride 102 mmol/L (96-108); Creatinine Clr Calc Pharmacy 50.8; Estimated Glomerular Filt Rate > 60; Glucose Random 88 mg/dL (60-115); Magnesium 2.2 mg/dL (1.6-2.6); Potassium 4.3 mmol/L (3.3-5.1); Sodium 139 mmol/L (135-145); Total Protein 8.3 g/dL (6.5-8.0)
[2024-01-16 19:36] LABS: Troponin-I High Sensitivity 11.6 ng/L (<3.5-17.0)
[2024-01-16 21:58] LABS: Appearance Urine Clear; Color Urine Yellow; Glucose Urine UA >=1000 mg/dL (Negative); Leukocyte Esterase Urine Negative (Negative); Nitrite Urine Negative (Negative); PH 7.5 (5.0-9.0); Specific Gravity - Urine 1.015 (1.005-1.025); UMIC TRIGGER UACC YES; Urine Blood Negative (Negative); Urine Ketones Negative (Negative); Urine Protein Negative (Neg-Trace)
[2024-01-16 22:03] LABS: Bacteria Urine None Seen (None Seen); Hyaline Casts Urine 0-2 /LPF (0-2); RBC Urine 0-2 /HPF (0-2); Squamous Epithelial Cell Urine 0-2 /HPF (0-2); WBC Urine 0-5 /HPF (0-5)
--- NOTE | 2024-01-16 23:08 | PC.NURSE ---
pt left prior to receiving d/c paper
== END 2024-01-16 23:09 | disposition home or self-care (01) ==
PROVIDERS: Nurse Practitioner Family; Emergency Provider Internal Medicine
DX: H81.10 Benign paroxysmal vertigo, unspecified ear (principal); H93.11 Tinnitus, right ear
CPT/HCPCS: 36415; 70450; 80048; 80076; 81001; 83735; 84484; 85025; 93005; 99284

== ENCOUNTER → 2024-01-16 13:52 | Outpatient (BNV) | payer OTHER, SELFPAY | PROVIDERS: Emergency Provider Internal Medicine; Visit Provider Internal Medicine Cardiovascular Disease | DX: R42 Dizziness and giddiness (principal) | CPT/HCPCS: 93010 ==

== ENCOUNTER 2024-03-18 10:30 | Outpatient (RCR) | payer OTHER, SELFPAY ==
[2024-03-10 10:33] VITALS: BP 123/89; PULSE 77; RESP 18; TEMP 36.6
[2024-03-10] MEDS: Iron Sucrose Complex 400 MG in 0.9 % Sodium Chloride 250 ML 180 MG IV (10:47)
[2024-03-10] MEDS: 0.9 % Sodium Chloride Flush 10 ML SYRINGE 5 ML IVFLUSH (12:18)
[2024-03-18 10:46] VITALS: BP 157/78; PULSE 75; RESP 18; TEMP 36.6; O2SAT 99
[2024-03-18] MEDS: Iron Sucrose Complex 400 MG in 0.9 % Sodium Chloride 250 ML 180 MG IV (11:15)
[2024-03-18] MEDS: 0.9 % Sodium Chloride Flush 10 ML SYRINGE 5 ML IVFLUSH (12:49)
== END 2024-03-18 14:31 | disposition home or self-care (01) ==
LOC: HO.INF 10:30
PROVIDERS: Visit Provider Internal Medicine
DX: D64.9 Anemia, unspecified (principal)
CPT/HCPCS: 96365; J1756

== ENCOUNTER 2024-03-29 13:31 | Outpatient (REF) | payer OTHER, SELFPAY ==
[2024-03-29 14:33] LABS: Appearance Urine Clear; Color Urine Yellow; Glucose Urine UA >=1000 mg/dL (Negative); Leukocyte Esterase Urine Negative (Negative); Nitrite Urine Negative (Negative); Specific Gravity - Urine >= 1.030 (1.005-1.025); UMIC TRIGGER UACC YES; Urine Blood Negative (Negative); Urine Ketones Negative (Negative); Urine Protein Negative (Neg-Trace)
[2024-03-29 14:48] LABS: Bacteria Urine None Seen (None Seen); Hyaline Casts Urine 0-2 /LPF (0-2); RBC Urine 0-2 /HPF (0-2); Squamous Epithelial Cell Urine 0-2 /HPF (0-2); WBC Urine 0-5 /HPF (0-5)
== END 2024-03-29 13:32 | disposition home or self-care (01) ==
LOC: HO.LAB 13:31
PROVIDERS: PCP Internal Medicine; Visit Provider Internal Medicine
DX: R30.0 Dysuria (principal)
CPT/HCPCS: 81001

== ENCOUNTER 2024-04-21 10:06 | Outpatient (AMB) | payer OTHER, SELFPAY ==
[2024-04-21 10:07] VITALS: BP 120/60; PULSE 76; BMI 25.7
--- NOTE | 2024-04-21 10:07 | MHC.OFFVIS ---
Vital Signs 04/21/24 10:07 Height 5 ft 3 in Weight 145 lb 1.027 oz BMI 25.7 BP 120/60 Blood Pressure Location Lt brachial Position Sitting Pulse 76 Pulse Source Pulse Oximeter Intake Visit Reasons: 1 year f/u [employer] Set Up Mechanic Required: No [employer] Set Up Mechanic Services: [employer] Set Up Mechanic Present [employer] Set Up Mechanic Name: Sera-daughter Accompanied by: Daughter Allergies clarithromycin [From PREVPAC] Allergy (Mild, Verified 01/16/24 13:52) hives lansoprazole [From PREVPAC] Allergy (Mild, Verified 01/16/24 13:52) hives lisinopril [LISINOPRIL] Allergy (Mild, Verified 01/16/24 13:52) COUGHING, cough, cough amoxicillin [AMOXICILLIN] Allergy (Unknown, Verified 01/16/24 13:52) RASH cephalexin Allergy (Unknown, Verified 01/16/24 13:52) rash clavulanic acid [Augmentin] Allergy (Unknown, Verified 01/16/24 13:52) rash duloxetine [Cymbalta] Allergy (Unknown, Verified 01/16/24 13:52) weight gain, increase appetite levofloxacin [From LEVAQUIN] Allergy (Unknown, Verified 01/16/24 13:52) RASH linaclotide [Linzess] Allergy (Unknown, Verified 01/16/24 13:52) nausea penicillin V Allergy (Unknown, Verified 01/16/24 13:52) rash Penicillins [PENICILLINS] Allergy (Unknown, Verified 01/16/24 13:52) RASH Sulfa (Sulfonamide Antibiotics) Allergy (Unknown, Verified 01/16/24 13:52) rash tramadol Allergy (Unknown, Verified 01/16/24 13:52) pruritus triamcinolone [Kenalog] Allergy (Unknown, Verified 01/16/24 13:52) Unknown meclizine Adverse Reaction (Intermediate, Verified 01/16/24 13:52) fatigue, somnolence prednisone [Prednisone] Adverse Reaction (Mild, Verified 01/16/24 13:52) YEAST INFECTION cetirizine Adverse Reaction (Unknown, Verified 01/16/24 13:52) dizziness? Medication List - Last Reconciled 04/21/24 by Vernon Plata MD albuterol sulfate 90 mcg/actuation 2 puffs PO Q6H PRN alprazolam 0.25 mg PO BID PRN aspirin 81 mg PO DAILY blood pressure monitor As directed blood sugar diagnostic (FreeStyle Lite Strips) As directed once a day blood-glucose meter (FreeStyle Lite Meter kit) daily gabapentin 100 mg PO DAILY PRN 90 days [HANDHELD SHOWER HEAD As directed] Jardiance (empagliflozin) 25 mg PO QAM 30 days NS loratadine (Allergy Relief (loratadine)) 10 mg PO DAILY metformin 1,000 mg PO QPM 90 days nitroglycerin 0.4 mg sublingual Q5M PRN olopatadine 0.1% 1 drp ophthalmic (eye) BID PRN 30 days omeprazole 40 mg (2 x 20 mg) PO DAILY Prozac (fluoxetine) 10 mg PO DAILY 30 days NS rosuvastatin 40 mg PO DAILY 90 days umeclidinium-vilanterol 62.5-25 mcg/actuation (Anoro Ellipta) 1 inh inhalation DAILY 30 days HPI Comments Details: Meredith returns for follow-up regarding coronary disease. To recall, she was admitted in [address] elevation myocardial infarction. At that time, received LAD stenting. One further cardiac catheterization in 2019 for chest pain. Additional stent in mid LAD. Since had complained of shortness of breath leading to pulmonary evaluation. Pulmonary function testing had shown obstructive airway disease with complete reversibility suggesting asthma. History of smoking in the past but nothing recently. Over the last few years, her main complaint is just fatigue and tiredness. She really does not have any anginal-type symptoms. Then meds were changed including coming off beta-blockers. She states she has been diagnosed with iron-deficiency and getting some infusions for that through Hematology. However, no clear symptoms like angina. Daughter is also here for the appointment. [facility] Medical History Vaginal discharge Rash Left low back pain Dizziness Osteoporosis Hypercalcemia GERD without esophagitis Constipation Lumbar degenerative disc disease Overweight (BMI 25.0-29.9) Vitamin D deficiency Mixed hyperlipidemia Atherosclerotic cardiovascular disease Pulmonary emphysema Diabetes mellitus Vertigo Degenerative lumbar disc Irritable bowel syndrome Fibromyalgia Borderline diabetes Hypercholesteremia Asthma Chronic headache Anxiety Surgical History History of biopsy History of loop electrical excision procedure (LEEP) H/O heart artery stent Hx of colonoscopy H/O angioplasty H/O Spinal surgery Hx of tubal ligation Family History Father No problems noted. Mother Depression S/P CABG x 4 Diabetes Hypertension Sister Poor high blood pressure control Cervical cancer Breast cancer Social History Household Members: None Housing: Apartment Alcohol intake: current Alcohol intake frequency: does not drink Alcohol type: beer and wine Patient Tobacco Use Status: Former Tobacco user e-Cigarette/Vaping Use: Never Used Second Hand Smoke Exposure: No service: No Current occupational status: retired and disabled Cognitive needs: No Hearing needs: No Vision needs: Yes (glasses) Female Reproductive History Menstrual Age of Menarche: 13 Review of Systems Const Denies chills, Denies fatigue, Denies fever(s), Denies weight gain and Denies weight loss ENT Denies dizziness Card Denies chest pain, Denies leg edema, Denies lightheadedness, Denies palpitations, Denies dyspnea on exertion, Denies orthopnea and Denies other Resp Denies cough and Denies dyspnea on exertion GI Denies hematochezia and Denies change in stool character Musc Denies abnormal gait, Denies muscle weakness, Denies numbness, Denies radiating pain into limb and Denies tingling Neuro Denies abnormal gait, Denies dizziness, Denies numbness and Denies tingling Endo Denies fatigue and Denies palpitations Physical Exam Vital Signs: Last Vital Signs Pulse 76 04/21/24 10:07 BP 120/60 04/21/24 10:07 BMI result Body Mass Index 25.7 Const General: comfortable and no acute distress Orientation/consciousness: patient oriented x3 HEENT Other: Unremarkable Head: Yes normal to inspection Neck Neck: Yes normal visual inspection Chest Chest palpation & inspection: normal inspection of the chest Resp Auscultation: clear to auscultation bilaterally Cardio Palpation: normal PMI Heart sounds: S1 normal heart sound present, S2 normal heart sound present, no gallops, no murmurs and no rubs GI Palpation (GI): Soft to palpation Back/Spine/Pelvis Other: unremarkable Skin General skin exam: no rashes or lesions noted Neuro General: patient oriented x3 Extrem General: Yes normal to inspection Psych Mental Status: mental status grossly normal Assessment & Plan Assessment & Plan (1) Atherosclerotic cardiovascular disease: Code(s): I25.10 - Atherosclerotic heart disease of eek coronary artery without angina pectoris Category: Medical Plan Cardiac data reviewed. EKG from December of this year is essentially normal. Echocardiogram from 2019 with LVEF of 60-65%. Mild aortic valve calcification. Mild tricuspid regurgitation otherwise unremarkable. Cardiac catheterization from 2019-mid LAD distal part 90% stenosis status post stenting; distal circumflex 90% stenosis, not intervened; no significant disease in right coronary artery. Overall, she has got stable coronary disease and has got absolutely no anginal-type symptoms. She may continue aspirin, statins. Has been on beta-blockers in the past but stopped after the tiredness/fatigue symptoms started. LDL cholesterol levels have been 40s, 50s, 60s, 70s at different times. One isolated high level. Otherwise, in the absence of angina, conservative care. If any recurrence of chest pain or anything along those lines, advised him to immediately contact us or 911. With regard to fatigue and tiredness, possibly from iron-deficiency but not clear. May follow up with Hematology for that. Discussed with daughter who came for appointment. Total time spent including review of data, counseling, documentation, coordination of care-31 minutes. Coding Level of Care Code Est Pt Level 4 (00864) Diagnoses Atherosclerotic cardiovascular disease I25.10
== END 2024-04-21 10:37 | disposition home or self-care (01) ==
PROVIDERS: PCP Internal Medicine; Visit Provider Internal Medicine
DX: I25.10 Atherosclerotic heart disease of native coronary artery without angina pectoris (principal)
CPT/HCPCS: 99214

== ENCOUNTER → 2024-04-21 10:06 | Outpatient (BNVA) | payer OTHER, SELFPAY | PROVIDERS: PCP Internal Medicine; Visit Provider Internal Medicine | DX: I25.10 Atherosclerotic heart disease of native coronary artery without angina pectoris (principal); Z95.5 Presence of coronary angioplasty implant and graft | CPT/HCPCS: 99212 ==

== ENCOUNTER 2024-05-06 16:39 | Outpatient (AMB) | payer OTHER, SELFPAY ==
[2024-05-06 16:44] VITALS: BP 112/62; PULSE 77; O2SAT 96; BMI 25.4
--- NOTE | 2024-05-06 16:44 | MHC.PC.OV ---
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 Accompanied by: Self / Same As Patient Allergies clarithromycin [From PREVPAC] Allergy (Mild, Verified 05/06/24 18:46) hives lansoprazole [From PREVPAC] Allergy (Mild, Verified 05/06/24 18:46) hives lisinopril [LISINOPRIL] Allergy (Mild, Verified 05/06/24 18:46) COUGHING, cough, cough amoxicillin [AMOXICILLIN] Allergy (Unknown, Verified 05/06/24 18:46) RASH cephalexin Allergy (Unknown, Verified 05/06/24 18:46) rash clavulanic acid [Augmentin] Allergy (Unknown, Verified 05/06/24 18:46) rash duloxetine [Cymbalta] Allergy (Unknown, Verified 05/06/24 18:46) weight gain, increase appetite levofloxacin [From LEVAQUIN] Allergy (Unknown, Verified 05/06/24 18:46) RASH linaclotide [Linzess] Allergy (Unknown, Verified 05/06/24 18:46) nausea penicillin V Allergy (Unknown, Verified 05/06/24 18:46) rash Penicillins [PENICILLINS] Allergy (Unknown, Verified 05/06/24 18:46) RASH Sulfa (Sulfonamide Antibiotics) Allergy (Unknown, Verified 05/06/24 18:46) rash tramadol Allergy (Unknown, Verified 05/06/24 18:46) pruritus triamcinolone [Kenalog] Allergy (Unknown, Verified 05/06/24 18:46) Unknown meclizine Adverse Reaction (Intermediate, Verified 05/06/24 18:46) fatigue, somnolence prednisone [Prednisone] Adverse Reaction (Mild, Verified 05/06/24 18:46) YEAST INFECTION cetirizine Adverse Reaction (Unknown, Verified 05/06/24 18:46) dizziness? Medication List - Last Reconciled 05/06/24 by Jonatan Cardoso MD albuterol sulfate 90 mcg/actuation 2 puffs PO Q6H PRN alprazolam 0.25 mg PO BID PRN aspirin 81 mg PO DAILY blood pressure monitor As directed blood sugar diagnostic (FreeStyle Lite Strips) As directed once a day blood-glucose meter (FreeStyle Lite Meter kit) daily doxycycline hyclate 100 mg PO BID 7 days gabapentin 100 mg PO DAILY PRN 90 days [HANDHELD SHOWER HEAD As directed] Jardiance (empagliflozin) 25 mg PO QAM 30 days NS loratadine (Allergy Relief (loratadine)) 10 mg PO DAILY metformin 1,000 mg PO QPM 90 days nitroglycerin 0.4 mg sublingual Q5M PRN olopatadine 0.1% 1 drp ophthalmic (eye) BID PRN 30 days omeprazole 40 mg (2 x 20 mg) PO DAILY Prozac (fluoxetine) 10 mg PO DAILY 30 days NS rosuvastatin 40 mg PO DAILY 90 days umeclidinium-vilanterol 62.5-25 mcg/actuation (Anoro Ellipta) 1 inh inhalation DAILY 30 days Tobacco use date assessed: 05/06/24 Fall risk assessment: No Falls in past year Last assessed Fall Risk: 05/06/24 Dental Screening Dental Screen Date: 05/06/24 Did you have a dental visit in the last 12 months?: No Did you have a dental problem in the last 6 months where you did not have access to dental care?: No Was dental information given to patient?: No HPI throat pain HPI Details Patient comes in today for evaluation of sore throat that she states she's had for about a week now - symptoms started around 05/01/2024 States that she called [facility], a mobile in-home urgent care and that she was examined and checked out at home States that she had testing for strep, influenza and COVID done, all of which came back negative She was reassured of her negative findings and no new Rx was prescribed BUT patient states that her sore throat persisted and feels that it has gotten worse since States that her sore throat is present all day and that at night lately, she has been experiencing increasing phlegm production in her throat as well as on and off nasal congestion, all of which she states are keeping her up at night She denies any trouble swallowing and denies any fever Denies any headaches or dizziness Denies any chest pains, no increased SOB No nausea/vomiting, no abdominal pain No change in bowel habits noted [facility] Medical History Vaginal discharge Rash Left low back pain Dizziness Osteoporosis Hypercalcemia GERD without esophagitis Constipation Lumbar degenerative disc disease Overweight (BMI 25.0-29.9) Vitamin D deficiency Mixed hyperlipidemia Atherosclerotic cardiovascular disease Pulmonary emphysema Diabetes mellitus Vertigo Degenerative lumbar disc Irritable bowel syndrome Fibromyalgia Borderline diabetes Hypercholesteremia Asthma Chronic headache Anxiety Surgical History History of biopsy History of loop electrical excision procedure (LEEP) H/O heart artery stent Hx of colonoscopy H/O angioplasty H/O Spinal surgery Hx of tubal ligation Family History Father No problems noted. Mother Depression S/P CABG x 4 Diabetes Hypertension Sister Poor high blood pressure control Cervical cancer Breast cancer Social History Household Members: None Housing: Apartment Alcohol intake: current Alcohol intake frequency: does not drink Alcohol type: beer and wine Patient Tobacco Use Status: Former Tobacco user e-Cigarette/Vaping Use: Never Used Second Hand Smoke Exposure: No service: No Current occupational status: retired and disabled Cognitive needs: No Hearing needs: No Vision needs: Yes (glasses) Female Reproductive History Menstrual Age of Menarche: 13 Questionnaire PHQ-9 Over the last 2 weeks, how often have you been bothered by any of the following problems? 1. Little interest or pleasure in doing things: nearly every day 2. Feeling down, depressed, or hopeless: nearly every day 3. Trouble falling or staying asleep, or sleeping too much: nearly every day (sleeping too much ) 4. Feeling tired or having little energy: nearly every day 5. Poor appetite or overeating: several days 6. Feeling bad about yourself - or that you are a failure or have let yourself or your family down: more than half the days 7. Trouble concentrating on things, such as reading the newspaper or watching television: nearly every day 8. Moving or speaking so slowly that other people could have noticed. Or the opposite - being so fidgety or restless that you have been moving around a lot more than usual: nearly every day 9. Thoughts that you would be better off or of hurting yourself in some way: not at all Total score: 21 Depression Screening Interpretation: Positive Depression Screening Follow-up: Existing condition and In treatment Depression Screening Done: Yes 90180 - PHQ-9 Billing: Yes Source: Developed by Drs. Anthony Whelan, Chayo Romano, Vivek Avila and colleagues, with an educational irena from [employer]. Thrive Questionnaire Date Thrive assessed: 05/06/24 I am a: Patient What is your living situation today?: I have a steady place to live Within the past 12 months, did the food you bought not last and you didn't have the money to get more?: Never true Within the past 12 months, did you worry whether your food would run out before you got money to buy more?: Never true Do you have trouble paying for medicines?: No Do you have trouble getting transportation to medical appointments?: No Do you have trouble paying your heating and electricity bill?: No Do you have trouble taking care of your child, family member or friend?: No Do you have trouble with day-to-day activities such as bathing, preparing meals, shopping, managing finances, etc.?: No Are you currently unemployed and looking for a job?: No Are you interested in more education?: No Please select the resources that you would like help with: None Currently or been in a relationship where the following occur: No concerns reported THRIVE Score: 0 AUDIT C Alcohol Use Questionnaire (AUDIT-C) 1. How often do you have a drink containing alcohol?: Never 3. How often do you have six or more drinks on one occasion?: Never Total Score: 0 Score Reviewed/Action Taken: Yes VIOLET-7 AMB Questionnaire VIOLET-7 Date VIOLET - 7 assessed: 05/06/24 Feeling nervous, anxious, or on edge: 0 = Not at all Not being able to stop or control worryin = Not at all Worrying too much about different things: 0 = Not at all Trouble relaxin = Not at all Being so restless that it is hard to sit still: 0 = Not at all Becoming easily annoyed or irritable: 0 = Not at all Feeling afraid as if something awful might happen: 0 = Not at all Total VIOLET-7 score (0-4 normal; 5-9 mild; 10-14 moderate; 15-21 severe): 0 Source: Developed by Drs. Anthony Whelan, Chayo Romano, Vivek Avila and colleagues, with an educational irena from [employer]. Review of Systems Const Denies chills, Reports difficulty sleeping (lately due to her throat symptoms), Reports fatigue, Denies fever(s) and Denies headache(s) ENT Denies dysphagia, Denies dizziness, Denies otalgia, Denies headache(s), Reports nasal congestion (on and off, worse at night), Denies neck pain, Denies odynophagia and Reports sore throat (see HPI) Card Denies chest pain, Denies palpitations and Reports dyspnea on exertion (mild) Resp Reports chest congestion (at times), Reports cough (on and off, worse at night), Reports dyspnea on exertion (mild) and Denies wheezing GI Denies abdominal pain, Denies constipation, Denies dysphagia, Denies heartburn, Denies diarrhea, Denies nausea, Denies odynophagia and Denies vomiting Denies difficulty voiding, Denies nocturia, Denies dysuria and Denies urinary urgency Musc Reports back pain (over the lower back), Reports arthralgias (over the left shoulder) and Denies neck pain Skin/Breast Denies rash Neuro Denies dizziness and Denies headache(s) Endo Reports fatigue and Denies palpitations Aller/Immun Denies wheezing Physical exam (Primary Care) Vital Signs: Last Vital Signs Pulse 77 05/06/24 16:44 BP 112/62 05/06/24 16:44 Pulse Ox 96 05/06/24 16:44 Oxygen Delivery Method Room Air 05/06/24 16:44 BMI result Body Mass Index 25.4 Tobacco/Smoking Status: Tobacco use Status Tobacco use date assessed 05/06/24 05/06/24 16:54 Patient Tobacco Use Status Former Tobacco user 05/06/24 16:54 Tobacco use type 04/16/23 13:51 e-Cigarette/Vaping Use Never Used 05/06/24 16:54 PHQ-9: PHQ-9 Score PHQ-9: Total score 21 05/06/24 17:05 Depression Screening Interpretation: Positive Depression Screening Follow-up: Existing condition and In treatment Thrive Assessment: Date of Thrive Assessment Date Thrive assessed 05/06/24 05/06/24 16:54 Currently or been in a relationship where the following occur: No concerns reported Const General: no acute distress and alert HENMT Ears: TM's normal bilaterally and EAC's normal Throat: Yes tonsils normal and Yes posterior oropharynx abnormal ((+) mild erythema of the posterior pharynx) Neck Neck: Yes no lymphadenopathy and Yes supple Thyroid: Thyroid normal Resp Auscultation: clear to auscultation bilaterally, no rales and no wheezes Cardio Rate: regular rate Rhythm: regular rhythm Heart sounds: no murmurs GI Palpation (GI): Soft to palpation and nontender Auscultation: normal bowel sounds Back/Spine/Pelvis Thoracic/Lumbar Spine: lumbar spinal tenderness (mild) Skin Rashes: no rashes Extrem General: Yes no clubbing, cyanosis or edema Left upper extremity: shoulder/upper arm Details: tenderness Location: of the A-C joint; no swelling Assessment and Plan Assessment & Plan (1) Pharyngitis: Code(s): J02.9 - Acute pharyngitis, unspecified Qualifiers: Pharyngitis/tonsillitis etiology: unspecified etiology Qualified Code(s): J02.9 - Acute pharyngitis, unspecified Plan: Patient tested negative for strep, COVID and influenza last week when she was examined by [facility] States that her sore throat has persisted and she feels has gotten worse since and she is insisting on getting some Rx to help treat her sore throat Will go ahead and start her on empiric Tx with Doxycycline 100 mg BID x 7 days - she is allergic to Sulfa, PCN, quinolones and Clarithromycin so there are really not many available options left in terms of antibiotics that she can safely tolerate Have advised that it is possible her recurrent sore throat may be related to her GERD so she should see GI for further evaluation and possible EGD Referral to GI done (2) GERD without esophagitis: Code(s): K21.9 - Gastro-esophageal reflux disease without esophagitis Plan: Dietary restrictions reinforced Continue Omeprazole 40 mg QD Will refer her to GI for consideration for EGD Plan Follow up as scheduled in a few weeks Orders: Referrals Gastroenterology Referral J31.2 - Chronic pharyngitis, K21.9 - Gastro-esophageal reflux disease without esophagitis Medications: New doxycycline hyclate 100 mg PO BID 14 caps 0RF 7 days Coding Level of Care Code Est Pt Level 3 (20414) Diagnoses Pharyngitis, unspecified etiology J02.9 Pharyngitis/tonsillitis etiology: unspecified etiology GERD without esophagitis K21.9
== END 2024-05-06 17:12 | disposition home or self-care (01) ==
PROVIDERS: PCP Internal Medicine; Visit Provider Internal Medicine
DX: J02.9 Acute pharyngitis, unspecified (principal); K21.9 Gastro-esophageal reflux disease without esophagitis
CPT/HCPCS: 99213

== ENCOUNTER → 2024-05-10 10:34 | Outpatient (RCR) | payer MEDICARE, SELFPAY ==
--- NOTE | 2020-06-27 13:58 | HO.HEMONCTE1 ---
[facility] Telehealth - Telehealth Location of Provider rendering services: office Location of Patient: Home Patient Identification confirmed using: Name, : Yes Telehealth Method: Telephone, with parts interpreter Patient verbally consented to billing insurance company: Yes Patient informed of any privacy concerns related to visit: Yes Medical Summary - Medical Summary Chief complaint: Scheduled follow-up Medical Summary: Diagnosis mild normocytic anemia, iron deficiency Long-standing history of mild normocytic anemia. Hemoglobin ranging from 11.5-12.5 g per DL. Remote history of iron deficiency during first . No history of blood transfusion, no family history of anemia. 2 colonoscopies, first one showing one polyp. She was never recommended any iron supplementation. Hematological workup showed ESR of 34, reticulocyte count of 1.2, normal SPEP and immunofixation. Mildly decreased transferrin saturation of 14%. Interval History Interval history: This is scheduled follow-up for patient, she was consented for telephone interview based on COVID-19 pandemic guidelines. Telephone parts interpreter was present during the interview. Patient reports doing well, denies any excess fatigue, chest pain or shortness of breath. Review of Systems - Constitutional Reports no additional constitutional complaints - Cardiovascular Reports no additional cardiovascular complaints - Respiratory Reports no additional respiratory complaints - Gastrointestinal Reports no additional gastrointestinal complaints Home Medications and Allergies Home Medications Medication Instructions Recorded Confirmed Type Lactobac. rhamnosus GG-inulin 1 cap PO DAILY 06/27/20 06/27/20 History [[facility]] albuterol sulfate 2 puff INHALATION Q6H PRN 06/27/20 06/27/20 History aspirin 1 tab PO DAILY 06/27/20 06/27/20 History folic acid 1 mg PO DAILY 06/27/20 06/27/20 History metformin 1 tab PO BID 06/27/20 06/27/20 History multivitamin 1 tab PO DAILY 06/27/20 06/27/20 History omeprazole 2 cap PO DAILY 06/27/20 06/27/20 History rosuvastatin 1 tab PO BEDTIME 06/27/20 06/27/20 History vitamin E 100 unit PO DAILY 06/27/20 06/27/20 History Allergies Allergy/AdvReac Type Severity Reaction Status Date / Time clarithromycin [From [facility]] Allergy Mild hives Verified 06/27/20 14:07 lansoprazole [[facility] Allergy Mild hives Unverified 05/17/20 14:52 lisinopril [LISINOPRIL] Allergy Mild COUGHING, Unverified 05/17/20 14:52 cough, cough amoxicillin [AMOXICILLIN] Allergy Unknown RASH Unverified 05/17/20 14:52 cephalexin Allergy Unknown rash Verified 01/18/20 00:00 clavulanic acid [Augmentin] Allergy Unknown rash Verified 01/18/20 00:00 dicyclomine Allergy Unknown loopiness Verified 01/18/20 00:00 duloxetine [Cymbalta] Allergy Unknown weight Verified 01/18/20 00:00 gain, increase appetite levofloxacin [From LEVAQUIN] Allergy Unknown RASH Unverified 05/17/20 14:52 linaclotide [Linzess] Allergy Unknown nausea Verified 01/18/20 00:00 penicillin V Allergy Unknown rash Unverified 04/10/20 00:00 Penicillins [PENICILLINS] Allergy Unknown RASH Unverified 05/17/20 14:52 Prevpac Allergy Unknown rash Unverified 04/10/20 00:00 Sulfa (Sulfonamide Allergy Unknown rash Unverified 04/10/20 00:00 Antibiotics) tramadol Allergy Unknown pruritus Unverified 04/10/20 00:00 triamcinolone [Kenalog] Allergy Unknown Unknown Verified 06/27/20 14:07 umeclidinium Allergy Unknown abdominal Verified 01/18/20 00:00 [Incruse Ellipta] pain prednisone [Prednisone] AdvReac Mild YEAST Unverified 05/17/20 14:52 INFECTION cetirizine AdvReac Unknown dizziness? Verified 01/18/20 00:00 Venlafaxine HCl ER AdvReac Unknown stomach Uncoded 01/18/20 00:00 upset Progress Note: A/P (1) Anemia Status: Acute Assessment and plan: 1. This is a 75-year-old female with mild normocytic anemia. Mildly decreased transferrin saturation and ferritin levels. No hematinic deficiencies. No thyroid dysfunction. No evidence of hemolysis or chronic kidney/liver disease. Ferritin level decreased, probable low iron stores. I have discussed starting iron sulfate 1 tablet daily for at least 2 months to see if it will help the anemia. She does understand that it can cause constipation, she will take the iron tablet with food and increase intake of water and fiber in her diet. [id number] laxatives may be used if needed. All this was explained to patient, she is willing to try oral iron supplementation. Follow-up in 2 months. - Time Spent With Patient Total time spent is greater than 50% in coordination of care (as documented) at patient's floor/unit and/or counseling patient: 15 - 24 minutes
[2020-09-07 13:14] LABS: MANUAL DIFF FLAG NO
[2020-09-07 13:16] VITALS: BP 130/72; PULSE 70; RESP 14; TEMP 36.3; O2SAT 99; BMI 28.2
[2020-09-07 13:24] LABS: Basophils Absolute Auto 0.1 X10*3/uL (0.0-0.2); Basophils Percent Auto 0.7 % (0-2); Eosinophils Absolute Auto 0.1 X10*3/uL (0.0-0.4); Eosinophils Percent Auto 1.6 % (0-4); Hematocrit 36.1 % (37-47); Hemoglobin 11.3 g/dl (12.0-16.0); Imm Gran Abs Auto 0.03 X10*3/uL (0.00-0.03); Imm Gran Pct Auto 0.4 % (0.0-0.4); Lymphocytes Absolute Auto 2.4 X10*3/uL (1.2-4.9); Lymphocytes Percent Auto 31.4 % (20-40); Mean Corpuscular HGB Conc 31.3 g/dl (31.0-35.0); Mean Corpuscular Hemoglobin 27.7 pg (27.0-33.0); Mean Corpuscular Volume 88.5 fL (80-98); Mean Platelet Volume 10.6 fL (9.4-12.3); Monocytes Absolute Auto 0.6 X10*3/uL (0.1-1.2); Monocytes Percent Auto 8.1 % (2-11); Neutrophils Absolute Auto 4.4 X10*3/uL (2.0-8.3); Neutrophils Percent Auto 57.8 % (45-73); Platelet Count 291 X10*3/uL (160-400); Red Blood Count 4.08 X10*6/uL (4.20-5.50); Red Cell Distribution Width 15.1 % (11.0-16.0); White Blood Count 7.6 X10*3/uL (4.8-10.8)
[2020-09-07 13:57] LABS: Iron 45 mcg/dL (30-160); Percent Iron Saturation 13 % (15-50); Total Iron Binding Capacity 339 mcg/dL (228-428); Unsaturated Iron Binding 294 ug/dL
[2020-09-07 14:40] LABS: Ferritin 11 ng/mL (10-250)
--- NOTE | 2020-09-07 15:04 | PM.HEMONCPN ---
Medical Summary - Medical Summary Date of Service: 09/07/20 Chief complaint: Follow-up Medical Summary: Diagnosis mild normocytic anemia, iron deficiency Long-standing history of mild normocytic anemia. Hemoglobin ranging from 11.5-12.5 g per DL. Remote history of iron deficiency during first . No history of blood transfusion, no family history of anemia. 2 colonoscopies, first one showing one polyp. She was never recommended any iron supplementation. Hematological workup showed ESR of 34, reticulocyte count of 1.2, normal SPEP and immunofixation. Mildly decreased transferrin saturation of 14%. Interval History Interval history: Patient is here in follow-up. She is doing quite well but reports excess daytime sleepiness. She denies exertional chest pain or shortness of breath. Since she started taking iron supplements, her stools have been dark colored. She denies any hematochezia melena. No loss of appetite or weight loss. She has had a colonoscopy few years ago and does not want undergo anymore. She denies nausea, emesis, heartburn or reflux symptoms. Review of Systems - Cardiovascular Reports no additional cardiovascular complaints - Respiratory Reports no additional respiratory complaints [facility] Medical History: Medical History (Last Updated 07/02/20 @ 14:28 by Jonatan Cardoso MD) Anxiety Asthma Atherosclerotic cardiovascular disease Borderline diabetes Chronic headache Degenerative lumbar disc Diabetes mellitus Fibromyalgia Hypercholesteremia Irritable bowel syndrome Lumbar degenerative disc disease Mixed hyperlipidemia Overweight (BMI 25.0-29.9) Pulmonary emphysema Vertigo Vitamin D deficiency Family History: Family History (Last Reviewed 07/28/20 @ 23:04 by Jonatan Cardoso MD) Father No problems noted. Mother Depression S/P CABG x 4 Diabetes Hypertension Sister Poor high blood pressure control Cervical cancer Breast cancer Surgical History: Surgical History (Last Reviewed 07/28/20 @ 23:04 by Jonatan Cardoso MD) H/O angioplasty H/O Spinal surgery Hx of tubal ligation Oncology Screenings - ECOG Performance Status ECOG Performance Status: 1 Home Medications and Allergies Home Medications Medication Instructions Recorded Confirmed Type Lactobac. rhamnosus GG-inulin 1 cap PO DAILY 06/27/20 07/28/20 History [[facility]] folic acid 1 mg PO DAILY 06/27/20 07/28/20 History metformin 1 tab PO BID 06/27/20 07/28/20 History omeprazole 2 cap PO DAILY 06/27/20 07/28/20 History rosuvastatin 1 tab PO BEDTIME 06/27/20 07/28/20 History vitamin E 100 unit PO DAILY 06/27/20 07/28/20 History Allergies Allergy/AdvReac Type Severity Reaction Status Date / Time clarithromycin [From [facility]] Allergy Mild hives Verified 07/28/20 23:03 lansoprazole [From [facility]] Allergy Mild hives Verified 07/28/20 23:03 lisinopril [LISINOPRIL] Allergy Mild COUGHING, Verified 07/28/20 23:03 cough, cough amoxicillin [AMOXICILLIN] Allergy Unknown RASH Verified 07/28/20 23:03 cephalexin Allergy Unknown rash Verified 07/28/20 23:03 clavulanic acid [Augmentin] Allergy Unknown rash Verified 07/28/20 23:03 dicyclomine Allergy Unknown loopiness Verified 07/28/20 23:03 duloxetine [Cymbalta] Allergy Unknown weight Verified 07/28/20 23:03 gain, increase appetite levofloxacin [From [facility]EVAQUIN] Allergy Unknown RASH Verified 07/28/20 23:03 linaclotide [Linzess] Allergy Unknown nausea Verified 07/28/20 23:03 penicillin V Allergy Unknown rash Verified 07/28/20 23:03 Penicillins [PENICILLINS] Allergy Unknown RASH Verified 07/28/20 23:03 Prevpac Allergy Unknown rash Verified 07/28/20 23:03 Sulfa (Sulfonamide Allergy Unknown rash Verified 07/28/20 23:03 Antibiotics) tramadol Allergy Unknown pruritus Verified 07/28/20 23:03 triamcinolone [Kenalog] Allergy Unknown Unknown Verified 07/28/20 23:03 umeclidinium Allergy Unknown abdominal Verified 07/28/20 23:03 [Incruse Ellipta] pain prednisone [Prednisone] AdvReac Mild YEAST Verified 07/28/20 23:03 INFECTION cetirizine AdvReac Unknown dizziness? Verified 07/28/20 23:03 Venlafaxine HCl ER AdvReac Unknown stomach Uncoded 07/28/20 23:03 upset Exam Vital signs: Vital Signs Temp 97.4 F 09/07/20 13:16 Pulse 70 09/07/20 13:16 Resp 14 09/07/20 13:16 BP 130/72 09/07/20 13:16 Pulse Ox 99 09/07/20 13:16 Intake & Output 09/06/20 09/07/20 09/07/20 18:59 06:59 18:59 Other: Weight 72.3 kg Weight 72.3 kg Body Mass Index 28.2 - Constitutional Present: no acute distress - Routine HEENT Exam Head: Present: normal inspection Eye: Present: EOMI - Routine Neck Exam Absent: lymphadenopathy - Routine Respiratory Exam Present: CTAB - Routine Cardiovascular Exam Cardiovascular: Present: S1, S2 Data - Labs CBC & Chem 7: 09/07/20 13:09 Labs: 09/07/20 13:09 Complete Blood Count Auto Diff Routine Ferritin Routine IRON PROFILE Routine Laboratory Last Values WBC 7.6 X10*3/uL (4.8-10.8) 09/07/20 13:09 RBC 4.08 X10*6/uL (4.20-5.50) L 09/07/20 13:09 Hgb 11.3 g/dl (12.0-16.0) L 09/07/20 13:09 Hct 36.1 % (37-47) L 09/07/20 13:09 MCV 88.5 fL (80-98) 09/07/20 13:09 MCH 27.7 pg (27.0-33.0) 09/07/20 13:09 MCHC 31.3 g/dl (31.0-35.0) 09/07/20 13:09 RDW 15.1 % (11.0-16.0) 09/07/20 13:09 Plt Count 291 X10*3/uL (160-400) 09/07/20 13:09 MPV 10.6 fL (9.4-12.3) 09/07/20 13:09 Immature Gran % (Auto) 0.4 % (0.0-0.4) 09/07/20 13:09 Neut % (Auto) 57.8 % (45-73) 09/07/20 13:09 Lymph % (Auto) 31.4 % (20-40) 09/07/20 13:09 [place] % (Auto) 8.1 % (2-11) 09/07/20 13:09 Eos % (Auto) 1.6 % (0-4) 09/07/20 13:09 Baso % (Auto) 0.7 % (0-2) 09/07/20 13:09 Lymph # (Auto) 2.4 X10*3/uL (1.2-4.9) 09/07/20 13:09 [place] # (Auto) 0.6 X10*3/uL (0.1-1.2) 09/07/20 13:09 Eos # (Auto) 0.1 X10*3/uL (0.0-0.4) 09/07/20 13:09 Baso # (Auto) 0.1 X10*3/uL (0.0-0.2) 09/07/20 13:09 Abs Immat Gran (auto) 0.03 X10*3/uL (0.00-0.03) 09/07/20 13:09 Absolute Neuts (auto) 4.4 X10*3/uL (2.0-8.3) 09/07/20 13:09 Absolute Nucleated RBC 0.000 X10*3/uL (0.0-0.012) 09/07/20 13:09 Nucleated RBC % (auto) 0.0 /100WBC (0.0-0.2) 09/07/20 13:09 Iron 45 mcg/dL (30-160) 09/07/20 13:09 TIBC 339 mcg/dL (228-428) 09/07/20 13:09 % Saturation 13 % (15-50) L 09/07/20 13:09 Unsat Iron Binding 294 ug/dL 09/07/20 13:09 Ferritin 11 ng/mL (10-250) 09/07/20 13:09 Progress Note: A/P (1) Anemia Status: Chronic Assessment and plan: 1. This is a 75-year-old female with mild Iron deficiency anemia. she is on iron sulfate 1 tablet daily, she is tolerating it well. Her anemia has improved. She remains mildly iron deficient. I have asked her to increase iron supplementation to twice a day. I did discuss EGD/colonoscopy at this time because of persistent iron deficiency. She is not willing to undergo any of the above procedures at this time. She says she has no symptoms whatsoever and feels she would rather take oral iron for now. Follow-up in 6 months. - Time Spent With Patient Total time spent is greater than 50% in coordination of care (as documented) at patient's floor/unit and/or counseling patient: 15 - 24 minutes
--- NOTE | 2021-05-15 10:38 | P.PNHO_ITS ---
Medical Summary - Medical Summary Date of Service: 05/15/21 Chief complaint: Follow-up Medical Summary: Diagnosis mild normocytic anemia, iron deficiency Long-standing history of mild normocytic anemia. Hemoglobin ranging from 11.5- 12.5 g per DL. Remote history of iron deficiency during first . No history of blood transfusion, no family history of anemia. 2 colonoscopies, first one showing one polyp. She was never recommended any iron supplementation. Hematological workup showed ESR of 34, reticulocyte count of 1.2, normal SPEP and immunofixation. Mildly decreased transferrin saturation of 14%. Interval History Interval history: Patient is here in follow-up. She is doing quite, she continues to take a nap d uring the day. She feels energetic after that. She denies exertional chest pain or shortness of breath. She stopped taking iron supplements. She denies any hematochezia melena. No loss of appetite or weight loss. She has had a colonoscopy few years ago and does not want undergo anymore. She denies nausea, emesis, heartburn or reflux symptoms. Review of Systems - Constitutional Reports as per HPI, Reports no additional constitutional complaints - Cardiovascular Reports no additional cardiovascular complaints - Respiratory Reports no additional respiratory complaints [facility] Medical History: Medical History (Last Reviewed 05/15/21 @ 10:42 by Nel Dickinson) Anxiety Asthma Atherosclerotic cardiovascular disease Borderline diabetes Chronic headache Constipation Degenerative lumbar disc Diabetes mellitus Fibromyalgia GERD without esophagitis Hypercholesteremia Irritable bowel syndrome Lumbar degenerative disc disease Mixed hyperlipidemia Osteoporosis Overweight (BMI 25.0-29.9) Pulmonary emphysema Vertigo Vitamin D deficiency Family History: Family History (Last Reviewed 05/15/21 @ 10:42 by Nel Dickinson) Father No problems noted. Mother Depression S/P CABG x 4 Diabetes Hypertension Sister Poor high blood pressure control Cervical cancer Breast cancer Surgical History: Surgical History (Last Reviewed 05/15/21 @ 10:42 by Nel Dickinson) H/O angioplasty H/O Spinal surgery Hx of tubal ligation Social History: Social History (Last Reviewed 05/15/21 @ 10:42 by Nel Dickinson) Living Situation History: Housing: Apartment Alcohol History: Alcohol intake: current Alcohol History Details: Alcohol intake frequency: holiday/special occasion Alcohol type: beer Alcohol type: wine Tobacco History: Patient Tobacco Use Status: Former Tobacco user Occupation Assessmet: service: No Current occupational status: retired Current occupational status: disabled Oncology Screenings - ECOG Performance Status ECOG Performance Status: 1 Home Medications and Allergies Allergies Allergy/AdvReac Type Severity Reaction Status Date / Time clarithromycin [From PREVPAC] Allergy Mild hives Verified 05/15/21 10:42 lansoprazole [From PREVPAC] Allergy Mild hives Verified 05/15/21 10:42 lisinopril [LISINOPRIL] Allergy Mild COUGHING, Verified 05/15/21 10:42 cough, cough amoxicillin [AMOXICILLIN] Allergy Unknown RASH Verified 05/15/21 10:42 cephalexin Allergy Unknown rash Verified 05/15/21 10:42 clavulanic acid [Augmentin] Allergy Unknown rash Verified 05/15/21 10:42 dicyclomine Allergy Unknown loopiness Verified 05/15/21 10:42 duloxetine [Cymbalta] Allergy Unknown weight Verified 05/15/21 10:42 gain, increase appetite levofloxacin [From LEVAQUIN] Allergy Unknown RASH Verified 05/15/21 10:42 linaclotide [Linzess] Allergy Unknown nausea Verified 05/15/21 10:42 penicillin V Allergy Unknown rash Verified 05/15/21 10:42 Penicillins [PENICILLINS] Allergy Unknown RASH Verified 05/15/21 10:42 Prevpac Allergy Unknown rash Verified 05/15/21 10:42 Sulfa (Sulfonamide Allergy Unknown rash Verified 05/15/21 10:42 Antibiotics) tramadol Allergy Unknown pruritus Verified 05/15/21 10:42 triamcinolone [Kenalog] Allergy Unknown Unknown Verified 05/15/21 10:42 umeclidinium Allergy Unknown abdominal Verified 05/15/21 10:42 [Incruse Ellipta] pain prednisone [Prednisone] AdvReac Mild YEAST Verified 05/15/21 10:42 INFECTION cetirizine AdvReac Unknown dizziness? Verified 05/15/21 10:42 Exam Vital signs: Vital Signs Temp 97.4 F 09/07/20 13:16 Pulse 70 09/07/20 13:16 Resp 14 09/07/20 13:16 BP 130/72 09/07/20 13:16 Pulse Ox 99 09/07/20 13:16 Weight 72.3 kg Body Mass Index 28.2 - Constitutional Present: no acute distress - Routine HEENT Exam Head: Present: normal inspection - Routine Neck Exam Absent: lymphadenopathy - Routine Respiratory Exam Present: CTAB - Routine Cardiovascular Exam Cardiovascular: Present: S1, S2 Data - Labs CBC & Chem 7: 09/07/20 13:09 Labs: 09/07/20 13:09 Complete Blood Count Auto Diff Routine Ferritin Routine IRON PROFILE Routine Laboratory Last Values WBC 7.6 X10*3/uL (4.8-10.8) 09/07/20 13:09 RBC 4.08 X10*6/uL (4.20-5.50) L 09/07/20 13:09 Hgb 11.3 g/dl (12.0-16.0) L 09/07/20 13:09 Hct 36.1 % (37-47) L 09/07/20 13:09 MCV 88.5 fL (80-98) 09/07/20 13:09 MCH 27.7 pg (27.0-33.0) 09/07/20 13:09 MCHC 31.3 g/dl (31.0-35.0) 09/07/20 13:09 RDW 15.1 % (11.0-16.0) 09/07/20 13:09 Plt Count 291 X10*3/uL (160-400) 09/07/20 13:09 MPV 10.6 fL (9.4-12.3) 09/07/20 13:09 Immature Gran % (Auto) 0.4 % (0.0-0.4) 09/07/20 13:09 Neut % (Auto) 57.8 % (45-73) 09/07/20 13:09 Lymph % (Auto) 31.4 % (20-40) 09/07/20 13:09 [place] % (Auto) 8.1 % (2-11) 09/07/20 13:09 Eos % (Auto) 1.6 % (0-4) 09/07/20 13:09 Baso % (Auto) 0.7 % (0-2) 09/07/20 13:09 Lymph # (Auto) 2.4 X10*3/uL (1.2-4.9) 09/07/20 13:09 [place] # (Auto) 0.6 X10*3/uL (0.1-1.2) 09/07/20 13:09 Eos # (Auto) 0.1 X10*3/uL (0.0-0.4) 09/07/20 13:09 Baso # (Auto) 0.1 X10*3/uL (0.0-0.2) 09/07/20 13:09 Abs Immat Gran (auto) 0.03 X10*3/uL (0.00-0.03) 09/07/20 13:09 Absolute Neuts (auto) 4.4 X10*3/uL (2.0-8.3) 09/07/20 13:09 Absolute Nucleated RBC 0.000 X10*3/uL (0.0-0.012) 09/07/20 13:09 Nucleated RBC % (auto) 0.0 /100WBC (0.0-0.2) 09/07/20 13:09 Iron 45 mcg/dL (30-160) 09/07/20 13:09 TIBC 339 mcg/dL (228-428) 09/07/20 13:09 % Saturation 13 % (15-50) L 09/07/20 13:09 Unsat Iron Binding 294 ug/dL 09/07/20 13:09 Ferritin 11 ng/mL (10-250) 09/07/20 13:09 Assessment and Plan Patient Active problem list reviewed?: Yes (1) Anemia Status: Chronic Assessment and plan: 1. This is a 76-year-old female with mild Iron deficiency anemia. She took oral iron once daily for a few months and stopped Her anemia has improved. Her blood work in May shows mild anemia with a hemoglobin of around 11.5 gram/dL. She will now follow up with her PCP. - Time Spent With Patient Time Spent with Patient (in minutes): 15
[2021-05-15 10:40] VITALS: BP 142/66; PULSE 74; RESP 14; TEMP 36.3; O2SAT 97; BMI 28.0
--- NOTE | 2021-05-15 14:58 | MHC.HEMONCMA ---
Patient came in for a follow up, states she is doing well. Clinical summary was reviewed and updated. Patient had labs and will now be followed by her PCP for this according to Dr Olivas's note.
== END | disposition home or self-care (01) ==
LOC: HO.ONC 06-27 13:49
PROVIDERS: PCP Internal Medicine; Visit Provider Internal Medicine
DX: D50.9 Iron deficiency anemia, unspecified (principal)
CPT/HCPCS: 36415; 82728; 83540; 85025; 99213; 99214; Q3014

== ENCOUNTER 2024-05-24 08:12 | Outpatient (REF) | payer OTHER, SELFPAY ==
[2024-05-24 08:29] LABS: MANUAL DIFF FLAG NO
[2024-05-24 09:22] LABS: Basophils Absolute Auto 0.1 X10*3/uL (0.0-0.2); Basophils Percent Auto 1.7 % (0-2); Eosinophils Absolute Auto 0.2 X10*3/uL (0.0-0.4); Eosinophils Percent Auto 3.8 % (0-4); Hematocrit 39.3 % (37.0-47.0); Hemoglobin 12.5 g/dl (12.0-16.0); Imm Gran Abs Auto 0.02 X10*3/uL (0.00-0.03); Imm Gran Pct Auto 0.3 % (0.0-0.4); Lymphocytes Absolute Auto 1.9 X10*3/uL (1.2-4.9); Lymphocytes Percent Auto 32.4 % (20-40); Mean Corpuscular HGB Conc 31.8 g/dl (31.0-35.0); Mean Corpuscular Hemoglobin 27.8 pg (27.0-33.0); Mean Corpuscular Volume 87.3 fL (80.0-98.0); Mean Platelet Volume 10.6 fL (9.4-12.3); Monocytes Absolute Auto 0.5 X10*3/uL (0.1-1.2); Monocytes Percent Auto 8.2 % (2-11); Neutrophils Absolute Auto 3.2 x10*3/uL (2.0-8.3); Neutrophils Percent Auto 53.6 % (45-73); Platelet Count 295 X10*3/uL (160-400); Red Cell Distribution Width 16.6 % (11.0-16.0)
[2024-05-24 09:35] LABS: Estimated Average Glucose 140 mg/dL; Hemoglobin A1C 150.6639 umol/L; Hemoglobin A1c % 6.5 % (<6.0)
[2024-05-24 09:47] LABS: Appearance Urine Clear; Color Urine Yellow; Glucose Urine UA >=1000 mg/dL (Negative); Leukocyte Esterase Urine Negative (Negative); Nitrite Urine Negative (Negative); PH 7.5 (5.0-9.0); Specific Gravity - Urine 1.025 (1.005-1.025); UMIC TRIGGER UACC YES; Urine Blood Negative (Negative); Urine Ketones Negative (Negative); Urine Protein Negative (Neg-Trace)
[2024-05-24 09:53] LABS: Bacteria Urine None Seen (None Seen); Hyaline Casts Urine 0-2 /LPF (0-2); RBC Urine 0-2 /HPF (0-2); Squamous Epithelial Cell Urine 0-2 /HPF (0-2); WBC Urine 0-5 /HPF (0-5)
[2024-05-24 09:57] LABS: Microalbum/Creatinine Ratio Ur 63.1 ug/mg cr (<30)
[2024-05-24 09:57] LABS: Alanine Aminotransferase 17 U/L (0-31); Albumin Level 4.5 g/dL (3.5-5.0); Alkaline Phosphatase 49 U/L (39-117); Anion Gap 13 (12-20); Aspartate Amino Transferase 18 U/L (5-31); Bilirubin Total 0.4 mg/dL (0.0-1.0); Blood Urea Nitrogen 25 mg/dL (9-16); Calcium 10.5 mg/dL (8.4-10.2); Carbon Dioxide 30 mmol/L (22-29); Chloride 102 mmol/L (96-108); Cholesterol 131 mg/dL (<200); Estimated Glomerular Filt Rate > 60; Glucose Fasting 122 mg/dL (60-99); HDL Cholesterol 43 mg/dL (>40); LDL Cholesterol Calculated 65 mg/dL (<100); Potassium 4.5 mmol/L (3.3-5.1); Sodium 140 mmol/L (135-145); Total Protein 7.7 g/dL (6.5-8.0); Triglycerides 119 mg/dL (<150)
[2024-05-24 10:16] LABS: TSH reflex Free T4 2.63 uIU/mL (0.32-4.0)
[2024-05-24 10:28] LABS: Folate 12.6 ng/mL (> or = 4.0); Vitamin B12 363 pg/mL (200-900)
== END 2024-05-24 08:13 | disposition home or self-care (01) ==
LOC: HO.LAB 08:12
PROVIDERS: PCP Internal Medicine; Visit Provider Internal Medicine
DX: D64.9 Anemia, unspecified (principal); E53.8 Deficiency of other specified B group vitamins; E11.9 Type 2 diabetes mellitus without complications; E78.00 Pure hypercholesterolemia, unspecified; E55.9 Vitamin D deficiency, unspecified
CPT/HCPCS: 36415; 80053; 80061; 81001; 82043; 82306; 82570; 82607; 82746; 83036; 84443; 85025

== ENCOUNTER 2024-05-25 09:59 | Outpatient (AMB) | payer OTHER, SELFPAY ==
[2024-05-25 10:09] VITALS: BP 116/62; PULSE 68; O2SAT 98; BMI 25.4
--- NOTE | 2024-05-25 10:09 | MHC.PC.OV ---
Vital Signs 05/25/24 10:09 Height 5 ft 3 in Weight 143 lb 2 oz BMI 25.4 BP 116/62 Blood Pressure Location Lt brachial Position Sitting Pulse 68 Pulse Source Pulse Oximeter Pulse Oximetry (%) 98 Oxygen Delivery Method Room Air Intake Visit Reasons: DM, hyperlipidemia, pancreatic tumor Nursing Home Social Worker Required: No Accompanied by: Self / Same As Patient Allergies clarithromycin [From PREVPAC] Allergy (Mild, Verified 05/25/24 10:29) hives lansoprazole [From PREVPAC] Allergy (Mild, Verified 05/25/24 10:29) hives lisinopril [LISINOPRIL] Allergy (Mild, Verified 05/25/24 10:29) COUGHING, cough, cough amoxicillin [AMOXICILLIN] Allergy (Unknown, Verified 05/25/24 10:29) RASH cephalexin Allergy (Unknown, Verified 05/25/24 10:29) rash clavulanic acid [Augmentin] Allergy (Unknown, Verified 05/25/24 10:29) rash duloxetine [Cymbalta] Allergy (Unknown, Verified 05/25/24 10:29) weight gain, increase appetite levofloxacin [From LEVAQUIN] Allergy (Unknown, Verified 05/25/24 10:29) RASH linaclotide [Linzess] Allergy (Unknown, Verified 05/25/24 10:29) nausea penicillin V Allergy (Unknown, Verified 05/25/24 10:29) rash Penicillins [PENICILLINS] Allergy (Unknown, Verified 05/25/24 10:29) RASH Sulfa (Sulfonamide Antibiotics) Allergy (Unknown, Verified 05/25/24 10:29) rash tramadol Allergy (Unknown, Verified 05/25/24 10:29) pruritus triamcinolone [Kenalog] Allergy (Unknown, Verified 05/25/24 10:29) Unknown meclizine Adverse Reaction (Intermediate, Verified 05/25/24 10:29) fatigue, somnolence prednisone [Prednisone] Adverse Reaction (Mild, Verified 05/25/24 10:29) YEAST INFECTION cetirizine Adverse Reaction (Unknown, Verified 05/25/24 10:29) dizziness? Medication List - Last Reconciled 05/25/24 by Jonatan Cardoso MD albuterol sulfate 90 mcg/actuation 2 puffs PO Q6H PRN alprazolam 0.25 mg PO BID PRN aspirin 81 mg PO DAILY blood pressure monitor As directed blood sugar diagnostic (FreeStyle Lite Strips) As directed once a day blood-glucose meter (FreeStyle Lite Meter kit) daily gabapentin 100 mg PO DAILY PRN 90 days [HANDHELD SHOWER HEAD As directed] Jardiance (empagliflozin) 25 mg PO QAM 30 days NS loratadine (Allergy Relief (loratadine)) 10 mg PO DAILY PRN 90 days metformin 1,000 mg PO QPM 90 days nitroglycerin 0.4 mg sublingual Q5M PRN olopatadine 0.1% 1 drp ophthalmic (eye) BID PRN 30 days omeprazole 40 mg (2 x 20 mg) PO DAILY Prozac (fluoxetine) 10 mg PO DAILY 30 days NS rosuvastatin 40 mg PO DAILY 90 days umeclidinium-vilanterol 62.5-25 mcg/actuation (Anoro Ellipta) 1 inh inhalation DAILY 30 days Tobacco use date assessed: 05/25/24 Fall risk assessment: No Falls in past year Last assessed Fall Risk: 05/25/24 Dental Screening Dental Screen Date: 05/25/24 Did you have a dental visit in the last 12 months?: No Did you have a dental problem in the last 6 months where you did not have access to dental care?: No Was dental information given to patient?: No HPI DM, hyperlipidemia, pancreatic tumor HPI Details Patient comes in today for her follow up visit States that her left ear feels a lot better after she finished her Abx (Doxycycline) a couple of weeks ago but she still has some lingering pain in her left ear Adds that she has been taking Loratadine daily for a while now but she continues to have an on and off non-productive cough She denies any sore throat or fever and denies any nasal or sinus congestion recently She denies any headaches or dizziness Denies any chest pains, no increased SOB No nausea/vomiting, no abdominal pain No change in bowel habits noted She had her follow up labs done yesterday - to discuss her results [facility] Medical History (Updated 05/25/24 @ 12:21 by Jonatan Cardoso MD) Allergic rhinitis Vaginal discharge Rash Left low back pain Dizziness Osteoporosis Hypercalcemia GERD without esophagitis Constipation Lumbar degenerative disc disease Overweight (BMI 25.0-29.9) Vitamin D deficiency Mixed hyperlipidemia Atherosclerotic cardiovascular disease Pulmonary emphysema Diabetes mellitus Vertigo Degenerative lumbar disc Irritable bowel syndrome Fibromyalgia Borderline diabetes Hypercholesteremia Asthma Chronic headache Anxiety Surgical History History of biopsy History of loop electrical excision procedure (LEEP) H/O heart artery stent Hx of colonoscopy H/O angioplasty H/O Spinal surgery Hx of tubal ligation Family History Father No problems noted. Mother Depression S/P CABG x 4 Diabetes Hypertension Sister Poor high blood pressure control Cervical cancer Breast cancer Social History Household Members: None Housing: Apartment Alcohol intake: current Alcohol intake frequency: does not drink Alcohol type: beer and wine Patient Tobacco Use Status: Former Tobacco user e-Cigarette/Vaping Use: Never Used Second Hand Smoke Exposure: No service: No Current occupational status: retired and disabled Cognitive needs: No Hearing needs: No Vision needs: Yes (glasses) Female Reproductive History Menstrual Age of Menarche: 13 Questionnaire PHQ-9 Over the last 2 weeks, how often have you been bothered by any of the following problems? 1. Little interest or pleasure in doing things: nearly every day 2. Feeling down, depressed, or hopeless: nearly every day 3. Trouble falling or staying asleep, or sleeping too much: nearly every day (sleeping too much ) 4. Feeling tired or having little energy: nearly every day 5. Poor appetite or overeating: several days 6. Feeling bad about yourself - or that you are a failure or have let yourself or your family down: more than half the days 7. Trouble concentrating on things, such as reading the newspaper or watching television: nearly every day 8. Moving or speaking so slowly that other people could have noticed. Or the opposite - being so fidgety or restless that you have been moving around a lot more than usual: nearly every day 9. Thoughts that you would be better off or of hurting yourself in some way: not at all Total score: 21 Depression Screening Interpretation: Positive Depression Screening Follow-up: Existing condition and In treatment Depression Screening Done: Yes 02104 - PHQ-9 Billing: Yes Source: Developed by Drs. Anthony Whelan, Vivek Menon and colleagues, with an educational irena from [employer]. Thrive Questionnaire Date Thrive assessed: 05/25/24 I am a: Patient What is your living situation today?: I have a steady place to live Within the past 12 months, did the food you bought not last and you didn't have the money to get more?: Never true Within the past 12 months, did you worry whether your food would run out before you got money to buy more?: Never true Do you have trouble paying for medicines?: No Do you have trouble getting transportation to medical appointments?: No Do you have trouble paying your heating and electricity bill?: No Do you have trouble taking care of your child, family member or friend?: No Do you have trouble with day-to-day activities such as bathing, preparing meals, shopping, managing finances, etc.?: No Are you currently unemployed and looking for a job?: I choose not to answer this question Are you interested in more education?: No Please select the resources that you would like help with: None Currently or been in a relationship where the following occur: No concerns reported THRIVE Score: 0 AUDIT C Alcohol Use Questionnaire (AUDIT-C) 1. How often do you have a drink containing alcohol?: Never 3. How often do you have six or more drinks on one occasion?: Never Total Score: 0 Score Reviewed/Action Taken: Yes VIOLET-7 AMB Questionnaire VIOLET-7 Date VIOLET - 7 assessed: 05/25/24 Feeling nervous, anxious, or on edge: 0 = Not at all Not being able to stop or control worryin = Not at all Worrying too much about different things: 0 = Not at all Trouble relaxin = Not at all Being so restless that it is hard to sit still: 0 = Not at all Becoming easily annoyed or irritable: 0 = Not at all Feeling afraid as if something awful might happen: 0 = Not at all Total VIOLET-7 score (0-4 normal; 5-9 mild; 10-14 moderate; 15-21 severe): 0 Source: Developed by Drs. Anthony Whelan, Vivek Menon and colleagues, with an educational irena from [employer]. Review of Systems Const Denies chills, Reports difficulty sleeping (at times), Reports fatigue (improving lately), Denies fever(s) and Denies headache(s) ENT Denies dysphagia, Denies dizziness, Reports otalgia ((+) some lingering pain in the left ear), Denies headache(s), Denies nasal congestion, Denies neck pain, Denies odynophagia and Denies sore throat Card Denies chest pain, Denies palpitations and Reports dyspnea on exertion (mild, at times) Resp Denies chest congestion, Reports cough (on and off, non-productive), Reports dyspnea on exertion (mild, at times) and Denies wheezing GI Denies abdominal pain, Denies constipation, Denies dysphagia, Denies heartburn, Denies diarrhea, Denies nausea, Denies odynophagia and Denies vomiting Denies difficulty voiding, Denies nocturia, Denies dysuria and Denies urinary urgency Musc Reports back pain (over the lower back), Reports arthralgias (over the left shoulder) and Denies neck pain Skin/Breast Denies rash Neuro Denies dizziness and Denies headache(s) Psych Reports anxiety Endo Reports fatigue (improving lately) and Denies palpitations Aller/Immun Denies wheezing Physical exam (Primary Care) Vital Signs: Last Vital Signs Pulse 68 05/25/24 10:09 BP 116/62 05/25/24 10:09 Pulse Ox 98 05/25/24 10:09 Oxygen Delivery Method Room Air 05/25/24 10:09 BMI result Body Mass Index 25.4 Tobacco/Smoking Status: Tobacco use Status Tobacco use date assessed 05/25/24 05/25/24 10:13 Patient Tobacco Use Status Former Tobacco user 05/25/24 10:13 Tobacco use type 04/16/23 13:51 e-Cigarette/Vaping Use Never Used 05/25/24 10:13 PHQ-9: PHQ-9 Score PHQ-9: Total score 21 05/25/24 10:31 Depression Screening Interpretation: Positive Depression Screening Follow-up: Existing condition and In treatment Thrive Assessment: Date of Thrive Assessment Date Thrive assessed 05/25/24 05/25/24 10:13 Currently or been in a relationship where the following occur: No concerns reported Const General: no acute distress and alert HENMT Ears: TM's normal bilaterally, EAC's normal (in the right ear) and Abnormal EAC present edema (mild) on the left and EAC tenderness (mild) on the left; no otic discharge Face and sinus: No sinus tenderness Throat: Yes posterior oropharynx normal and Yes tonsils normal Neck Neck: Yes no lymphadenopathy and Yes supple Thyroid: Thyroid normal Resp Auscultation: clear to auscultation bilaterally, no rales and no wheezes Cardio Rate: regular rate Rhythm: regular rhythm Heart sounds: no murmurs GI Palpation (GI): Soft to palpation and nontender Auscultation: normal bowel sounds General: Yes no CVA tenderness Back/Spine/Pelvis Back: no CVA tenderness Thoracic/Lumbar Spine: lumbar spinal tenderness (mild) Skin Rashes: no rashes Extrem General: Yes no clubbing, cyanosis or edema Left upper extremity: shoulder/upper arm Details: tenderness Location: of the A-C joint; no swelling Results Reviewed Results Reviewed: Laboratory Tests 05/24/24 05/24/24 08:28 Unknown WBC 6.0 Hgb 12.5 Hct 39.3 Plt Count 295 Sodium 140 Potassium 4.5 Creatinine 0.78 Estimated GFR > 60 Fasting Glucose 122 H Hemoglobin A1c % 6.5 H Calcium 10.5 H AST 18 ALT 17 Triglycerides 119 Cholesterol 131 LDL Cholesterol, Calc 65 HDL Cholesterol 43 Vitamin B12 363 25-OH Vitamin D Total 52.0 TSH 2.63 Ur Specific [place] 1.025 Urine Protein Negative Urine Glucose (UA) >=1000 H Urine Blood Negative Urine Nitrite Negative Ur Leukocyte Esterase Negative Microalb/Creat Ratio 63.1 H Assessment and Plan Assessment & Plan (1) Neuroendocrine tumor of pancreas: Code(s): D3A.8 - Other benign neuroendocrine tumors Plan: 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 Olivas here at [facility] for oncology follow up Have reminded patient that she has an upcoming appointment with Dr. Olivas in a couple of weeks and she will likely order a follow up abdominal MRI on her to continue surveillance of her NET, as the last time she had imaging done was in October 2022 (2) Atherosclerotic cardiovascular disease: Code(s): I25.10 - Atherosclerotic heart disease of [place] coronary artery without angina pectoris Plan: S/P REJI to LAD x 2 (2016 & 2018); S/P NSTEMI in 2016 S/P dual anti-platelet therapy with Brilinta 90 mg BID x 1 year (Rx discontinued since) and low-dose Aspirin 81 mg QD She is currently only on low dose Aspirin 81 mg QD - needs to be on lifetime antiplatelet Tx with Aspirin Follow-up with cardiology as scheduled (3) Mixed hyperlipidemia: Code(s): E78.2 - Mixed hyperlipidemia Plan: Results of her labs done yesterday reviewed and discussed with patient - is advised that her cholesterol levels are at goal Reinforced low cholesterol diet Continue Rosuvastatin 40 mg QD Will recheck her labs and fasting lipids in 4 months for follow up (4) Diabetes mellitus: Code(s): E11.9 - Type 2 diabetes mellitus without complications Qualifiers: Diabetes mellitus complication status: without complication Diabetes mellitus correction insulin use: without correction use Diabetes mellitus type: type 2 Qualified Code(s): E11.9 - Type 2 diabetes mellitus without complications Plan: Her HgbA1c has improved to 6.5% on her labs done yesterday (was previously at 7.0% a few months ago) - goal is < 7.0% Reinforced diabetic diet Continue Jardiance 25 mg QD and Metformin 1000 mg Q PM (5) Pulmonary emphysema: Code(s): J43.9 - Emphysema, unspecified Qualifiers: Emphysema type: unspecified Qualified Code(s): J43.9 - Emphysema, unspecified Plan: Patient is still doing well on her current Rx - continue Anoro Ellipta 62.5-25 mcg 1 inhalation QD and Albuterol HFA 2 puffs 4 times a day PRN Chest CT screening done in January 2019 revealed evidence of mild paraseptal emphysema with peripheral interstitial markings suggestive of interstitial lung disease Follow up with pulmonary as scheduled (6) Allergic rhinitis: Code(s): J30.9 - Allergic rhinitis, unspecified Qualifiers: Allergic rhinitis trigger: unspecified Allergic rhinitis seasonality: unspecified Qualified Code(s): J30.9 - Allergic rhinitis, unspecified Plan: Patient states that she still has on and off non-productive coughing and that taking Loratadine 10 mg QD only helped slightly Will start her additionally on Rhinocort Aqua (Budesonide) nasal spray QD PRN (7) Osteoporosis: Code(s): M81.0 - Age-related osteoporosis without current pathological fracture Qualifiers: Osteoporosis type: age-related Presence of current pathological fracture: without current pathological fracture Qualified Code(s): M81.0 - Age-related osteoporosis without current pathological fracture Plan: Repeat BMD done in February 2021 revealed (+) osteoporosis, with a slight improvement in BMD of the AP spine and (+) decline in BMD at the femur She is encouraged again on daily exercise but reinforced fall precautions Continue Vitamin D supplements but because of her previous hypercalcemia, would not recommend she take any calcium supplements for now Will now also send her for repeat BMD for follow up of her osteoporosis (8) Left ear pain: Code(s): H92.02 - Otalgia, left ear Plan: Patient is advised that her current left ear pain is likely a residual of her previous ear infection, which has improved somewhat with her oral Doxycycline from a couple of weeks ago Will start her on Cortisporin ear drops 5 drops into her left ear QID x 7 days to help clear up her ear symptoms (9) Anemia: Code(s): D64.9 - Anemia, unspecified Qualifiers: Anemia type: unspecified type Qualified Code(s): D64.9 - Anemia, unspecified Plan: Advised that her H/H is normal at 12.5/39.3 on her recent labs She received IV iron infusion at [facility] a few months ago Her anemia is most likely anemia of chronic disease; previous hematologic work ups have all been negative Her iron function studies came back normal and B12 level was also normal when recently checked Will continue to monitor her CBC regularly Follow up with hematology as scheduled (10) Vitamin D deficiency: Code(s): E55.9 - Vitamin D deficiency, unspecified Plan: Continue Vitamin D3 2000 units QD (11) GERD without esophagitis: Code(s): K21.9 - Gastro-esophageal reflux disease without esophagitis Plan: Dietary restrictions reinforced Continue Omeprazole 40 mg QD Plan Follow up in 4 months Orders: Orders Complete Blood Count Auto Diff 4 Months D64.9 - Anemia, unspecified Comprehensive [place]. Panel Fast 4 Months E78.00 - Pure hypercholesterolemia, unspecified Microalbumin, Random (w Creat) 4 Months E11.9 - Type 2 diabetes mellitus without complications Hemoglobin A1c 4 Months E11.9 - Type 2 diabetes mellitus without complications Vitamin D 25-OH Total 4 Months E55.9 - Vitamin D deficiency, unspecified UA CC w/rflx Micro + Cult 4 Months R30.0 - Dysuria Lipid Panel 4 Months E78.00 - Pure hypercholesterolemia, unspecified TSH reflex Free T4 4 Months E78.00 - Pure hypercholesterolemia, unspecified Medications: New mssbyerd-kdtplc-WO-thonzonium 3.3-3-10-0.5 mg/mL (Cortisporin-TC) 5 drps otic (ear) left QID 10 mL 0RF 7 days budesonide 32 mcg/actuation administer into each nostril 1 spray intranasal DAILY PRN 8.43 mL 1RF allergy symptoms Coding Level of Care Code Est Pt Level 4 (13326) Complex EM visit Add On G2211 Diagnoses Neuroendocrine tumor of pancreas D3A.8 Atherosclerotic cardiovascular disease I25.10 Mixed hyperlipidemia E78.2 Type 2 diabetes mellitus without complication, without long-term current use of insulin E11.9 Diabetes mellitus complication status: without complication Diabetes mellitus nature photographer insulin use: without nature photographer use Diabetes mellitus type: type 2 Pulmonary emphysema, unspecified emphysema type J43.9 Emphysema type: unspecified Allergic rhinitis, unspecified seasonality, unspecified trigger J30.9 Allergic rhinitis trigger: unspecified Allergic rhinitis seasonality: unspecified Age-related osteoporosis without current pathological fracture M81.0 Osteoporosis type: age-related Presence of current pathological fracture: without current pathological fracture Left ear pain H92.02 Anemia, unspecified type D64.9 Anemia type: unspecified type Vitamin D deficiency E55.9 GERD without esophagitis K21.9
== END 2024-05-25 10:49 | disposition home or self-care (01) ==
PROVIDERS: PCP Internal Medicine; Visit Provider Internal Medicine
DX: E11.9 Type 2 diabetes mellitus without complications (principal); D3A.8 Other benign neuroendocrine tumors; J43.9 Emphysema, unspecified; I25.10 Atherosclerotic heart disease of native coronary artery without angina pectoris; E78.2 Mixed hyperlipidemia; J30.9 Allergic rhinitis, unspecified; M81.0 Age-related osteoporosis without current pathological fracture; H92.02 Otalgia, left ear; D64.9 Anemia, unspecified; E55.9 Vitamin D deficiency, unspecified; K21.9 Gastro-esophageal reflux disease without esophagitis

== ENCOUNTER → 2024-05-25 09:59 | Outpatient (BNVA) | payer OTHER, SELFPAY | PROVIDERS: PCP Internal Medicine; Visit Provider Internal Medicine | DX: D3A.8 Other benign neuroendocrine tumors (principal); I25.10 Atherosclerotic heart disease of native coronary artery without angina pectoris; E78.2 Mixed hyperlipidemia; E11.9 Type 2 diabetes mellitus without complications; J43.9 Emphysema, unspecified; J30.9 Allergic rhinitis, unspecified; M81.0 Age-related osteoporosis without current pathological fracture; H92.02 Otalgia, left ear; D64.9 Anemia, unspecified; E55.9 Vitamin D deficiency, unspecified; K21.9 Gastro-esophageal reflux disease without esophagitis | CPT/HCPCS: 99212 ==

== ENCOUNTER 2024-06-07 09:51 | Outpatient (AMB) | payer OTHER, SELFPAY ==
--- NOTE | 2024-06-07 09:51 | A.OFFPC_ITS ---
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 Accompanied by: Self / Same As Patient Allergies clarithromycin [From PREVPAC] Allergy (Mild, Verified 06/07/24 11:47) hives lansoprazole [From PREVPAC] Allergy (Mild, Verified 06/07/24 11:47) hives lisinopril [LISINOPRIL] Allergy (Mild, Verified 06/07/24 11:47) COUGHING, cough, cough amoxicillin [AMOXICILLIN] Allergy (Unknown, Verified 06/07/24 11:47) RASH cephalexin Allergy (Unknown, Verified 06/07/24 11:47) rash clavulanic acid [Augmentin] Allergy (Unknown, Verified 06/07/24 11:47) rash duloxetine [Cymbalta] Allergy (Unknown, Verified 06/07/24 11:47) weight gain, increase appetite levofloxacin [From LEVAQUIN] Allergy (Unknown, Verified 06/07/24 11:47) RASH linaclotide [Linzess] Allergy (Unknown, Verified 06/07/24 11:47) nausea penicillin V Allergy (Unknown, Verified 06/07/24 11:47) rash Penicillins [PENICILLINS] Allergy (Unknown, Verified 06/07/24 11:47) RASH Sulfa (Sulfonamide Antibiotics) Allergy (Unknown, Verified 06/07/24 11:47) rash tramadol Allergy (Unknown, Verified 06/07/24 11:47) pruritus triamcinolone [Kenalog] Allergy (Unknown, Verified 06/07/24 11:47) Unknown meclizine Adverse Reaction (Intermediate, Verified 06/07/24 11:47) fatigue, somnolence prednisone [Prednisone] Adverse Reaction (Mild, Verified 06/07/24 11:47) YEAST INFECTION cetirizine Adverse Reaction (Unknown, Verified 06/07/24 11:47) dizziness? Medication List - Last Reconciled 06/07/24 by Jonatan Carodso MD albuterol sulfate 90 mcg/actuation 2 puffs PO Q6H PRN alprazolam 0.25 mg PO BID PRN aspirin 81 mg PO DAILY blood pressure monitor As directed blood sugar diagnostic (FreeStyle Lite Strips) As directed once a day blood-glucose meter (FreeStyle Lite Meter kit) daily budesonide 32 mcg/actuation 1 spray intranasal DAILY PRN gabapentin 100 mg PO DAILY PRN 90 days [HANDHELD SHOWER HEAD As directed] Jardiance (empagliflozin) 25 mg PO QAM 30 days NS loratadine (Allergy Relief (loratadine)) 10 mg PO DAILY PRN 90 days metformin 1,000 mg PO QPM 90 days gfygzzzh-xuzcbh-UV-thonzonium 3.3-3-10-0.5 mg/mL (Cortisporin-TC) 5 drps otic (ear) left QID 7 days nitroglycerin 0.4 mg sublingual Q5M PRN olopatadine 0.1% 1 drp ophthalmic (eye) BID PRN 30 days omeprazole 40 mg (2 x 20 mg) PO DAILY Prozac (fluoxetine) 10 mg PO DAILY 30 days NS rosuvastatin 40 mg PO DAILY 90 days umeclidinium-vilanterol 62.5-25 mcg/actuation (Anoro Ellipta) 1 inh inhalation DAILY 30 days Tobacco use date assessed: 06/07/24 Fall risk assessment: No Falls in past year Last assessed Fall Risk: 06/07/24 Dental Screening Dental Screen Date: 06/07/24 Did you have a dental visit in the last 12 months?: No Did you have a dental problem in the last 6 months where you did not have access to dental care?: No Was dental information given to patient?: No HPI cough, congestion, sneezing, and coughing HPI Details Patient's follow-up visit / consultation today is done over the phone - this is a Telehealth visit Patient's current medications have been reviewed and verified with patient and / or caregiver / proxy and have been updated accordingly in the medication list Patient states that she's had symptoms of increased cough and congestion again for the past week or so She still has pain in her left ear and she feels that this has gotten worse lately Relates (+) mild sore throat and increased nasal and sinus congestion States that she coughs up thick whitish phlegm at times - is taking some OTC cough meds with some relief Reports feeling fatigued lately but denies any fever or chills Has had occasional headaches lately that she thinks are mostly due to her increased sinus congestion Denies any dizziness Denies any exertional chest pains or increased SOB No nausea/vomiting, no abdominal pain No change in bowel habits noted States that she called up her insurance company this morning and they are sending somebody over to her today to test her for COVID although she does not think she has COVID [facility] Medical History Allergic rhinitis Vaginal discharge Rash Left low back pain Dizziness Osteoporosis Hypercalcemia GERD without esophagitis Constipation Lumbar degenerative disc disease Overweight (BMI 25.0-29.9) Vitamin D deficiency Mixed hyperlipidemia Atherosclerotic cardiovascular disease Pulmonary emphysema Diabetes mellitus Vertigo Degenerative lumbar disc Irritable bowel syndrome Fibromyalgia Borderline diabetes Hypercholesteremia Asthma Chronic headache Anxiety Surgical History History of biopsy History of loop electrical excision procedure (LEEP) H/O heart artery stent Hx of colonoscopy H/O angioplasty H/O Spinal surgery Hx of tubal ligation Family History Father No problems noted. Mother Depression S/P CABG x 4 Diabetes Hypertension Sister Poor high blood pressure control Cervical cancer Breast cancer Social History Household Members: None Housing: Apartment Alcohol intake: current Alcohol intake frequency: does not drink Alcohol type: beer and wine Patient Tobacco Use Status: Former Tobacco user e-Cigarette/Vaping Use: Never Used Second Hand Smoke Exposure: No service: No Current occupational status: retired and disabled Cognitive needs: No Hearing needs: No Vision needs: Yes (glasses) Female Reproductive History Menstrual Age of Menarche: 13 Questionnaire PHQ-9 Over the last 2 weeks, how often have you been bothered by any of the following problems? 1. Little interest or pleasure in doing things: nearly every day 2. Feeling down, depressed, or hopeless: nearly every day 3. Trouble falling or staying asleep, or sleeping too much: nearly every day (sleeping too much ) 4. Feeling tired or having little energy: nearly every day 5. Poor appetite or overeating: several days 6. Feeling bad about yourself - or that you are a failure or have let yourself or your family down: more than half the days 7. Trouble concentrating on things, such as reading the newspaper or watching television: nearly every day 8. Moving or speaking so slowly that other people could have noticed. Or the opposite - being so fidgety or restless that you have been moving around a lot more than usual: nearly every day 9. Thoughts that you would be better off or of hurting yourself in some way: not at all Total score: 21 Depression Screening Interpretation: Positive Depression Screening Follow-up: Existing condition and In treatment Depression Screening Done: Yes 33361 - PHQ-9 Billing: Yes Source: Developed by Drs. Anthony Whelan, Chayo Romano, Vivek Avila and colleagues, with an educational irena from [employer]. Thrive Questionnaire Date Thrive assessed: 06/07/24 I am a: Patient What is your living situation today?: I have a steady place to live Within the past 12 months, did the food you bought not last and you didn't have the money to get more?: Never true Within the past 12 months, did you worry whether your food would run out before you got money to buy more?: Never true Do you have trouble paying for medicines?: No Do you have trouble getting transportation to medical appointments?: No Do you have trouble paying your heating and electricity bill?: No Do you have trouble taking care of your child, family member or friend?: No Do you have trouble with day-to-day activities such as bathing, preparing meals, shopping, managing finances, etc.?: No Are you currently unemployed and looking for a job?: I choose not to answer this question Are you interested in more education?: No Please select the resources that you would like help with: None Currently or been in a relationship where the following occur: No concerns reported THRIVE Score: 0 AUDIT C Alcohol Use Questionnaire (AUDIT-C) 1. How often do you have a drink containing alcohol?: Never 3. How often do you have six or more drinks on one occasion?: Never Total Score: 0 Score Reviewed/Action Taken: Yes VIOLET-7 AMB Questionnaire VIOLET-7 Date VIOLET - 7 assessed: 06/07/24 Feeling nervous, anxious, or on edge: 0 = Not at all Not being able to stop or control worryin = Not at all Worrying too much about different things: 0 = Not at all Trouble relaxin = Not at all Being so restless that it is hard to sit still: 0 = Not at all Becoming easily annoyed or irritable: 0 = Not at all Feeling afraid as if something awful might happen: 0 = Not at all Total VIOLET-7 score (0-4 normal; 5-9 mild; 10-14 moderate; 15-21 severe): 0 Source: Developed by Drs. Anthony Whelan, Chayo Romano, Vivek Avila and colleagues, with an educational irena from [employer]. Review of Systems Const Denies chills, Reports difficulty sleeping (at times), Reports fatigue, Denies fever(s) and Reports headache(s) (occasionally - mostly due to her nasal congestion) ENT Denies dysphagia, Denies dizziness, Reports otalgia ((+) on an off pain in the left ear), Reports headache(s) (occasionally - mostly due to her nasal congestion), Reports nasal congestion, Denies neck pain, Denies odynophagia, Denies sinus pain and Reports sore throat (mild) Card Denies chest pain, Denies palpitations and Reports dyspnea on exertion (mild, at times) Resp Reports chest congestion, Reports cough (on and off, coughing up thick whitish phlegm lately), Reports dyspnea on exertion (mild, at times) and Denies wheezing GI Denies abdominal pain, Denies constipation, Denies dysphagia, Denies heartburn, Denies diarrhea, Denies nausea, Denies odynophagia and Denies vomiting Denies difficulty voiding, Denies nocturia, Denies dysuria and Denies urinary urgency Musc Reports back pain (over the lower back), Reports arthralgias (over the left shoulder) and Denies neck pain Skin/Breast Denies rash Neuro Denies dizziness and Reports headache(s) (occasionally - mostly due to her nasal congestion) Psych Reports anxiety Endo Reports fatigue and Denies palpitations Aller/Immun Denies wheezing Physical exam (Primary Care) Vital Signs: Physical examination is not performed as visit / consultation today is done over the phone - Telehealth visit All physical findings indicated here, if present, are as per patient's and / or caregivers / proxy's report Tobacco/Smoking Status: Tobacco use Status Tobacco use date assessed 06/07/24 06/07/24 09:54 Patient Tobacco Use Status Former Tobacco user 06/07/24 09:54 Tobacco use type 04/16/23 13:51 e-Cigarette/Vaping Use Never Used 06/07/24 09:54 PHQ-9: PHQ-9 Score PHQ-9: Total score 21 06/07/24 09:54 Depression Screening Interpretation: Positive Depression Screening Follow-up: Existing condition and In treatment Thrive Assessment: Date of Thrive Assessment Date Thrive assessed 06/07/24 06/07/24 09:54 Currently or been in a relationship where the following occur: No concerns reported Telehealth Telehealth Telehealth Platform: Telephone Location of provider rendering services: practice address Location of patient: address on file Patient Identification confirmed using: Name, : Yes Telehealth method: voice only Patient verbally consented to treatment: Yes Patient verbally consented to billing insurance company: Yes Patient informed of any privacy concerns related to visit: Yes Minutes spent on Phone/Video with Pt.: 18 Coding Level of Care Code Tele Est Pt Level 3 (98462) Diagnoses Respiratory tract infection J98.8 Assessment & Plan Assessment & Plan (1) Respiratory tract infection: Code(s): J98.8 - Other specified respiratory disorders Category: Medical Plan: Patient states that she is currently waiting for someone sent by her insurance company to come to her house and test her for COVID Have advised her to see if she can also have them test her for influenza and RSV as well Patient states that she will call us back once her testing is done so we can find out what Rx to appropriately start her on for her current URI Have advised her in the meantime to continue on the OTC cough/cold meds that she is currently taking for symptomatic relief Plan Follow up as scheduled in August 2024 and PRN
== END 2024-06-07 12:09 | disposition home or self-care (01) ==
LOC: HO.HMCH 09:51
PROVIDERS: PCP Internal Medicine; Visit Provider Internal Medicine
DX: J98.8 Other specified respiratory disorders (principal)

== ENCOUNTER → 2024-06-07 09:51 | Outpatient (BNVA) | payer OTHER, SELFPAY | PROVIDERS: PCP Internal Medicine; Visit Provider Internal Medicine ==

== ENCOUNTER 2024-07-11 16:07 | Outpatient (AMB) | payer OTHER, SELFPAY ==
--- NOTE | 2024-07-11 16:10 | A.OFFVIS_ITS ---
Vital Signs 07/11/24 16:12 Height 5 ft 3 in Weight 144 lb 2.917 oz BMI 25.5 BP 137/58 L Blood Pressure Location Lt brachial Position Sitting Pulse 77 Intake Visit Reasons: Gastroesophageal reflux disease (GERD) Intake Note: Patient in office today for evaluation and management of dry cough. CC: Patient c/o a dry cough for months and excessive clear phlegm like substance she needs to be cleaning off her tongue. Cold Header Operator Required: Yes Accompanied by: Daughter Allergies clarithromycin [From PREVPAC] Allergy (Mild, Verified 07/11/24 16:18) hives lansoprazole [From PREVPAC] Allergy (Mild, Verified 07/11/24 16:18) hives lisinopril [LISINOPRIL] Allergy (Mild, Verified 07/11/24 16:18) COUGHING, cough, cough amoxicillin [AMOXICILLIN] Allergy (Unknown, Verified 07/11/24 16:18) RASH cephalexin Allergy (Unknown, Verified 07/11/24 16:18) rash clavulanic acid [Augmentin] Allergy (Unknown, Verified 07/11/24 16:18) rash duloxetine [Cymbalta] Allergy (Unknown, Verified 07/11/24 16:18) weight gain, increase appetite levofloxacin [From LEVAQUIN] Allergy (Unknown, Verified 07/11/24 16:18) RASH linaclotide [Linzess] Allergy (Unknown, Verified 07/11/24 16:18) nausea penicillin V Allergy (Unknown, Verified 07/11/24 16:18) rash Penicillins [PENICILLINS] Allergy (Unknown, Verified 07/11/24 16:18) RASH Sulfa (Sulfonamide Antibiotics) Allergy (Unknown, Verified 07/11/24 16:18) rash tramadol Allergy (Unknown, Verified 07/11/24 16:18) pruritus triamcinolone [Kenalog] Allergy (Unknown, Verified 07/11/24 16:18) Unknown meclizine Adverse Reaction (Intermediate, Verified 07/11/24 16:18) fatigue, somnolence prednisone [Prednisone] Adverse Reaction (Mild, Verified 07/11/24 16:18) YEAST INFECTION cetirizine Adverse Reaction (Unknown, Verified 07/11/24 16:18) dizziness? HPI Comments Details: This is a 77-year-old female with past medical history of extensive smoking history, COPD, diabetes, osteoporosis, tubular adenoma x2 (10/2022), who is following up for the following below: 11/17/22: -Panc mass: Patient was seen in the emergency room on 11/10/2022 for abdominal cramping, nausea, vomiting and frequent bowel movements. Symptoms were sudden in onset x 1 day. Abdominal pain was mild but associated with significant vomiting, patient reports 4-5 episodes that day. Responded very quickly to 1 dose of ondansetron. With the vomiting, she also had frequent bowel movements, which she attributes to forceful retching and increase in abdominal pressure. Sx duration was only one day as noted above and now back to baseline. Thinks she may have lost a few lb in the last 1 month, as her clothes feel a bit loose on her. No changes in appetite. On further questioning recalls that she has also been experiencing sensation of food getting stuck mid chest x 1-2 months, intermittently, mostly to solid foods with tough consistency. Does not think it is progressing. Has known longstanding T2DM which has been well controlled. No prior hx of pancreatitis. Patient does not drink. Has 55 pack year history, quit smoking in 2007. No family history of pancreatic cancer. Workup in the emergency room included a CT abdomen and pelvis with contrast that showed 1.4 x 1 x 1.3 cm hyperenhancing mass in the neck associated with upstream dilation of PD to 4 mm. Liver normal in size and no focal lesions seen. -[facility] results: 10/31/22 (Dr Carrizales) Diverticulosis throughout the colon most severe in sigmoid colon. x2 5-8mm rectal polyps s/p cold forceps polypectomy. Path: Tubular adenomas. Moderate internal hemorrhoids Colon preparation:? Good? Colon withdrawal time 12 mins. 01/28/23: [facility] scan results reviewed consistent with neuroendocrine tumor. [facility] GI referral for EUS still pending. Pt continues to have intermittent abdominal discomfort but otherwise no diarrhea, change in appetite, brittle sugars to suspect functional tumor at this time. 03/11/23: Comes in for follow up. Had EUS guided FNA on 02/24 however cytology was nondiagnostic. Patient and daughter were initially hesitant to pursue a repeat EUS however now agreeable and in fact she has the EUS FNA with EDGARD guzmanw afternoon. Otherwise, feels well. No other gastrointestinal complaints. 07/01/24: Seen in follow up. 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 Per [facility] records, pt was seen by Dr Hammond and declined surgery at that time (03/2023). Now pt is here for increased salivation. Has a dry cough but she is very clear that she does not phlegm/sputum rather increased salivation independent of the dry cough and is spitting it more frequently. This is without any abd pain, N/V, regurgitation or difficulty swallowing. No sore throat. Has acid reflux but treating it with home remedy (ACV mixed in water). [facility] Medical History Allergic rhinitis Vaginal discharge Rash Left low back pain Dizziness Osteoporosis Hypercalcemia GERD without esophagitis Constipation Lumbar degenerative disc disease Overweight (BMI 25.0-29.9) Vitamin D deficiency Mixed hyperlipidemia Atherosclerotic cardiovascular disease Pulmonary emphysema Diabetes mellitus Vertigo Degenerative lumbar disc Irritable bowel syndrome Fibromyalgia Borderline diabetes Hypercholesteremia Asthma Chronic headache Anxiety Surgical History History of biopsy History of loop electrical excision procedure (LEEP) H/O heart artery stent Hx of colonoscopy H/O angioplasty H/O Spinal surgery Hx of tubal ligation Family History Father No problems noted. Mother Depression S/P CABG x 4 Diabetes Hypertension Sister Poor high blood pressure control Cervical cancer Breast cancer Social History Household Members: None Housing: Apartment Alcohol intake: current Alcohol intake frequency: does not drink Alcohol type: beer and wine Patient Tobacco Use Status: Former Tobacco user e-Cigarette/Vaping Use: Never Used Second Hand Smoke Exposure: No service: No Current occupational status: retired and disabled Cognitive needs: No Hearing needs: No Vision needs: Yes (glasses) Female Reproductive History Menstrual Age of Menarche: 13 Review of Systems Const All systems reviewed & are unremarkable except as noted in HPI and below Physical Exam Vital Signs: BMI result Body Mass Index 25.5 No apparent distress Nonicteric Abdomen soft, nondistended Alert and oriented x3, normal gait Assessment & Plan Assessment & Plan (1) GERD (gastroesophageal reflux disease): Code(s): K21.9 - Gastro-esophageal reflux disease without esophagitis Category: Medical (2) Hypersalivation: Code(s): K11.7 - Disturbances of salivary secretion Category: Medical (3) Neuroendocrine tumor of pancreas: Code(s): D3A.8 - Other benign neuroendocrine tumors Category: Medical Plan 1. Reviewed with the pt that hypersalivation could be an atypical sx of GERD and therefore recommend barium swallow. In the meantime, she is to resume omeprazole 20 mg once daily If barium swallow is neg, would recommend ENT eval. 2. Non-functional panc NET Pt continues to decline surgical management.Reviewed indication of repeat MRI for surveillance and offered to order this if will change control coordinator i.e pt will consider surgical resection for growing PNET. Pt and daughter would like to discuss this further with her Oncologist at upcoming appt. Orders: Orders [place] barium swallow Today K21.9 - Gastro-esophageal reflux disease without esophagitis Medications: Changed From omeprazole 40 mg (2 x 20 mg) PO DAILY 180 caps 0RF To omeprazole in the morning 20 mg PO DAILY 90 days 90 caps 0RF Coding Level of Care Code Est Pt Level 4 (41005) Diagnoses GERD (gastroesophageal reflux disease) K21.9 Hypersalivation K11.7 Neuroendocrine tumor of pancreas D3A.8
[2024-07-11 16:12] VITALS: BP 137/58; PULSE 77; BMI 25.5
== END 2024-07-11 16:59 | disposition home or self-care (01) ==
PROVIDERS: PCP Internal Medicine; Visit Provider Internal Medicine
DX: K21.9 Gastro-esophageal reflux disease without esophagitis (principal); K11.7 Disturbances of salivary secretion; D3A.8 Other benign neuroendocrine tumors
CPT/HCPCS: 99214

== ENCOUNTER → 2024-07-11 16:07 | Outpatient (BNVA) | payer OTHER, SELFPAY | PROVIDERS: PCP Internal Medicine; Visit Provider Internal Medicine | DX: K21.9 Gastro-esophageal reflux disease without esophagitis (principal); K11.7 Disturbances of salivary secretion; D3A.8 Other benign neuroendocrine tumors | CPT/HCPCS: 99212 ==

== ENCOUNTER 2024-07-20 10:26 | Outpatient (REF) | payer OTHER, SELFPAY ==
--- NOTE | ~2024-07-20 | MR_ITS ---
EXAMINATION: MR ABDOMEN WITHOUT AND WITH CONTRAST CLINICAL INFORMATION: Follow-up pancreatic mass. COMPARISON: MRI abdomen November 27, 2022 TECHNIQUE: MR abdomen was performed without and with use of 6 mL intravenous Gadavist gadolinium contrast. Postcontrast images are performed in multiphase dynamic sequences. Imaging was performed in 3 planes. MRCP was also performed. FINDINGS: LUNG BASES: No pleural or pericardial effusion. LIVER, GALLBLADDER, AND BILIARY TREE: The liver is normal in size, smooth in contour, and normal in signal. No focal hepatic lesion. No intrahepatic biliary ductal dilatation. The common duct measures 4 mm at the phillip hepatis. No intraductal filling defects. Layering sludge in gallbladder. PANCREAS: Focal transition in the neck/proximal body of the pancreas where there is 5 mm signal dropout. There is a corresponding 1.1 cm enhancing mass seen on the postcontrast images. There is distal atrophy of the pancreatic parenchyma and ductal ectasia measuring up to 4 mm with underlying cystic changes of the parenchyma and fatty replacement. No peripancreatic stranding or peripancreatic fluid collections. SPLEEN: Not enlarged. ADRENAL GLANDS: No adrenal mass. KIDNEYS AND URETERS: The kidneys are normal in size, shape, and enhance symmetrically. No hydronephrosis. No perinephric stranding. GASTROINTESTINAL TRACT: No bowel obstruction. Diverticular disease of the colon. No ascites or fluid collection. LYMPH NODES: No bulky lymphadenopathy. VASCULAR: Normal caliber abdominal aorta. MR/MR abdomen wo/w con IMPRESSION: Stable examination. No significant interval change in 5 mm signal dropout in the neck/proximal body of the pancreas corresponding to 1.1 cm heterogeneously enhancing mass. There is distal atrophy with ductal ectasia and sidebranch dilatation. No peripancreatic stranding or fluid collections. Electronically signed by: Wesly Mcdermott MD 07/25/2024 12:57 PM [facility]
[2024-07-20] MEDS: gadobutroL 7.5 ML VIAL IVPUSH (11:49)
== END 2024-07-20 10:27 | disposition home or self-care (01) ==
LOC: HO.MRI 10:26
PROVIDERS: PCP Internal Medicine; Visit Provider Internal Medicine
DX: D3A.8 Other benign neuroendocrine tumors (principal)
CPT/HCPCS: 74183; A9585

== ENCOUNTER 2024-09-26 09:23 | Outpatient (REF) | payer OTHER, SELFPAY ==
[2024-09-26 09:52] LABS: MANUAL DIFF FLAG NO
[2024-09-26 10:45] LABS: Basophils Absolute Auto 0.1 X10*3/uL (0.0-0.2); Basophils Percent Auto 1.6 % (0-2); Eosinophils Absolute Auto 0.3 X10*3/uL (0.0-0.4); Eosinophils Percent Auto 4.7 % (0-4); Hematocrit 37.9 % (37.0-47.0); Hemoglobin 11.7 g/dl (12.0-16.0); Imm Gran Abs Auto 0.02 X10*3/uL (0.00-0.03); Imm Gran Pct Auto 0.4 % (0.0-0.4); Lymphocytes Absolute Auto 1.7 X10*3/uL (1.2-4.9); Lymphocytes Percent Auto 30.5 % (20-40); Mean Corpuscular HGB Conc 30.9 g/dl (31.0-35.0); Mean Corpuscular Hemoglobin 28.8 pg (27.0-33.0); Mean Corpuscular Volume 93.3 fL (80.0-98.0); Mean Platelet Volume 10.7 fL (9.4-12.3); Monocytes Absolute Auto 0.5 X10*3/uL (0.1-1.2); Monocytes Percent Auto 8.2 % (2-11); Neutrophils Absolute Auto 3.1 x10*3/uL (2.0-8.3); Neutrophils Percent Auto 54.6 % (45-73); Platelet Count 275 X10*3/uL (160-400); Red Blood Count 4.06 X10*6/uL (4.20-5.50); Red Cell Distribution Width 13.2 % (11.0-16.0); White Blood Count 5.6 X10*3/uL (4.8-10.8)
[2024-09-26 10:54] LABS: Estimated Average Glucose 143 mg/dL; Hemoglobin A1C 149.5669 umol/L; Hemoglobin A1c % 6.6 % (<6.0); Total Hemoglobin (HGBA1C) 3050.2081 umol/L
[2024-09-26 10:58] LABS: Appearance Urine Clear; Color Urine Yellow; Glucose Urine UA Negative (Negative); Leukocyte Esterase Urine Negative (Negative); Nitrite Urine Negative (Negative); Urine Blood Negative (Negative); Urine Ketones Negative (Negative); Urine Protein Negative (Neg-Trace)
[2024-09-26 11:43] LABS: Alanine Aminotransferase 19 U/L (0-31); Albumin Level 4.3 g/dL (3.5-5.0); Alkaline Phosphatase 49 U/L (39-117); Anion Gap 12 (12-20); Aspartate Amino Transferase 25 U/L (5-31); Bilirubin Total 0.3 mg/dL (0.0-1.0); Blood Urea Nitrogen 17 mg/dL (9-16); Calcium 9.9 mg/dL (8.4-10.2); Carbon Dioxide 28 mmol/L (22-29); Chloride 106 mmol/L (96-108); Cholesterol 131 mg/dL (<200); Estimated Glomerular Filt Rate > 60; Glucose Fasting 132 mg/dL (60-99); HDL Cholesterol 42 mg/dL (>40); LDL Cholesterol Calculated 66 mg/dL (<100); Potassium 5.2 mmol/L (3.3-5.1); Sodium 141 mmol/L (135-145); TSH reflex Free T4 3.38 uIU/mL (0.32-4.0); Total Protein 7.7 g/dL (6.5-8.0); Triglycerides 116 mg/dL (<150); Vitamin D 25-OH Total 58.1 ng/mL (>30)
[2024-09-26 11:48] LABS: Creatinine Urine 22.92 mg/dL; Microalbum/Creatinine Ratio Ur 82.8 ug/mg cr (<30)
--- OUTSIDE RECORDS SUMMARY | 2024-09-26 13:46 | XMS_ITS | Clinical Summary ---
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 Name Role Phone Jonatan Cardoso MD Primary Care Provider [phone] Allergies Active Allergy Reactions Criticality Noted Date Comments Kuadewspq-Mgcvifewx-Zhglkuchh Other (see comments) 02/01/2021 Amoxicillin-Pot Clavulanate Other (see comments) 02/01/2021 Cephalexin Other (see comments) 02/01/2021 Cetirizine Other (see comments) 02/01/2021 Dicyclomine Other (see comments) 02/01/2021 Duloxetine Hcl Other (see comments) 02/01/2021 Levofloxacin Other (see comments) 02/01/2021 Linaclotide Other (see comments) 02/01/2021 Lisinopril Other (see comments) 02/01/2021 Penicillins Other (see comments) 02/01/2021 Sulfa Antibiotics Other (see comments) 02/02/20 Tramadol Other (see comments) 02/01/2021 Umeclidinium-Vilanterol Other (see comments) Venlafaxine Other (see comments) 02/01/2021 Medications Multiple Vitamin (multivitamin) capsule Take 1 capsule by mouth 1 (one) time each day Active albuterol HFA (Ventolin HFA) 108 (90 Base) MCG/ACT inhaler 2 puffs by Other route Active ALPRAZolam (NIRAVAM) 0.25 MG dispersible tablet Take 1 tablet by mouth 1 (one) time each day Active aspirin (ST BIBIANA) 81 MG EC tablet Comments: Patient Notes: TAKE 1 TABLET BY MOUTH EVERY DAY Duration: 30 Active gabapentin (NEURONTIN) 100 MG capsule Duration: 30 Active ibuprofen (ADVIL,MOTRIN) 600 MG tablet as needed Active Lactobacillus Rhamnosus, GG, ( Probiotic Digestive Care) capsule Take 1 capsule by mouth 1 (one) time each day Active losartan (COZAAR) 25 MG tablet Comments: Filled Date: Feb 26 2020 7:04PM Patient Notes: TAKE 1 TABLET BY MOUTH EVERY EVENING Duration: 90 0 Active metFORMIN (FORTAMET) 1000 MG 24 hr tablet Take 1 tablet by mouth 2 (two) times a day Active omeprazole (PriLOSEC) [address] capsule Take 2 capsules by mouth 2 (two) times a day Active rosuvastatin (Crestor) 40 MG tablet Take 1 tablet by mouth 1 (one) time each day Active ticagrelor (Brilinta) 90 MG tablet Take 1 tablet by mouth 2 (two) times a day Active tiotropium (Spiriva HandiHaler) 18 MCG per inhalation capsule Active alpha tocopherol (VITAMIN E) 1000 units capsule Take 2 capsules by mouth 1 (one) time each day Active Active Problems Problem Noted Date Diagnosed Date Hypertensive disorder 02/01/2021 Proteinuria 02/01/2021 Hypercalcemia 02/01/2021 Family History Medical History Relation Comments Diabetes Mother Heart disease Mother open Heart Surge ry Hypertension Mother Diabetes Sibling 1 Cancer Sibling 2 breast Relation Status Comments Father Mother Sibling 1 Sibling 2 Social History Tobacco Use Types Packs/Day Years Used Date Smoking Tobacco: Former Comments:Smoking History Inf o:Every day Alcohol Use Standard Drinks/Week Comments Yes 0 (1 standard drink = 0.6 oz pure alcohol) Alcoholic Drinks/day: Occasional social drink Comments Unknown Sex and Gender Information Value Date Recorded Sex Assigned at Not on file Legal Sex Female 4:55 PM EST Gender Identity Not on file Sexual Orientation Not on file Last Filed Vital Signs Vital Sign Reading Time Taken Comments Blood Pressure 120/62 07/18/2019 12:00 PM EST Pulse 88 07/18/2019 12:00 PM EST Temperature - - Respiratory Rate - - Oxygen Saturation - - Inhaled Oxygen Concentration - - Weight 67 kg (147 lb 12.8 oz) 07/18/2019 12:00 P M EST Height 160 cm (5' 3 ) 07/18/2019 12:00 PM EST Body Mass Index 26.18 07/18/2019 12:00 PM EST Plan of Treatment Health Maintenance Due Date Last Done Comments Pneumococcal Vaccine: 65+ Ye ars (1 of 1 - PCV) 2010 Influenza Vaccine (#1) 2024 Hepatitis B Vaccine Aged Out No longe r eligible based on patient's age to complete this topic Insurance ([id number]) [place] [address] [address] ([id number]) Care Teams Link Machine Operator Relationship Specialty Start Date End Date Jonatan Cardoso MD [address] [place] [id number] PCP - General 09/10/20
== END 2024-09-26 09:24 | disposition home or self-care (01) ==
LOC: HO.LAB 09:23
PROVIDERS: PCP Internal Medicine; Visit Provider Internal Medicine
DX: D64.9 Anemia, unspecified (principal); R30.0 Dysuria; E78.00 Pure hypercholesterolemia, unspecified; E11.9 Type 2 diabetes mellitus without complications; E55.9 Vitamin D deficiency, unspecified
CPT/HCPCS: 36415; 80053; 80061; 81003; 82043; 82306; 82570; 83036; 84443; 85025

== ENCOUNTER 2024-09-27 10:47 | Outpatient (AMB) | payer OTHER, SELFPAY ==
[2024-09-27 11:02] VITALS: BP 142/80; PULSE 76; O2SAT 98; BMI 26.2
--- NOTE | 2024-09-27 11:02 | A.OFFPC_ITS ---
Vital Signs 09/27/24 11:02 Height 5 ft 3 in Weight 148 lb BMI 26.2 BP 142/80 H Blood Pressure Location Lt brachial Position Sitting Pulse 76 Pulse Source Pulse Oximeter Pulse Oximetry (%) 98 Oxygen Delivery Method Room Air Intake Visit Reasons: neuroendocrine tumor, anemia, hyperlipidemia, DM Social Worker Masters Required: Yes Social Worker Masters Name: Amber Uribe [id number] Information Interpreted: non-clinical & clinical Component Design Engineer: Not Required per policy Accompanied by: Self / Same As Patient Allergies clarithromycin [From PREVPAC] Allergy (Mild, Verified 09/27/24 11:44) hives lansoprazole [From PREVPAC] Allergy (Mild, Verified 09/27/24 11:44) hives lisinopril [LISINOPRIL] Allergy (Mild, Verified 09/27/24 11:44) COUGHING, cough, cough amoxicillin [AMOXICILLIN] Allergy (Unknown, Verified 09/27/24 11:44) RASH cephalexin Allergy (Unknown, Verified 09/27/24 11:44) rash clavulanic acid [Augmentin] Allergy (Unknown, Verified 09/27/24 11:44) rash duloxetine [Cymbalta] Allergy (Unknown, Verified 09/27/24 11:44) weight gain, increase appetite levofloxacin [From LEVAQUIN] Allergy (Unknown, Verified 09/27/24 11:44) RASH linaclotide [Linzess] Allergy (Unknown, Verified 09/27/24 11:44) nausea penicillin V Allergy (Unknown, Verified 09/27/24 11:44) rash Penicillins [PENICILLINS] Allergy (Unknown, Verified 09/27/24 11:44) RASH Sulfa (Sulfonamide Antibiotics) Allergy (Unknown, Verified 09/27/24 11:44) rash tramadol Allergy (Unknown, Verified 09/27/24 11:44) pruritus triamcinolone [Kenalog] Allergy (Unknown, Verified 09/27/24 11:44) Unknown meclizine Adverse Reaction (Intermediate, Verified 09/27/24 11:44) fatigue, somnolence prednisone [Prednisone] Adverse Reaction (Mild, Verified 09/27/24 11:44) YEAST INFECTION cetirizine Adverse Reaction (Unknown, Verified 09/27/24 11:44) dizziness? Medication List - Last Reconciled 09/27/24 by Jonatan Cardoso MD albuterol sulfate 90 mcg/actuation 2 puffs PO Q6H PRN alprazolam 0.25 mg PO BID PRN aspirin 81 mg PO DAILY blood pressure monitor As directed blood sugar diagnostic (FreeStyle Lite Strips) As directed once a day blood-glucose meter (FreeStyle Lite Meter kit) daily budesonide 32 mcg/actuation 1 spray intranasal DAILY PRN gabapentin 100 mg PO DAILY PRN 90 days [HANDHELD SHOWER HEAD As directed] Jardiance (empagliflozin) 25 mg PO QAM 30 days NS loratadine (Allergy Relief (loratadine)) 10 mg PO DAILY PRN 90 days metformin 1,000 mg PO QPM 90 days nitroglycerin 0.4 mg sublingual Q5M PRN olopatadine 0.1% 1 drp ophthalmic (eye) BID PRN 30 days omeprazole 20 mg PO DAILY 90 days Prozac (fluoxetine) 10 mg PO DAILY 30 days NS rosuvastatin 40 mg PO DAILY 90 days umeclidinium-vilanterol 62.5-25 mcg/actuation (Anoro Ellipta) 1 inh inhalation DAILY 30 days Tobacco use date assessed: 06/07/24 Fall risk assessment: 1 Fall in past year Last assessed Fall Risk: 09/27/24 Dental Screening Dental Screen Date: 09/27/24 Did you have a dental visit in the last 12 months?: No Did you have a dental problem in the last 6 months where you did not have access to dental care?: No Was dental information given to patient?: No HPI neuroendocrine tumor, anemia, hyperlipidemia, DM HPI Details Patient comes in today for her follow up visit She has several issues that she would like to have addressed Relates (+) ear infection recently - she was apparently prescribed a PCN Abx after compressor service technician called States that the same problem happened again shortly afterwards and this time, she was advised that she needs further testing for her ear and throat Reports that she feels (+) pain in her tonsils that she feels go up into ears and then into her head States that she has been unable to open her mouth well lately due to the pain, especially over her left jaw She is scheduled for a barium swallow on 09/29/2024 - this was apparently ordered by GI for further evaluation of her complaints of hypersalivation from a couple of months ago She denies any headaches or dizziness Denies any chest pains, no increased SOB No nausea/vomiting, no abdominal pain No change in bowel habits noted Needs her Metformin Rx refilled; also needs Rx for bladder pads and shower chair She had her follow up labs done yesterday - to discuss her results [facility] Medical History Allergic rhinitis Vaginal discharge Rash Left low back pain Dizziness Osteoporosis Hypercalcemia GERD without esophagitis Constipation Lumbar degenerative disc disease Overweight (BMI 25.0-29.9) Vitamin D deficiency Mixed hyperlipidemia Atherosclerotic cardiovascular disease Pulmonary emphysema Diabetes mellitus Vertigo Degenerative lumbar disc Irritable bowel syndrome Fibromyalgia Borderline diabetes Hypercholesteremia Asthma Chronic headache Anxiety Surgical History History of biopsy History of loop electrical excision procedure (LEEP) H/O heart artery stent Hx of colonoscopy H/O angioplasty H/O Spinal surgery Hx of tubal ligation Family History Father No problems noted. Mother Depression S/P CABG x 4 Diabetes Hypertension Sister Poor high blood pressure control Cervical cancer Breast cancer Social History Household Members: None Housing: Apartment Alcohol intake: current Alcohol intake frequency: does not drink Alcohol type: beer and wine Patient Tobacco Use Status: Former Tobacco user e-Cigarette/Vaping Use: Never Used Second Hand Smoke Exposure: No service: No Current occupational status: retired and disabled Cognitive needs: No Hearing needs: No Vision needs: Yes (glasses) Female Reproductive History Menstrual Age of Menarche: 13 Questionnaire PHQ-9 Over the last 2 weeks, how often have you been bothered by any of the following problems? 1. Little interest or pleasure in doing things: nearly every day 2. Feeling down, depressed, or hopeless: nearly every day 3. Trouble falling or staying asleep, or sleeping too much: nearly every day (sleeping too much ) 4. Feeling tired or having little energy: nearly every day 5. Poor appetite or overeating: several days 6. Feeling bad about yourself - or that you are a failure or have let yourself or your family down: more than half the days 7. Trouble concentrating on things, such as reading the newspaper or watching te levision: nearly every day 8. Moving or speaking so slowly that other people could have noticed. Or the opposite - being so fidgety or restless that you have been moving around a lot more than usual: nearly every day 9. Thoughts that you would be better off or of hurting yourself in some way: not at all Total score: 21 Depression Screening Interpretation: Positive Depression Screening Follow-up: Existing condition and In treatment Depression Screening Done: Yes 12903 - PHQ-9 Billing: Yes Source: Developed by Drs. Anthony Whelan, Chayo Romano, Vivek Avila and colleagues, with an educational irena from [employer]. Thrive Questionnaire Date Thrive assessed: 09/27/24 I am a: Patient What is your living situation today?: I have a steady place to live Within the past 12 months, did the food you bought not last and you didn't have the money to get more?: Never true Within the past 12 months, did you worry whether your food would run out before you got money to buy more?: Never true Do you have trouble paying for medicines?: No Do you have trouble getting transportation to medical appointments?: No Do you have trouble paying your heating and electricity bill?: No Do you have trouble taking care of your child, family member or friend?: No Do you have trouble with day-to-day activities such as bathing, preparing meals, shopping, managing finances, etc.?: No Are you currently unemployed and looking for a job?: I choose not to answer this question Are you interested in more education?: No Please select the resources that you would like help with: None Currently or been in a relationship where the following occur: No concerns reported THRIVE Score: 0 AUDIT C Alcohol Use Questionnaire (AUDIT-C) 1. How often do you have a drink containing alcohol?: Never 3. How often do you have six or more drinks on one occasion?: Never Total Score: 0 Score Reviewed/Action Taken: Yes VIOLET-7 AMB Questionnaire VIOLET-7 Date VIOLET - 7 assessed: 09/27/24 Feeling nervous, anxious, or on edge: 0 = Not at all Not being able to stop or control worryin = Not at all Worrying too much about different things: 0 = Not at all Trouble relaxin = Not at all Being so restless that it is hard to sit still: 0 = Not at all Becoming easily annoyed or irritable: 0 = Not at all Feeling afraid as if something awful might happen: 0 = Not at all Total VIOLET-7 score (0-4 normal; 5-9 mild; 10-14 moderate; 15-21 severe): 0 Source: Developed by Drs. Anthony Whelan, Chayo Romano, Vivek Avila and colleagues, with an educational irena from [employer]. Review of Systems Const Denies chills, Reports difficulty sleeping (at times), Reports fatigue, Denies fever(s) and Denies headache(s) ENT Details: (+) left jaw pain - see HPI Denies dysphagia, Denies dizziness, Reports otalgia ((+) on an off pain in the left ear), Denies headache(s), Reports nasal congestion, Denies neck pain, Denies odynophagia, Denies sinus pain and Reports sore throat (mild) Card Denies chest pain, Denies palpitations and Reports dyspnea on exertion (mild, at times) Resp Denies chest congestion, Reports cough (on and off, coughing up thick whitish phlegm at times), Reports dyspnea on exertion (mild, at times) and Denies wheezing GI Denies abdominal pain, Denies constipation, Denies dysphagia, Denies heartburn, Denies diarrhea, Denies nausea, Denies odynophagia and Denies vomiting Denies difficulty voiding, Denies nocturia, Denies dysuria and Denies urinary urgency Musc Details: (+) pain over the base of both thumbs Reports back pain (over the lower back), Reports arthralgias (over the left shoulder) and Denies neck pain Skin/Breast Denies rash Neuro Denies dizziness and Denies headache(s) Psych Reports anxiety Endo Reports fatigue and Denies palpitations Aller/Immun Denies wheezing Physical exam (Primary Care) Vital Signs: Last Vital Signs Pulse 76 09/27/24 11:02 BP 142/80 H 09/27/24 11:02 Pulse Ox 98 09/27/24 11:02 Oxygen Delivery Method Room Air 09/27/24 11:02 BMI result Body Mass Index 26.2 Tobacco/Smoking Status: Tobacco use Status Tobacco use date assessed 06/07/24 09/27/24 11:04 Patient Tobacco Use Status Former Tobacco user 09/27/24 11:04 Tobacco use type 04/16/23 13:51 e-Cigarette/Vaping Use Never Used 09/27/24 11:04 PHQ-9: PHQ-9 Score PHQ-9: Total score 21 09/27/24 11:47 Depression Screening Interpretation: Positive Depression Screening Follow-up: Existing condition and In treatment Thrive Assessment: Date of Thrive Assessment Date Thrive assessed 09/27/24 09/27/24 11:04 Currently or been in a relationship where the following occur: No concerns reported Const General: no acute distress and alert HENMT Other: (+) increased tenderness on palpation over the left TMJ area; (+) palpable and tender nodular lesion on the left side of the neck Ears: TM's normal bilaterally and EAC's normal Face and sinus: No sinus tenderness Throat: Yes posterior oropharynx normal and Yes tonsils normal Neck Neck: Yes supple and No lymphadenopathy Thyroid: Thyroid normal Resp Auscultation: clear to auscultation bilaterally, no rales and no wheezes Cardio Rate: regular rate Rhythm: regular rhythm Heart sounds: no murmurs GI Palpation (GI): Soft to palpation and nontender Auscultation: normal bowel sounds General: Yes no CVA tenderness Back/Spine/Pelvis Back: no CVA tenderness Thoracic/Lumbar Spine: lumbar spinal tenderness (mild) Skin Rashes: no rashes Extrem General: Yes no clubbing, cyanosis or edema Right upper extremity: Extremity exam: right hand Details: tenderness Location: of the thumb Location: at the MCP joint Left upper extremity: shoulder/upper arm Details: tenderness Location: of the A- C joint; no swelling and hand Details: tenderness Location: of the thumb Location: at the MCP joint Results Reviewed Results Reviewed: Laboratory Tests 09/26/24 09/26/24 09:40 09:51 WBC 5.6 Hgb 11.7 L Hct 37.9 Plt Count 275 Sodium 141 Potassium 5.2 H Creatinine 0.80 Estimated GFR > 60 Fasting Glucose 132 H Hemoglobin A1c % 6.6 H Calcium 9.9 AST 25 ALT 19 Triglycerides 116 Cholesterol 131 LDL Cholesterol, Calc 66 HDL Cholesterol 42 25-OH Vitamin D Total 58.1 TSH 3.38 Ur Specific [place] 1.010 Urine Protein Negative Urine Glucose (UA) Negative Urine Blood Negative Urine Nitrite Negative Ur Leukocyte Esterase Negative Microalb/Creat Ratio 82.8 H Coding Level of Care Code Est Pt Level 4 (97470) Complex EM visit Add On G2211 Diagnoses Bilateral thumb pain M79.644; M79.645 Left upper arm pain M79.622 Jaw pain R68.84 Nodule of neck R22.1 Urinary incontinence, unspecified type R32 Urinary Incontinence type: unspecified incontinence Neuroendocrine tumor of pancreas D3A.8 Atherosclerotic cardiovascular disease I25.10 Mixed hyperlipidemia E78.2 Type 2 diabetes mellitus without complication, without long-term current use of insulin E11.9 Diabetes mellitus type: type 2 Diabetes mellitus termite control service representative insulin use: without termite control service representative use Diabetes mellitus complication status: without complication Pulmonary emphysema, unspecified emphysema type J43.9 Emphysema type: unspecified Allergic rhinitis, unspecified seasonality, unspecified trigger J30.9 Allergic rhinitis trigger: unspecified Allergic rhinitis seasonality: unspecified Age-related osteoporosis without current pathological fracture M81.0 Osteoporosis type: age-related Presence of current pathological fracture: without current pathological fracture Anemia, unspecified type D64.9 Anemia type: unspecified type Vitamin D deficiency E55.9 GERD without esophagitis K21.9 Additional Codes PHQ-9 - 12363 - PHQ-9 Billing: Yes ([id number]) Assessment & Plan Assessment & Plan (1) Bilateral thumb pain: Code(s): M79.644 - Pain in right finger(s); M79.645 - Pain in left finger(s) Category: Medical Plan: Will send patient for x-rays of both hands/thumbs for further evaluation (2) Left upper arm pain: Code(s): M79.622 - Pain in left upper arm Category: Medical Plan: Will send her for x-rays of the left upper arm for further evaluation (3) Jaw pain: Code(s): R68.84 - Jaw pain Category: Medical Plan: Will send patient for x-rays of the left mandible for further evaluation (4) Nodule of neck: Code(s): R22.1 - Localized swelling, mass and lump, neck Category: Medical Plan: Will send her for soft tissue US for further evaluation (5) Urinary incontinence: Code(s): R32 - Unspecified urinary incontinence Category: Medical Qualifiers: Urinary Incontinence type: unspecified incontinence Qualified Code(s): R32 - Unspecified urinary incontinence Plan: Per request, Rx for bladder pads and shower chair provided to patient (6) Neuroendocrine tumor of pancreas: Code(s): D3A.8 - Other benign neuroendocrine tumors Category: Medical Plan: 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 Olivas here at [facility] [place] for oncology follow up (7) Atherosclerotic cardiovascular disease: Code(s): I25.10 - Atherosclerotic heart disease of [place] coronary artery without angina pectoris Category: Medical Plan: S/P REJI to LAD x 2 (2015 & 2018); S/P NSTEMI in 2016 S/P dual anti-platelet therapy with Brilinta 90 mg BID x 1 year (Rx discontinued since) and low-dose Aspirin 81 mg QD She is currently only on low dose Aspirin 81 mg QD - needs to be on lifetime antiplatelet Tx with Aspirin Follow-up with cardiology as scheduled (8) Mixed hyperlipidemia: Code(s): E78.2 - Mixed hyperlipidemia Category: Medical Plan: Results of her labs done yesterday reviewed and discussed with patient Reinforced low cholesterol diet Continue Rosuvastatin 40 mg QD Will recheck her labs and fasting lipids in 4 months for follow up (9) Diabetes mellitus: Code(s): E11.9 - Type 2 diabetes mellitus without complications Category: Medical Qualifiers: Diabetes mellitus type: type 2 Diabetes mellitus termite control service representative insulin use: without prison use Diabetes mellitus complication status: without complication Qualified Code(s): E11.9 - Type 2 diabetes mellitus without complications Plan: Her HgbA1c was at 6.6% on her labs done yesterday (was previously at 6.5% a few months ago) - goal is < 7.0% Reinforced diabetic diet Continue Jardiance 25 mg QD and Metformin 1000 mg Q PM (10) Pulmonary emphysema: Code(s): J43.9 - Emphysema, unspecified Category: Medical Qualifiers: Emphysema type: unspecified Qualified Code(s): J43.9 - Emphysema, unspecified Plan: Patient is still doing well on her current Rx - continue Anoro Ellipta 62.5-25 mcg 1 inhalation QD and Albuterol HFA 2 puffs 4 times a day PRN Chest CT screening done in January 2019 revealed evidence of mild paraseptal emphysema with peripheral interstitial markings suggestive of interstitial lung disease Follow up with pulmonary as scheduled (11) Allergic rhinitis: Code(s): J30.9 - Allergic rhinitis, unspecified Category: Medical Qualifiers: Allergic rhinitis trigger: unspecified Allergic rhinitis seasonality: unspecified Qualified Code(s): J30.9 - Allergic rhinitis, unspecified Plan: Continue Rhinocort Aqua (Budesonide) nasal spray QD PRN and Loratadine 10 mg QD PRN (12) Osteoporosis: Code(s): M81.0 - Age-related osteoporosis without current pathological fracture Category: Medical Qualifiers: Osteoporosis type: age-related Presence of current pathological fracture: without current pathological fracture Qualified Code(s): M81.0 - Age- related osteoporosis without current pathological fracture Plan: Repeat BMD done in February 2021 revealed (+) osteoporosis, with a slight improvement in BMD of the AP spine and (+) decline in BMD at the femur She is encouraged again on daily exercise but reinforced fall precautions Continue Vitamin D supplements but because of her previous hypercalcemia, would not recommend she take any calcium supplements for now She was sent for repeat BMD for follow up last year but it appears that she did not get this done (13) Anemia: Code(s): D64.9 - Anemia, unspecified Category: Medical Qualifiers: Anemia type: unspecified type Qualified Code(s): D64.9 - Anemia, unspecified Plan: Patient is advised that her H/H is at 11.7/37.9 on her recent labs She received IV iron infusion at [facility] [place] a few months ago Her anemia is most likely anemia of chronic disease; previous hematologic work ups have all been negative Her iron function studies came back normal and B12 level was also normal when recently checked Will continue to monitor her CBC regularly Follow up with hematology as scheduled (14) Vitamin D deficiency: Code(s): E55.9 - Vitamin D deficiency, unspecified Category: Medical Plan: Continue Vitamin D3 2000 units QD (15) GERD without esophagitis: Code(s): K21.9 - Gastro-esophageal reflux disease without esophagitis Category: Medical Plan: Dietary restrictions reinforced Continue Omeprazole 40 mg QD Plan Follow up in 4 months Orders: Orders Lipid Panel 4 Months E78.00 - Pure hypercholesterolemia, unspecified Hemoglobin A1c 4 Months E11.9 - Type 2 diabetes mellitus without complications UA CC w/rflx Micro + Cult 4 Months R30.0 - Dysuria Vitamin D 25-OH Total 4 Months E55.9 - Vitamin D deficiency, unspecified XR hand RT min 3V 09/28/24 M79.644 - Pain in right finger(s), M79.645 - Pain in left finger(s) XR humerus LT 09/28/24 M79.622 - Pain in left upper arm Complete Blood Count Auto Diff 4 Months D64.9 - Anemia, unspecified Comprehensive [place]. Panel Fast 4 Months E78.00 - Pure hypercholesterolemia, unspecified Microalbumin, Random (w Creat) 4 Months E11.9 - Type 2 diabetes mellitus without complications TSH reflex Free T4 4 Months E78.00 - Pure hypercholesterolemia, unspecified Vitamin B12 and Folate 4 Months E53.8 - Deficiency of other specified B group vitamins XR hand LT min 3V 09/28/24 M79.644 - Pain in right finger(s), M79.645 - Pain in left finger(s) XR mandible min 4V 09/28/24 R68.84 - Jaw pain US soft tiss head and/or neck 09/27/24 R22.1 - Localized swelling, mass and lump, neck Medications: New [BLADDER PADS] As directed 100 ea 0RF R32 - Unspecified urinary incontinence [SHOWER CHAIR] As directed 1 ea 0RF M51.36 - Other intervertebral disc degeneration, lumbar region Refilled metformin 1,000 mg PO QPM 90 days 90 tabs 1RF Discontinued Jardiance (empagliflozin) Discontinued Reason: Patient Completed Course 25 mg PO QAM 30 days 30 tabs 3RF NS
--- OUTSIDE RECORDS SUMMARY | 2024-09-27 11:53 | XMS_ITS | Data Portability ---
Author Organization [facility], [place] - [facility] Address [address] [place] [id number] Care Team Providers Care Athletic Events Scorer Name Role Phone HIM CCA OTHER RUSLAN FUCHS Primary Care Provider [phone] Assessment Encounter Date Assessment Date Assessment LastModified by Organization Details LastModified Time 05/01/2024 05/01/2024 I provided real -time medical direction via phone for this encounter and was available for additional phone-based assistance as needed. I have reviewed and agree with the Assessment and Plan as documented by the [employer]. Patient given the opportunity to ask questions. Our service contacted for an assessment of: cough As per above, patient has had a non-productive cough for approx 2 months. Denies F/C/N/V/CP/CASTRO and SOB. No sick contacts. No OTCs. Also complaining of a sore throat for 2 days. Per customer development representative on the scene, Non-toxic. Stable vitals. No distress. COVID and Flu are negative. For sore throat strep is negative Impression: ? seasonal allergies. Differential diagnosis is broad however customer development representative assessment and limited data are reassuring. Plan: Trial of ptrq-dyz-uqxzhj r medications and then follow-up with PCP Allergies were reviewed We discussed the diagnostic uncertainty of home visits and the risk associated with this. In this case, the patient and I felt this to be an acceptable and reasonable amount of risk given the benefit of avoiding an ED visit. We discussed the need to seek care urgently/emerge ntly in the setting of any new or worsening serious symptoms, particularly fever chills [email or web address] Not available 05/01/2024 21:52:54 Plan of Treatment Reminders Order Date Submit Date Provider Last Modified By Organization Details Last Modified Time Details Appointments None recorded. Lab rapid SARS CoV 2 Ag, QL IA, respiratory specimen 2023 024 [email or web address], [address] [place] [address], [id number], 4 15:29:05 rapid flu (A+B) 2023 024 [email or web address], [address] [place] [address], [phone], 4 15:29:04 rapid strep group A, throat 2023 024 [email or web address] [id number] [facility], [address] [place] [address], [id number], 4 21:51:25 rapid SARS CoV 2 Ag, QL IA, respiratory specimen 2023 024 [place] [id number] [facility], [address] [place] [address], [address], 4 21:51:26 rapid flu (A+B) 2023 024 [email or web address] [id number] [facility], [address] [place] [address], [phone], 4 21:51:27 Referral None recorded. Procedures None recorded. Surgeries None recorded. Imaging None recorded. Medication Orders [facility] 10 mg [facility]23 [id number], [address], [place], [id number], 4 15:35:13 Tylenol Extra Strength 500 mg tablet 2023 024 [facility] #[id number], [address], [place], [id number], 4 12:54:58 doxycycline monohydrate 100 mg tablet 2023 [facility] #[id number], [address], [place], [phone], 20:13:29 Patient TargetsNo targets recorded. Patient InstructionsNo instructions recorded. Reason for Referral None Reported. Results Created Date Observation Date Name Description Value Unit Range Abnormal Flag Note LastModifiedBy Organization Detail LastModifiedTime 04/16/20 24 04/16/2024 rapid flu (A+B) Flu negati ve Not Available [facility] ed [address] [place] [address], [phone], 04/16/2024 15:28:36 04/16/20 24 04/16/2024 rapid SARS CoV 2 Ag, QL IA, respi rator y speci men rapid SARS CoV 2 Ag, QL IA, respiratory specimen negati ve Not Available [facility] ed [address] [place] [address], [phone], 04/16/2024 15:28:33 05/01/20 24 05/01/2024 rapid strep group A, throa t Strep negati ve Not Available [facility] ed [address] [place] [address], [phone], 05/01/2024 21:51:02 05/01/20 24 05/01/2024 rapid flu (A+B) Flu negati ve Not Available [facility] ed [address] [place] [address], [address], 05/01/2024 21:50:52 05/01/20 24 05/01/2024 rapid SARS CoV 2 Ag, QL IA, respi rator y speci men rapid SARS CoV 2 Ag, QL IA, respiratory specimen negati ve Not Available [facility] ed [address] [place] [address], [phone], 05/01/2024 21:50:50 Result Notes None recorded. Medical Equipment None Reported. Allergies Allergen ID Allergen Name Allergen Category Reaction Reaction Severity Criticality Documentation Date Start Date Code Code System Note Provider Name and Address Organization Details Recorded Time 28920 Product containin g penicilli n and antibioti c (product) medicatio n Not available Not available Not available 07/30/2024 38375 05 SNOMED Not Available [facility] - production 4 17:01:25 72157 Bactrim medicatio n Not available Not available Not available 07/30/2024 07755 9 RxNorm Not Available [facility] [place] 4 17:01:25 98265 Levaquin medicatio n Not available Not available Not available 07/30/2024 96853 2 RxNorm Not Available [facility] [place] 4 17:01:25 16920 lisinopri l medicatio n Not available Not available Not available 07/30/2024 51497 RxNorm Not Available [facility] [place] 4 17:01:25 48488 Prevacid medicatio n Not available Not available Not available 07/30/2024 56646 RxNorm Not Available [facility] [place] 4 17:01:25 4170 Augmentin medicatio n Not available Not available Not available 08/26/2023 25069 2 RxNorm Not Available [facility] [place] 4 17:01:25 Medications Name Sig Start Date Stop Date Status Note LastModified by Organization Details LastModified Time budesonide 32 mcg/actuatio n nasal spray SHAKE LIQUID AND USE 1 SPRAY IN EACH NOSTRIL DAILY NEEDED FOR ALLERGY SYMPTOMS active Not Available Not Available No t Available atorvastatin 80 mg tablet TAKE 1 TABLET BY MOUTH AT BEDTIME active Not Available Not Available No t Available doxycycline hyclate 100 mg capsule TAKE 1 CAPSULE BY MOUTH TWICE DAILY FOR 7 DAYS active Not Available Not Available No t Available miconazole nitrate 100 mg vaginal suppository UNWRAP AND INSERT 1 SUPPOSITORY VAGINALLY AT BEDTIME FOR 7 DAYS active Not Available Not Available N ot Available azithromycin 250 mg tablet TAKE 2 TABLETS BY MOUTH FOR 1 DAY THEN TAKE 1 TABLET BY MOUTH DAILY FOR 4 DAYS active Not Available Not Available N ot Available fluconazole 150 mg tablet TAKE 1 TABLET BY MOUTH EVERY 3 DAYS FOR 2 DOSES. MAY REPEAT SECOND DOSE 72 HOURS AFTER FOR 1 DOSE IF SYMPTOMS PERSIST active Not Available Not Available No t Available Nystop 100,000 unit/gram topical powder APPLY TOPICALLY FOUR TIMES DAILY NEEDED FOR RASH active Not Available Not Available No t Available metronidazol e 500 mg tablet active Not Available Not Available Not Available aspirin 81 mg tablet,delay ed release TAKE 1 TABLET BY MOUTH EVERY DAY active Not Available Not Available No t Available doxycycline monohydrate 100 mg tablet TAKE 1 TABLET BY MOUTH TWICE DAILY FOR 5 DAYS active Not Available Not Available No t Available acetaminophe n 500 mg tablet TAKE 1 TO 2 TABLETS BY MOUTH EVERY 6 HOURS NEEDED active Not Available Not Available No t Available alprazolam 0.25 mg tablet TAKE 1 TABLET BY MOUTH TWICE DAILY NEEDED FOR ANXIETY active Not Available Not Available No t Available lorazepam 0.5 mg tablet TAKE 1 TABLET BY MOUTH ONCE 30 MINUTES BEFORE MRI active Not Available Not Available N ot Available doxycycline monohydrate 100 mg capsule TAKE 1 CAPSULE BY MOUTH TWICE A DAY FOR 7 DAYS active Not Available Not Available No t Available metformin 1,000 mg tablet TAKE 1 TABLET BY MOUTH EVERY EVENING active Not Available Not Available No t Available olopatadine 0.1 % eye drops PLEASE SEE ATTACHED FOR DETAILED DIRECTIONS active Not Available Not Available N ot Available polymyxin B sulfate 10,000 unit-trimeth oprim 1 mg/mL eye drops PLACE 1 DROP INTO THE LEFT EYE EVERY 3 HOURS FOR 7 DAYS WHILE AWAKE MAX 6 DOSES IN 24 HOURS active Not Available Not Available No t Available nitroglyceri n 0.4 mg sublingual tablet DISSOLVE 1 TABLET UNDER THE TONGUE EVERY 5 MINUTES NEEDED FOR CHEST PAIN DO NOT EXCEED 3 DOSES PER EPISODE active Not Available Not Available No t Available omeprazole 20 mg capsule,brian yed release TAKE 2 CAPSULES BY MOUTH EVERY DAY active Not Available Not Available No t Available gabapentin 100 mg capsule TAKE 1 CAPSULE BY MOUTH EVERY DAY NEEDED FOR PAIN active Not Available Not Available No t Available ibuprofen 600 mg tablet active Not Available Not Available Not Available cefuroxime axetil 500 mg tablet active Not Available Not Available No t Available albuterol sulfate HFA 90 mcg/actuatio n aerosol inhaler INHALE 2 PUFFS BY MOUTH EVERY 6 HOURS NEEDED FOR MUSCLE SPASM active Not Available Not Available No t Available Prozac 10 mg capsule TAKE 1 CAPSULE BY MOUTH DAILY active Not Available Not Available Not Available ondansetron 4 mg disintegrati ng tablet DISSOLVE 1 TABLET ON THE TONGUE EVERY 6 HOURS NEEDED FOR NAUSEA OR VOMITING active Not Available Not Available No t Available doxycycline hyclate 100 mg tablet TAKE 1 TABLET BY MOUTH TWICE A DAY FOR 7 DAYS active Not Available Not Available No t Available dicyclomine 10 mg capsule TAKE 1 CAPSULE BY MOUTH THREE TIMES DAILY FOR 15 DAYS NEEDED FOR ABDOMINAL CRAMPS active Not Available Not Available No t Available loratadine 10 mg tablet TAKE 1 TABLET BY MOUTH DAILY NEEDED FOR ALLERGY SYMPTOMS active Not Available Not Available No t Available Saline Nasal 0.65 % spray aerosol USE 2 SPRAYS INTRANASALL Y 4 TIMES A DAY NEEDED FOR DRY NASAL PASSAGES active Not Available Not Available No t Available rosuvastatin 40 mg tablet TAKE 1 TABLET BY MOUTH EVERY DAY active Not Available Not Available No t Available cholecalcife rol (vitamin D3) 25 mcg (1,000 unit) tablet TAKE 1 TABLET BY MOUTH DAILY active Not Available Not Available Not Available peg 3350-electro lytes 236 gram-22.74 gram-6.74 gram-5.86 gram solution active Not Available Not Available Not Available FreeStyle Lite Meter kit USE EVERY DAY active Not Available Not Available No t Available FreeStyle Lite Strips DIRECTED ONCE A DAY active Not Available Not Available N ot Available Cepacol Sore Throat (benzocaine- menthol) 15 mg-2.6 mg lozenges TAKE 1 LOZENGES BY MOUTH EVERY 4 HOURS NEEDED active Not Available Not Available No t Available Anoro Ellipta 62.5 mcg-25 mcg/actuatio n powder for inhalation INHALE 1 PUFF BY MOUTH DAILY active Not Available Not Available Not Available Jardiance 25 mg tablet TAKE 1 TABLET BY MOUTH EVERY DAY IN THE MORNING active Not Available Not Available No t Available BinaxNOW COVID-19 Ag Self Test kit TEST DIRECTED TODAY active Not Available Not Available No t Available Paxlovid 300 mg (150 mg x 2)-100 mg tablets in a dose pack TK 2 NIRMATRELVI R TS AND 1 RITONAVIR T TOGETHER PO BID FOR 5 DAYS TWICE DAILY FOR 5 DAYS active Not Available Not Available No t Available Vitals Date Recorded Oxygen saturation Oxygen saturation in Arterial blood by Pulse oximetry Body temperature Respiratory rate Heart rate Systolic blood pressure Diastolic blood pressure Provider Name and Address Organization Details Last Updated DateTime 4 97 % 97 % 97.8 [degF] 18 /min 80 /min 130 mm[Hg] 64 mm[Hg] Not Available [facility] 4 15:18:35 Date Recorded Oxygen saturation Oxygen saturation in Arterial blood by Pulse oximetry Respiratory rate Body temperature Heart rate Systolic blood pressure Diastolic blood pressure Provider Name and Address Organization Details Last Updated DateTime 4 96 % 96 % 16 /min 97.8 [degF] 84 /min 147 mm[Hg] 72 mm[Hg] Not Available [email or web address] - [email or web address] 4 18:56:20 Date Recorded Body temperature Body weight Body height Respiratory rate Heart rate Oxygen saturation Oxygen saturation in Arterial blood by Pulse oximetry Systolic blood pressure Diastolic blood pressure Provider Name and Address Organization Details Last Updated DateTime 4 98 [degF] 67107.4 16 g 160.02 cm 18 /min 78 /min 96 % 96 % 126 mm[Hg] 68 mm[Hg] Not Available [facility] - [id number] 4 12:40:12 Date Recorded Body height Heart rate Respiratory rate Oxygen saturation Oxygen saturation in Arterial blood by Pulse oximetry Body weight Body temperature Systolic blood pressure Diastolic blood pressure Provider Name and Address Organization Details Last Updated DateTime 4 160.02 cm 87 /min 16 /min 99 % 99 % 42888.2 48 g 98 [degF] 149 mm[Hg] 73 mm[Hg] Not Available [employer] 4 20:08:07 Date Recorded Respiratory rate Heart rate Body temperature Oxygen saturation Oxygen saturation in Arterial blood by Pulse oximetry Systolic blood pressure Diastolic blood pressure Provider Name and Address Organization Details Last Updated DateTime 5 18 /min 74 /min 98 [degF] 98 % 98 % 136 mm[Hg] 82 mm[Hg] Not Available [facility] 5 15:35:23 Social History None recorded. Functional Status None recorded. Mental Status None recorded. Family History Nothing Reported. Medical History No medical history recorded. Gynecological HistoryNo gynecological history recorded. Obstetrics History GPAL:G 0 P 0 0 0 0 Past Encounters Encounter ID Performer Location Encounter Start Date Encounter Closed Date Diagnosis/Indication Diagnosis SNOMED-CT Code Diagnosis ICD10 Code Diagnosis Note [id number] Tito Carmen MD [facility] [address] [place] [id number] 08/28/2022 11:08:27 09/02/2022 14:48:59 COVID-19 [id number] U07.1 [id number] Alfredo Ridley MD [facility] [address] [place] [id number] 04/13/2023 22:21:11 07/13/2023 14:48:59 Acute rhinosinusitis [id number] J00 [id number] KJ SALDANA MD [facility] [address] [place] [id number] 08/13/2023 17:34:54 08/14/2023 10:22:37 Pain of left hand [id number] 67508 M79.642 [id number] Judy Metzger MD [facility] [address] [place] [id number] 08/26/2023 14:01:38 08/27/2023 09:33:05 Acute pharyngitis [id number] J02.9 [id number] Efraín Zamora MD [facility] [address] [place] [phone] 08/27/2023 15:59:10 08/28/2023 13:09:36 Acute upper respiratory infection [id number] J06.9 Patient presents with two days of cough and malaise. She was seen yesterday and had a negative COVID test. Her goal for today's visit was to potentiall y be prescribed antibiotic s, which were deferred yesterday perhaps in part due to her not having her extensive allergy list available (she has it today).She is afebrile and does not appear severely ill. Flu and strep were negative todayAsses sment: Most likely viral upper respirator y infection. I do not see an indication for antibiotic s (regardles s of the allergies) .Plan: supportive care, maintain hydration [id number] Judy Metzger MD [facility] [address] [place] [phone] 09/01/2023 15:31:56 09/02/2023 14:23:41 Upper respiratory infection [id number] J06.9 [id number] Trisha Chavarria MD [facility] [address] [place] [id number] 09/25/2023 18:05:35 09/27/2023 15:07:12 Viral upper respiratory tract infection 046079035 J06.9 Evaluation in the field was performed by my customer development representative colleague, as noted above, I provided real-time direction and supervisio n for this visit. 78yo F p/w 1 week URI sx. VS all wnl. Rapid COVID and flu negative. Suspect viral URI, recommend symptomati c tx, PCP f/up if sx not improving. We discussed the diagnostic uncertaint y of home visits and the risk associated with this. In this case, the patient and I felt this to be an acceptable and reasonable amount of risk given the benefit of avoiding an ED visit. We discussed the need to seek care urgently/e mergently in the setting of any new or worsening serious symptoms, shortness of breath, cough, chest pain, fever. [id number] Cisco Beaulieu MD [facility] [address] [place] [id number] 01/16/2024 12:22:38 01/18/2024 11:13:21 Dizziness [id number] R42 Dizziness for two days; constant, difficulty walking. VItals stable and EKG with no st-t wave changes, BMP and H/H performed. Given persistenc e of symptoms over 2 days and inability to ambulate without distress/i mbalance, will send to ED for further evaluation and likely CT of head. Patient in agreement. [id number] Trisha Chavarria MD [facility] [address] [place] [id number] 04/16/2024 15:18:28 04/16/2024 18:57:15 Chronic cough [id number] R05.3 Evaluation in the field was performed by my customer development representative colleague, as noted above, I provided real-time direction and supervisio n for this visit. 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 Today has sternal chest pain iso cough, now resolved, denies nausea, radiation of pain, dyspnea, other new sx. Denies fevers, hemoptysis . Has not tried allergy tx. Takes inhalers w/o improvemen t. On customer development representative eval VS wnl, lungs CTA b/l. POC COVID and flu negative. Discussed post-nasal drip and GERD as common causes of chronic cough. Chest pain appears c/w MSK chest pain/pleur isy from cough. Recommend she call PCP for appt to get CXR given hx smoking and risk of malignancy . Discussed empiric tx for postnasal drip and GERD, pt elects to try loratadine . If not improved consider prednisone course but not meeting criteria for COPDe. Low suspicion for infectious etiology. PCP: please evaluate pt for chronic cough including CXR and ensure UTD on lung CA screening We discussed the diagnostic uncertaint y of home visits and the risk associated with this. In this case, the patient and I felt this to be an acceptable and reasonable amount of risk given the benefit of avoiding an ED visit. We discussed the need to seek care urgently/e mergently in the setting of any new or worsening serious symptoms, shortness of breath, cough, chest pain, fever. [id number] Judy Metzger MD [facility] [address] [place] [id number] 0 05/01/2024 18:56:18 05/03/2024 00:05:49 Cough [id number] R05.9 Pain in throat [id number] R07.0 [id number] Fabiola [facility] [address] [place] [id number] 0 06/07/2024 12:39:53 06/07/2024 23:32:21 Viral upper respiratory tract infection [id number] J06.9 79 year old female being evaluated for nasal congestion and cough since 3 days. Patient reports headache and congestion , does not have any tylenol to take. Denies difficulty breathing, swallowing or drinking/e ating. Patient denies fever. Exam notable for normal vital signs, clear lungs, nasal congestion . POC COVID and flu are negative. Presentati on consistent with uncomplica kimberly viral upper respirator y illness, recommend symptomati c treatment. Script for tylenol sent to patient's pharmacy. [id number] Julissa Morales MD [facility] [address] [place] [id number] 07/30/2024 20:07:59 07/30/2024 21:21:18 Cellulitis [id number] L03.90 As noted, we were called to see this patient regarding concerns of arm redness. Evaluation in the field was performed by my customer development representative colleague, as noted above, I provided real-time direction and supervisio n for this visit. The evaluation revealed 79 yo woman noted a bump on her forearm for the last 4-5 days. She did not note any particular injury or bite at that time.The area is now erythemato us with mild swelling. She has no systemic symptoms Impression :local cellulitis Plan:doxyc ycline 100mg BID x 5 days to account for multiple drug allergies Dispositio n: We discussed the diagnostic uncertaint y of home visits and the risk associated with this. In this case, the patient and I felt this to be an acceptable and reasonable amount of risk given the benefit of avoiding an ED visit. We discussed the need to seek care urgently/e mergently in the setting of any new or worsening serious symptoms, particular ly changes to consciousn ess, chest pain, dyspnea. [id number] Trisha Chavarria MD [facility] [id number] 09/17/2024 15:35:21 09/19/2024 20:50:37 Pain of ear [id number] H92.09 Evaluation in the field was performed by my customer development representative colleague, as noted above, I provided real-time direction and supervisio n for this visit. 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 Reports hx AOM in that ear requiring abx last year. Denies fevers, otorrhea, trauma, URI sx, tooth complaints , known mastoiditi s. On customer development representative eval VS wnl, exam w/o external erythema or TTP w/ movement of ear or palpation of mastoid, ear canal w/o FB, erythema, or discharge. Overall likelihood of AOM requiring abx is low. Risk of antibiotic s is high given numerous allergies and pt unsure if she has tolerated a cephalospo rin. Given this, along w/ short duration of sx would recommend pain control and in person eval with PCP if symptoms not improving or worsening in 48 hrs. DDx includes dental infection (pt denies) or mastoiditi s (no focal TTP there). Pt expresses understand ing. PCP: please arrange for in person evaluation if ear pain not improving w/ pain control. We discussed the diagnostic uncertaint y of home visits and the risk associated with this. In this case, the patient and I felt this to be an acceptable and reasonable amount of risk given the benefit of avoiding an ED visit. We discussed the need to seek care urgently/e mergently in the setting of any new or worsening serious symptoms, shortness of breath, cough, chest pain, fever. Health Concerns Section Related Observation LastModified by Organization Detai ls LastModified Time None Recorded Concern Status LastModified by Organization Details LastModified Time None Recorded Advance Directives Directive None Recorded Payers Encounter Date Sequence Insurance Name Policy Number Policy [place] Covered Member ID [place] Member ID Guarantor Name 04/16/2024 1 [facility] - DOS ON OR AFTER 2022 - DUAL ELIGIBLE - SHELTER OPTIONS AND ONE CARE (MEDICARE REPLACEMENT/ADV ANTAGE - HMO) Meredith Carranza [id number] Meredith Carranza 05/01/2024 1 [facility] - DOS ON OR AFTER 2022 - DUAL ELIGIBLE - SHELTER OPTIONS AND ONE CARE (MEDICARE REPLACEMENT/ADV ANTAGE - HMO) Meredith Carranza [id number] Meredithrajni Beniteza 06/07/2024 1 [facility] - DOS ON OR AFTER 2022 - DUAL ELIGIBLE - SHELTER OPTIONS AND ONE CARE (MEDICARE REPLACEMENT/ADV ANTAGE - HMO) Meredith Carranza [id number] Meredithrajni Sánchezcea 07/30/2024 1 [facility] - DOS ON OR AFTER 2022 - DUAL ELIGIBLE - SHELTER OPTIONS AND ONE CARE (MEDICARE REPLACEMENT/ADV ANTAGE - HMO) Meredith Carranza [id number] Meredithrajni Beniteza 09/17/2024 1 [facility] DOS ON OR AFTER 2022 - DUAL ELIGIBLE - SHELTER OPTIONS AND ONE CARE (MEDICARE REPLACEMENT/ADV ANTAGE - HMO) Meredith Carranza [id number] Meredithrajni Sánchezcea Notes Date Note Type Note Provider Name and Address Organization Details Recorded Time 04/16/2024 text/html [facility] Nurse Triage Notes (Noni Mora): Reason For Request: Patient has a Cough, and chest pain. Not the heart attack type pain , more like Bone pain in her. Chief Complaints: Cough PMH: Diabetes, COPD/Asthma Other Allergies: Augmentin Comments: Allergies: Augment, Unknown Log Getter verified the member's name//address and phone number. Patient reporting worsening cough and sore throat. Cough >1 month. Cough is non-productive. Unable to get appt with PCP. Patient has chest pain when taking a deep breath. No shortness of breath. No fever/chills. Takes a cough drop at night with no relief. Education provided on the response time and the member was advised to monitor reported s/s and seek emergency treatment if needed. [employer] Organization Information for Melania Manzo ADDISON Business Legal Name: [employer] Address: [address] [place] [address], [place] [address], Parachute Repairer: Aayush BARBOSA No.: [id number] [employer] POC Test Results from [facility] COVID antigen (15:44:14) COVID: - Rapid strep test (15:44:15) Strep: - .................... .................... .................... .................... .................... .................... .................... . [employer] Note From Melania Manzo: Dispatched for the 79 yo female chief complaint of cough x1 month. U/a pt is found seated upright in kitchen chair. Pt presents CA&Ox4, patent airway, normal breathing and skin signs warm, pink and dry. Pt states she has been experiencing nonproductive cough for over a month now. Pt states it feels like there is a tickle in her throat especially at night time that causes her cough. Pt states she had some chest pain earlier in the day but it was after a coughing fit and it felt skeletal not cardiac related. Pt denies EKG obtainment at this time. Pt states the chest pain did not radiate anywhere and felt sternal, duration of about a minute after coughing. Pt administered covid and strep test at this time, both return negative. Vitals obtained. Lung sounds clear present and equal upon auscultation. [facility] [place] [place] contacted and writes a prescription of Loratidine once a day for suspected post nasal drip and advises pt to follow up with PCP for further evaluation. Pt advised of all red flags. End of report. .................... .................... .................... .................... .................... .................... .................... . Disposition: Fulfilled Trisha Chavarria MD [address] [facility],[address], [place], [address], [facility] 04/16/2024 15:54:41 05/01/2024 text/html CRC Nurse Triage Notes (Ron Davidson): Reason For Request: Pt reporting throat pain and right tonsil pain>states severe cough>was seen by [facility] 1 month ago for severe cough and that prescribed medication has not helped Lortadine> Chief Complaints: Pain, ENT PMH: Diabetes, COPD/Asthma Allergies: Unknown Comments: Log Getter verified the member's name//address and phone number. Mbr reports on going cough for over a month, mbr was seen by [facility] and prescribed loratadine but reports it has not helped with cough. Today, mbr reports she started with sore throat last night. Mbr reports it is more painful on R side of throat and pain radiates to R ear and eye area. Education provided on the response time and the member was advised to monitor reported s/s and seek emergency treatment if needed -Micaela Davidson RN [employer] Organization Information for Alejandro Martinez Business Legal Name: [facility] Address: [address] [place] [address], [place] [address], Parachute Repairer: Chung Schmidt MD CLIA No.: [id number] [employer] POC Test Results from Alejandro Martinez Rapid COVID antigen (18:39:06) COVID: - Rapid influenza antigen (18:39:07) Flu: - Rapid strep test (18:39:08) Strep: - .................... .................... .................... .................... .................... .................... .................... . [employer] Note From Alejandro Martinez: Pt reports intermittent dry cough for ? o ekaterina two months? and sore throat for two days. Pt spoke to PCP regarding cough and PCP recommended endoscopy. Pt denies CP, SOB, CASTRO, sinus congestion, f/c/n/v/d. Pt not using any OTC? s . Pt is alert, NAD. VSS. Afebrile. Non focal neuro exam. Normal gait. Unremarkable ENT exam. Lungs CTA. Benign ABD exam. No LE edema. POC covid, flu and strep negative. Pt educated on supportive care measures and OTC? s that will help manage sx. Pt instructed to monitor sx and call back if new sx present. Pt to f/u with PCP regarding endoscopy. .................... .................... .................... .................... .................... .................... .................... . Disposition: Fulfilled Judy Metzger MD [address] [facility],[address], [place], [address], MONICA MAHAJAN 05/01/2024 21:53:32 06/07/2024 text/html CRC Nurse Triage Notes (Shwetha Fuentes): Reason For Request: Patient has been sick since thursday, sore throat, wants a covid test. Chief Complaints: Cough PMH: Diabetes, COPD/Asthma Other Allergies: A lot of antibiotics - Member unable to remember the names of her allergies. Comments: Log Getter verified the member's name//address and phone number. translator and interpreter used.Member reports sick since Thursday, 06/05. +Cough, sore throat, congestion. Denies Fevers/SOB/CP. Requesting COVID/Flu test. Recently around sick contacts.Pt speaking in full sentences, mentating well.Unable to fully triage patient as she had a doctors appointment over the phone and had to go. Education provided on the response time and the member was advised to monitor reported s/s and seek emergency treatment if needed. [employer] Organization Information for Terrie Hall Business Legal Name: [employer]? Address: [address] [place] [address], Parachute Repairer: Aayush Elder MD CLIA No.: [id number] [employer] POC Test Results from Terrie Hall Rapid influenza antigen (12:30:19) Flu: - Rapid COVID antigen (12:30:20) COVID: - .................... .................... .................... .................... .................... .................... .................... . [employer] Note From Terrie Hall: Sent to a call for a pt complaining of URI symptoms. SC8 arrives on scene, pt is alert and oriented, airway is patent. Pt states she is allergic to PCN and sulfa, but doesn't know her other medication allergies. Pt complains of headache, runny nose with clear mucus, non-productive cough since Tuesday 06/05. Pt denies dizziness, sinus pain, sore throat, cp, sob, n/v/d, abd pain, body pain, or fever. Pt states family member has similar symptoms. Pt states she has been taking Ibuprofen for headache because she doesn't have any Tylenol. Pt requests prescription for Tylenol. BP:126/68, P:78, RR:18, SpO2:96% RA, T:98.0; Head: unremarkable; Lung sounds: clear bilaterally; Abdomen: soft, non-tender, no distention; Back: unremarkable; Extremities: unremarkable; Skin: pink, warm, dry; Rapid covid test: neg; Rapid flu test; neg; [facility] [place] [place] consulted and sends script to pt's pharmacy for Tylenol. Red flags discussed. Pt has no further questions. [employer] Allergies: Trimethoprim-Sulfame thoxazole .................... .................... .................... .................... .................... .................... .................... . Disposition: Fulfilled Fabiola Cameron MD [address] [place] [address],[address], [place], [phone], [employer] 06/07/2024 13:45:17 07/30/2024 text/html CRC Nurse Triage Notes (Carole Dee): Reason For Request: night she was bit or stung w/ something now it's red/swollen Chief Complaints: Wound care PMH: COPD/Asthma, Hyperlipidemia, Myocardial Infarction, Cancer, Diabetes Mellitus Type 2, Emphysema Comments: Patient calling in to place a referral, referral taken via Quality Assurance Advisor [phone]. In addition to PMH patient has pancreatic CA, no tx at present. Patient who believes she sustained a bug bite of some sort to her left lower arm. Per patient she is unsure how to describe the size, but to her it is big . She endorses swelling, redness and warmth. Area is painful on palpation, no itchiness. Patient did try to squeeze it yesterday, but nothing came out, no current drainage. Per patient you can see the bite in the redness, she also describes the skin as an porous like an orange peel. She would like to be evaluated. .................... .................... .................... .................... .................... .................... .................... . [employer] Note From Tito Syed: [facility] makes pt contact 79 YO F CC of redness and swelling on the arm believed to be from bug bite.[facility] obtains vitals and machado the area of concern on the pt. [facility] obtains a picture and uploads electronically. PT explains last began with a bump on her arm and swelling but no redness. Since then has gotten worse. Yesterday pt tried to drain the wound and nothing came out. It then became more painful to the touch and began getting red. PT denies any chest pain, SOB, n/v. PT has no other complaints other then the area of question. [facility] contacts [facility] [place] [place] and explains above mentioned. PT has multiple allergies that are confirmed with pt and [facility] [place] [place]. [facility] [place] [place] sends over a prescription of doxycycline which pt is advised to use and treat the cellulitis. PT also instructed to use warm compresses as needed for comfort. [facility] confirms pt pharmacy with [facility] [place] [place]. [facility] explains to pt if she began having a fever, chest pain, sob,n/v that she should be seen the in the ed. Other aguilar continue with instructions and call us back with any concerns. [facility] clear. .................... .................... .................... .................... .................... .................... .................... . [facility] [place] [place] Consulted: Julissa Morales .................... .................... .................... .................... .................... .................... .................... . Disposition: Fulfilled Julissa Morales MD [address] [place] [address],[address], [place], [address], [employer] 07/30/2024 20:56:43 09/17/2024 text/html CRC Nurse Triage Notes (Reina Rodrigez - RN): Chief Complaints: Sore throat, Earache PMH: COPD/Asthma, Hyperlipidemia, Myocardial Infarction, Cancer, Diabetes Mellitus Type 2, Emphysema PMH Reviewed at 09/17/2024 - 12:42 Allergies Reviewed at 09/17/2024 - 12:42 Comments: Member calls in complaining of throat pain- referring to the ear. CRC RN verified identity via name/. Reports pain started Thursday night and she has been taking ibuprofen with some effect. Pain persists. Has had this in the past and needed abx. Denies specific tooth pain or any respiratory symptoms. Education provided on expected response time and the member was advised to monitor reported s/s. Member in agreement to seek emergency treatment if needed. Tay Rodrigez RN .................... .................... .................... .................... .................... .................... .................... . 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 Arrival on scene, patient was found ambulating well throughout home to seated position in kitchen, alert and oriented x4, patent airway, breathing non labored speaking in complete sentences, skin WPD in no obvious distress. +/= Chest rise. -SOB, -CP, -NVD, -Trauma, -Fever. GCS 15. Patient reports that she began to experience left ear pain and left jaw pain close to her ear about 2 days ago, patient reports that the pain is deep in her ear. Patient denies any recent fevers, infections, or trauma. Patient reports that she had same symptoms about a year ago which was diagnosed as a ear infection and treated with antibiotics. Inspection of ear revealed no redness, discharge, or change in temperature. Patient reports no pain upon movement of ear or palpation of surrounding tissue. Patient report she has been taking Ibuprofen for pain management. Patient vital signs obtained as noted. [facility] [place] [place] consulted, advised that patient would need a an ear exam for proper diagnosis of ear infection, advised for patient to follow up PCP if it does not get better. [facility] [place] [place] advised patient to use saline to drain ear and use of Tylenol or Ibuprofen for pain management. Red flags were discussed with patient and advised to call 911 if condition worsened. SC12 clear. .................... .................... .................... .................... .................... .................... .................... . [facility] [place] [place] Consulted: Trisha Chavarria .................... .................... .................... .................... .................... .................... .................... . Disposition: Fulfilled Trisha Chavarria MD [address] [facility],[address] [facility], [place], [address], [employer] 09/17/2024 16:45:56 OBGyn Episode No OBEpisode recorded.
--- OUTSIDE RECORDS SUMMARY | 2024-09-27 11:53 | XMS_ITS | Clinical Summary ---
Author Organization [facility] Address [address] [place] [phone] Phone Care Team Providers Care Spot Machine Operator Name Role Phone Jonatan Cardoso MD Primary Care Provider [phone]- [phone] Allergies Active Allergy Reactions Criticality Noted Date Comments Obhvldovq-Usexkyxmn-Wrfuznytb Other (see comments) 02/01/2021 Amoxicillin-Pot Clavulanate Other [...] age to complete this topic Insurance ([id number]) [place] [address] ([id number]) Care Teams Spot Machine Operator Relationship Specialty Start Date End Date Jonatan Cardoso MD [address] [place] [id number] PCP - General 09/10/20
--- OUTSIDE RECORDS SUMMARY | 2024-09-27 11:53 | XMS_ITS | Continuity of Care Document ---
Author Organization [facility] [place] [facility] Address [address] [place] [phone] Care Team Providers Care Rehabilitation Center Manager Name Role Phone HIM CCA OTHER RUSLAN FUCHS Primary Care Provider Assessment No assessment recorded. Plan of Treatment Reminders Order Date Submit Date Provider Last Modified By Organization Details Last Modified Time Details Appointments None record ed. Lab None record ed. Referral None record ed. Procedures None record ed. Surgeries None record ed. Imaging None record ed. Medication Orders None record ed. Patient TargetsNo targets recorded. Patient InstructionsNo instructions recorded. Reason for Referral None Reported. Medical Equipment None Reported. Allergies Allergen ID Allergen Name Allergen Category Reaction Reaction Severity Criticality Documentation Date Start Date Code Code System Note Provider Name and Address Organization Details Recorded Time 34235 Product containin g penicilli n and antibioti c (product) medicatio n Not available Not available Not available 07/30/2024 37961 05 [facility]ED [facility] 17:[facility]25 32351 Bactrim medicatio n Not available Not available Not available 07/30/2024 63426 9 RxNorm Not Available [facility] - production 4 17:01:25 66160 Levaquin medicatio n Not available Not available Not available 07/30/2024 71031 2 RxNorm Not Available [facility] - production 4 17:01:25 70763 lisinopri l medicatio n Not available Not available Not available 07/30/2024 45303 Rx[facility] Available [facility] 17:01:25 20195 Prevacid medicatio n Not available Not available Not available 07/30/2024 45705 RxNorm Not Available [facility] - production 4 17:01:25 4170 Augmentin medicatio n Not available Not available Not available 08/26/2023 99579 2 RxNorm Not Available [facility] - production 4 17:01:25 Medications Name Sig Start Date [...] Available No t Available Vitals Date Recorded Respiratory rate Heart rate Body temperature Oxygen saturation Oxygen saturation in Arterial blood by Pulse oximetry Systolic blood pressure Diastolic blood pressure Provider Name and Address Organization Details Last Updated DateTime 5 18 /min 74 /min 98 [degF] 98 % 98 % 136 mm[Hg] 82 mm[Hg] Not Available [facility] 5 15:35:23 Social History None recorded. Functional Status None recorded. Mental Status None recorded. Family History Nothing Reported. Medical History No medical history recorded. Gynecological HistoryNo gynecological history recorded. Obstetrics History GPAL:G 0 P 0 0 0 0 Past Encounters Encounter ID Performer Location Encounter Start Date Encounter Closed Date Diagnosis/Indication Diagnosis SNOMED-CT Code Diagnosis ICD10 Code Diagnosis Note [id number] Trisha Chavarria MD Main - [address] [phone] 09/17/2024 15:35:21 09/19/2024 20:50:37 Pain of ear 740567120 H92.09 Evaluation in the field was performed by my police or patrol park officer colleague, as noted above, I provided real-time direction and supervisio n for this visit. 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 Reports hx AOM in that ear requiring abx last year. Denies fevers, otorrhea, trauma, URI sx, tooth complaints , known mastoiditi s. On police or patrol park officer eval VS wnl, exam w/o external erythema [...] by Organization Details LastModified Time None Recorded Payers Encounter Date Sequence Insurance Name Policy Number Policy [place] Covered Member ID [place] Member ID Guarantor Name 09/17/2024 1 [facility] - DOS ON OR AFTER 2022 - DUAL ELIGIBLE - CUSTODIAL OPTIONS AND ONE CARE (MEDICARE REPLACEMENT/ADV ANTAGE - HMO) Meredith Carranza [id number] Meredith Carranza Notes Date Note Type Note Provider Name and Address Organization Details Recorded Time 09/17/2024 text/html CRC Nurse Triage Notes (Reina Rodrigez - JASON): Chief Complaints: Sore throat, Earache PMH: COPD/Asthma, Hyperlipidemia, Myocardial Infarction, Cancer, Diabetes Mellitus Type 2, Emphysema PMH Reviewed at 09/17/2024 - 12:42 Allergies Reviewed at 09/17/2024 - 12:42 Comments: Member calls in complaining of throat pain- referring to the ear. LADONNA RN verified identity via name/. Reports pain [...] emergency treatment if needed. Tay Rodrigez RN .................. .................. .................. .................. .................. .................. .................. ............... 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 Arrival on scene, patient [...] management. Patient vital signs obtained as noted. [facility] consulted, advised that patient would need a an ear exam for proper diagnosis of ear infection, advised for patient to follow up PCP if it does not get better. [facility] advised patient to use saline to drain ear and use of Tylenol or Ibuprofen for pain management. Red flags were discussed with patient and advised to call 911 if condition worsened. SC12 clear. .................. .................. .................. .................. .................. .................. .................. ............... [facility] Consulted: Trisha Chavarria .................. .................. .................. .................. .................. .................. .................. ............... Disposition: Fulfilled Trisha Chavarria MD [address] [facility],[address] [facility], [place], [address], [employer] [facility] 09/17/2024 16:45:56 OBGyn Episode No OBEpisode recorded.
== END 2024-09-27 12:16 | disposition home or self-care (01) ==
PROVIDERS: PCP Internal Medicine; Visit Provider Internal Medicine
DX: E11.69 Type 2 diabetes mellitus with other specified complication (principal); D3A.8 Other benign neuroendocrine tumors; J43.9 Emphysema, unspecified; M79.644 Pain in right finger(s); M79.645 Pain in left finger(s); M79.622 Pain in left upper arm; R68.84 Jaw pain; R22.1 Localized swelling, mass and lump, neck; R32 Unspecified urinary incontinence; I25.10 Atherosclerotic heart disease of native coronary artery without angina pectoris; E78.2 Mixed hyperlipidemia; J30.9 Allergic rhinitis, unspecified

== ENCOUNTER → 2024-09-27 10:47 | Outpatient (BNVA) | payer OTHER, SELFPAY | PROVIDERS: PCP Internal Medicine; Visit Provider Internal Medicine | DX: M79.644 Pain in right finger(s) (principal); M79.645 Pain in left finger(s); M79.622 Pain in left upper arm; R68.84 Jaw pain; R22.1 Localized swelling, mass and lump, neck; R32 Unspecified urinary incontinence; D3A.8 Other benign neuroendocrine tumors; I25.10 Atherosclerotic heart disease of native coronary artery without angina pectoris; E78.2 Mixed hyperlipidemia; E11.9 Type 2 diabetes mellitus without complications; J43.9 Emphysema, unspecified; J30.9 Allergic rhinitis, unspecified; M81.0 Age-related osteoporosis without current pathological fracture; D64.9 Anemia, unspecified; E55.9 Vitamin D deficiency, unspecified; K21.9 Gastro-esophageal reflux disease without esophagitis | CPT/HCPCS: 96127; 99212 ==

== ENCOUNTER 2024-09-28 11:14 | Outpatient (REF) | payer OTHER, SELFPAY ==
--- NOTE | ~2024-09-28 | XR_ITS ---
CLINICAL HISTORY: M79.644 - Pain in right finger(s) 3 view right hand Comparison: None Findings: Bones intact. No dislocations. Joint space narrowing and periarticular osteophyte formation at the radiocarpal, scaphotrapezial, and 1st carpometacarpal joints is present, indicating osteoarthritis. No erosions. No radiopaque foreign body. IMPRESSION: 1. No acute findings This document has been electronically signed by: Nicolás Farley MD on 09/29/2024 15:31:46
--- NOTE | ~2024-09-28 | XR_ITS ---
CLINICAL HISTORY: M79.622 - Pain in left upper arm 2 view left humerus Comparison: None Findings: No fractures or dislocations. No significant arthritic change. No radiopaque foreign body. IMPRESSION: 1. Normal left humerus This document has been electronically signed by: Nicolás Farley MD on 09/29/2024 15:32:00
--- NOTE | ~2024-09-28 | XR_ITS ---
CLINICAL HISTORY: R68.84 - Jaw pain 5 view mandible Comparison: None Findings: Bones are intact. The temporomandibular joints are intact. No sinus fluid. Mastoids are clear. No radiopaque foreign body. IMPRESSION: 1. No acute findings This document has been electronically signed by: Nicolás Farley MD on 09/29/2024 15:31:10
--- NOTE | ~2024-09-28 | XR_ITS ---
CLINICAL HISTORY: M79.644 - Pain in right finger(s) 3 view left hand Comparison: None Findings: Bones intact. No dislocations. No significant arthritic change. No erosions. No radiopaque foreign body. IMPRESSION: 1. No acute findings This document has been electronically signed by: Nicolás Farley MD on 09/29/2024 15:28:32
--- OUTSIDE RECORDS SUMMARY | 2024-09-28 13:30 | XMS_ITS | Clinical Summary ---
Author Organization [facility] Address [address] [place] [phone] Phone Care Team Providers Care Preschool Substitute Teacher Name Role Phone Jonatan Cardoso MD Primary Care Provider [phone]- [phone] Allergies Active Allergy Reactions Criticality Noted Date Comments Qgepkeapg-Shzrtnxgo-Lejavothk Other (see comments) 02/01/2021 Amoxicillin-Pot Clavulanate Other [...] age to complete this topic Insurance ([id number]) [place] [address] ([id number]) Care Teams Preschool Substitute Teacher Relationship Specialty Start Date End Date Jonatan Cardoso MD [address] [place] [id number] PCP - General 09/10/20
--- OUTSIDE RECORDS SUMMARY | 2024-09-28 13:30 | XMS_ITS | Data Portability ---
Author Organization [employer] [facility] [place] - [facility] Address [address] [place] [phone] Care Team Providers Care Kelp Gatherer Name Role Phone HIM CCA OTHER RUSLAN FUCHS Primary Care Provider Assessment Encounter Date Assessment Date Assessment LastModified by Organization Details LastModified Time 05/01/2024 05/01/2024 I provided real -time medical direction via phone for this encounter and was available for additional phone-based assistance as needed. I have reviewed and agree with the Assessment and Plan as documented by the Audit Practice Intern. Patient given the opportunity to ask questions. Our service contacted for an assessment of: cough As per above, patient has had a non-productive cough for approx 2 months. Denies F/C/N/V/CP/CASTRO and SOB. No sick contacts. No OTCs. Also complaining of a sore throat for 2 days. Per yard attendant on the scene, Non-toxic. Stable vitals. No distress. COVID and Flu are negative. For sore throat strep is negative Impression: ? seasonal allergies. Differential diagnosis is broad however yard attendant assessment and limited data are reassuring. Plan: Trial of horw-vlp-dtcysp r medications and then follow-up with PCP [...] specimen 2023 024 [email or web address], [address] [place] [address], [phone], 4 15:29:05 rapid flu (A+B) 2023 024 [email or web address], [address] [place] [address], [phone], 4 15:29:04 rapid strep group A, throat 2023 024 [place] [address] [facility], [address] [place] [address], [phone], 4 21:51:25 rapid SARS CoV 2 Ag, QL IA, respiratory specimen 2023 024 [place] [address] [facility], [address] [place] [address], [phone], 4 21:51:26 rapid flu (A+B) 2023 024 [place] [address] [facility], [address] [place] [address], [phone], 4 21:51:27 Referral None recorded. Procedures None recorded. Surgeries None recorded. Imaging None recorded. Medication Orders [facility] 10 mg tablet 2023 [id number] [address] [place], [place], [id number], 4 15:35:13 Tylenol Extra Strength 500 mg tablet 2023 024 [facility] #[id number], [address] [place], [place], [id number], 4 12:54:58 doxycycline monohydrate 100 mg tablet 2023 [facility] #[id number], [address], [place], [id number], 20:13:29 Patient TargetsNo targets recorded. Patient InstructionsNo instructions recorded. Reason for Referral None Reported. Results Created Date Observation Date Name Description Value Unit Range Abnormal Flag Note LastModifiedBy Organization Detail LastModifiedTime 04/16/20 24 04/16/2024 rapid flu (A+B) Flu negati ve Not Available [facility] ed [address] [place] [address], [phone], 04/16/2024 15:28:36 04/16/20 24 04/16/2024 rapid SARS CoV 2 Ag, QL IA, respi rator y speci men rapid SARS CoV 2 Ag, QL IA, respiratory specimen negati ve Not Available [facility] ed [address] [place] [address], [address], 04/16/2024 15:28:33 05/01/20 24 05/01/2024 rapid strep group A, throa t Strep negati ve Not Available [facility] ed [address] [place] [address], [address], 05/01/2024 21:51:02 05/01/20 24 05/01/2024 rapid flu (A+B) Flu negati ve Not Available [facility] ed [address] [place] [address], [address], 05/01/2024 21:50:52 05/01/20 24 05/01/2024 rapid SARS CoV 2 Ag, QL IA, respi rator y speci men rapid SARS CoV 2 Ag, QL IA, respiratory specimen negati ve Not Available [facility] ed [address] [place] [address], [address], 05/01/2024 21:50:50 Result Notes None recorded. Medical Equipment None Reported. Allergies Allergen ID Allergen Name Allergen Category Reaction Reaction Severity Criticality Documentation Date Start Date Code Code System Note Provider Name and Address Organization Details Recorded Time 73555 Product containin g penicilli n and antibioti c (product) medicatio n Not available Not available Not available 07/30/2024 34285 05 SNOMED Not Available [facility] - production 4 17:01:25 58839 Bactrim medicatio n Not available Not available Not available 07/30/2024 17328 9 RxNorm Not Available [facility] 4 17:01:25 37028 Levaquin medicatio n Not available Not available Not available 07/30/2024 75891 2 RxNorm Not Available [facility] 4 17:01:25 76357 lisinopri l medicatio n Not available Not available Not available 07/30/2024 05093 RxNorm Not Available [facility] 4 17:01:25 53575 Prevacid medicatio n Not available Not available Not available 07/30/2024 63355 RxNorm Not Available [facility] 4 17:01:25 4170 Augmentin medicatio n Not available Not available Not available 08/26/2023 55676 2 RxNorm Not Available [facility] 4 17:01:25 Medications Name Sig Start Date [...] /min 147 mm[Hg] 72 mm[Hg] Not Available [employer] [facility] 4 18:56:20 Date Recorded Body temperature Body weight Body height Respiratory rate Heart rate Oxygen saturation Oxygen saturation in Arterial blood by Pulse oximetry Systolic blood pressure Diastolic blood pressure Provider Name and Address Organization Details Last Updated DateTime 4 98 [degF] 90034.4 16 g 160.02 cm 18 /min 78 /min 96 % 96 % 126 mm[Hg] 68 mm[Hg] Not Available [employer] [facility] 4 12:40:12 Date Recorded Body height Heart rate Respiratory rate Oxygen saturation Oxygen saturation in Arterial blood by Pulse oximetry Body weight Body temperature Systolic blood pressure Diastolic blood pressure Provider Name and Address Organization Details Last Updated DateTime 4 160.02 cm 87 /min 16 /min 99 % 99 % 79694.2 48 g 98 [degF] 149 mm[Hg] 73 mm[Hg] Not Available [facility] 4 20:08:07 Date Recorded Respiratory rate Heart rate Body temperature Oxygen saturation Oxygen saturation in Arterial blood by Pulse oximetry Systolic blood pressure Diastolic blood pressure Provider Name and Address Organization Details Last Updated DateTime 5 18 /min 74 /min 98 [degF] 98 % 98 % 136 mm[Hg] 82 mm[Hg] Not Available [facility] 5 15:35:23 Social History None recorded. Functional [...] [id number] Tito Carmen MD [facility] [address] [place] [phone] 08/28/2022 11:08:27 09/02/2022 14:48:59 COVID-19 [id number] U07.1 [id number] Alfredo Ridley MD [facility] [address] [place] [phone] 04/13/2023 22:21:11 07/13/2023 14:48:59 Acute rhinosinusitis [id number] J00 [id number] KJ SALDANA MD [facility] [address] [place] [address] 08/13/2023 17:34:54 08/14/2023 10:22:37 Pain of left hand [id number] 02344 M79.642 07885 Judy Metzger MD [facility] [address] [place] [address] 08/26/2023 14:01:38 08/27/2023 09:33:05 Acute pharyngitis [id number] J02.9 35540 Efraín Zamora MD [facility] [address] [place] [phone] 08/27/2023 15:59:10 08/28/2023 13:09:36 Acute upper respiratory infection [id number] J06.9 Patient presents with two days of [...] the allergies) .Plan: supportive care, maintain hydration [id number] Judy Metzger MD [facility] [address] [place] [phone] 09/01/2023 15:31:56 09/02/2023 14:23:41 Upper respiratory infection [id number] J06.9 [id number] Trisha Chavarria MD [facility] [address] [place] [phone] 09/25/2023 18:05:35 09/27/2023 15:07:12 Viral upper respiratory tract infection [id number] J06.9 Evaluation in the field was performed by my yard attendant colleague, as noted above, I provided real-time [...] shortness of breath, cough, chest pain, fever. [id number] Cisco Beaulieu MD [facility] [address] [place] [phone] 01/16/2024 12:22:38 01/18/2024 11:13:21 Dizziness [id number] R42 Dizziness for two days; constant, difficulty walking. VItals stable and EKG with no st-t wave changes, BMP and H/H performed. Given persistenc e of symptoms over 2 days and inability to ambulate without distress/i mbalance, will send to ED for further evaluation and likely CT of head. Patient in agreement. [id number] Trisha Chavarria MD [facility] [address] [place] [phone] 04/16/2024 15:18:28 04/16/2024 18:57:15 Chronic cough 56696914 R05.3 Evaluation in the field was performed by my yard attendant colleague, as noted above, I provided real-time direction and supervisio n for this visit. 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 Today has sternal chest pain iso cough, now resolved, denies nausea, radiation of pain, dyspnea, other new sx. Denies fevers, hemoptysis . Has not tried allergy tx. Takes inhalers w/o improvemen t. On yard attendant eval VS wnl, lungs CTA b/l. POC [...] shortness of breath, cough, chest pain, fever. [id number] Judy Metzger MD [facility] [address] [place] [phone] 05/01/2024 18:56:18 05/03/2024 00:05:49 Cough 68152861 R05.9 Pain in throat [id number] R07.0 [id number] Fabiola Cameron MD [facility] [address] [place] [address] 06/07/2024 12:39:53 06/07/2024 23:32:21 Viral upper respiratory tract infection [id number] J06.9 79 year old female being evaluated [...] Script for tylenol sent to patient's pharmacy. [id number] Julissa Morales MD [facility] [address] [place] [phone] 07/30/2024 20:07:59 07/30/2024 21:21:18 Cellulitis [id number] L03.90 As noted, we were called to see this patient regarding concerns of arm redness. Evaluation in the field was performed by my yard attendant colleague, as noted above, I provided real-time [...] changes to consciousn ess, chest pain, dyspnea. 57113 Trisha Chavarria MD Main - [address] [phone] 09/17/2024 15:35:21 09/19/2024 20:50:37 Pain of ear 769396870 H92.09 Evaluation in the field was performed by my yard attendant colleague, as noted above, I provided real-time direction and supervisio n for this visit. 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 Reports hx AOM in that ear requiring abx last year. Denies fevers, otorrhea, trauma, URI sx, tooth complaints , known mastoiditi s. On yard attendant eval VS wnl, exam w/o external erythema [...] [place] Member ID Guarantor Name 04/16/2024 1 [facility] - DOS ON OR AFTER 2022 - DUAL ELIGIBLE - HALF-WAY OPTIONS AND ONE CARE (MEDICARE REPLACEMENT/ADV ANTAGE - HMO) Meredith Carranza [id number] Meredith Carranza 05/01/2024 1 [facility] - DOS ON OR AFTER 2022 - DUAL ELIGIBLE - HALF-WAY OPTIONS AND ONE CARE (MEDICARE REPLACEMENT/ADV ANTAGE - HMO) Meredith Carranza [id number] Meredithrajni Beniteza 06/07/2024 1 [facility] - DOS ON OR AFTER 2022 - DUAL ELIGIBLE - HALF-WAY OPTIONS AND ONE CARE (MEDICARE REPLACEMENT/ADV ANTAGE - HMO) Meredith Carranza [id number] Meredithrajni Sánchezcea 07/30/2024 1 [facility] - DOS ON OR AFTER 2022 - DUAL ELIGIBLE - HALF-WAY OPTIONS AND ONE CARE (MEDICARE REPLACEMENT/ADV ANTAGE - HMO) Meredith Carranza [id number] Meredithrajni Beniteza 09/17/2024 1 [facility] - DOS ON OR AFTER 2022 - DUAL ELIGIBLE - HALF-WAY OPTIONS AND ONE CARE (MEDICARE REPLACEMENT/ADV ANTAGE - HMO) Meredith Carranza [id number] Meredithrajni Sánchezcea Notes Date Note Type Note Provider Name and Address Organization Details Recorded Time 04/16/2024 text/html CRC Nurse Triage Notes (Noni Mora): Reason For Request: Patient has a Cough, and chest pain. Not the heart attack type pain , more like Bone pain in her. Chief Complaints: Cough PMH: Diabetes, COPD/Asthma Other Allergies: Augmentin Comments: Allergies: Augment, Unknown Silk Finisher verified the member's name//address and phone number. [...] s/s and seek emergency treatment if needed. Audit Practice Intern Organization Information for Melania Manzo ADDISON Business Legal Name: [employer].? Address: [address] [place] [address], [place] [address], Survey Director: Aayush BARBOSA No.: [id number] Audit Practice Intern POC Test Results from Melania Manzo Rapid COVID antigen (15:44:14) COVID: - Rapid strep test (15:44:15) Strep: - .................... .................... .................... .................... .................... .................... .................... . Audit Practice Intern Note From Melania Manzo: Dispatched for the [...] sounds clear present and equal upon auscultation. [facility] contacted and writes a prescription of Loratidine once a day for suspected post nasal drip and advises pt to follow up with PCP for further evaluation. Pt advised of all red flags. End of report. .................... .................... .................... .................... .................... .................... .................... . Disposition: Fulfilled Trisha Chavarria MD [address] [facility],[address], [place], [phone], [facility] - [employer] [facility] 04/16/2024 15:54:41 05/01/2024 text/html CRC Nurse Triage Notes (Ron Davidson): Reason For Request: Pt reporting throat pain and right tonsil pain>states severe cough>was seen by [facility] 1 month ago for severe cough and that prescribed medication has not helped Lortadine> Chief Complaints: Pain, ENT PMH: Diabetes, COPD/Asthma Allergies: Unknown Comments: Silk Finisher verified the member's name//address and phone number. Mbr reports on going cough for over a month, mbr was seen by [facility] and prescribed loratadine but reports it has [...] emergency treatment if needed -Micaela Davidson RN Audit Practice Intern Organization Information for Alejandro Martinez Business Legal Name: [facility] Address: [address] [place] [address], [place] [address], Survey Director: Chung Schmidt MD CLIA No.: [id number] Audit Practice Intern POC Test Results from Alejandro Martinez Rapid COVID antigen (18:39:06) COVID: - Rapid influenza antigen (18:39:07) Flu: - Rapid strep test (18:39:08) Strep: - .................... .................... .................... .................... .................... .................... .................... . Audit Practice Intern Note From Alejandro Martinez: Pt reports intermittent dry cough for ? o ekaternia two months? and sore throat for two [...] .................... .................... .................... .................... . Disposition: Fulfilled Jduy Metzger MD [address] [facility],[address], [place], [address], MONICA MAHAJAN 05/01/2024 21:53:32 06/07/2024 text/html CRC Nurse Triage Notes (Shwetha Fuentes): Reason For Request: Patient has been sick since thursday, sore throat, wants a covid test. Chief Complaints: Cough PMH: Diabetes, COPD/Asthma Other Allergies: A lot of antibiotics - Member unable to remember the names of her allergies. Comments: Silk Finisher verified the member's name//address and phone number. core sucker used.Member reports sick since Thursday, 06/05. +Cough, sore throat, congestion. Denies Fevers/SOB/CP. Requesting COVID/Flu test. Recently around sick contacts.Pt speaking in full sentences, mentating well.Unable to fully triage patient as she had a doctors appointment over the phone and had to go. Education provided on the response time and the member was advised to monitor reported s/s and seek emergency treatment if needed. Audit Practice Intern Organization Information for Terrie Hall Business Legal Name: [employer]? Address: [address] [place] [address], Survey Director: Aayush Elder MD CLIA No.: [id number] Audit Practice Intern POC Test Results from Terrie Hall Rapid influenza antigen (12:30:19) Flu: - Rapid COVID antigen (12:30:20) COVID: - .................... .................... .................... .................... .................... .................... .................... . Audit Practice Intern Note From Terrie Hall: Sent to a [...] covid test: neg; Rapid flu test; neg; [facility] consulted and sends script to pt's pharmacy for Tylenol. Red flags discussed. Pt has no further questions. Audit Practice Intern Allergies: Trimethoprim-Sulfame thoxazole .................... .................... .................... .................... .................... .................... .................... . Disposition: Fulfilled Fabiola Cameron MD [address] [place] [address],[address], [place], [address], [employer] 06/07/2024 13:45:17 07/30/2024 text/html CRC Nurse Triage Notes (Carole Dee): Reason For Request: night she was bit or stung w/ something now it's red/swollen Chief Complaints: Wound care PMH: COPD/Asthma, Hyperlipidemia, Myocardial Infarction, Cancer, Diabetes Mellitus Type 2, Emphysema Comments: Patient calling in to place a referral, referral taken via Aircraft Load Controller [id number]. In addition to PMH patient has pancreatic [...] .................... .................... .................... .................... .................... .................... . Audit Practice Intern Note From Tito Syed: [facility] makes pt contact 79 YO F CC of redness and swelling on the arm believed to be from bug bite.[facility] obtains vitals and machado the area of concern on the pt. [facility] obtains a picture and uploads electronically. PT [...] complaints other then the area of question. [facility] contacts [facility] and explains above mentioned. PT has multiple allergies that are confirmed with pt and [facility]. [facility] sends over a prescription of doxycycline which pt is advised to use and treat the cellulitis. PT also instructed to use warm compresses as needed for comfort. [facility] confirms pt pharmacy with [facility]. [facility] explains to pt if she began having a fever, chest pain, sob,n/v that she should be seen the in the ed. Other aguilar continue with instructions and call us back with any concerns. [facility] clear. .................... .................... .................... .................... .................... .................... .................... . [facility] Consulted: Julissa Morales .................... .................... .................... .................... .................... .................... .................... . Disposition: Fulfilled Julissa Morales MD [address] [place] [address],[address], [place], [phone], [employer] 07/30/2024 20:56:43 09/17/2024 text/html CRC Nurse Triage [...] .................... .................... .................... .................... .................... .................... . Audit Practice Intern Note From Mohamud, Felix: SC12 dispatched to the address listed above for the report of a female constitution party with ear pain. Arrival on scene, patient [...] management. Patient vital signs obtained as noted. [facility] consulted, advised that patient would need a an ear exam for proper diagnosis of ear infection, advised for patient to follow up PCP if it does not get better. [facility] advised patient to use saline to drain ear and use of Tylenol or Ibuprofen for pain management. Red flags were discussed with patient and advised to call 911 if condition worsened. SC12 clear. .................... .................... .................... .................... .................... .................... .................... . [facility] Consulted: Trisha Chavarria .................... .................... .................... .................... .................... .................... .................... . Disposition: Fulfilled Trisha Chavarria MD [address] [facility],[address] [facility], [place], [address], [employer] 09/17/2024 16:45:56 OBGyn Episode No OBEpisode recorded.
--- OUTSIDE RECORDS SUMMARY | 2024-09-28 13:30 | XMS_ITS | Continuity of Care Document ---
Author Organization [facility] [place] [facility] Address [address] [place] [phone] Care Team Providers Care Child Nutrition Director Name Role Phone HIM CCA OTHER RUSLAN [...] Name and Address Organization Details Recorded Time 28162 Product containin g penicilli n and antibioti c (product) medicatio n Not available Not available Not available 07/30/2024 70949 05 SNOMED [facility] Available [facility] 4 17:01:25 24600 Bactrim medicatio n Not available Not available Not available 07/30/2024 48141 9 RxNorm Not Available [facility] - production 4 17:01:25 78976 Levaquin medicatio n Not available Not available Not available 07/30/2024 10257 2 RxNorm Not Available [facility] - production 4 17:01:25 18501 lisinopri l medicatio n Not available Not available Not available 07/30/2024 69795 RxNorm [facility] Available [facility] 4 17:01:25 70266 Prevacid medicatio n Not available Not available Not available 07/30/2024 95311 RxNorm Not Available [facility] - production 4 17:01:25 4170 Augmentin medicatio n Not available Not available Not available 08/26/2023 80968 2 RxNorm Not Available [facility] - production [...] SNOMED-CT Code Diagnosis ICD10 Code Diagnosis Note [id number] Trisha Chavarria MD Main - [address] [phone] 09/17/2024 15:35:21 09/19/2024 20:50:37 Pain of ear [id number] H92.09 Evaluation in the field was performed by my job printer colleague, as noted above, I provided real-time direction and supervisio n for this visit. 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 Reports hx AOM in that ear requiring abx last year. Denies fevers, otorrhea, trauma, URI sx, tooth complaints , known mastoiditi s. On job printer eval VS wnl, exam w/o external erythema [...] [place] Member ID Guarantor Name 09/17/2024 1 [facility] - DOS ON OR AFTER 2022 - DUAL ELIGIBLE - [employer] OPTIONS AND ONE CARE (MEDICARE REPLACEMENT/ADV ANTAGE - HMO) Meredith Carranza [id number] Meredith Carranza Notes Date Note Type Note [...] .................. .................. .................. .................. .................. .................. ............... Clinic Office Manager Note From Felix Mallory: SC12 dispatched to [...] management. Patient vital signs obtained as noted. [facility] consulted, advised that patient would need a an ear exam for proper diagnosis of ear infection, advised for patient to follow up PCP if it does not get better. [facility] advised patient to use saline to drain ear and use of Tylenol or Ibuprofen for pain management. Red flags were discussed with patient and advised to call 911 if condition worsened. SC12 clear. .................. .................. .................. .................. .................. .................. .................. ............... [facility] Consulted: Trisha Chavarria .................. .................. .................. .................. .................. .................. .................. ............... Disposition: Fulfilled Trisha Chavarria MD [address] [facility],[address] [facility], [place], [address], [employer] [facility] 09/17/2024 16:45:56 OBGyn Episode No OBEpisode recorded.
== END 2024-09-28 11:15 | disposition home or self-care (01) ==
LOC: HO.XRAY 11:14
PROVIDERS: Visit Provider Internal Medicine
DX: M79.622 Pain in left upper arm (principal); M79.644 Pain in right finger(s); M79.645 Pain in left finger(s); R68.84 Jaw pain
CPT/HCPCS: 70110; 73060; 73130

== ENCOUNTER → 2024-09-28 11:19 | Outpatient (BNV) | payer OTHER, SELFPAY | PROVIDERS: Visit Provider Radiology Diagnostic Radiology | DX: M79.622 Pain in left upper arm (principal); R68.84 Jaw pain; M79.644 Pain in right finger(s); M79.645 Pain in left finger(s) | CPT/HCPCS: 70110; 73060; 73130 ==

== ENCOUNTER 2024-10-10 14:07 | Outpatient (REF) | payer OTHER, SELFPAY | END 2024-10-10 14:08 | disposition home or self-care (01) | LOC: HO.US 14:07 | PROVIDERS: PCP Internal Medicine; Visit Provider Internal Medicine | DX: R22.1 Localized swelling, mass and lump, neck (principal) | CPT/HCPCS: 76536 ==

== ENCOUNTER → 2024-10-10 14:09 | Outpatient (BNV) | payer OTHER, SELFPAY | PROVIDERS: PCP Internal Medicine; Visit Provider Radiology Diagnostic Radiology | DX: R22.1 Localized swelling, mass and lump, neck (principal) | CPT/HCPCS: 76536 ==

== ENCOUNTER 2024-10-26 10:33 | Outpatient (AMB) | payer OTHER, SELFPAY ==
[2024-10-26 10:37] VITALS: BP 170/84; PULSE 72; BMI 26.9
--- NOTE | 2024-10-26 10:37 | MHC.OFFVIS ---
Vital Signs 10/26/24 10:37 Height 5 ft 3 in Weight 152 lb 1.903 oz BMI 26.9 BP 170/84 H Blood Pressure Location Lt brachial Position Sitting Pulse 72 Intake Visit Reasons: 6 mth f/up Fruit And Vegetable Inspector Required: Yes Fruit And Vegetable Inspector Services: Fruit And Vegetable Inspector Present Fruit And Vegetable Inspector Name: Silvestre [id number] Accompanied by: Daughter Allergies clarithromycin [From PREVPAC] Allergy (Mild, Verified 09/27/24 11:44) hives lansoprazole [From PREVPAC] Allergy (Mild, Verified 09/27/24 11:44) hives lisinopril [LISINOPRIL] Allergy (Mild, Verified 09/27/24 11:44) COUGHING, cough, cough amoxicillin [AMOXICILLIN] Allergy (Unknown, Verified 09/27/24 11:44) RASH cephalexin Allergy (Unknown, Verified 09/27/24 11:44) rash clavulanic acid [Augmentin] Allergy (Unknown, Verified 09/27/24 11:44) rash duloxetine [Cymbalta] Allergy (Unknown, Verified 09/27/24 11:44) weight gain, increase appetite levofloxacin [From LEVAQUIN] Allergy (Unknown, Verified 09/27/24 11:44) RASH linaclotide [Linzess] Allergy (Unknown, Verified 09/27/24 11:44) nausea penicillin V Allergy (Unknown, Verified 09/27/24 11:44) rash Penicillins [PENICILLINS] Allergy (Unknown, Verified 09/27/24 11:44) RASH Sulfa (Sulfonamide Antibiotics) Allergy (Unknown, Verified 09/27/24 11:44) rash tramadol Allergy (Unknown, Verified 09/27/24 11:44) pruritus triamcinolone [Kenalog] Allergy (Unknown, Verified 09/27/24 11:44) Unknown meclizine Adverse Reaction (Intermediate, Verified 09/27/24 11:44) fatigue, somnolence prednisone [Prednisone] Adverse Reaction (Mild, Verified 09/27/24 11:44) YEAST INFECTION cetirizine Adverse Reaction (Unknown, Verified 09/27/24 11:44) dizziness? Medication List - Last Reconciled 10/26/24 by Vernon Plata MD albuterol sulfate 90 mcg/actuation 2 puffs PO Q6H PRN alprazolam 0.25 mg PO BID PRN aspirin 81 mg PO DAILY [BLADDER PADS As directed] blood pressure monitor As directed blood sugar diagnostic (FreeStyle Lite Strips) As directed once a day blood-glucose meter (FreeStyle Lite Meter kit) daily budesonide 32 mcg/actuation 1 spray intranasal DAILY PRN gabapentin 100 mg PO DAILY PRN 90 days [HANDHELD SHOWER HEAD As directed] loratadine (Allergy Relief (loratadine)) 10 mg PO DAILY PRN 90 days metformin 1,000 mg PO QPM 90 days nitroglycerin 0.4 mg sublingual Q5M PRN olopatadine 0.1% 1 drp ophthalmic (eye) BID PRN 30 days omeprazole 20 mg PO DAILY 90 days Prozac (fluoxetine) 10 mg PO DAILY 30 days NS rosuvastatin 40 mg PO DAILY 90 days [SHOWER CHAIR As directed] umeclidinium-vilanterol 62.5-25 mcg/actuation (Anoro Ellipta) 1 inh inhalation DAILY 30 days HPI Comments Details: Meredith returns for follow-up regarding coronary disease. To recall, she was admitted in [address] elevation myocardial infarction. At that time, received LAD stenting. One further cardiac catheterization in 2019 for chest pain. Additional stent in mid LAD. Since had complained of shortness of breath leading to pulmonary evaluation. Pulmonary function testing had shown obstructive airway disease with complete reversibility suggesting asthma. History of smoking in the past but nothing recently. Overall, no specific cardiac symptoms. Generalized tiredness and this has been going on for a long time. [facility] Medical History Allergic rhinitis Vaginal discharge Rash Left low back pain Dizziness Osteoporosis Hypercalcemia GERD without esophagitis Constipation Lumbar degenerative disc disease Overweight (BMI 25.0-29.9) Vitamin D deficiency Mixed hyperlipidemia Atherosclerotic cardiovascular disease Pulmonary emphysema Diabetes mellitus Vertigo Degenerative lumbar disc Irritable bowel syndrome Fibromyalgia Borderline diabetes Hypercholesteremia Asthma Chronic headache Anxiety Surgical History History of biopsy History of loop electrical excision procedure (LEEP) H/O heart artery stent Hx of colonoscopy H/O angioplasty H/O Spinal surgery Hx of tubal ligation Family History Father No problems noted. Mother Depression S/P CABG x 4 Diabetes Hypertension Sister Poor high blood pressure control Cervical cancer Breast cancer Social History (Updated 10/26/24 @ 10:41 by Giselle Martins [facility]) Household Members: None Housing: Apartment Alcohol intake: former Patient Tobacco Use Status: Former Tobacco user e-Cigarette/Vaping Use: Never Used Second Hand Smoke Exposure: No service: No Current occupational status: retired and disabled Cognitive needs: No Hearing needs: No Vision needs: Yes (glasses) Female Reproductive History Menstrual Age of Menarche: 13 Review of Systems Const Denies chills, Denies fatigue, Denies fever(s), Denies weight gain and Denies weight loss ENT Denies dizziness Card Denies chest pain, Denies leg edema, Denies lightheadedness, Denies palpitations, Reports dyspnea on exertion, Denies orthopnea and Denies other Resp Denies cough and Reports dyspnea on exertion GI Denies hematochezia and Denies change in stool character Musc Denies abnormal gait, Denies muscle weakness, Denies numbness, Denies radiating pain into limb and Denies tingling Neuro Denies abnormal gait, Denies dizziness, Denies numbness and Denies tingling Endo Denies fatigue and Denies palpitations Physical Exam Vital Signs: Last Vital Signs Pulse 72 10/26/24 10:37 BP 170/84 H 10/26/24 10:37 BMI result Body Mass Index 26.9 Const General: comfortable and no acute distress Orientation/consciousness: patient oriented x3 HEENT Other: Unremarkable Head: Yes normal to inspection Neck Neck: Yes normal visual inspection Chest Chest palpation & inspection: normal inspection of the chest Resp Auscultation: clear to auscultation bilaterally Cardio Palpation: normal PMI Heart sounds: S1 normal heart sound present, S2 normal heart sound present, no gallops, no murmurs and no rubs GI Palpation (GI): Soft to palpation Back/Spine/Pelvis Other: unremarkable Skin General skin exam: no rashes or lesions noted Neuro General: patient oriented x3 Extrem General: Yes normal to inspection Psych Mental Status: mental status grossly normal Office Procedures EKG Details: EKG with underlying sinus rhythm at 72/Min; no significant ST-T changes and otherwise unremarkable. [place] [address]-Gbeidhnwbnjoafyqv, Complete Assessment & Plan Assessment & Plan (1) Atherosclerotic cardiovascular disease: Code(s): I25.10 - Atherosclerotic heart disease of [place] coronary artery without angina pectoris Category: Medical (2) Primary hypertension: Code(s): I10 - Essential (primary) hypertension Category: Medical Plan Cardiac data reviewed. Echocardiogram from 2020 with LVEF of 60-65%. Mild aortic valve calcification. Mild tricuspid regurgitation otherwise unremarkable. Cardiac catheterization from 2019-mid LAD distal 90% stenosis status post stenting; distal circumflex 90% stenosis, not intervened; no significant disease in right coronary artery. Overall, she has got stable coronary disease and no angina. She may continue aspirin, statins. Has been on beta-blockers in the past but stopped after the tiredness/fatigue symptoms started. LDL 66mg/dl. Otherwise, in the absence of angina, conservative care. With regard to blood pressure, seems elevated. Start amlodipine 2.5 mg daily. Monitor home BPs. Discussed with family who came for appointment. Medications: New amlodipine 2.5 mg PO DAILY 90 tabs 3RF Refilled nitroglycerin do not exceed 3 doses per episode 0.4 mg sublingual Q5M PRN 30 tabs 5RF chest pain R07.2 - Precordial pain Coding Level of Care Code Est Pt Level 4 (64214) Complex EM visit Add On G2211 Diagnoses Atherosclerotic cardiovascular disease I25.10 Primary hypertension I10 CPT Codes EKG - CPT: 60167-Qgjmsiypuzrzzcdee, Complete ([id number])
--- OUTSIDE RECORDS SUMMARY | 2024-10-26 12:59 | XMS_ITS | Clinical Summary ---
Author Organization [facility] Address [address] [place] [address] [place] [phone] Phone Care Team Providers Care Novelty Worker Name Role Phone Jonatan Cardoso MD Primary Care Provider [phone]- [phone] Allergies Active Allergy Reactions Criticality Noted Date Comments Gtevhpyjj-Zcvouzfwh-Nzjtgwemq Other (see comments) 02/01/2021 Amoxicillin-Pot Clavulanate Other [...] age to complete this topic Insurance ([id number]) [place] [address] ([id number]) Care Teams Novelty Worker Relationship Specialty Start Date End Date Jonatan Cardoso MD [address] [place] [id number] PCP - General 09/10/20
--- OUTSIDE RECORDS SUMMARY | 2024-10-26 12:59 | XMS_ITS | Continuity of Care Document ---
Author Organization [facility] Somoto Maud, [place] in - [facility] Address [address] [place] [phone] Care Team Providers Care Soap Drier Tender Name Role Phone HIM CCA OTHER RUSLAN FUCHS Primary Care Provider Assessment Encounter Date Assessment Date Assessment LastModified by Organization Details LastModified Time 10/24/2024 10/24/2024 79 yo F with few days of rhinorrhea, dry cough. No F/C, SOB, CP. No N/V/D/C, abd pain. VS wnl. Exam benign. Pt with viral URI, declines rx or OTC therapies and prefers to manage sxs with honey and abdiel. Precautions reviewed. [email or web address] Not available 10/24/2024 16:40:04 Plan of Treatment Reminders Order Date Submit Date Provider Last Modified By Organization Details Last Modified Time Details Appointments None recorded. Lab rapid SARS CoV 2 Ag, QL IA, respiratory specimen 2024 025 [email or web address], [phone], 5 16:40:09 rapid flu (A+B) 2024 [email or web address] [place] [address], [phone], 5 16:40:09 Referral None recorded. Procedures None recorded. Surgeries None recorded. Imaging None recorded. Medication Orders None recorded. Patient TargetsNo targets recorded. Patient InstructionsNo instructions recorded. Reason for Referral None Reported. Results Created Date Observation Date Name Description Value Unit Range Abnormal Flag Note LastModifiedBy Organization Detail LastModifiedTime 10/24/1910/24/2024 rapid flu (A+B) Flu negati ve Not Available [facility] [address] [place], [phone], 10/24/2024 16:38:31 10/24/19 25 10/24/2024 rapid SARS CoV 2 Ag, QL IA, respi rator y speci men rapid SARS CoV 2 Ag, QL IA, respiratory specimen negati ve Not Available [facility] [address] [place], [address], 10/24/2024 16:38:28 Result Notes None recorded. Medical Equipment None Reported. Allergies Allergen ID Allergen Name Allergen Category Reaction Reaction Severity Criticality Documentation Date Start Date Code Code System Note Provider Name and Address Organization Details Recorded Time 24740 Product containin g penicilli n (product) medicatio n Not available Not available Not available 07/30/2024 84233 8001 SNOMED [facility] 17:[facility]25 22119 Bactrim medicatio n Not available Not available Not available 07/30/2024 88440 9 RxNorm Not Available [facility] - production 4 17:01:25 87550 Levaquin medicatio n Not available Not available Not available 07/30/2024 00510 2 RxNorm [facility] 17:01:25 44255 lisinopri l medicatio n Not available Not available Not available 07/30/2024 85473 RxNorm Not Available [facility] 17:01:25 52475 Prevacid medicatio n Not available Not available Not available 07/30/2024 65309 RxNorm Not Available [facility] 17:01:25 4170 Augmentin medicatio n Not available Not available Not available 08/26/2023 77679 2 RxNorm Not Available [facility] 17:01:25 Medications Name Sig [...] Available No t Available Vitals Date Recorded Heart rate Respiratory rate Oxygen saturation Oxygen saturation in Arterial blood by Pulse oximetry Body temperature Systolic blood pressure Diastolic blood pressure Provider Name and Address Organization Details Last Updated DateTime 5 68 /min 14 /min 98 % 98 % 97.5 [degF] 143 mm[Hg] 71 mm[Hg] Not Available [facility] - production 5 16:37:14 Social History None recorded. Functional Status None recorded. Mental Status None recorded. Family History Nothing Reported. Medical History No medical history recorded. Gynecological HistoryNo gynecological history recorded. Obstetrics History GPAL:G 0 P 0 0 0 0 Past Encounters Encounter ID Performer Location Encounter Start Date Encounter Closed Date Diagnosis/Indication Diagnosis SNOMED-CT Code Diagnosis ICD10 Code Diagnosis Note [id number] MISTY GARZA MD Main - [address] [phone] 10/24/2024 16:37:12 10/24/2024 17:23:10 Viral upper respiratory tract infection [id number] J06.9 Health Concerns Section Related Observation LastModified by Organization Detai ls LastModified Time None Recorded Concern Status LastModified by Organization Details LastModified Time None Recorded Payers Encounter Date Sequence Insurance Name Policy Number Policy [place] Covered Member ID [place] Member ID Guarantor Name 10/24/2024 1 [facility] - DOS ON OR AFTER 2022 - DUAL ELIGIBLE - LONG TERM OPTIONS AND ONE CARE (MEDICARE REPLACEMENT/ADV ANTAGE - HMO) Meredith Carranza [id number] Meredith Carranza Notes Date Note Type Note Provider Name and Address Organization Details Recorded Time 10/24/2024 text/html [facility] Nurse Triage Notes (Carole Dee - RN): Reason For Request: pt has had cold symptoms since past thursday and worsens by the day Chief Complaints: Common cold symptoms PMH: COPD/Asthma, Hyperlipidemia, Myocardial Infarction, Cancer, Diabetes Mellitus Type 2, Emphysema PMH Reviewed at 10/24/2024 - 13:35 Allergies Reviewed at 10/24/2024 - 13:35 Comments: Referral taken Accounting Consultant. Patient calling in to place a referral, identified via name and . Patient with cold symptoms since Thursday. Patient with a congested nonproductive cough, chest congestion, runny nose, ear and nose pressure. She denies chest pain, no shortness of breath, no fever/chills, no dizziness, chronic headaches, but not worse than usual, no nausea, vomiting or diarrhea. Patient does not wear home o2, she has been using an albuterol inhaler with could relief. She has not taken any OTC medications as it interacts with her heart. She would like to be evaluated. Tower Erector Organization Information for Alejandro Martinez Rony ADDISON [employer] Legal Name: [facility] Address: [address] [place] [address], [place] [address], Sign Letterer: Chung Schmidt MD CLIA No.: [id number] Tower Erector POC Test Results from Alejandro Martinez Rapid COVID antigen (16:27:24) COVID: - Rapid influenza antigen (16:27:24) Flu: - .................... .................... .................... .................... .................... .................... .................... . Tower Erector Note From Alejandro Martinez: This 79-year-old female with a history including but not limited to COPD, HLD, [place], cancer, DM type II requested a visit today to address four days of dry cough, sinus congestion and rhinorrhea. Patient requested the visit because she wants to be tested for COVID and flu and is unable to figure out how to use her home test. Patient states she uses loratadine, albuterol MDI, Anoro inhaler and budesonide nasal spray. Patient states she will not use any [id number]-tss-[id number] cold/flu remedies. Patient states she will use honey and abdiel to manage her symptoms. Patient denies any chest pain, shortness of breath, dyspnea on exertion, fevers, nausea, vomiting, diarrhea. Patient presents awake and alert, in no acute distress and speaking full sentences. Her vital signs are reasonably stable and she is afebrile. Nonfocal neurological exam. Normal gait. No sinus tenderness. Normal oropharynx exam. Lungs are clear throughout auscultation. Abdomen is soft, nontender, nondistended. No lower extremity edema. Rapid COVID and flu testing are both negative. We discussed the diagnostic uncertainty of home visits and the risk associated with this. In this case, the patient and I felt this to be an acceptable and reasonable amount of risk given the benefit of avoiding the ED visit. In addition to her prescribed medications and home remedies I recommend steam showers and gargling with warm saltwater if she develops a sore throat. I recommend she follows up with her primary care physician if symptoms persist and present to the emergency department for any new or worsening severe symptoms such as chest pain, severe shortness of breath, high fever, altered mental status. The patient was given the opportunity to ask questions and is agreeable to this plan. .................... .................... .................... .................... .................... .................... .................... . [facility] [place]ed: Misty Garza .................... .................... .................... .................... .................... .................... .................... . Disposition: Fulfilled MISTY GARZA MD [address] [place] [address],[address], [place], [phone], [facility] 10/24/2024 17:00:43 OBGyn Episode No OBEpisode recorded.
--- OUTSIDE RECORDS SUMMARY | 2024-10-26 13:00 | XMS_ITS | Data Portability ---
Author Organization [employer] [facility] [employer] Address [address] [place] [phone] Care Team Providers Care Diazo Technician Name Role Phone HIM CCA OTHER RUSLAN FUCHS Primary Care Provider Assessment Encounter Date Assessment Date Assessment LastModified by Organization Details LastModified Time 05/01/2024 05/01/2024 I provided real -time medical direction via phone for this encounter and was available for additional phone-based assistance as needed. I have reviewed and agree with the Assessment and Plan as documented by the Train Director. Patient given the opportunity to ask questions. Our service contacted for an assessment of: cough As per above, patient has had a non-productive cough for approx 2 months. Denies F/C/N/V/CP/CASTRO and SOB. No sick contacts. No OTCs. Also complaining of a sore throat for 2 days. Per clerical manager on the scene, Non-toxic. Stable vitals. No distress. COVID and Flu are negative. For sore throat strep is negative Impression: ? seasonal allergies. Differential diagnosis is broad however clerical manager assessment and limited data are reassuring. Plan: Trial of kylg-lxl-vuomcp r medications and then follow-up with PCP [...] fever chills [email or web address] Not available 05/01/2024 21:52:54 10/24/2024 10/24/2024 79 yo F with few days of rhinorrhea, dry cough. No F/C, SOB, CP. No N/V/D/C, abd pain. VS wnl. Exam benign. Pt with viral URI, declines rx or OTC therapies and prefers to manage sxs with honey and abdiel. Precautions reviewed. [email or web address] Not available 10/24/2024 16:40:04 Plan of Treatment Reminders Order Date Submit Date Provider Last Modified By Organization Details Last Modified Time Details Appointments None recorded. Lab rapid SARS CoV 2 Ag, QL IA, respiratory specimen [email or web address] [place] [address], [address] [place] [address], [phone], 5 16:40:09 rapid flu (A+B) 2024 [email or web address] [place] [address], [address] [place] [address], [phone], 5 16:40:09 rapid strep group A, throat [address], [address] [place] [address], [phone], 4 21:51:25 rapid SARS CoV 2 Ag, QL IA, respiratory specimen [address], [address] [place] [address], [phone], 4 21:51:26 rapid flu (A+B) [address], [address] [place] [address], [phone], 4 21:51:27 Referral None recorded. Procedures None recorded. Surgeries None recorded. Imaging None recorded. Medication Orders doxycycline monohydrate 100 mg tablet 2023 [id number], [address] [place], [place], [id number], 4 20:13:29 Tylenol Extra Strength 500 mg tablet 2023 024 [id number], [address] [facility], [place], [place], [id number], 12:54:58 Patient TargetsNo targets recorded. Patient InstructionsNo instructions recorded. Reason for Referral None Reported. Results Created Date Observation Date Name Description Value Unit Range Abnormal Flag Note LastModifiedBy Organization Detail LastModifiedTime 04/16/20 24 04/16/2024 rapid flu (A+B) Flu negati ve Not Available Main - [facility] ed [address] [place] [address], [phone], 04/16/2024 15:28:36 04/16/20 24 04/16/2024 rapid SARS CoV 2 Ag, QL IA, respi rator y speci men rapid SARS CoV 2 Ag, QL IA, respiratory specimen negati ve Not Available [facility] - [facility] ed [address] [place] [address], [address], 04/16/2024 15:28:33 05/01/20 24 05/01/2024 rapid strep group A, throa t Strep negati ve Not Available [facility] - [facility] ed [address] [place] [address], [phone], 05/01/2024 21:51:02 05/01/20 24 05/01/2024 rapid flu (A+B) Flu negati ve Not Available [facility] - [facility] ed [address] [place] [address], [phone], 05/01/2024 21:50:52 05/01/20 24 05/01/2024 rapid SARS CoV 2 Ag, QL IA, respi rator y speci men rapid SARS CoV 2 Ag, QL IA, respiratory specimen negati ve Not Available [facility] - [facility] ed [address] [place] [address], [address], 05/01/2024 21:50:50 10/24/19 25 10/24/2024 rapid flu (A+B) Flu negati ve Not Available [facility] - [facility] ed [address] [place] [address], [phone], 10/24/2024 16:38:31 10/24/19 25 10/24/2024 rapid SARS CoV 2 Ag, QL IA, respi rator y speci men rapid SARS CoV 2 Ag, QL IA, respiratory specimen negati ve Not Available [address], [phone], 10/24/2024 16:38:28 Result Notes None recorded. Medical Equipment None Reported. Allergies Allergen ID Allergen Name Allergen Category Reaction Reaction Severity Criticality Documentation Date Start Date Code Code System Note Provider Name and Address Organization Details Recorded Time 63089 Product containin g penicilli n (product) medicatio n Not available Not available Not available 07/30/2024 83524 8001 SNOMED Not Available [facility] - production 4 17:01:25 58008 Bactrim medicatio n Not available Not available Not available 07/30/2024 49061 9 RxNorm [facility] Available [facility] 4 17:01:25 37353 Levaquin medicatio n Not available Not available Not available 07/30/2024 31776 2 RxNorm Not Available [facility] - production 4 17:01:25 83302 lisinopri l medicatio n Not available Not available Not available 07/30/2024 14574 RxNorm Not Available [facility] - production 4 17:01:25 52168 Prevacid medicatio n Not available Not available Not available 07/30/2024 30976 RxNorm Not Available [facility] - production 4 17:01:25 4170 Augmentin medicatio n Not available Not available Not available 08/26/2023 60426 2 RxNorm Not Available [facility] - production [...] /min 147 mm[Hg] 72 mm[Hg] Not Available [facility] - [employer] 4 18:56:20 Date Recorded Body temperature Body weight Body height Respiratory rate Heart rate Oxygen saturation Oxygen saturation in Arterial blood by Pulse oximetry Systolic blood pressure Diastolic blood pressure Provider Name and Address Organization Details Last Updated DateTime 4 98 [degF] 83225.4 16 g 160.02 cm 18 /min 78 /min 96 % 96 % 126 mm[Hg] 68 mm[Hg] Not Available [facility] - [employer] 4 12:40:12 Date Recorded Body height Heart rate Respiratory rate Oxygen saturation Oxygen saturation in Arterial blood by Pulse oximetry Body weight Body temperature Systolic blood pressure Diastolic blood pressure Provider Name and Address Organization Details Last Updated DateTime 4 160.02 cm 87 /min 16 /min 99 % 99 % 03435.2 48 g 98 [degF] 149 mm[Hg] 73 mm[Hg] Not Available [facility] [employer] 4 20:08:07 Date Recorded Respiratory rate Heart rate Body temperature Oxygen saturation Oxygen saturation in Arterial blood by Pulse oximetry Systolic blood pressure Diastolic blood pressure Provider Name and Address Organization Details Last Updated DateTime 5 18 /min 74 /min 98 [degF] 98 % 98 % 136 mm[Hg] 82 mm[Hg] Not Available [facility] [employer] 5 15:35:23 Date Recorded Heart rate Respiratory rate Oxygen saturation Oxygen saturation in Arterial blood by Pulse oximetry Body temperature Systolic blood pressure Diastolic blood pressure Provider Name and Address Organization Details Last Updated DateTime 5 68 /min 14 /min 98 % 98 % 97.5 [degF] 143 mm[Hg] 71 mm[Hg] Not Available [facility] 5 16:37:14 Social History None recorded. Functional [...] [id number] Tito Carmen MD Main - [facility] [address] [place] [phone] 08/28/2022 11:08:27 09/02/2022 14:48:59 COVID-19 [id number] U07.1 [id number] Alfredo Ridley MD Main - [facility] [address] [place] [phone] 04/13/2023 22:21:11 07/13/2023 14:48:59 Acute rhinosinusitis [id number] J00 [id number] KJ SALDANA MD Main - [facility] [address] [place] [address] 08/13/2023 17:34:54 08/14/2023 10:22:37 Pain of left hand [id number] 41782 M79.642 [id number] Judy Metzger MD Main - [facility] [address] [place] [phone] 08/26/2023 14:01:38 08/27/2023 09:33:05 Acute pharyngitis [id number] J02.9 [id number] Efraín Zamora MD Main - [facility] [address] [place] [phone] 08/27/2023 15:59:10 08/28/2023 13:09:36 Acute upper respiratory infection [id number] J06.9 Patient presents with two days of [...] the allergies) .Plan: supportive care, maintain hydration [id number] Judy Metzger MD Main - [facility] [address] [place] [phone] 09/01/2023 15:31:56 09/02/2023 14:23:41 Upper respiratory infection [id number] J06.9 [id number] Trisha Chavarria MD Main - [facility] [address] [place] [phone] 09/25/2023 18:05:35 09/27/2023 15:07:12 Viral upper respiratory tract infection [id number] J06.9 Evaluation in the field was performed by my clerical manager colleague, as noted above, I provided real-time [...] shortness of breath, cough, chest pain, fever. [id number] Cisco Beaulieu MD Main - [facility] [address] [place] [phone] 01/16/2024 12:22:38 01/18/2024 11:13:21 Dizziness [id number] R42 Dizziness for two days; constant, difficulty walking. VItals stable and EKG with no st-t wave changes, BMP and H/H performed. Given persistenc e of symptoms over 2 days and inability to ambulate without distress/i mbalance, will send to ED for further evaluation and likely CT of head. Patient in agreement. [id number] Trisha Chavarria MD Main - [facility] [address] [place] [phone] 04/16/2024 15:18:28 04/16/2024 18:57:15 Chronic cough 92011605 R05.3 Evaluation in the field was performed by my clerical manager colleague, as noted above, I provided real-time direction and supervisio n for this visit. 79yo F with PMHx asthma/CROP RANCH HAND D p/w 1 month cough. Today has sternal chest pain iso cough, now resolved, denies nausea, radiation of pain, dyspnea, other new sx. Denies fevers, hemoptysis . Has not tried allergy tx. Takes inhalers w/o improvemen t. On clerical manager eval VS wnl, lungs CTA b/l. POC [...] shortness of breath, cough, chest pain, fever. [id number] Judy Metzger MD Main - [facility] [address] [place] [phone] 05/01/2024 18:56:18 05/03/2024 00:05:49 Cough 50850200 R05.9 Pain in throat [id number] R07.0 [id number] Fabiola Cameron MD Main - [facility] [address] [place] [phone] 06/07/2024 12:39:53 06/07/2024 23:32:21 Viral upper respiratory tract infection [id number] J06.9 79 year old female being evaluated [...] Script for tylenol sent to patient's pharmacy. [id number] Julissa Morales MD Main - [facility] [address] [place] [phone] 07/30/2024 20:07:59 07/30/2024 21:21:18 Cellulitis [id number] L03.90 As noted, we were called to see this patient regarding concerns of arm redness. Evaluation in the field was performed by my clerical manager colleague, as noted above, I provided real-time [...] changes to consciousn ess, chest pain, dyspnea. [id number] Trisha Chavarria MD Main - [facility] [address] [place] [phone] 0 09/17/2024 15:35:21 09/19/2024 20:50:37 Pain of ear [id number] H92.09 Evaluation in the field was performed by my clerical manager colleague, as noted above, I provided real-time direction and supervisio n for this visit. 79yo F PMHx asthma/CROP RANCH HAND D p/w ear pain x 2d. Reports hx AOM in that ear requiring abx last year. Denies fevers, otorrhea, trauma, URI sx, tooth complaints , known mastoiditi s. On clerical manager eval VS wnl, exam w/o external erythema [...] shortness of breath, cough, chest pain, fever. [id number] MISTY WEISS MD Main - [address] [phone] 10/24/2024 16:37:12 10/24/2024 17:23:10 Viral upper respiratory tract infection [id number] J06.9 Health Concerns Section Related Observation LastModified by Organization Detai ls LastModified Time None Recorded Concern Status LastModified by Organization Details LastModified Time None Recorded Advance Directives Directive None Recorded Payers Encounter Date Sequence Insurance Name Policy Number Policy [place] Covered Member ID [place] Member ID Guarantor Name 05/01/2024 1 [facility] - DOS ON OR AFTER 2022 - DUAL ELIGIBLE - JAIL OPTIONS AND ONE CARE (MEDICARE REPLACEMENT/ADV ANTAGE - HMO) Meredith Carranza [id number] Meredith Carranza 06/07/2024 1 [facility] - DOS ON OR AFTER 2022 - DUAL ELIGIBLE - JAIL OPTIONS AND ONE CARE (MEDICARE REPLACEMENT/ADV ANTAGE - HMO) Meredith Carranza [id number] Meredith Carranza 07/30/2024 1 [employer] - DOS ON OR AFTER 2022 - DUAL ELIGIBLE - JAIL OPTIONS AND ONE CARE (MEDICARE REPLACEMENT/ADV ANTAGE - HMO) Meredith Carranza [id number] Meredith Carranza 09/17/2024 1 [facility] - DOS ON OR AFTER 2022 - DUAL ELIGIBLE - JAIL OPTIONS AND ONE CARE (MEDICARE REPLACEMENT/ADV ANTAGE - HMO) Meredith Carranza [id number] Meredith Carranza 10/24/2024 1 [facility] ALL[facility] - DOS ON OR AFTER 2022 - DUAL ELIGIBLE - JAIL OPTIONS AND ONE CARE (MEDICARE REPLACEMENT/ADV ANTAGE - HMO) Meredith Carranza [id number] Meredith Carranza Notes Date Note Type Note Provider Name and Address Organization Details Recorded Time 05/01/2024 text/html CRC Nurse Triage Notes (Ron Davidson): Reason For Request: Pt reporting throat pain and right tonsil pain>states severe cough>[facility] and that prescribed medication has not helped Lortadine> Chief Complaints: Pain, ENT PMH: Diabetes, COPD/Asthma Allergies: Unknown Comments: Master Of Ceremonies verified the member's name//address and phone number. Mbr reports on going cough for over a month, [facility] but reports it has not helped with cough. Today, mbr reports she started with sore throat last night. Mbr reports it is more painful on R side of throat and pain radiates to R ear and eye area. Education provided on the response time and the member was advised to monitor reported s/s and seek emergency treatment if needed -Micaela Davidson, RN Train Director Organization Information for [employer] [employer] Legal Name: [facility] Address: [address] [place] [address], [place] [address], Band Tacker: Chung Schmidt MD [place] No.: [id number] Train Director POC Test Results from [employer] Alejandro [employer] Rapid COVID antigen (18:39:06) COVID: - Rapid influenza antigen (18:39:07) Flu: - Rapid strep test (18:39:08) Strep: - .................... .................... .................... .................... .................... .................... .................... . Train Director Note From Alejandro Martinez: Pt reports intermittent [...] .................... . Disposition: Fulfilled Judy Metzger MD [address] [place] [address],[address], [place], [phone], [employer] 05/01/2024 21:53:32 06/07/2024 text/html CRC Nurse Triage Notes (Shwetha Fuentes): Reason For Request: Patient has been sick since thursday, sore throat, wants a covid test. Chief Complaints: Cough PMH: Diabetes, COPD/Asthma Other Allergies: A lot of antibiotics - Member unable to remember the names of her allergies. Comments: Master Of Ceremonies verified the member's name//address and phone number. block hacker used.Member reports sick since Thursday, 06/05. +Cough, sore throat, congestion. Denies Fevers/SOB/CP. Requesting COVID/Flu test. Recently around sick contacts.Pt speaking in full sentences, mentating well.Unable to fully triage patient as she had a doctors appointment over the phone and had to go. Education provided on the response time and the member was advised to monitor reported s/s and seek emergency treatment if needed. Train Director Organization Information for [facility] [employer] Legal Name: [employer]? Address: [address] [place] [address], Band Tacker: Aayush Elder MD SONNY No.: [id number] Train Director POC Test Results from [facility] Rapid influenza antigen (12:30:19) Flu: - Rapid COVID antigen (12:30:20) COVID: - .................... .................... .................... .................... .................... .................... .................... . Train Director Note From Terrie Hall: Sent to a [...] covid test: neg; Rapid flu test; neg; [facility] consulted and sends script to pt's pharmacy for Tylenol. Red flags discussed. Pt has no further questions. Train Director Allergies: Trimethoprim-Sulfame thoxazole .................... .................... .................... .................... .................... .................... .................... . Disposition: Fulfilled Fabiola Cameron MD [address] [place] [address],[address], [place], [phone], [employer] 06/07/2024 13:45:17 07/30/2024 text/html CRC Nurse Triage Notes (Carole Dee): Reason For Request: night she was bit or stung w/ something now it's red/swollen Chief Complaints: Wound care PMH: COPD/Asthma, Hyperlipidemia, Myocardial Infarction, Cancer, Diabetes Mellitus Type 2, Emphysema Comments: Patient calling in to place a referral, referral taken via Alarm Installation Technician [id number]. In addition to PMH patient has pancreatic [...] .................... .................... .................... .................... .................... .................... . Train Director Note From Tito Syed: [place] makes pt contact 79 YO F CC of redness and swelling on the arm believed to be from bug bite.[place] obtains vitals and machado the area of concern on the pt. [place] obtains a picture and uploads electronically. PT [...] complaints other then the area of question. [place] contacts [facility] and explains above mentioned. PT has multiple allergies that are confirmed with pt and [facility]. [facility] sends over a prescription of doxycycline which pt is advised to use and treat the cellulitis. PT also instructed to use warm compresses as needed for comfort. [place] confirms pt pharmacy with [facility]. [place] explains to pt if she began having a fever, chest pain, sob,n/v that she should be seen the in the ed. Other aguilar continue with instructions and call us back with any concerns. [place] clear. .................... .................... .................... .................... .................... .................... .................... . [facility] Consulted: Julissa Morales .................... .................... .................... .................... .................... .................... .................... . Disposition: David Julissa Morales MD [address] [facility],[address], [place], [phone], [employer] 07/30/2024 20:56:43 09/17/2024 text/html CRC Nurse Triage Notes (Reina Rodrigez - RN): Chief Complaints: Sore throat, Earache PMH: COPD/Asthma, Hyperlipidemia, Myocardial Infarction, Cancer, Diabetes Mellitus Type 2, Emphysema PMH Reviewed at 09/17/2024 12:42 Allergies Reviewed at 09/17/2024 - 12:42 [...] .................... .................... .................... .................... .................... .................... . Train Director Note From Felix Mallory: SC12 dispatched to [...] management. Patient vital signs obtained as noted. [facility] consulted, advised that patient would need a an ear exam for proper diagnosis of ear infection, advised for patient to follow up PCP if it does not get better. [facility] advised patient to use saline to drain ear and use of Tylenol or Ibuprofen for pain management. Red flags were discussed with patient and advised to call 911 if condition worsened. [place] clear. .................... .................... .................... .................... .................... .................... .................... . [facility] Consulted: Trisha Chavarria .................... .................... .................... .................... .................... .................... .................... . Disposition: Fulfilled Trisha Chavarria MD [address] [place] [address],[address], [place], [phone], [employer] 09/17/2024 16:45:56 10/24/2024 text/html CRC Nurse Triage Notes (Carole Dee - RN): Reason For Request: pt has had cold symptoms since past thursday and worsens by the day Chief Complaints: Common cold symptoms PMH: COPD/Asthma, Hyperlipidemia, Myocardial Infarction, Cancer, Diabetes Mellitus Type 2, Emphysema PMH Reviewed at 10/24/2024:35 Allergies Reviewed at 10/24/2024 13:35 Comments: Referral taken Alarm Installation Technician. Patient calling in to place a referral, [...] heart. She would like to be evaluated. Train Director Organization Information for Alejandro Martinez Business Legal Name: [facility] Transportation Address: [address] [place] [address], [place] [address], Band Tacker: Chung Schmidt MD CLIA No.: [id number] Train Director POC Test Results from [facility] [employer] Rapid COVID antigen (16:27:24) COVID: - Rapid influenza antigen (16:27:24) Flu: - .................... .................... .................... .................... .................... .................... .................... . Train Director Note From Alejandro Martinez: This 79-year-old female with a history including but not limited to COPD, HLD, [place], cancer, DM type II requested a visit [...] Patient states she will not use any pxia-scz-flmufxh cold/flu remedies. Patient states she will use [...] .................... .................... .................... .................... .................... .................... . [facility] Consulted: Misty Weiss .................... .................... .................... .................... .................... .................... .................... . Disposition: Fulfilled MISTY WEISS MD [address] [place] [address],[address], [place], [phone], [employer] 10/24/2024 17:00:43 OBGyn Episode No OBEpisode recorded.
== END 2024-10-26 11:07 | disposition home or self-care (01) ==
PROVIDERS: PCP Internal Medicine; Visit Provider Internal Medicine
DX: I25.10 Atherosclerotic heart disease of native coronary artery without angina pectoris (principal); I10 Essential (primary) hypertension
CPT/HCPCS: 93010; 99214; G2211

== ENCOUNTER → 2024-10-26 10:33 | Outpatient (BNVA) | payer OTHER, SELFPAY | PROVIDERS: PCP Internal Medicine; Visit Provider Internal Medicine | DX: I25.10 Atherosclerotic heart disease of native coronary artery without angina pectoris (principal); I10 Essential (primary) hypertension; I25.2 Old myocardial infarction | CPT/HCPCS: 93005; 99212 ==

== ENCOUNTER 2025-02-15 09:10 | Outpatient (REF) | payer OTHER, SELFPAY ==
[2025-02-15 09:27] LABS: MANUAL DIFF FLAG NO
[2025-02-15 09:48] LABS: Basophils Absolute Auto 0.1 X10*3/uL (0.0-0.2); Basophils Percent Auto 1.3 % (0-2); Eosinophils Absolute Auto 0.2 X10*3/uL (0.0-0.4); Eosinophils Percent Auto 4.2 % (0-4); Hematocrit 38.8 % (37.0-47.0); Hemoglobin 12.5 g/dl (12.0-16.0); Imm Gran Abs Auto 0.02 X10*3/uL (0.00-0.03); Imm Gran Pct Auto 0.4 % (0.0-0.4); Lymphocytes Absolute Auto 1.8 X10*3/uL (1.2-4.9); Lymphocytes Percent Auto 32.8 % (20-40); Mean Corpuscular HGB Conc 32.2 g/dl (31.0-35.0); Mean Corpuscular Hemoglobin 28.7 pg (27.0-33.0); Mean Platelet Volume 10.3 fL (9.4-12.3); Monocytes Absolute Auto 0.5 X10*3/uL (0.1-1.2); Monocytes Percent Auto 9.3 % (2-11); Neutrophils Absolute Auto 2.9 x10*3/uL (2.0-8.3); Platelet Count 291 X10*3/uL (160-400); Red Blood Count 4.36 X10*6/uL (4.20-5.50); Red Cell Distribution Width 13.2 % (11.0-16.0); White Blood Count 5.5 X10*3/uL (4.8-10.8)
[2025-02-15 09:56] LABS: Estimated Average Glucose 160 mg/dL; Hemoglobin A1c % 7.2 % (<6.0)
[2025-02-15 10:32] LABS: Alanine Aminotransferase 20 U/L (0-31); Albumin Level 4.6 g/dL (3.5-5.0); Alkaline Phosphatase 60 U/L (39-117); Anion Gap 11 (12-20); Aspartate Amino Transferase 20 U/L (5-31); Bilirubin Total 0.5 mg/dL (0.0-1.0); Blood Urea Nitrogen 16 mg/dL (9-16); Carbon Dioxide 27 mmol/L (22-29); Chloride 107 mmol/L (96-108); Cholesterol 149 mg/dL (<200); Estimated Glomerular Filt Rate > 60; Glucose Fasting 144 mg/dL (60-99); HDL Cholesterol 42 mg/dL (>40); LDL Cholesterol Calculated 79 mg/dL (<100); Potassium 4.8 mmol/L (3.3-5.1); Sodium 140 mmol/L (135-145); Total Protein 7.6 g/dL (6.5-8.0); Triglycerides 144 mg/dL (<150)
[2025-02-15 10:39] LABS: TSH reflex Free T4 3.26 uIU/mL (0.32-4.0); Vitamin D 25-OH Total 39.9 ng/mL (>30)
[2025-02-15 10:57] LABS: Folate 13.5 ng/mL (> or = 4.0); Vitamin B12 359 pg/mL (200-900)
[2025-02-15 11:52] LABS: Appearance Urine Clear; Color Urine Yellow; Glucose Urine UA Negative (Negative); Leukocyte Esterase Urine Negative (Negative); Nitrite Urine Negative (Negative); Specific Gravity - Urine 1.015 (1.005-1.025); Urine Blood Negative (Negative); Urine Ketones Negative (Negative); Urine Protein Negative (Neg-Trace)
[2025-02-15 12:35] LABS: Creatinine Urine 67.85 mg/dL; Microalbum/Creatinine Ratio Ur 30.9 ug/mg cr (<30)
== END 2025-02-15 09:11 | disposition home or self-care (01) ==
LOC: HO.LAB 09:10
PROVIDERS: PCP Internal Medicine; Visit Provider Internal Medicine
DX: E78.00 Pure hypercholesterolemia, unspecified (principal); E11.9 Type 2 diabetes mellitus without complications; E55.9 Vitamin D deficiency, unspecified; R30.0 Dysuria; D64.9 Anemia, unspecified; E53.8 Deficiency of other specified B group vitamins
CPT/HCPCS: 36415; 80053; 80061; 81003; 82043; 82306; 82570; 82607; 82746; 83036; 84443; 85025

== ENCOUNTER 2025-02-16 09:53 | Outpatient (AMB) | payer OTHER, SELFPAY ==
[2025-02-16 09:57] VITALS: BP 132/70; PULSE 78; TEMP 36.5; O2SAT 97; BMI 26.1
--- NOTE | 2025-02-16 09:57 | A.OFFPC_ITS ---
Vital Signs 02/16/25 09:57 Height 5 ft 3 in Weight 147 lb 9.6 oz BMI 26.1 BP 132/70 Blood Pressure Location Lt brachial Position Sitting Pulse 78 Pulse Source Pulse Oximeter Temp 97.7 F Temp Source Oral Pulse Oximetry (%) 97 Oxygen Delivery Method Room Air Intake Visit Reasons: neuroendocrine tumor of the pancreas Obstetrics Scrub Nurse Required: Yes Obstetrics Scrub Nurse Language: Union Contract Representative Name: Used tablet- [id number] Radha Accompanied by: Self / Same As Patient Allergies clarithromycin (From PREVPAC) Allergy (Mild, Verified 02/16/25 10:16) hives lansoprazole (From PREVPAC) Allergy (Mild, Verified 02/16/25 10:16) hives lisinopril (LISINOPRIL) Allergy (Mild, Verified 02/16/25 10:16) COUGHING, cough, cough amoxicillin (AMOXICILLIN) Allergy (Unknown, Verified 02/16/25 10:16) RASH cephalexin Allergy (Unknown, Verified 02/16/25 10:16) rash clavulanic acid (Augmentin) Allergy (Unknown, Verified 02/16/25 10:16) rash duloxetine (Cymbalta) Allergy (Unknown, Verified 02/16/25 10:16) weight gain, increase appetite levofloxacin (From LEVAQUIN) Allergy (Unknown, Verified 02/16/25 10:16) RASH linaclotide (Linzess) Allergy (Unknown, Verified 02/16/25 10:16) nausea penicillin V Allergy (Unknown, Verified 02/16/25 10:16) rash Penicillins (PENICILLINS) Allergy (Unknown, Verified 02/16/25 10:16) RASH Sulfa (Sulfonamide Antibiotics) Allergy (Unknown, Verified 02/16/25 10:16) rash tramadol Allergy (Unknown, Verified 02/16/25 10:16) pruritus triamcinolone (Kenalog) Allergy (Unknown, Verified 02/16/25 10:16) Unknown meclizine Adverse Reaction (Intermediate, Verified 02/16/25 10:16) fatigue, somnolence prednisone (Prednisone) Adverse Reaction (Mild, Verified 02/16/25 10:16) YEAST INFECTION cetirizine Adverse Reaction (Unknown, Verified 02/16/25 10:16) dizziness? Medication List - Last Reconciled 02/16/25 by Pablo Willoughby, GENERALIST-C albuterol sulfate 90 mcg/actuation 2 puffs PO Q6H PRN alprazolam 0.25 mg PO BID PRN aspirin 81 mg PO DAILY [BLADDER PADS As directed] blood pressure monitor As directed blood sugar diagnostic (FreeStyle Lite Strips) As directed once a day blood-glucose meter (FreeStyle Lite Meter kit) daily budesonide 32 mcg/actuation 1 spray intranasal DAILY PRN commode (bedside commode) As directed gabapentin 100 mg PO DAILY PRN 90 days [HANDHELD SHOWER HEAD As directed] metformin 1,000 mg PO ONCE nitroglycerin 0.4 mg sublingual Q5M PRN omeprazole 20 mg PO DAILY 90 days Prozac (fluoxetine) 10 mg PO DAILY 30 days NS rosuvastatin 40 mg PO DAILY 90 days [SHOWER CHAIR As directed] umeclidinium-vilanterol 62.5-25 mcg/actuation (Anoro Ellipta) 1 inh inhalation DAILY 30 days Tobacco use date assessed: 02/16/25 Fall risk assessment: No Falls in past year Last assessed Fall Risk: 02/16/25 Dental Screening Dental Screen Date: 02/16/25 Did you have a dental visit in the last 12 months?: No Did you have a dental problem in the last 6 months where you did not have access to dental care?: No Was dental information given to patient?: No HPI neuroendocrine tumor of the pancreas HPI Details The patient is an 80-year-old female presenting with management of her chronic conditions, including diabetes and hypertension. She has a history of Type 2 Diabetes Mellitus, currently managed with metformin 1000 mg at bedtime. Previously, she was prescribed Jardiance, but discontinued it due to a vaginal infection, a known side effect of the medication. The patient's hypertension was noted during an episode of dizziness and headache, where her blood pressure was found to be elevated by EMS and at the hospital. She was not prescribed any new antihypertensive medications during her hospital visit, as it was considered a long-term issue. The patient was given IV fluids with positive effect; dizziness and headache resolved and blood pressure normalized She has a history of coronary artery disease, with a stent placement and experiences angina, for which she uses nitroglycerin. She smoked for 55 years, starting at the age of 8, which has contributed to her chronic obstructive pulmonary disease (COPD). Her recent lab results showed an A1c of 7.2%, which has increased slightly since self-discontinuing Jardiance. Her cholesterol levels are mostly within normal limits, though her LDL is slightly above the target for patients with diabetes and heart disease. 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 [place] [facility] [place] was seen by Dr Hammond and declined surgery at that time (03/2023) denies chest pain, sob, dizziness or lightheadedness denies abdominal pain/change in bowel habits [facility] Medical History Allergic rhinitis Vaginal discharge Rash Left low back pain Dizziness Osteoporosis Hypercalcemia GERD without esophagitis Constipation Lumbar degenerative disc disease Overweight (BMI 25.0-29.9) Vitamin D deficiency Mixed hyperlipidemia Atherosclerotic cardiovascular disease Pulmonary emphysema Diabetes mellitus Vertigo Degenerative lumbar disc Irritable bowel syndrome Fibromyalgia Borderline diabetes Hypercholesteremia Asthma Chronic headache Anxiety Surgical History History of biopsy History of loop electrical excision procedure (LEEP) H/O heart artery stent Hx of colonoscopy H/O angioplasty H/O Spinal surgery Hx of tubal ligation Family History Father No problems noted. Mother Depression S/P CABG x 4 Diabetes Hypertension Sister Poor high blood pressure control Cervical cancer Breast cancer Social History Household Members: None Housing: Apartment Alcohol intake: former Patient Tobacco Use Status: Former Tobacco user e-Cigarette/Vaping Use: Never Used Second Hand Smoke Exposure: No service: No Current occupational status: retired and disabled Cognitive needs: No Hearing needs: No Vision needs: Yes (glasses) Female Reproductive History Menstrual Age of Menarche: 13 Questionnaire Thrive Questionnaire Date Thrive assessed: 02/16/25 I am a: Patient What is your living situation today?: I have a steady place to live Within the past 12 months, did the food you bought not last and you didn't have the money to get more?: Never true Within the past 12 months, did you worry whether your food would run out before you got money to buy more?: Never true Do you have trouble paying for medicines?: No Do you have trouble getting transportation to medical appointments?: No Do you have trouble paying your heating and electricity bill?: No Do you have trouble taking care of your child, family member or friend?: No Do you have trouble with day-to-day activities such as bathing, preparing meals, shopping, managing finances, etc.?: No Are you currently unemployed and looking for a job?: I choose not to answer this question Are you interested in more education?: No Please select the resources that you would like help with: None Currently or been in a relationship where the following occur: No concerns reported THRIVE Score: 0 AUDIT C Alcohol Use Questionnaire (AUDIT-C) 1. How often do you have a drink containing alcohol?: Never Total Score: 0 Score Reviewed/Action Taken: No VIOLET-7 AMB Questionnaire VIOLET-7 Date VIOLET - 7 assessed: 09/27/24 Source: Developed by Drs. Anthony Whelan, Chayo Romano, Vivek Avila and colleagues, with an educational irena from [employer]. Review of Systems Const Reports headache(s) (on and off) Eyes Denies loss of vision ENT Denies vertigo, Reports dizziness (on and off recent ER visit and was given iv fluids with positive effect), Reports headache(s) (on and off) and Denies sore throat Card Denies chest pain, Denies leg edema and Denies lightheadedness Resp Denies cough, Denies hemoptysis and Denies wheezing GI Denies abdominal pain, Denies melena, Denies constipation, Denies diarrhea and Denies vomiting Denies urinary frequency, Denies dysuria, Reports urinary incontinence and Denies urinary urgency Musc Reports back pain (Lower), Reports arthralgias (Left shoulder), Denies joint swelling, Denies loss of height, Denies numbness and Denies tingling Skin/Breast Denies new lesions and Denies erythema Neuro Denies Abnormal speech present, Denies behavioral changes, Denies vertigo, Reports dizziness (on and off recent ER visit and was given iv fluids with positive effect), Reports headache(s) (on and off), Denies loss of vision, Denies memory loss, Denies numbness and Denies tingling Psych Denies anxiety, Denies behavioral changes, Denies depression, Denies memory loss and Denies panic attacks Wayne/Lymph Denies easy bleeding and Denies easy bruising Aller/Immun Denies wheezing Physical exam (Primary Care) Vital Signs: Last Vital Signs Temp 97.7 F 02/16/25 09:57 Pulse 78 02/16/25 09:57 BP 132/70 02/16/25 09:57 Pulse Ox 97 02/16/25 09:57 Oxygen Delivery Method Room Air 02/16/25 09:57 BMI result Body Mass Index 26.1 Tobacco/Smoking Status: Tobacco use Status Tobacco use date assessed 02/16/25 02/16/25 10:02 Patient Tobacco Use Status Former Tobacco user 02/16/25 10:02 Tobacco use type 04/16/23 13:51 e-Cigarette/Vaping Use Never Used 02/16/25 10:02 Thrive Assessment: Date of Thrive Assessment Date Thrive assessed 02/16/25 02/16/25 10:02 Currently or been in a relationship where the following occur: No concerns reported Const General: healthy appearing, no acute distress, alert and awake Nutritional Appearance: well nourished Orientation/consciousness: oriented to person, oriented to place and oriented to time HENMT Ears: TM's normal bilaterally General nose exam: Normal nasal mucous membranes and turbinates present Eyes Conjunctivae: conjunctivae normal Sclerae: sclerae normal Pupils: Equal, round and reactive pupils present Neck Neck: Yes no lymphadenopathy and Yes no JVD Thyroid: Thyroid normal Carotids: no bruits Resp Effort & Inspection: normal respiratory effort and not tachypneic Auscultation: no crackles, no rales, no rhonchi and no wheezes Cardio Rate: regular rate Rhythm: regular rhythm Heart sounds: no murmurs and normal S1 and S2 GI Palpation (GI): Soft to palpation, nontender, no hepatomegaly and no splenomegaly Auscultation: normal bowel sounds General: Yes no CVA tenderness Back/Spine/Pelvis Back: no CVA tenderness Cervical Spine: No Cervical spine tenderness Thoracic/Lumbar Spine: No thoracic spinal tenderness and lumbar spinal tenderness Skin General skin exam: no rashes or lesions noted and dry skin Neuro General: oriented to person, oriented to place and oriented to time Cranial nerves: Yes Equal, round and reactive pupils present Speech: No Abnormal speech present Gait exam (Neuro): Normal gait present Motor exam (neuro): no tremor noted Extrem Right upper extremity: full ROM Left upper extremity: full ROM and shoulder/upper arm Details: no tenderness and no swelling Right lower extremity: full ROM; no edema Left lower extremity: full ROM; no edema Psych Mental Status: mental status grossly normal Speech and movement: Normal speech and movement present Affect: normal affect Attitude: cooperative Thought process: Normal thought process present Results Reviewed Results Reviewed: Laboratory Tests 12/21/24 02/15/25 02/15/25 10:10 09:20 09:25 WBC 5.5 RBC 4.36 Hgb 12.5 Hct 38.8 MCV 89.0 MCH 28.7 MCHC 32.2 RDW 13.2 Plt Count 291 MPV 10.3 Sodium 140 Potassium 4.8 Chloride 107 Carbon Dioxide 27 Anion Gap 11 L BUN 16 Creatinine 0.79 Estimated GFR > 60 Fasting Glucose 144 H Estimat Average Glucose 160 Hemoglobin A1c % 7.2 H Calcium 10.0 D Ferritin 56 Total Bilirubin 0.5 AST 20 ALT 20 Alkaline Phosphatase 60 Total Protein 7.6 Albumin 4.6 Triglycerides 144 Cholesterol 149 LDL Cholesterol, Calc 79 HDL Cholesterol 42 Vitamin B12 359 25-OH Vitamin D Total 39.9 Folate 13.5 TSH 3.26 Urine Color Yellow Urine Appearance Clear Urine pH 6.0 Ur Specific [place] 1.015 Urine Protein Negative Urine Glucose (UA) Negative Urine Ketones Negative Urine Blood Negative Urine Nitrite Negative Ur Leukocyte Esterase Negative Urine Creatinine 67.85 Urine Microalbumin 21.0 Microalb/Creat Ratio 30.9 H Coding Level of Care Code Est Pt Level 4 (08282) Diagnoses Elevated blood pressure reading R03.0 Atherosclerotic cardiovascular disease I25.10 History of non-ST elevation myocardial infarction (NSTEMI) I25.2 Mixed hyperlipidemia E78.2 Type 2 diabetes mellitus without complication, without long-term current use of insulin E11.9 Diabetes mellitus complication status: without complication Diabetes mellitus superintendent terminal insulin use: without correction use Diabetes mellitus type: type 2 Vitamin D deficiency E55.9 Overweight (BMI 25.0-29.9) E66.3 Time Spent (min) 44 Assessment & Plan Assessment & Plan (1) Elevated blood pressure reading: Code(s): R03.0 - Elevated blood-pressure reading, without diagnosis of hypertension Category: Medical Plan: Reports recent dizziness/headaches and was found to be hypertensive by EMT ED visit, IV fluids was given and patient symptoms resolved. No other treatment was implemented Per chart review, the patient was ordered amlodipine 2.5 mg by cardiology and the patient also stopped taking this medication reports that her blood pressures have been fluctuating. The patient brought in her BP machine with results of her blood pressures. She has mostly normal pressures and few elevated bp with SBP in the 150s and 160s. Reports drinking two strong cups of coffee in the mornings and plenty of salt on her food. Educated the patient about decreasing her salt and caffeine intake. She wants to continue monitoring blood pressure before restarting amlodipine- will continue to encourage the patient to restart amlodipine. (2) Atherosclerotic cardiovascular disease: Code(s): I25.10 - Atherosclerotic heart disease of [place] coronary artery without angina pectoris Category: Medical Plan: Echocardiogram from 2020 with LVEF of 60-65%. Mild aortic valve calcification. Mild tricuspid regurgitation otherwise unremarkable. Cardiac catheterization from 2019-mid LAD distal 90% stenosis status post stenting; distal circumflex 90% stenosis, not intervened; no significant disease in right coronary artery. Overall, she has got stable coronary disease and no angina continue nitroglycerin PRN as needed (3) History of non-ST elevation myocardial infarction (NSTEMI): Code(s): I25.2 - Old myocardial infarction Category: Medical Plan: HX of NSTEMI Denies chest pain/sob. Recent hospital visit due elevated blood pressure and dizziness and headaches. Symptoms resolved with IV fluids. No BP meds were started. BP 132/72 today in office. Reports that she eats a lot of salt in general. Reinforced a low sodium diet to aid with bp management. No new treatment started today, will continue to monitor. (4) Mixed hyperlipidemia: Code(s): E78.2 - Mixed hyperlipidemia Category: Medical Plan: tri 144, t-chol 149, ldl 79, hdl 42 Discussed lifestyle modifications including dietary changes and physical activity continue rosuvastatin 40 mg daily will recheck lipid panel in 4 months (5) Diabetes mellitus: Code(s): E11.9 - Type 2 diabetes mellitus without complications Category: Medical Qualifiers: Diabetes mellitus complication status: without complication Diabetes mellitus correction insulin use: without correction use Diabetes mellitus type: type 2 Qualified Code(s): E11.9 - Type 2 diabetes mellitus without complications Plan: aic 7.2% increased from 6.6%, goal less than 7% self-stopped jardiance without telling her PCP She only has been taking metformin 1000mg daily No changes made today, will recheck A1C in 4 months (6) Vitamin D deficiency: Code(s): E55.9 - Vitamin D deficiency, unspecified Category: Medical Plan: Continue vitamin-D OTC (7) Overweight (BMI 25.0-29.9): Code(s): E66.3 - Overweight Category: Medical Plan: Discussed lifestyle modifications including dietary changes and physical activity Plan The patient will continue with metformin 1000 mg at bedtime for diabetes management, with a plan to re-evaluate A1c levels in the future to assess the need for any medication adjustments. Blood pressure monitoring is advised, with emphasis on reducing salt intake and monitoring caffeine consumption to manage hypertension. The patient is advised to follow up with cardiology for coronary a rtery disease management and to continue using nitroglycerin as needed for angina. Smoking cessation is strongly recommended due to the history of COPD and coronary artery disease. The patient is encouraged to maintain adequate hydration and monitor for any symptoms of dizziness, checking blood sugar levels along with blood pressure if dizziness occurs. Patient was informed and verbally consented to the use of an ambient scribe for clinic note documentation during this visit. Orders: Orders Complete Blood Count Auto Diff 4 Months E11.9 - Type 2 diabetes mellitus without complications, E66.3 - Overweight, E78.2 - Mixed hyperlipidemia, F32.89 - Other specified depressive episodes, F41.9 - Anxiety disorder, unspecified, H10.30 - Unspecified acute conjunctivitis, unspecified eye, I10 - Essential (primary) hypertension, I25.10 - Atherosclerotic heart disease of [place] coronary artery without angina pectoris, I25.2 - Old myocardial infarction, K21.9 - Gastro-esophageal reflux disease without esophagitis, M81.0 - Age- related osteoporosis without current pathological fracture, R07.2 - Precordial pain Lipid Panel 4 Months E11.9 - Type 2 diabetes mellitus without complications, E66.3 - Overweight, E78.2 - Mixed hyperlipidemia, F32.89 - Other specified depressive episodes, F41.9 - Anxiety disorder, unspecified, H10.30 - Unspecified acute conjunctivitis, unspecified eye, I10 - Essential (primary) hypertension, I25.10 - Atherosclerotic heart disease of [place] coronary artery without angina pectoris, I25.2 - Old myocardial infarction, K21.9 - Gastro-esophageal reflux disease without esophagitis, M81.0 - Age-related osteoporosis without current pa thological fracture, R07.2 - Precordial pain TSH reflex Free T4 4 Months E11.9 - Type 2 diabetes mellitus without complications, E66.3 - Overweight, E78.2 - Mixed hyperlipidemia, F32.89 - Other specified depressive episodes, F41.9 - Anxiety disorder, unspecified, H10.30 - Unspecified acute conjunctivitis, unspecified eye, I10 - Essential (primary) hypertension, I25.10 - Atherosclerotic heart disease of [place] coronary artery without angina pectoris, I25.2 - Old myocardial infarction, K21.9 - Gastro- esophageal reflux disease without esophagitis, M81.0 - Age-related osteoporosis without current pathological fracture, R07.2 - Precordial pain UA CC w/rflx Micro + Cult 4 Months E11.9 - Type 2 diabetes mellitus without complications, E66.3 - Overweight, E78.2 - Mixed hyperlipidemia, F32.89 - Other specified depressive episodes, F41.9 - Anxiety disorder, unspecified, H10.30 - Unspecified acute conjunctivitis, unspecified eye, I10 - Essential (primary) hypertension, I25.10 - Atherosclerotic heart disease of [place] coronary artery without angina pectoris, I25.2 - Old myocardial infarction, K21.9 - Gastro- esophageal reflux disease without esophagitis, M81.0 - Age-related osteoporosis without current pathological fracture, R07.2 - Precordial pain Hemoglobin A1c 4 Months E11.9 - Type 2 diabetes mellitus without complications, E66.3 - Overweight, E78.2 - Mixed hyperlipidemia, F32.89 - Other specified depressive episodes, F41.9 - Anxiety disorder, unspecified, H10.30 - Unspecified acute conjunctivitis, unspecified eye, I10 - Essential (primary) hypertension, I25.10 - Atherosclerotic heart disease of [place] coronary artery without angina pectoris, I25.2 - Old myocardial infarction, K21.9 - Gastro-esophageal reflux disease without esophagitis, M81.0 - Age-related osteoporosis without current pathological fracture, R07.2 - Precordial pain Vitamin D 25-OH Total 4 Months E11.9 - Type 2 diabetes mellitus without complications, E66.3 - Overweight, E78.2 - Mixed hyperlipidemia, F32.89 - Other specified depressive episodes, F41.9 - Anxiety disorder, unspecified, H10.30 - Unspecified acute conjunctivitis, unspecified eye, I10 - Essential (primary) hypertension, I25.10 - Atherosclerotic heart disease of [place] coronary artery without angina pectoris, I25.2 - Old myocardial infarction, K21.9 - Gastro- esophageal reflux disease without esophagitis, M81.0 - Age-related osteoporosis without current pathological fracture, R07.2 - Precordial pain Vitamin B12 and Folate 4 Months E11.9 - Type 2 diabetes mellitus without complications, E66.3 - Overweight, E78.2 - Mixed hyperlipidemia, F32.89 - Other specified depressive episodes, F41.9 - Anxiety disorder, unspecified, H10.30 - Unspecified acute conjunctivitis, unspecified eye, I10 - Essential (primary) hypertension, I25.10 - Atherosclerotic heart disease of [place] coronary artery without angina pectoris, I25.2 - Old myocardial infarction, K21.9 - Gastro- esophageal reflux disease without esophagitis, M81.0 - Age-related osteoporosis without current pathological fracture, R07.2 - Precordial pain Comprehensive [place]. Panel Fast 4 Months E11.9 - Type 2 diabetes mellitus without complications, E66.3 - Overweight, E78.2 - Mixed hyperlipidemia, F32.89 - Other specified depressive episodes, F41.9 - Anxiety disorder, unspecified, H10.30 - Unspecified acute conjunctivitis, unspecified eye, I10 - Essential (primary) hypertension, I25.10 - Atherosclerotic heart disease of [place] coronary artery without angina pectoris, I25.2 - Old myocardial infarction, K21.9 - Gastro-esophageal reflux disease without esophagitis, M81.0 - Age- related osteoporosis without current pathological fracture, R07.2 - Precordial pain Medications: Changed From metformin 1,000 mg PO ONCE To metformin 1,000 mg PO BEDTIME
== END 2025-02-16 11:05 | disposition home or self-care (01) ==
PROVIDERS: PCP Internal Medicine
DX: R03.0 Elevated blood-pressure reading, without diagnosis of hypertension (principal); E11.69 Type 2 diabetes mellitus with other specified complication; E66.3 Overweight; Z68.26 Body mass index [BMI] 26.0-26.9, adult; I25.10 Atherosclerotic heart disease of native coronary artery without angina pectoris; I25.2 Old myocardial infarction; E78.2 Mixed hyperlipidemia; E55.9 Vitamin D deficiency, unspecified

== ENCOUNTER → 2025-02-16 09:53 | Outpatient (BNVA) | payer OTHER, SELFPAY | PROVIDERS: PCP Internal Medicine | DX: I10 Essential (primary) hypertension (principal); E11.9 Type 2 diabetes mellitus without complications; I25.10 Atherosclerotic heart disease of native coronary artery without angina pectoris; J44.9 Chronic obstructive pulmonary disease, unspecified; R03.0 Elevated blood-pressure reading, without diagnosis of hypertension; I25.2 Old myocardial infarction; E78.2 Mixed hyperlipidemia; E55.9 Vitamin D deficiency, unspecified; E66.3 Overweight; Z68.26 Body mass index [BMI] 26.0-26.9, adult; Z87.891 Personal history of nicotine dependence; Z79.84 Long term (current) use of oral hypoglycemic drugs | CPT/HCPCS: 99212 ==

== ENCOUNTER 2025-04-26 10:24 | Outpatient (AMB) | payer OTHER, SELFPAY ==
[2025-04-26 10:37] VITALS: BP 152/60; PULSE 74; RESP 18; TEMP 36.2; O2SAT 96; BMI 26.4
--- NOTE | 2025-04-26 10:37 | MHC.PC.OV ---
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 Name: [id number]/Ashia Accompanied by: Self / Same As Patient Allergies clarithromycin (From PREVPAC) Allergy (Mild, Verified 04/26/25 11:00) hives lansoprazole (From PREVPAC) Allergy (Mild, Verified 04/26/25 11:00) hives lisinopril (LISINOPRIL) Allergy (Mild, Verified 04/26/25 11:00) COUGHING, cough, cough amoxicillin (AMOXICILLIN) Allergy (Unknown, Verified 04/26/25 11:00) RASH cephalexin Allergy (Unknown, Verified 04/26/25 11:00) rash clavulanic acid (Augmentin) Allergy (Unknown, Verified 04/26/25 11:00) rash duloxetine (Cymbalta) Allergy (Unknown, Verified 04/26/25 11:00) weight gain, increase appetite levofloxacin (From LEVAQUIN) Allergy (Unknown, Verified 04/26/25 11:00) RASH linaclotide (Linzess) Allergy (Unknown, Verified 04/26/25 11:00) nausea penicillin V Allergy (Unknown, Verified 04/26/25 11:00) rash Penicillins (PENICILLINS) Allergy (Unknown, Verified 04/26/25 11:00) RASH Sulfa (Sulfonamide Antibiotics) Allergy (Unknown, Verified 04/26/25 11:00) rash tramadol Allergy (Unknown, Verified 04/26/25 11:00) pruritus triamcinolone (Kenalog) Allergy (Unknown, Verified 04/26/25 11:00) Unknown meclizine Adverse Reaction (Intermediate, Verified 04/26/25 11:00) fatigue, somnolence prednisone (Prednisone) Adverse Reaction (Mild, Verified 04/26/25 11:00) YEAST INFECTION cetirizine Adverse Reaction (Unknown, Verified 04/26/25 11:00) dizziness? Medication List - Last Reconciled 04/26/25 by SUJEY Pineda albuterol sulfate 90 mcg/actuation 2 puffs PO Q6H PRN alprazolam 0.25 mg PO BID PRN aspirin 81 mg PO DAILY [BLADDER PADS As directed] blood pressure monitor As directed blood sugar diagnostic (FreeStyle Lite Strips) As directed once a day blood-glucose meter (FreeStyle Lite Meter kit) daily budesonide 32 mcg/actuation 1 spray intranasal DAILY PRN commode (bedside commode) As directed gabapentin 100 mg PO DAILY PRN 90 days [HANDHELD SHOWER HEAD As directed] metformin 1,000 mg PO BEDTIME nitroglycerin 0.4 mg sublingual Q5M PRN omeprazole 20 mg PO DAILY 90 days Prozac (fluoxetine) 10 mg PO DAILY 30 days NS rosuvastatin 40 mg PO DAILY 90 days [SHOWER CHAIR As directed] umeclidinium-vilanterol 62.5-25 mcg/actuation (Anoro Ellipta) 1 inh inhalation DAILY 30 days Tobacco use date assessed: 04/26/25 Fall risk assessment: No Falls in past year Last assessed Fall Risk: 04/26/25 Dental Screening Dental Screen Date: 04/26/25 Did you have a dental visit in the last 12 months?: Yes Did you have a dental problem in the last 6 months where you did not have access to dental care?: No Was dental information given to patient?: Patient has dentist HPI JOSIAH from [facility] HPI Details The patient is an 80-year-old female presenting to transition care from Dr. Cardoso. She is concern about elevated blood pressure and carotid artery concerns. 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 She was prescribed amlodipine by her trade sales assistant, but experienced severe fatigue and was bedridden for a week after taking it. The patient has a history of visiting the emergency room due to dizziness, and the found that her blood pressure was elevated at that time. Regarding her carotid artery condition, the patient underwent a sonogram which revealed mild to moderate calcification causing stenosis. She experiences lightheadedness and pain radiating to her head, which are symptoms associated with the stenosis. The plan is to conduct a dedicated carotid ultrasound to assess the severity of the blockage. [facility] Medical History Allergic rhinitis Vaginal discharge Rash Left low back pain Dizziness Osteoporosis Hypercalcemia GERD without esophagitis Constipation Lumbar degenerative disc disease Overweight (BMI 25.0-29.9) Vitamin D deficiency Mixed hyperlipidemia Atherosclerotic cardiovascular disease Pulmonary emphysema Diabetes mellitus Vertigo Degenerative lumbar disc Irritable bowel syndrome Fibromyalgia Borderline diabetes Hypercholesteremia Asthma Chronic headache Anxiety Surgical History History of biopsy History of loop electrical excision procedure (LEEP) H/O heart artery stent Hx of colonoscopy H/O angioplasty H/O Spinal surgery Hx of tubal ligation Family History Father No problems noted. Mother Depression S/P CABG x 4 Diabetes Hypertension Sister Poor high blood pressure control Cervical cancer Breast cancer Social History Household Members: None Housing: Apartment Alcohol intake: former Patient Tobacco Use Status: Former Tobacco user e-Cigarette/Vaping Use: Never Used Second Hand Smoke Exposure: No service: No Current occupational status: retired and disabled Cognitive needs: No Hearing needs: No Vision needs: Yes (glasses) Female Reproductive History Menstrual Age of Menarche: 13 Questionnaire PHQ-9 Over the last 2 weeks, how often have you been bothered by any of the following problems? 1. Little interest or pleasure in doing things: nearly every day 2. Feeling down, depressed, or hopeless: nearly every day 3. Trouble falling or staying asleep, or sleeping too much: nearly every day (sleeping too much ) 4. Feeling tired or having little energy: nearly every day 5. Poor appetite or overeating: several days 6. Feeling bad about yourself - or that you are a failure or have let yourself or your family down: more than half the days 7. Trouble concentrating on things, such as reading the newspaper or watching television: nearly every day 8. Moving or speaking so slowly that other people could have noticed. Or the opposite - being so fidgety or restless that you have been moving around a lot more than usual: nearly every day 9. Thoughts that you would be better off or of hurting yourself in some way: not at all Total score: 21 Depression Screening Interpretation: Positive Depression Screening Follow-up: Existing condition and In treatment Depression Screening Done: Yes Source: Developed by Drs. Anthony Whelan, Chayo Romano, Vivek Avila and colleagues, with an educational irena from [employer]. Thrive Questionnaire Date Thrive assessed: 04/26/25 I am a: Patient What is your living situation today?: I have a steady place to live Within the past 12 months, did the food you bought not last and you didn't have the money to get more?: Never true Within the past 12 months, did you worry whether your food would run out before you got money to buy more?: Never true Do you have trouble paying for medicines?: No Do you have trouble getting transportation to medical appointments?: No Do you have trouble paying your heating and electricity bill?: No Do you have trouble taking care of your child, family member or friend?: No Do you have trouble with day-to-day activities such as bathing, preparing meals, shopping, managing finances, etc.?: No Are you currently unemployed and looking for a job?: I choose not to answer this question Are you interested in more education?: No Please select the resources that you would like help with: None Currently or been in a relationship where the following occur: No concerns reported THRIVE Score: 0 AUDIT C Alcohol Use Questionnaire (AUDIT-C) 1. How often do you have a drink containing alcohol?: Never Total Score: 0 Score Reviewed/Action Taken: No VIOLET-7 AMB Questionnaire VIOLET-7 Date VIOLET - 7 assessed: 04/26/25 Feeling nervous, anxious, or on edge: 0 = Not at all Not being able to stop or control worryin = Not at all Worrying too much about different things: 0 = Not at all Trouble relaxin = Not at all Being so restless that it is hard to sit still: 0 = Not at all Becoming easily annoyed or irritable: 0 = Not at all Feeling afraid as if something awful might happen: 0 = Not at all Total VIOLET-7 score (0-4 normal; 5-9 mild; 10-14 moderate; 15-21 severe): 0 Source: Developed by Chayo Kelly Kurt Kroenke and colleagues, with an educational irena from [employer]. Review of Systems Const Reports headache(s) (intermittent) Eyes Denies loss of vision ENT Denies vertigo, Reports dizziness (intermittent), Reports headache(s) (intermittent) and Denies sore throat Card Denies chest pain, Denies leg edema and Reports lightheadedness (intermittent) Resp Denies cough, Denies hemoptysis and Denies wheezing GI Denies abdominal pain, Denies melena, Denies constipation, Denies diarrhea and Denies vomiting Denies urinary frequency, Denies dysuria and Denies urinary urgency Musc Denies arthralgias, Denies joint swelling, Denies numbness and Denies tingling Neuro Denies Abnormal speech present, Denies behavioral changes, Denies vertigo, Reports dizziness (intermittent), Reports headache(s) (intermittent), Denies loss of vision, Denies memory loss, Denies numbness and Denies tingling Psych Denies anxiety, Denies behavioral changes, Denies depression, Denies memory loss and Denies panic attacks Wayne/Lymph Denies easy bleeding and Denies easy bruising Aller/Immun Denies wheezing Physical exam (Primary Care) Vital Signs: Last Vital Signs Temp 97.1 F 04/26/25 10:37 Pulse 74 04/26/25 10:37 Resp 18 04/26/25 10:37 BP 152/60 H 04/26/25 10:37 Pulse Ox 96 04/26/25 10:37 Oxygen Delivery Method Room Air 04/26/25 10:37 BMI result Body Mass Index 26.4 Tobacco/Smoking Status: Tobacco use Status Tobacco use date assessed 04/26/25 04/26/25 10:46 Patient Tobacco Use Status Former Tobacco user 04/26/25 10:46 Tobacco use type 04/16/23 13:51 e-Cigarette/Vaping Use Never Used 04/26/25 10:46 PHQ-9: PHQ-9 Score PHQ-9: Total score 21 04/26/25 11:01 Depression Screening Interpretation: Positive Depression Screening Follow-up: Existing condition and In treatment Thrive Assessment: Date of Thrive Assessment Date Thrive assessed 04/26/25 04/26/25 10:46 Currently or been in a relationship where the following occur: No concerns reported Const General: healthy appearing, no acute distress, alert and awake Nutritional Appearance: well nourished Orientation/consciousness: oriented to person, oriented to place and oriented to time HENMT Ears: TM's normal bilaterally General nose exam: Normal nasal mucous membranes and turbinates present Eyes Conjunctivae: conjunctivae normal Sclerae: sclerae normal Pupils: Equal, round and reactive pupils present Neck Neck: Yes no lymphadenopathy and Yes no JVD Thyroid: Thyroid normal Carotids: no bruits Resp Effort & Inspection: normal respiratory effort and not tachypneic Auscultation: no crackles, no rales, no rhonchi and no wheezes Cardio Rate: regular rate Rhythm: regular rhythm Heart sounds: no murmurs and normal S1 and S2 GI Palpation (GI): Soft to palpation, nontender, no hepatomegaly and no splenomegaly Auscultation: normal bowel sounds Skin General skin exam: no rashes or lesions noted and dry skin Neuro General: oriented to person, oriented to place and oriented to time Cranial nerves: Yes Equal, round and reactive pupils present Speech: No Abnormal speech present Gait exam (Neuro): Normal gait present Motor exam (neuro): no tremor noted Extrem Right upper extremity: full ROM Left upper extremity: full ROM Right lower extremity: full ROM; no edema Left lower extremity: full ROM; no edema Psych Mental Status: mental status grossly normal Speech and movement: Normal speech and movement present Affect: normal affect Attitude: cooperative Thought process: Normal thought process present Coding Level of Care Code Est Pt Level 4 (32206) Diagnoses Primary hypertension I10 Type 2 diabetes mellitus without complication, without long-term current use of insulin E11.9 Diabetes mellitus type: type 2 Diabetes mellitus 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 exterminator insulin use: without termite exterminator use Diabetes mellitus complication status: without complication Stenosis of left carotid artery I65.22 Laterality: left Time Spent (min) 39 Assessment & Plan Assessment & Plan (1) Primary hypertension: Code(s): I10 - Essential (primary) hypertension Category: Medical (2) Diabetes mellitus: Code(s): E11.9 - Type 2 diabetes mellitus without complications Category: Medical Qualifiers: Diabetes mellitus type: type 2 Diabetes mellitus termite exterminator insulin use: without termite exterminator use Diabetes mellitus complication status: without complication Qualified Code(s): E11.9 - Type 2 diabetes mellitus without complications (3) Carotid artery stenosis: Code(s): I65.29 - Occlusion and stenosis of unspecified carotid artery Category: Medical Qualifiers: Laterality: left Qualified Code(s): I65.22 - Occlusion and stenosis of left carotid artery Plan Patient was informed and verbally consented to the use of an ambient scribe for clinic note documentation during this visit. 1. Essential Hypertension The patient has been experiencing elevated blood pressure primarily during medical visits, with a history of dizziness leading to emergency room visits. Amlodipine was prescribed but resulted in severe fatigue, leading to discontinuation after one week. The plan includes monitoring blood pressure at home and considering alternative antihypertensive medications if necessary. 2. Carotid Artery Stenosis The patient has mild to moderate calcification in the carotid artery, leading to stenosis and symptoms of lightheadedness and head pain. A dedicated carotid ultrasound is planned to assess the severity of the blockage and determine further management. Orders: Orders US carotid duplex BI Today I65.22 - Occlusion and stenosis of left carotid artery Medications: Refilled budesonide 32 mcg/actuation administer into each nostril 1 spray intranasal DAILY PRN 8.43 mL 1RF allergy symptoms
--- OUTSIDE RECORDS SUMMARY | 2025-04-26 11:17 | XMS_ITS | Clinical Summary ---
Author Organization [facility] Address [address] [place] [phone] Phone Care Team Providers Care Chief Warden Name Role Phone Pcp, Unknown Primary Care Provider Unavailabl e Allergies Active Allergy Reactions Criticality Noted Date Comments Zolpidem 12/21/2021 Amoxicillin-Pot Clavulanate 12/22/19 Diphenhydramine Hcl 12/21/2021 Codeine 12/21/2021 Levofloxacin 12/21/2021 Lisinopril 12/21/2021 Cyproheptadine 12/21/2021 Pseudoephedrine Hcl 12/21/2021 Hydroxyzine Hcl 12/21/2021 Cetirizine 12/21/2021 Medications ibuprofen (ADVIL,MOTRIN) 600 MG tablet Take 1 tablet (600 mg total) by mouth 2 (two) times a day as needed for pain (specific location in comments). 20 tablet 12/22/2021 Active Social History Tobacco Use Types Packs/Day Years Used Date Smoking Tobacco: Never Assessed Education Answer Date Recorded Are you interested in more education? Not on mya e 12/27/2022 Are you concerned about learning? Not on file 12/27/2022 No 12/27/2022 No 12/27/2022 Digital Access Answer Date Recorded No 01/25/2023 No 01/25/2023 No 01/25/2023 Reliable internet access at home? Not on file 01/25/2023 Device with a working camera? Not on file Comments Unknown Sex and Gender Information Value Date Recorded Sex Assigned at Not on file Legal Sex Female 10:00 PM EDT Gender Identity Not on file Sexual Orientation Not on file Last Filed Vital Signs Vital Sign Reading Time Taken Comments Blood Pressure 110/84 12/22/2021 8:00 AM EDT Pulse 77 12/22/2021 7:37 AM EDT Temperature 36.8 C (98.2 F) 12/21/2021 10:13 PM EDT Respiratory Rate 18 12/22/2021 7:37 AM EDT Oxygen Saturation 97% 12/22/2021 8:00 AM EDT Inhaled Oxygen Concentration - - Weight 72.1 kg (159 lb) 12/21/2021 10:13 PM EDT Height 160 cm (5' 3 ) 12/21/2021 10:13 PM EDT Body Mass Index 28.17 12/21/2021 10:13 PM EDT Plan of Treatment Health Maintenance Due Date Last Done Comments Adult Td,Tdap Booster 1945 LIPID PANEL 1945 DEPRESSION SCREENING 1957 SMOKING Hx and SMOKELESS TOB ACCO SCREENING 1958 PNEUMOCOCCAL VACCINES (50+ y ears) (1 of 1 - PCV) 1995 ZOSTER VACCINES (1 of 2) 1995 OSTEOPOROSIS SCREENING INITI AL (ONE-TIME) 2010 RSV VACCINE (1 - 1-dose 75+ series) 01/12/2020 COVID-19 VACCINE ( - 2023-2 5 season) 2024 HEPATITIS A VACCINES Aged Out No long er eligible based on patient's age to complete this topic HIB VACCINES Aged Out No longer eligi ble based on patient's age to complete this topic MENINGOCOCCAL VACCINES (ACWY) Aged Out No longer eligible based on patient's age to complete this topic MENINGOCOCCAL VACCINES (B) Aged Out N o longer eligible based on patient's age to complete this topic Medical Devices Not on file Insurance MEDICARE PART A & B [facility] MEDICARE REPLACEMENT [facility] MEDIC[facility] PART A & B [facility] MEDICARE REPLACEMENT [place] MED[place] PART A & B Member Subscriber Plan / Payer (Ef fective 2009-Present) Name:Meredith Carranza Member ID:[id number] Relation to Subscriber:Self Name:CarranzaMeredith renee Subscriber ID:[id number] Payer ID:[id number] Group ID:Not on file Type:Medicare Address: [facility] [employer] [facility] [address] [place] [phone] [facility] MEDICARE REPLACEMENT [place] MEDICARE PART A & B [facility] MEDICARE REPLACEMENT [facility] MEDIC[facility] PART A & B [facility]ARE RE[address] & B [facility] MEDICARE REPLACEMENT [place] [id number] [facility] B [facility] MEDIC[facility] REPLACEMENT Member Subscriber Plan / Payer (Ef fective 2013-Present) Name:Meredith Carranza Relation to Subscriber:Self Name:Meredith Carranza Payer ID:[id number] (NAIC) Group ID:[id number] Type:Medicare Address: [address] MEDICARE PART A & B Member Subscriber Plan / Payer (Ef fective 2009-Present) Name:Meredith Carranza Member ID:[id number] Relation to Subscriber:Self Name:Meredith Carranza Subscriber ID:[id number] Payer ID:[id number] Group ID:Not on file Type:Medicare Address: [facility] [employer] [facility] [address] [place] [phone] [place] [address] MEDICARE REPLACEMENT Member Subscriber Plan / Payer ( fective 2013-Present) Name:Meredith Carranza Relation to Subscriber:Self Name:Meredith Carranza Payer ID:[id number] (NAIC) Group ID:[id number] Type:Medicare Address: [address] MEDICARE PART A & B [facility] MEDICARE REPLACEMENT [facility] Care Teams Chief Warden Relationship Specialty Start Date End Date Pcp, Unknown PCP - General 12/21/21 Additional Source Comments The information contained in this document represents components of the legal health record. It is not the complete legal health record.[facility]
--- OUTSIDE RECORDS SUMMARY | 2025-04-26 11:17 | XMS_ITS | Clinical Summary ---
Author Organization [facility] Address [address] [place] [phone] Phone Care Team Providers Care Inspector Process Name Role Phone Heidi Malloy MD Primary Care Provider +1- [phone] Allergies Active Allergy Reactions Criticality Noted Date Comments Neomycin-Polymyxin B Gu 08/14/2014 All antibiotics Encounters Date Type Department Care Team Description 02/10/2025 12:17 PM EDT - 02/10/2025 3:[address] [facility] Emergency [address] [place] [address] Dafne Reese, Lightheadedness (Primary Dx) Discharge Disposition: Home or Self Care from Last 3 Months Social History Tobacco Use Types Packs/Day Years Used Date Smoking Tobacco: Never Assessed Comments Unknown Sex and Gender Information Value Date Recorded Sex Assigned at Not on file Legal Sex Female 9:43 AM EST Gender Identity Not on file Sexual Orientation Not on file Last Filed Vital Signs Vital Sign Reading Time Taken Comments Blood Pressure 150/66 02/10/2025 2:30 PM EDT Pulse 76 02/10/2025 2:30 PM EDT Temperature 36.7 C (98 F) 02/10/2025 1:41 PM EDT Respiratory Rate 20 02/10/2025 2:30 PM EDT Oxygen Saturation 96% 02/10/2025 2:30 PM EDT Inhaled Oxygen Concentration - - Weight 64 kg (141 lb) 02/10/2025 12:29 PM EDT Height 160 cm (5' 3 ) 02/10/2025 12:29 PM EDT Body Mass Index 24.98 02/10/2025 12:29 PM EDT Plan of Treatment Health Maintenance Due Date Last Done Comments Diabetes: Annual Foot Exam 1955 Diabetes: Annual Retina Eye Exam 1955 DTaP,Tdap,and Td Vaccines (1 - Tdap) 01/12/1964 Pneumococcal Vaccine: 50+ Ye ars (1 of 2 - PCV) 01/12/1964 Zoster Vaccines (1 of 2) 1995 RSV Immunization Adult Patie nts (1 - 1-dose 75+ series) 01/12/2020 COVID-19 Vaccine (1 - 2023-2 5 season) 2024 Depression Screening 08/31/2024 Cholesterol Screening (Lipid Panel) 02/10/2025 Diabetes: Annual Urine Albumin-Creatinine Ratio (uACR) 02/10/2025 Diabetes: Blood Sugar Contro l Test (HGBA1C) 02/10/2025 Falls Risk Assessment 02/10/2025 Medicare Annual Wellness Visit 02/10/2025 Osteoporosis Screening (Bone Density Screening) 02/10/2025 Social Influencers of Health Screening 02/10/2025 Influenza Vaccine (#1) 2025 08/05/2007 Diabetes: Annual GFR (Glomer ular Filtration Rate) 02/10/2026 02/10/2025 Hypertension/CHF/CAD Annual BMP Blood Test 02/10/2026 02/10/2025 HIB Vaccines Aged Out No longer eligi ble based on patient's age to complete this topic HPV Vaccines Aged Out No longer eligi ble based on patient's age to complete this topic Hepatitis A Vaccines Aged Out No long er eligible based on patient's age to complete this topic Hepatitis B Vaccines Aged Out No long er eligible based on patient's age to complete this topic IPV Vaccines Aged Out No longer eligi ble based on patient's age to complete this topic MMR Vaccines Aged Out No longer eligi ble based on patient's age to complete this topic Meningococcal ACWY Vaccine Aged Out N o longer eligible based on patient's age to complete this topic Meningococcal B Vaccine Aged Out No l onger eligible based on patient's age to complete this topic RSV Immunization Patients Un gilbert 20 months Aged Out No longer eligible b ased on patient's age to complete this topic Varicella Vaccines Aged Out No longer eligible based on patient's age to complete this topic Procedures Procedure Name Priority Date/Time Associated Diagnosis Comments ECG ANNOTATED 02/13/2025 URINALYSIS WITH REFLEX MICROSCOPIC STAT 02/10/2025 1:27 PM EDT URINALYSIS WITH REFLEX MICROSCOPIC STAT 02/10/2025 1:27 PM EDT XR CHEST 2 VIEWS STAT 02/10/2025 12:5 9 PM EDT POCT GLUCOSE BLOOD Routine 02/10/2025 12 :48 PM EDT ECG 12-LEAD STAT 02/10/2025 12:40 PM EDT TROPONIN I HIGH SENSITIVITY STAT 02/10/2025 12:36 PM EDT CBC WITH AUTO DIFFERENTIAL STAT 02/10/2025 12:36 PM EDT MAGNESIUM STAT 02/10/2025 12:36 PM EDT BASIC METABOLIC PANEL STAT 02/10/2025 12:36 PM EDT CBC AND DIFFERENTIAL STAT 02/10/2025 12:36 PM EDT from Last 3 Months Results * ECG-Annotated (02/13/2025) Provider Onbase MD ECG ORDERABLES Final Result * Urinalysis with reflex microscopic (02/10/2025 1:27 PM EDT) Specific [place] Urine 1.006 1.003 - 1.030 LAB URINALYSIS - AUTOMATED METHOD 02/10/2025 1:49 PM EDT [facility] pH, Urine 7.0 5.0 - 8.0 pH LAB URINALYSIS - AUTOMATED METHOD 02/10/2025 1:49 PM EDT [facility] Leukocytes, Urine Negative Negative LAB URINALYSIS - AUTOMATED METHOD 02/10/2025 1:49 PM EDT [facility] Nitrite, Urine Negative Negative LAB URINALYSIS - AUTOMATED METHOD 02/10/2025 1:49 PM EDT [facility] Protein, Urine Negative <=Trace mg/dL LAB URINALYSIS - AUTOMATED METHOD 02/10/2025 1:49 PM EDT [facility] Glucose, Urine Negative Negative mg/dL LAB URINALYSIS - AUTOMATED METHOD 02/10/2025 1:49 PM EDT [facility] Ketones, Urine Negative Negative mg/dL LAB URINALYSIS - AUTOMATED METHOD 02/10/2025 1:49 PM EDT [facility] Urobilinogen, Urine 0.2 0.2 - 1.0 mg/dL LAB URINALYSIS - AUTOMATED METHOD 02/10/2025 1:49 PM EDT [facility] Bilirubin, Urine Negative Negative LAB URINALYSIS - AUTOMATED METHOD 02/10/2025 1:49 PM EDT [facility] Blood, Urine Negative Negative LAB URINALYSIS - AUTOMATED METHOD 02/10/2025 1:49 PM EDT [facility] Urine Urine specimen obtained by clean catch procedure / Unknown Non-blood Collection / Unknown 02/10/2025 1:27 PM EDT 02/10/2025 1:42 PM EDT us Dafne Reese DO LAB URINE ORDERABLES Denice l Result [facility] [address] [place] [address], [place] [phone] * XR Chest 2 Views (02/10/2025 12:59 PM EDT) Anatomical Region Laterality Modality Body Radiographic Kiki ging 02/10/2025 1:09 PM EDT Impressions 02/10/2025 1:10 PM EDT FINDINGS/IMPRESSION: Hyperinflation. Scattered interstitial opacities could represent areas of scarring and volume loss though infectious/inflammatory process is not excluded. There is no consolidation or significant effusion. There are mild degenerative changes of the shoulders and spine. -------- FINAL REPORT -------- Dictated By: Judy Hathaway Dictated Date: 02/10/2025 13:09 ET Assigned Physician: Judy Hathaway Reviewed and Electronically Signed By: Judy Hathaway Signed Date: 02/10/2025 13:10 ET Workstation ID: [id number] Transcribed By: Self Edit Transcribed Date: 02/10/2025 13:09 ET Narrative 02/10/2025 1:10 PM EDT XR CHEST 2 VIEWS INDICATION: chest pain TECHNIQUE: XR CHEST 2 VIEWS COMPARISON: No priors available. Procedure Note Judy Hathaway MD - 02/10/2025 XR CHEST 2 VIEWS INDICATION: chest pain TECHNIQUE: XR CHEST 2 VIEWS COMPARISON: No priors available. IMPRESSION: FINDINGS/IMPRESSION: Hyperinflation. Scattered interstitial opacitiescould represent areas of scarring and volume loss thoughinfectious/inflammatory process is not excluded. There is noconsolidation or significant effusion. There are mild degenerativechanges of the shoulders and spine. -------- FINAL REPORT -------- Dictated By: Judy Hathaway Dictated Date: 02/10/2025 13:09 ET Assigned Physician: Judy Hathaway Reviewed and Electronically Signed By: Judy Hathaway Signed Date: 02/10/2025 13:10 ET Workstation ID: [id number] Transcribed By: Self Edit Transcribed Date: 02/10/2025 13:09 ET us aDfne Reese DO IMG XR PROCEDURES Final R esult * (ABNORMAL) POCT Glucose, blood (02/10/2025 12:48 PM EDT) Glucose POCT 121(H) 70 - 100 mg/dL 02/10/2025 12:51 PM EDT [facility] Blood Capillary blood specimen / Unknown 02/10/2025 12:48 PM EDT 02/10/2025 12:52 PM EDT us Generic Provider Poct LAB POINT OF CARE TEST DOCKED DEVICE UNSOLICITED RESULTS Final Result Performing Organization Address City/[facility]/ZIP Co de Phone Number [facility] [address] [place] [address], [place] [phone] * ECG 12 lead (02/10/2025 12:40 PM EDT) Pathologist [facility] Ventricular Rate ECG 66 BPM GEMUSE Atrial Rate 66 BPM GEMUSE P-R Interval 164 ms GEMUSE QRS Duration 90 ms GEMUSE Q-T Interval 412 ms GEMUSE QTc 431 ms GEMUSE P Wave [place] 51 degrees GEMUSE R [place] -9 degrees GEMUSE T [place] 7 degrees GEMUSE ECG Interpretation Normal sinus rhythm Normal ECG No previous ECGs available Confirmed by MARA ZAYAS ([id number]) on 02/11/2025 12:38:04 PM GEMUSE 02/10/2025 12:4 0 PM EDT 02/11/2025 12:38 PM EDT us Dafne Reese DO ECG ORDERABLES Final Res ult Performing Organization Address [facility] Co de Phone Number GEMUSE * Troponin I high sensitivity (02/10/2025 12:36 PM EDT) [facility] High Sensitivity Troponin I 44 <=54 ng/L LAB CHEMISTRY METHOD 02/10/2025 2:12 PM EDT [facility] Blood Venous blood specimen / Unknown Venipuncture / Unknown 02/10/2025 12:36 PM EDT 02/10/2025 1:42 PM EDT Narrative [facility] - 02/10/2025 2:12 PM EDT High levels of biotin in samples may falsely decrease hsTroponin values. Use caution when interpreting hsTroponin results in patients taking biotin who exhibit renal impairment (eGFR <60) or in patients taking more than 20 mg/day of biotin. us Dafne Reese DO LAB BLOOD ORDERABLES Denice l Result Performing Organization Address City/[facility]/ZIP Co de Phone Number [facility] [address] [place] [address], * (ABNORMAL) CBC auto differential (02/10/2025 12:36 PM EDT) [facility] WBC 6.1 4.8 - 10.8 K/mcL LAB HEMETOLOGY METHOD 02/10/2025 1:52 PM EDT [facility] RBC 4.20 3.80 - 4.80 M/mcL LAB HEMETOLOGY METHOD 02/10/2025 1:52 PM EDT [facility] Hemoglobin 11.8 11.5 - 16.0 g/dL LAB HEMETOLOGY METHOD 02/10/2025 1:52 PM EDT [facility] Hematocrit 38.5 35.0 - 47.0 % LAB HEMETOLOGY METHOD 02/10/2025 1:52 PM EDT [facility] MCV 91.7 79.0 - 98.0 FL LAB HEMETOLOGY METHOD 02/10/2025 1:52 PM EDT [facility] MCH 28.1 27.0 - 32.0 pcg LAB HEMETOLOGY METHOD 02/10/2025 1:52 PM EDT [facility] MCHC 30.6(L) 32.0 - 37.0 g/dL LAB HEMETOLOGY METHOD 02/10/2025 1:52 PM EDT [facility] RDW 13.2 11.0 - 15.0 % LAB HEMETOLOGY METHOD 02/10/2025 1:52 PM EDT [facility] Platelets 281 130 - 400 K/mcL LAB HEMETOLOGY METHOD 02/10/2025 1:52 PM EDT [facility] MPV 10.8 7.0 - 11.0 FL LAB HEMETOLOGY METHOD 02/10/2025 1:52 PM EDT [facility] NRBC 0.0 <1.0 % LAB HEMETOLOGY METHOD [facility] NRBC Absolute 0.00 <0.10 K/mcL LAB HEMETOLOGY METHOD 02/10/2025 1:52 PM [facility] Neutrophils Relative 53.6 % LAB HEMETOLOGY METHOD 02/10/2025 1:52 PM [facility] Lymphocytes Relative 33.9 % LAB HEMETOLOGY METHOD 02/10/2025 1:52 PM [facility] Monocytes Relative 7.7 % LAB HEMETOLOGY METHOD 02/10/2025 1:52 PM [facility] Eosinophils Relative 3.4 % LAB HEMETOLOGY METHOD 02/10/2025 1:52 PM [facility] Basophils Relative 1.1 % LAB HEMETOLOGY METHOD 02/10/2025 1:52 PM [facility] Immature Granulocytes Relative 0.3 % LAB HEMETOLOGY METHOD 02/10/2025 1:52 PM [facility] Neutrophils Absolute 3.26 1.50 - 7.00 K/mcL LAB HEMETOLOGY METHOD 02/10/2025 1:52 PM [facility] Lymphocytes Absolute 2.07 1.00 - 5.00 K/mcL LAB HEMETOLOGY METHOD 02/10/2025 1:52 PM [facility] Monocytes Absolute 0.47 0.20 - 1.00 K/mcL LAB HEMETOLOGY METHOD 02/10/2025 1:52 PM [facility] Eosinophils Absolute 0.21 0.00 - 0.50 K/mcL LAB HEMETOLOGY METHOD 02/10/2025 1:52 PM [facility] Basophils Absolute 0.07 0.00 - 0.20 K/mcL LAB HEMETOLOGY METHOD 02/10/2025 1:52 PM [facility] Immature Granulocytes Absolute 0.02 0.00 - 0.03 K/mcL LAB HEMETOLOGY METHOD 02/10/2025 1:52 PM EDT [facility] Blood Venous blood specimen / Unknown Venipuncture / Unknown 02/10/2025 12:36 PM EDT 02/10/2025 1:42 PM EDT Dafne Reese LAB BLOOD ORDERABLES Denice l Result Performing Organization Address City/[facility]/ZIP Co de Phone Number [facility] [address] [place] [address], [place] [phone] * Magnesium (02/10/2025 12:36 PM EDT) [facility] Magnesium 2.0 1.9 - 2.6 mg/dL LAB CHEMISTRY METHOD 02/10/2025 2:09 PM EDT [facility] Blood Venous blood specimen / Unknown Venipuncture / Unknown 02/10/2025 12:36 PM EDT 02/10/2025 1:42 PM EDT Dafne Reese LAB BLOOD ORDERABLES Denice l Result Performing Organization Address [facility]/ZIP Co de Phone Number [facility] [address] [place] [address], [place] [phone] * (ABNORMAL) Basic metabolic panel (02/10/2025 12:36 PM EDT) [facility] Sodium 137 133 - 145 mmol/L LAB CHEMISTRY METHOD 02/10/2025 2:09 PM EDT [facility] Potassium 4.1 3.5 - 5.5 mmol/L LAB CHEMISTRY METHOD 02/10/2025 2:09 PM EDT [facility] Chloride 104 96 - 110 mmol/L LAB CHEMISTRY METHOD 02/10/2025 2:09 PM EDT [facility] CO2 30 21 - 32 mmol/L LAB CHEMISTRY METHOD 02/10/2025 2:09 PM EDT [facility] Anion Gap 3 3 - 11 LAB CHEMISTRY METHOD 02/10/2025 2:09 PM T [facility] Glucose 127(H) 70 - 100 mg/dL LAB CHEMISTRY METHOD 02/10/2025 2:09 PM [facility] BUN 14 5 - 25 mg/dL LAB CHEMISTRY METHOD 02/10/2025 2:09 PM EDT [facility] Creatinine 0.68 0.50 - 1.10 mg/dL LAB CHEMISTRY METHOD 02/10/2025 2:09 PM EDT [facility] eGFR 88 >=60 mL/min/1. 73m2 LAB CHEMISTRY METHOD 02/10/2025 2:09 PM T [facility] Comment:Calculation based on the Chronic Kidney Disease Epidemiology Collaboration (CKD-EPI) equation refit without adjustment for race. BUN/Creatinine Ratio 20.6 LAB CHEMISTRY METHOD 02/10/2025 2:09 PM [facility] Calcium 9.7 8.5 - 10.5 mg/dL LAB CHEMISTRY METHOD 02/10/2025 2:09 PM [facility] Blood Venous blood specimen / Unknown Venipuncture / Unknown 02/10/2025 12:36 PM EDT 02/10/2025 1:42 PM EDT Maxwell Zackary Reese DO LAB BLOOD ORDERABLES Denice l Result [facility] [address] [place] [address], [place] [phone] from Last 3 Months Insurance [facility] Member Subscriber Plan / Payer (Ef fective 2013-Present) Name:Meredith Carranza Relation to Subscriber:Self Name:Meredith Carranza Payer ID:[id number] Group ID:[id number] Type:Not on file Address: [address] [place] [address] [employer] MED[employer] Member Subscriber Plan / Payer (Ef fective 2023-Present) Name:Meredith Carranza Relation to Subscriber:Self Name:Meredith Carranza Payer ID:[id number] Group ID:Not on file Type:Not on file Address: [address] [place] [address] Care Teams Inspector Process Relationship Specialty Start Date End Date Heidi Malloy MD [address] [place] [address] PCP - General Internal Medicine 07/10/14
--- OUTSIDE RECORDS SUMMARY | 2025-04-26 11:17 | XMS_ITS | Encounter Summary ---
Author Organization [facility] Address [address] [place] [address] Encounters * CPT with Jovon Richards at [facility] on 2025-02-12 { reasonForRequest : Patient has high blood pressure. , patientReports&quot ;: , denies :[ Worst Headache of life , New onset of vision loss , Sudden onset -unilateral weakness/gait disturbance , Fall with head strike and altered LOC , New onset of Slurred speech or difficulty finding words , Sudden Mental status changes , Head pain with fever chills and neck pain , Seizure ac tivity ], chiefComplaints : High Blood Pressure , pmh : COPD/Asthma, Hyperlipidemia, Myocardial Infarction, Cancer, Diabetes Mellitus Type 2, Emphysema, Fibromyalgia , allergies : Penicillins, Bactrim, Levaquin, Augmentin, Lisinopril, Prevacid , otherAllergies :null, painAssessment : , visitOutcome : , additionalComments : 80 y.o female complains of High Blood Press ure\nPatient's daughter calling reporting patient went to the ER yesterday for headache and dizziness and found patient to have elevated BP. ER instructed patient to follow up with PCP about elevatedBP. Daughter reports patient has checked her blood pressure multiple times today and reports BP 179/80 \ something\ all day. Patient reports no dizziness today but complaining of headache and increased fatigue from baseline. Patient denies chest pain or shortness of breath. Patient changes visual changes. Patient has no history of hypertension and is not currently on blood pressure medications. Patient further reports patient was at one point on 2.5mg of Amlodipine and medication was discontinued due to low blood pressure. I provided information on the mobile health provider response time and advised the patient and/or caregiver to monitor reported signs and symptoms. I discussedthe warning signs of when to seek emergency care -Micaela Davidson RN } This 80-year-old female with a history including but not limited to COPD, HLD, DC, cancer, DM type II, emphysema, fibromyalgia requested a visit today to address elevated blood pressure readings of the last several days. Patient went to the ED yesterday because she had a headache and felt weak, patient had a full workup including EKG, labs and imaging, everything was negative. The ED told her to follow up with her PCP on Thursday. Patient states she was on amlodipine 2.5 mg had it discontinued two months ago due to hypertension. Patient currently is asymptomatic, denying any chest pain, shortness of breath, headaches, dizziness, fevers, nausea, vomiting, diarrhea. Patient presents awake and alert, in no acute distress and speaking full sentences. Her blood pressure is 149/69, vital signs are stable and she is afebrile. Nonfocal neurological exam. Normal gait. Normal heart tones. Lungs are clear throughout auscultation. Abdomen is soft, nontender, nondistended. No lower extremity edema. We discussed the diagnostic uncertainty of home visits and the risk associated with this. In this case, the patient and I felt this to be an acceptable and reasonable amount of risk given the benefitof avoiding an ED visit. I provided education on keeping a log of her blood pressures, with dates and times and to present that information to her PCP. I recommend follow-up with her PCP on Thursday toschedule an appointment and present to the emergency department for any new or worsening severe symptoms such as chest pain, shortness of breath, severe headache, blood pressure readings over 200 systolic. The patient and her family were given the opportunity to ask questions and are agreeable to this plan. IV_(FLUIDS_AND/OR_MEDICATION), MEDICATION_IM, ORAL_MEDICATION, EKG, ORTHOSTATIC_VITAL_SIGNS Written by Joovn Richards on 2025-02-12
--- OUTSIDE RECORDS SUMMARY | 2025-04-26 11:17 | XMS_ITS | Clinical Summary ---
Author Organization [facility] Address [address] [address] [place] [phone] Phone Care Team Providers Care Media Analyst Name Role Phone Jonatan Cardoso MD Primary Care Provider +1- [phone] Allergies Active Allergy Reactions Criticality Noted Date Comments Pkurlrpyc-Cprioezlj-Sdxautbkp Other (see comments) 02/01/2021 Amoxicillin-Pot Clavulanate Other [...] Due Date Last Done Comments Pneumococcal Vaccine: 50+ Ye ars (1 of 1 - PCV) 1995 Influenza Vaccine (#1) 2025 Hepatitis B Vaccine Aged Out No longe r eligible based on patient's age to complete this topic Insurance ([id number]) [place] [address] ([id number]) Care Teams Media Analyst Relationship Specialty Start Date End Date Jonatan Cardoso MD [address] [place] [phone] PCP - General 09/10/20
--- OUTSIDE RECORDS SUMMARY | 2025-04-26 11:17 | XMS_ITS | Encounter Summary ---
Author Organization [facility] Address [address] [place] [phone] Phone Care Team Providers Care Stock Controller Name Role Phone Pcp, Unknown Primary Care Provider Unavailabl e Encounter Details Date Type Department Care Team (Late st Contact Info) Description 12/22/2021 Procedure [facility], Ct Scan - [facility] [address] [place] [address] Social History Tobacco Use Types Packs/Day Years Used Date Smoking Tobacco: Never Assessed Comments Unknown Sex and Gender Information Value Date Recorded Sex Assigned at Not on file Legal Sex Female 10:00 PM EDT Gender Identity Not on file Sexual Orientation Not on file documented as of this encounter Plan of Treatment Not on file documented as of this encounter Visit Diagnoses Not on filedocumented in this encounter Care Teams Stock Controller Relationship Specialty Start Date End Date Pcp, Unknown PCP - General 12/21/21 documented as of this encounter Additional Source Comments The information contained in this document represents components of the legal health record. It is not the complete legal health record.[facility]
--- OUTSIDE RECORDS SUMMARY | 2025-04-26 11:17 | XMS_ITS | Continuity of Care Document ---
Author Name Jovon Richards Address [address] [place] [address] Organization Unknown Address [address] [place] [address] Medications No known medications Problems No known problems
== END 2025-04-26 11:32 | disposition home or self-care (01) ==
LOC: HO.HMCH 10:25
PROVIDERS: PCP Internal Medicine
DX: I10 Essential (primary) hypertension (principal); E11.9 Type 2 diabetes mellitus without complications; I65.22 Occlusion and stenosis of left carotid artery

== ENCOUNTER → 2025-04-26 10:24 | Outpatient (BNVA) | payer OTHER, SELFPAY | PROVIDERS: PCP Internal Medicine | DX: I10 Essential (primary) hypertension (principal); E11.9 Type 2 diabetes mellitus without complications; I65.22 Occlusion and stenosis of left carotid artery | CPT/HCPCS: 96127; 99212 ==

== ENCOUNTER 2025-05-08 10:44 | Outpatient (AMB) | payer OTHER, SELFPAY ==
[2025-05-08 10:46] VITALS: BP 134/66; PULSE 74; BMI 26.5
--- NOTE | 2025-05-08 10:46 | MHC.OFFVIS ---
Vital Signs 05/08/25 10:46 Height 5 ft 3 in Weight 149 lb 7.574 oz BMI 26.5 BP 134/66 Blood Pressure Location Lt brachial Position Sitting Pulse 74 Pulse Source Pulse Oximeter Intake Visit Reasons: 6m follow up On Air Host Name: No Alvarado [id number] Accompanied by: Self / Same As Patient Allergies clarithromycin (From PREVPAC) Allergy (Mild, Verified 05/08/25 10:53) hives lansoprazole (From PREVPAC) Allergy (Mild, Verified 05/08/25 10:53) hives lisinopril (LISINOPRIL) Allergy (Mild, Verified 05/08/25 10:53) COUGHING, cough, cough amoxicillin (AMOXICILLIN) Allergy (Unknown, Verified 05/08/25 10:53) RASH cephalexin Allergy (Unknown, Verified 05/08/25 10:53) rash clavulanic acid (Augmentin) Allergy (Unknown, Verified 05/08/25 10:53) rash duloxetine (Cymbalta) Allergy (Unknown, Verified 05/08/25 10:53) weight gain, increase appetite levofloxacin (From LEVAQUIN) Allergy (Unknown, Verified 05/08/25 10:53) RASH linaclotide (Linzess) Allergy (Unknown, Verified 05/08/25 10:53) nausea penicillin V Allergy (Unknown, Verified 05/08/25 10:53) rash Penicillins (PENICILLINS) Allergy (Unknown, Verified 05/08/25 10:53) RASH Sulfa (Sulfonamide Antibiotics) Allergy (Unknown, Verified 05/08/25 10:53) rash tramadol Allergy (Unknown, Verified 05/08/25 10:53) pruritus triamcinolone (Kenalog) Allergy (Unknown, Verified 05/08/25 10:53) Unknown meclizine Adverse Reaction (Intermediate, Verified 05/08/25 10:53) fatigue, somnolence prednisone (Prednisone) Adverse Reaction (Mild, Verified 05/08/25 10:53) YEAST INFECTION cetirizine Adverse Reaction (Unknown, Verified 05/08/25 10:53) dizziness? Medication List - Last Reconciled 05/08/25 by Vernon Plata MD albuterol sulfate 90 mcg/actuation 2 puffs PO Q6H PRN alprazolam 0.25 mg PO BID PRN aspirin 81 mg PO DAILY [BLADDER PADS As directed] blood pressure monitor As directed blood sugar diagnostic (FreeStyle Lite Strips) As directed once a day blood-glucose meter (FreeStyle Lite Meter kit) daily budesonide 32 mcg/actuation 1 spray intranasal DAILY PRN commode (bedside commode) As directed gabapentin 100 mg PO DAILY PRN 90 days [HANDHELD SHOWER HEAD As directed] metformin 1,000 mg PO BEDTIME nitroglycerin 0.4 mg sublingual Q5M PRN omeprazole 20 mg PO DAILY 90 days Prozac (fluoxetine) 10 mg PO DAILY 30 days NS rosuvastatin 40 mg PO DAILY 90 days [SHOWER CHAIR As directed] umeclidinium-vilanterol 62.5-25 mcg/actuation (Anoro Ellipta) 1 inh inhalation DAILY 30 days HPI Comments Details: Meredith returns for follow-up regarding coronary disease. To recall, she was admitted in [address] elevation myocardial infarction. At that time, received LAD stenting. One further cardiac catheterization in 2019 for chest pain. Additional stent in mid LAD. Since had complained of shortness of breath leading to pulmonary evaluation. Pulmonary function testing had shown obstructive airway disease with complete reversibility suggesting asthma. History of smoking in the past but nothing recently. Overall, she states she is doing fine. No angina or any clear-cut concerning symptoms. Last time, blood pressure is on the higher side and we started Amlodipine but she apparently took it only for a week and had a lot of side effects and stopped taking it. [facility] Medical History Allergic rhinitis Vaginal discharge Rash Left low back pain Dizziness Osteoporosis Hypercalcemia GERD without esophagitis Constipation Lumbar degenerative disc disease Overweight (BMI 25.0-29.9) Vitamin D deficiency Mixed hyperlipidemia Atherosclerotic cardiovascular disease Pulmonary emphysema Diabetes mellitus Vertigo Degenerative lumbar disc Irritable bowel syndrome Fibromyalgia Borderline diabetes Hypercholesteremia Asthma Chronic headache Anxiety Surgical History History of biopsy History of loop electrical excision procedure (LEEP) H/O heart artery stent Hx of colonoscopy H/O angioplasty H/O Spinal surgery Hx of tubal ligation Family History Father No problems noted. Mother Depression S/P CABG x 4 Diabetes Hypertension Sister Poor high blood pressure control Cervical cancer Breast cancer Social History Household Members: None Housing: Apartment Alcohol intake: former Patient Tobacco Use Status: Former Tobacco user e-Cigarette/Vaping Use: Never Used Second Hand Smoke Exposure: No service: No Current occupational status: retired and disabled Cognitive needs: No Hearing needs: No Vision needs: Yes (glasses) Female Reproductive History Menstrual Age of Menarche: 13 Review of Systems Const Denies daytime sleepiness, Denies difficulty sleeping, Denies snoring, Denies stops breathing during sleep and Denies weakness Card Denies chest pain, Denies rapid heart rate, Denies irregular heart rhythm, Denies claudication, Denies leg edema, Denies lightheadedness, Denies palpitations, Denies dyspnea, Denies dyspnea on exertion, Denies orthopnea, Denies paroxysmal nocturnal dyspnea and Denies slow heart rate Resp Denies cough, Denies dyspnea, Denies dyspnea on exertion and Denies snoring GI Reports no additional complaints, Denies hematochezia, Denies change in stool character and Denies dyspepsia Musc Denies abnormal gait, Denies muscle weakness and Denies numbness Neuro Denies abnormal gait, Denies numbness and Denies weakness Endo Denies palpitations Physical Exam Vital Signs: Last Vital Signs Pulse 74 05/08/25 10:46 BP 134/66 05/08/25 10:46 BMI result Body Mass Index 26.5 Const General: comfortable and no acute distress Orientation/consciousness: patient oriented x3 HEENT Other: Unremarkable Head: Yes normal to inspection Neck Neck: Yes normal visual inspection Chest Chest palpation & inspection: normal inspection of the chest Resp Auscultation: clear to auscultation bilaterally Cardio Palpation: normal PMI Heart sounds: S1 normal heart sound present, S2 normal heart sound present, no gallops, no murmurs and no rubs GI Palpation (GI): Soft to palpation Back/Spine/Pelvis Other: unremarkable Skin General skin exam: no rashes or lesions noted Neuro General: patient oriented x3 Extrem General: Yes normal to inspection Psych Mental Status: mental status grossly normal Assessment & Plan Assessment & Plan (1) Atherosclerotic cardiovascular disease: Code(s): I25.10 - Atherosclerotic heart disease of [place] coronary artery without angina pectoris Category: Medical (2) Primary hypertension: Code(s): I10 - Essential (primary) hypertension Category: Medical Plan Cardiac data reviewed. Echocardiogram from 2020 with LVEF of 60-65%. Mild aortic valve calcification. Mild tricuspid regurgitation otherwise unremarkable. Cardiac catheterization from 2019-mid LAD distal 90% stenosis status post stenting; distal circumflex 90% stenosis, not intervened; no significant disease in right coronary artery. Overall, continue treatment for stable coronary disease. Continue aspirin, statins. Taken off beta-blockers in the past due to fatigue and tiredness. With regard to blood pressure, could not tolerate amlodipine due to various side effects. Otherwise, continue statins. He had levels have been in the 40s, 50s, 60s and 70s at different times. Follow up in 6 months time. Total time spent including review of data, counseling, documentation, coordination of care-31 minutes. Coding Level of Care Code Est Pt Level 4 (41615) Complex EM visit Add On G2211 Diagnoses Atherosclerotic cardiovascular disease I25.10 Primary hypertension I10
--- OUTSIDE RECORDS SUMMARY | 2025-05-08 13:07 | XMS_ITS | Clinical Summary ---
Author Organization [facility] Address [address] [place] [phone] Phone Care Team Providers Care Proposal Writer Name Role Phone Heidi Malloy MD Primary Care Provider +1- [phone] Allergies Active Allergy Reactions Criticality Noted Date Comments Neomycin-Polymyxin B Gu 08/14/2014 All antibiotics Encounters Date Type Department Care Team Description 02/10/2025 12:17 PM EDT - 02/10/2025 3:35 PM EDT Emergency [facility] Emergency [address] [place] [address] Dafne Reese, Lightheadedness (Primary Dx) [...] nts (1 - 1-dose 75+ series) 01/12/2020 Depression Screening 08/31/2024 Cholesterol Screening (Lipid Panel) 02/10/2025 Diabetes: Annual Urine Albumin-Creatinine Ratio (uACR) 02/10/2025 Diabetes: Blood Sugar Contro l Test (HGBA1C) 02/10/2025 Falls Risk Assessment 02/10/2025 Medicare Annual Wellness Visit 02/10/2025 Osteoporosis Screening (Bone Density Screening) 02/10/2025 Social Influencers of Health Screening 02/10/2025 COVID-19 Vaccine (1 - 2023-2 5 season) 2025 Influenza Vaccine (#1) 2025 08/05/2007 Diabetes: Annual [...] reflex microscopic (02/10/2025 1:27 PM EDT) Specific [place] Urine 1.006 1.003 - 1.030 LAB URINALYSIS - AUTOMATED METHOD 02/10/2025 1:49 PM EDT [facility] pH, Urine 7.0 5.0 - 8.0 pH LAB URINALYSIS - AUTOMATED METHOD 02/10/2025 1:49 PM EDT [facility] Leukocytes, Urine Negative Negative LAB URINALYSIS - AUTOMATED METHOD 02/10/2025 1:49 PM EDT [facility] Nitrite, Urine Negative Negative LAB URINALYSIS - AUTOMATED METHOD 02/10/2025 1:49 PM EDT [facility] Protein, Urine Negative <=Trace mg/dL LAB URINALYSIS - AUTOMATED METHOD 02/10/2025 1:49 PM EDT [facility] Glucose, Urine Negative Negative mg/dL LAB URINALYSIS - AUTOMATED METHOD 02/10/2025 1:49 PM EDT [facility] Ketones, Urine Negative Negative mg/dL LAB URINALYSIS - AUTOMATED METHOD 02/10/2025 1:49 PM EDT [facility] Urobilinogen, Urine 0.2 0.2 - 1.0 mg/dL LAB URINALYSIS - AUTOMATED METHOD 02/10/2025 1:49 PM EDT [facility] Bilirubin, Urine Negative Negative LAB URINALYSIS - AUTOMATED METHOD 02/10/2025 1:49 PM EDT [facility] Blood, Urine Negative Negative LAB URINALYSIS - AUTOMATED METHOD 02/10/2025 1:49 PM EDT [facility] Urine Urine specimen obtained by clean catch procedure / Unknown Non-blood Collection / Unknown 02/10/2025 1:27 PM EDT 02/10/2025 1:42 PM EDT us Dafne Reese DO LAB URINE ORDERABLES Denice l Result [facility] [address] [place] [address], [place] [phone] * XR Chest 2 Views (02/10/2025 12:59 [...] Signed Date: 02/10/2025 13:10 ET Workstation ID: [id number] Transcribed By: Self Edit Transcribed Date: 02/10/2025 [...] Signed Date: 02/10/2025 13:10 ET Workstation ID: [id number] Transcribed By: Self Edit Transcribed Date: 02/10/2025 13:09 ET us Dafne Reese DO IMG XR PROCEDURES Final R esult * (ABNORMAL) POCT Glucose, blood (02/10/2025 12:48 PM EDT) Glucose POCT 121(H) 70 - 100 mg/dL 02/10/2025 12:51 PM EDT [facility] Blood Capillary blood specimen / Unknown 02/10/2025 12:48 PM EDT 02/10/2025 12:52 PM EDT us Generic Provider Poct LAB POINT OF CARE TEST DOCKED DEVICE UNSOLICITED RESULTS Final Result Performing Organization Address City/[facility]/ZIP Co de Phone Number [facility] [address] [place] [address], [place] [phone] * ECG 12 lead (02/10/2025 12:40 PM EDT) Pathologist [facility] Ventricular Rate ECG 66 BPM GEMUSE Atrial Rate 66 BPM GEMUSE P-R Interval 164 ms GEMUSE QRS Duration 90 ms GEMUSE Q-T Interval 412 ms GEMUSE QTc 431 ms GEMUSE P Wave Arnett 51 degrees GEMUSE R Arnett -9 degrees GEMUSE T Arnett 7 degrees GEMUSE ECG Interpretation Normal sinus rhythm Normal ECG No previous ECGs available Confirmed by MARA ZAYAS ([id number]) on 02/11/2025 12:38:04 PM GEMUSE 02/10/2025 12:4 0 PM EDT 02/11/2025 12:38 PM EDT us Dafne Reese DO ECG ORDERABLES Final Res ult Performing Organization Address [facility] Co de Phone Number GEMUSE * Troponin I high sensitivity (02/10/2025 12:36 PM EDT) [facility] High Sensitivity Troponin I 44 <=54 ng/L LAB CHEMISTRY METHOD 02/10/2025 2:12 PM EDT [facility] Blood Venous blood specimen / Unknown Venipuncture / Unknown 02/10/2025 12:36 PM EDT 02/10/2025 1:42 PM EDT Narrative [facility] - 02/10/2025 2:12 PM EDT High levels of biotin in samples may falsely decrease hsTroponin values. Use caution when interpreting hsTroponin results in patients taking biotin who exhibit renal impairment (eGFR <60) or in patients taking more than 20 mg/day of biotin. us Dafne Reese DO LAB BLOOD ORDERABLES Denice l Result Performing Organization Address City/[facility]/ZIP Co de Phone Number [facility] [address] [place] [address], * (ABNORMAL) CBC auto differential (02/10/2025 12:36 PM EDT) [facility] WBC 6.1 4.8 - 10.8 K/mcL LAB HEMETOLOGY METHOD 02/10/2025 1:52 PM EDT [facility] RBC 4.20 3.80 - 4.80 M/mcL LAB HEMETOLOGY METHOD 02/10/2025 1:52 PM EDT [facility] Hemoglobin 11.8 11.5 - 16.0 g/dL LAB HEMETOLOGY METHOD 02/10/2025 1:52 PM EDT [facility] Hematocrit 38.5 35.0 - 47.0 % LAB HEMETOLOGY METHOD 02/10/2025 1:52 PM EDT [facility] MCV 91.7 79.0 - 98.0 FL LAB HEMETOLOGY METHOD 02/10/2025 1:52 PM EDT [facility] MCH 28.1 27.0 - 32.0 pcg LAB HEMETOLOGY METHOD 02/10/2025 1:52 PM EDT [facility] MCHC 30.6(L) 32.0 - 37.0 g/dL LAB HEMETOLOGY METHOD 02/10/2025 1:52 PM EDT [facility] RDW 13.2 11.0 - 15.0 % LAB HEMETOLOGY METHOD 02/10/2025 1:52 PM EDT [facility] Platelets 281 130 - 400 K/mcL LAB HEMETOLOGY METHOD 02/10/2025 1:52 PM EDT [facility] MPV 10.8 7.0 - 11.0 FL LAB HEMETOLOGY METHOD 02/10/2025 1:52 PM EDT [facility] NRBC 0.0 <1.0 % LAB HEMETOLOGY METHOD [facility] NRBC Absolute 0.00 <0.10 K/mcL LAB HEMETOLOGY METHOD 02/10/2025 1:52 PM [facility] Neutrophils Relative 53.6 % LAB HEMETOLOGY METHOD 02/10/2025 1:52 PM [facility] Lymphocytes Relative 33.9 % LAB HEMETOLOGY METHOD 02/10/2025 1:52 PM [facility] Monocytes Relative 7.7 % LAB HEMETOLOGY METHOD 02/10/2025 1:52 PM [facility] Eosinophils Relative 3.4 % LAB HEMETOLOGY METHOD 02/10/2025 1:52 PM [facility] Basophils Relative 1.1 % LAB HEMETOLOGY METHOD 02/10/2025 1:52 PM [facility] Immature Granulocytes Relative 0.3 % LAB HEMETOLOGY METHOD 02/10/2025 1:52 PM [facility] Neutrophils Absolute 3.26 1.50 - 7.00 K/mcL LAB HEMETOLOGY METHOD 02/10/2025 1:52 PM [facility] Lymphocytes Absolute 2.07 1.00 - 5.00 K/mcL LAB HEMETOLOGY METHOD 02/10/2025 1:52 PM [facility] Monocytes Absolute 0.47 0.20 - 1.00 K/mcL LAB HEMETOLOGY METHOD 02/10/2025 1:52 PM [facility] Eosinophils Absolute 0.21 0.00 - 0.50 K/mcL LAB HEMETOLOGY METHOD 02/10/2025 1:52 PM [facility] Basophils Absolute 0.07 0.00 - 0.20 K/mcL LAB HEMETOLOGY METHOD 02/10/2025 1:52 PM [facility] Immature Granulocytes Absolute 0.02 0.00 - 0.03 K/mcL LAB HEMETOLOGY METHOD 02/10/2025 1:52 PM EDT [facility] Blood Venous blood specimen / Unknown Venipuncture / Unknown 02/10/2025 12:36 PM EDT 02/10/2025 1:42 PM EDT Dafne Reese LAB BLOOD ORDERABLES Denice l Result Performing Organization Address City/[facility]/ZIP Co de Phone Number [facility] [address] [place] [address], [place] [phone] * Magnesium (02/10/2025 12:36 PM EDT) [facility] Magnesium 2.0 1.9 - 2.6 mg/dL LAB CHEMISTRY METHOD 02/10/2025 2:09 PM EDT [facility] Blood Venous blood specimen / Unknown Venipuncture / Unknown 02/10/2025 12:36 PM EDT 02/10/2025 1:42 PM EDT Dafne Reese LAB BLOOD ORDERABLES Denice l Result Performing Organization Address [facility]/ZIP Co de Phone Number [facility] [address] [place] [address], [place] [phone] * (ABNORMAL) Basic metabolic panel (02/10/2025 12:36 PM EDT) [facility] Sodium 137 133 - 145 mmol/L LAB CHEMISTRY METHOD 02/10/2025 2:09 PM EDT [facility] Potassium 4.1 3.5 - 5.5 mmol/L LAB CHEMISTRY METHOD 02/10/2025 2:09 PM EDT [facility] Chloride 104 96 - 110 mmol/L LAB CHEMISTRY METHOD 02/10/2025 2:09 PM EDT [facility] CO2 30 21 - 32 mmol/L LAB CHEMISTRY METHOD 02/10/2025 2:09 PM EDT [facility] Anion Gap 3 3 - 11 LAB CHEMISTRY METHOD 02/10/2025 2:09 PM T [facility] Glucose 127(H) 70 - 100 mg/dL LAB CHEMISTRY METHOD 02/10/2025 2:09 PM [facility] BUN 14 5 - 25 mg/dL LAB CHEMISTRY METHOD 02/10/2025 2:09 PM EDT [facility] Creatinine 0.68 0.50 - 1.10 mg/dL LAB CHEMISTRY METHOD 02/10/2025 2:09 PM EDT [facility] eGFR 88 >=60 mL/min/1. 73m2 LAB CHEMISTRY METHOD 02/10/2025 2:09 PM T [facility] Comment:Calculation based on the Chronic Kidney Disease Epidemiology Collaboration (CKD-EPI) equation refit without adjustment for race. BUN/Creatinine Ratio 20.6 LAB CHEMISTRY METHOD 02/10/2025 2:09 PM [facility] Calcium 9.7 8.5 - 10.5 mg/dL LAB CHEMISTRY METHOD 02/10/2025 2:09 PM [facility] Blood Venous blood specimen / Unknown Venipuncture / Unknown 02/10/2025 12:36 PM EDT 02/10/2025 1:42 PM EDT Maxwell Zackary Reese DO LAB BLOOD ORDERABLES Denice l Result [facility] [address] [place] [address], [place] [phone] from Last 3 Months Insurance [facility] Member Subscriber Plan / Payer (Ef fective 2013-Present) Name:Meredith Carranza Relation to Subscriber:Self Name:Meredith Carranza Payer ID:[id number] Group ID:[id number] Type:Not on file Address: [address] [place] [address] [employer] MEDICARE Member Subscriber Plan / Payer (Ef fective 2023-Present) Name:Meredith Carranza Relation to Subscriber:Self Name:Meredith Carranza Payer ID:[id number] Group ID:Not on file Type:Not on file Address: [address] [place] [address] Care Teams Proposal Writer Relationship Specialty Start Date End Date Heidi Malloy MD [address] [place] [address] PCP - General Internal Medicine 07/10/14
--- OUTSIDE RECORDS SUMMARY | 2025-05-08 13:07 | XMS_ITS | Clinical Summary ---
Author Organization [facility] Address [address] [address] [place] [phone] Phone Care Team Providers Care Jig Operator Name Role Phone Pcp, Unknown Primary Care [...] VACCINE (1 - 1-dose 75+ series) 01/12/2020 INFLUENZA VACCINE (#1) 2025 08/05/2007 COVID-19 VACCINE ( - 2023-2 5 season) 2025 HEPATITIS A VACCINES Aged Out No long [...] file Insurance MEDICARE PART A & B [facility] MEDICARE REPLACEMENT [facility] MEDICARE PART A & B [facility] MEDICARE [facility]AC[place] MEDICARE PART A & B [facility] MEDIC[facility] MEDICARE PART A & [facility] MEDICARE PART A & B [facility] MEDICARE REPLACEMENT MEDICARE PART A & B [facility] MEDICARE REPLACEMENT [facility] MEDICARE PART A & B [facility] MEDICARE REPLACEMENT [address] MEDICARE PART A & B Member Subscriber Plan / Payer (Ef fective 2009-Present) Name:Meredith Carranza Member ID:[id number] Relation to Subscriber:Self Name:Meredith Carranza Subscriber ID:[id number] Payer ID:[id number] Group ID:Not on file Type:Medicare Address: [employer] [address] [place] [id number] MEDICARE [place] [address] [place] [address] MEDICARE PART A & B [facility] MEDICARE REPLACEMENT [facility] Care Teams Jig Operator Relationship Specialty Start Date End Date Pcp, Unknown PCP - General 12/21/21 Additional Source Comments The information contained in this document represents components of the legal health record. It is not the complete legal health record.[facility]
--- OUTSIDE RECORDS SUMMARY | 2025-05-08 13:07 | XMS_ITS | Clinical Summary ---
Author Organization [facility] Address [address] [place] [phone] Phone Care Team Providers Care Jacket Preparer Name Role Phone Jonatan Cardoso MD Primary Care Provider +1- [phone] Allergies Active Allergy Reactions Criticality Noted Date Comments [id number] Other (see comments) 02/01/2021 Amoxicillin-Pot Clavulanate Other [...] age to complete this topic Insurance ([id number]) [place] [address] ([id number]) Care Teams Jacket Preparer Relationship Specialty Start Date End Date Jonatan Cardoso MD [address] [place] [id number] PCP - General 09/10/20
--- OUTSIDE RECORDS SUMMARY | 2025-05-08 13:07 | XMS_ITS | Encounter Summary ---
Author Organization [facility] Address [address] [place] [phone] Phone Care Team Providers Care Cartographic Drafter Name Role Phone Pcp, Unknown Primary Care Provider Unavailabl e Encounter Details Date Type Department Care Team (Late st Contact Info) Description 12/22/2021 Procedure [facility], Ct Scan - [facility] [address] [place] [address] Social History Tobacco Use Types Packs/Day Years [...] on filedocumented in this encounter Care Teams Cartographic Drafter Relationship Specialty Start Date End Date Pcp, Unknown PCP - General 12/21/21 documented as of this encounter Additional Source Comments The information contained in this document represents components of the legal health record. It is not the complete legal health record.[facility]
--- OUTSIDE RECORDS SUMMARY | 2025-05-08 13:07 | XMS_ITS | Continuity of Care Document ---
Author Name [facility] Address [address] [place] [address] Organization Unknown Address [address] [place] [address] Medications No known medications Problems No known problems
--- OUTSIDE RECORDS SUMMARY | 2025-05-08 13:07 | XMS_ITS | Encounter Summary ---
Author Organization [facility] Address [address] [place] [address] Encounters * CPT with Medical instED at [employer] on 2025-04-30 { reasonForRequest : Patient has high Blood Pressure. , patientReports&quot ;: , denies :[ History of Heart Attack, in the setting of active chest lyla n , Active Chest pain, radiates to neck jaw and or arm , Diaphoretic/Sweating&qu ot;, Describes as crushing , Sudden onset of nausea/Vomiting and shortness of breath. , Shortness of Breath , Unable to speak in full sentences without distres s ], chiefComplaints : High Blood Pressure , pmh : COPD/Asthma, Hyperlipidemia, Myocardial Infarction, Cancer, Diabetes Mellitus Type 2, Emphysema, Fibromyalgia , Hypertension , allergies : Penicillins, Bactrim, Levaquin, Augmentin, Lisinopr il, Prevacid , otherAllergies :null, painAssessment : , vis itOutcome : , additionalComments : 80 y.o female complains of High Blood Pressure\n\nPatient notes elevated blood pressure.\nPatient reports starting her on amlodipine a while ago, she took it for a week and self discontinued.\nHer team otr truck driver is not aware she stopped medication and is having elevated blood pressures.\nShe denies chest pain, no shortness of breath,does not wear home o2, does not take any blood thinners, and has not checked her blood sugars today. \nHas a mild headache, but states is chronic, no dizziness, no nausea, vomiting or diarrhea, no diaphoresis.\nShe would like to be evaluated.\n\nI provided information on the mobile health provider response time and advised the patient and/or caregiver to monitor reported signs and symptoms. I discussed the warning signs of when to seek emergency care. } Pt chief complaint today of hypertension as well a frontal one headache. Pt states that headache isat a 5/10 and has been going on approx 1 week since stopping her Amlodipine prescription. Pt statesthat she has stopped taking the medication due to side effects which made her tired. Pt has noted astark increase in her blood pressure with readings today having a systolic measurement of 170. Pt today would appreciate a general assessment as well as potential treatment. Pt today denies any cp. sob, NVD, dizziness or changes in vision. Pt allergies noted. Nonneural focal exam, afebrile, vitals notes to be WNL for the baseline of the pt. Pt able to ambulate at her baseline without the use of walker and or person. Lungs present as clear bilaterally on auscultation, benign abdominal assessment. No new or worsening lower extremity edema noted. Pt negative on a fast-ed assessment. CAOX4 with a GCS of 15. Positive csm in all extremities. [place] maya santiago consulted, Pt informed of findings. Pt informed to call her pcp and or team otr truck driver for potential change in hypertensive of choice. Pt is educated on red flag S&S and told to call emergency services if any present. IV_(FLUIDS_AND/OR_MEDICATION), MEDICATION_IM, ORAL_MEDICATION, EKG, ORTHOSTATIC_VITAL_SIGNS Written by Medical instED on 2025-04-30
== END 2025-05-08 11:09 | disposition home or self-care (01) ==
LOC: HO.HCS 10:45
PROVIDERS: PCP Internal Medicine; Visit Provider Internal Medicine
DX: I25.10 Atherosclerotic heart disease of native coronary artery without angina pectoris (principal); I10 Essential (primary) hypertension
CPT/HCPCS: 99214; G2211

== ENCOUNTER → 2025-05-08 10:44 | Outpatient (BNVA) | payer OTHER, SELFPAY | PROVIDERS: PCP Internal Medicine; Visit Provider Internal Medicine | DX: I25.10 Atherosclerotic heart disease of native coronary artery without angina pectoris (principal); I10 Essential (primary) hypertension | CPT/HCPCS: 99212 ==

== ENCOUNTER 2025-06-19 10:48 | Outpatient (AMB) | payer OTHER, SELFPAY ==
[2025-06-19 10:51] VITALS: BP 110/52; PULSE 77; O2SAT 96; BMI 26.6
--- NOTE | 2025-06-19 10:51 | MHC.OFFVIS ---
Vital Signs 06/19/25 10:51 Height 5 ft 3 in Weight 149 lb 14.629 oz BMI 26.6 BP 110/52 L Blood Pressure Location Lt brachial Position Sitting Pulse 77 Pulse Source Pulse Oximeter Pulse Oximetry (%) 96 Oxygen Delivery Method Room Air Intake Visit Reasons: cough Accompanied by: Self / Same As Patient Allergies clarithromycin (From PREVPAC) Allergy (Mild, Verified 06/19/25 10:55) hives lansoprazole (From PREVPAC) Allergy (Mild, Verified 06/19/25 10:55) hives lisinopril (LISINOPRIL) Allergy (Mild, Verified 06/19/25 10:55) COUGHING, cough, cough amoxicillin (AMOXICILLIN) Allergy (Unknown, Verified 06/19/25 10:55) RASH cephalexin Allergy (Unknown, Verified 06/19/25 10:55) rash clavulanic acid (Augmentin) Allergy (Unknown, Verified 06/19/25 10:55) rash duloxetine (Cymbalta) Allergy (Unknown, Verified 06/19/25 10:55) weight gain, increase appetite levofloxacin (From LEVAQUIN) Allergy (Unknown, Verified 06/19/25 10:55) RASH linaclotide (Linzess) Allergy (Unknown, Verified 06/19/25 10:55) nausea penicillin V Allergy (Unknown, Verified 06/19/25 10:55) rash Penicillins (PENICILLINS) Allergy (Unknown, Verified 06/19/25 10:55) RASH Sulfa (Sulfonamide Antibiotics) Allergy (Unknown, Verified 06/19/25 10:55) rash tramadol Allergy (Unknown, Verified 06/19/25 10:55) pruritus triamcinolone (Kenalog) Allergy (Unknown, Verified 06/19/25 10:55) Unknown meclizine Adverse Reaction (Intermediate, Verified 06/19/25 10:55) fatigue, somnolence prednisone (Prednisone) Adverse Reaction (Mild, Verified 06/19/25 10:55) YEAST INFECTION cetirizine Adverse Reaction (Unknown, Verified 06/19/25 10:55) dizziness? HPI Comments Details: The patient is here for pulmonary evaluation. The patient is an 80-year-old woman with a known history of cough been sent for further evaluation. Apparently she was seen by Pulmonary in the past. The patient had been a former smoker. She quit about 15 years ago or more. She did take part in the lung cancer screening program back in 2020 where she was found to have some emphysematous changes in addition to pulmonary nodule. I did personally reviewed the nodule she does have a nodule in the right upper lobe and also small calcified nodule in the right lower lobe area. The patient also has evidence of atelectasis. The patient did have pulmonary function studies in 2019 which I also did personally reviewed demonstrating a moderate obstruction also with significant response to bronchodilators suggesting asthma COPD overlap syndrome. She has been on Anoro for some time. But she still complains of dyspnea on exertion and cough. Her cough or overall is better that is mainly attributed after having COVID. We also did review a CT scan of the chest that she had in 2023 of the abdomen. Demonstrated that the right lower lobe nodule had not significantly changed although she did have increased interstitial changes could have been the result of previous COVID infection. The patient will go ahead and switch over to Trelegy for better coverage. She can use the Trelegy for a month in the returned to the Anoro. Will have her undergo PFTs and also repeat a CAT scan to follow up with her pulmonary nodules. If the patient has any issues she can always call for further recommendations. [facility] Medical History (Updated 06/19/25 @ 19:57 by Bill Márquez MD) Pulmonary fibrosis Asthma-COPD overlap syndrome Allergic rhinitis Vaginal discharge Rash Left low back pain Dizziness Osteoporosis Hypercalcemia GERD without esophagitis Constipation Lumbar degenerative disc disease Overweight (BMI 25.0-29.9) Vitamin D deficiency Mixed hyperlipidemia Atherosclerotic cardiovascular disease Pulmonary emphysema Diabetes mellitus Vertigo Degenerative lumbar disc Irritable bowel syndrome Fibromyalgia Borderline diabetes Hypercholesteremia Asthma Chronic headache Anxiety Surgical History History of biopsy History of loop electrical excision procedure (LEEP) H/O heart artery stent Hx of colonoscopy H/O angioplasty H/O Spinal surgery Hx of tubal ligation Family History Father No problems noted. Mother Depression S/P CABG x 4 Diabetes Hypertension Sister Poor high blood pressure control Cervical cancer Breast cancer Social History Household Members: None Housing: Apartment Alcohol intake: former Patient Tobacco Use Status: Former Tobacco user e-Cigarette/Vaping Use: Never Used Second Hand Smoke Exposure: No service: No Current occupational status: retired and disabled Cognitive needs: No Hearing needs: No Vision needs: Yes (glasses) Female Reproductive History Menstrual Age of Menarche: 13 Review of Systems Const Denies daytime sleepiness, Denies difficulty sleeping, Denies snoring, Denies stops breathing during sleep and Denies weakness Card Denies chest pain Resp Denies cough and Denies snoring GI Reports no additional complaints, Denies hematochezia, Denies change in stool character and Denies dyspepsia Musc Denies abnormal gait, Denies muscle weakness and Denies numbness Neuro Denies abnormal gait, Denies numbness and Denies weakness Physical Exam Vital Signs: Last Vital Signs Pulse 77 06/19/25 10:51 BP 110/52 L 06/19/25 10:51 Pulse Ox 96 06/19/25 10:51 Oxygen Delivery Method Room Air 06/19/25 10:51 BMI result Body Mass Index 26.6 Const General: comfortable and no acute distress Orientation/consciousness: patient oriented x3 HEENT Other: Unremarkable Head: Yes normal to inspection Neck Neck: Yes normal visual inspection Chest Chest palpation & inspection: normal inspection of the chest Resp Effort & Inspection: normal respiratory effort and prolonged expiratory phase Auscultation: diminished lung sounds Cardio Heart sounds: S1 normal heart sound present and S2 normal heart sound present GI Palpation (GI): Soft to palpation Back/Spine/Pelvis Other: unremarkable Skin General skin exam: no rashes or lesions noted Neuro General: patient oriented x3 Extrem General: Yes normal to inspection Psych Mental Status: mental status grossly normal Assessment & Plan Assessment & Plan (1) Asthma-COPD overlap syndrome: Code(s): J44.89 - Other specified chronic obstructive pulmonary disease Category: Medical (2) Pulmonary fibrosis: Code(s): J84.10 - Pulmonary fibrosis, unspecified Category: Medical (3) Pulmonary emphysema: Code(s): J43.9 - Emphysema, unspecified Category: Medical Qualifiers: Emphysema type: unspecified Qualified Code(s): J43.9 - Emphysema, unspecified (4) Multiple pulmonary nodules: Code(s): R91.8 - Other nonspecific abnormal finding of lung field Category: Medical (5) Recurrent cough: Code(s): R05.8 - Other specified cough Category: Medical Plan Hold Anoro Trial Trelegy daily SHARLENE as needed CT chest PFTs F/U 3 months Orders: Orders CT chest wo IV con Today J44.89 - Other specified chronic obstructive pulmonary disease, J84.10 - Pulmonary fibrosis, unspecified, R91.8 - Other nonspecific abnormal finding of lung field PFT pulmonary function test Today J44.89 - Other specified chronic obstructive pulmonary disease, J84.10 - Pulmonary fibrosis, unspecified, R91.8 - Other nonspecific abnormal finding of lung field Medications: New gsoepburldp-asfsldqgh-qcnblidh 100-62.5-25 mcg (Trelegy Ellipta) 1 inh inhalation DAILY 60 ea 11RF 30 days J44.9 - Chronic obstructive pulmonary disease, unspecified nystatin swish and swallow 2.5 mL PO DAILY 75 mL 1RF 30 days Coding Level of Care Code New Pt Level 4 (55649) Diagnoses Asthma-COPD overlap syndrome J44.89 Pulmonary fibrosis J84.10 Pulmonary emphysema, unspecified emphysema type J43.9 Emphysema type: unspecified Multiple pulmonary nodules R91.8 Recurrent cough R05.8 Time Spent (min) 40
== END 2025-06-19 11:29 | disposition home or self-care (01) ==
LOC: HO.HPS 10:49
PROVIDERS: PCP Internal Medicine; Visit Provider Hospitalist
DX: J44.89 Other specified chronic obstructive pulmonary disease (principal); J84.10 Pulmonary fibrosis, unspecified; J43.9 Emphysema, unspecified; R91.8 Other nonspecific abnormal finding of lung field; R05.8 Other specified cough
CPT/HCPCS: 99204

== ENCOUNTER → 2025-06-19 10:48 | Outpatient (BNVA) | payer OTHER, SELFPAY | PROVIDERS: PCP Internal Medicine; Visit Provider Hospitalist | DX: J84.10 Pulmonary fibrosis, unspecified (principal); J44.89 Other specified chronic obstructive pulmonary disease; J43.9 Emphysema, unspecified; R05.8 Other specified cough; R91.8 Other nonspecific abnormal finding of lung field | CPT/HCPCS: 99202 ==

== ENCOUNTER 2025-06-29 09:54 | Outpatient (REF) | payer OTHER, SELFPAY ==
--- NOTE | ~2025-06-29 | US_ITS ---
CLINICAL HISTORY: I65.22 - Occlusion and stenosis of left carotid artery US Bilateral Carotid Duplex Comparison: None provided Findings: No significant plaque within the common carotid arteries. Moderate plaque within the carotid bulbs. Color doppler and spectral tracings normal. Peak systolic velocities: Right CCA: 62 cm/s. Right ICA: 62 cm/s. ICA/CCA ratio: 0.8. Right ECA: Unremarkable. Right vertebral artery flow antegrade. Left CCA: 79 cm/s. Left ICA: 89 cm/s. ICA/CCA ratio: 0.8. Left ECA: 98.1 cm/s. Left vertebral artery flow antegrade. IMPRESSION: Normal carotid velocities, no significant stenosis (0-49% stenosis). This document has been electronically signed by: Jitendra Jasso MD on 06/30/2025 08:42:16
--- OUTSIDE RECORDS SUMMARY | 2025-06-29 11:44 | XMS_ITS | Encounter Summary ---
Author Organization [facility] Address [address] [place] [address] Encounters * CPT with Medical instED at [facility] on 2025-06-24 { reasonForRequest : Patient has an ich in her right eye, and today her eye is red and not comfortable, watering. , patientReports : , denies :["Sudden onset of dental pain, unable to manage own secretions , Nosebleed lasting longer than one hour; unable to stop bleeding , Throat swelling/difficult swallowing ], chiefComplaints : Eye Complaint , pmh : COPD/Asthma, Hyperlipidemia, Myocardial Infarction, Cancer, Diabetes Mellitus Type 2, Emphysema, Fibromyalgia, Hypertension , allergies : Penicillins, Bactrim, Levaquin, Augmentin, Lisinopril, Prevacid ,&q uot;otherAllergies :null, painAssessment : , visitOutcome :&quot ; , additionalComments : 80 y.o female complains of Eye Complaint\nPatient is Sp wilfredo speaking primarily, registered pharmacy technician# [id number] used for triage assessment. Patient callingreporting itching in her R eye for the last three days. Patient states itching is worse today and eye is red in color. Patient also reports eye is tearing. Patient denies changes in her vision; states the eye is \ bothering her a lot\ . Patient denies any known injury to the eye. I provided information on the mobile health provider response time and advised the patient and/or caregiver to monitor reported signs and symptoms. I discussed the warning signs of when to seek emergency care-Micaela Davidson RN } arrived to find female in her residence. Patient aox4. GCS 15 skin pink warm and dry. Patient stated that 3 days ago she developed itching and redness on her right eye. Minor swelling. No vision changes. No discharge. Patient VS as noted. HTN with history of HTN. Sclera noted to be red. afebrile. [facility] [place] [place] contacted agreed with differential and is sending over RX for eye drops. Red flag symptoms discussed with patient. Patient in agreement. Written by Medical instED on 2025-06-24
--- OUTSIDE RECORDS SUMMARY | 2025-06-29 11:44 | XMS_ITS | Encounter Summary ---
Author Organization [facility] Address [address] [place] [phone] Phone Care Team Providers Care Drafter (Cad) Electrical Name Role Phone Pcp, Unknown Primary Care Provider Unavailabl e Encounter Details Date Type Department Care Team (Late st Contact Info) Description 12/22/2021 Procedure Pass [facility], Ct Scan - [facility] [address] [place] [address] Social History Tobacco Use Types Packs/Day Years [...] on filedocumented in this encounter Care Teams Drafter (Cad) Electrical Relationship Specialty Start Date End Date Pcp, Unknown PCP - General 12/21/21 documented as of this encounter Additional Source Comments The information contained in this document represents components of the legal health record. It is not the complete legal health record.[facility]
--- OUTSIDE RECORDS SUMMARY | 2025-06-29 11:44 | XMS_ITS | Continuity of Care Document ---
Author Name [facility] Address [address] [place] [id number] Organization Unknown Address [address] [place] [address] Medications No known medications Problems No known problems
--- OUTSIDE RECORDS SUMMARY | 2025-06-29 11:44 | XMS_ITS | Clinical Summary ---
Author Organization [facility] Address [address] [place] [phone] Phone Care Team Providers Care Unishear Operator Name Role Phone Jonatan Cardoso MD Primary Care Provider [phone] Allergies Active Allergy Reactions Criticality Noted Date Comments Llhuurodk-Hhqyvksdc-Techapwuy Other (see comments) 02/01/2021 Amoxicillin-Pot Clavulanate Other [...] age to complete this topic Insurance ([id number]) [place] [address] ([id number]) Care Teams Unishear Operator Relationship Specialty Start Date End Date Jonatan Cardoso MD [address] [place] [id number] PCP - General 09/10/20
--- OUTSIDE RECORDS SUMMARY | 2025-06-29 11:44 | XMS_ITS | Clinical Summary ---
Author Organization [facility] Address [address] [place] [address] Phone Care Team Providers Care Claims Investigator Name Role Phone Jonatan Cardoso MD Primary Care Provider Allergies Active Allergy Reactions Criticality Noted Date Comments Neomycin-Polymyxin B Gu 08/14/2014 All antibiotics Medications scopolamine (TRANSDERM-SCOP) 1 mg over 3 days patch 3 dayIndications:B enign paroxysmal positional vertigo, unspecified laterality Apply 1 patch topically every 3rd (third) day if needed (dizziness). 10 patch 06/16/20 25 Encounters Date Type Department Care Team Description 05/17/2025 1:10 AM EDT - 05/17/2025 5:37 AM EDT Emergency [facility] Emergency [address] [place] [address] Alivia Landry MD Benign paroxysmal positional vertigo, unspecified laterality (Primary Dx); Dizziness; Nausea and vomiting, unspecified vomiting type; Acute chest pain Discharge Disposition: Home or Self Care from [...] Sign Reading Time Taken Comments Blood Pressure 133/73 05/17/2025 4:16 AM EDT Pulse 67 05/17/2025 4:16 AM EDT Temperature 36.6 C (97.9 F) 05/17/2025 4:16 AM EDT Respiratory Rate 18 05/17/2025 4:16 AM EDT Oxygen Saturation 96% 05/17/2025 4:16 AM EDT Inhaled Oxygen Concentration - - Weight 64 kg (141 lb) 05/17/2025 2:14 AM EDT Height 160 cm (5' 3 ) 05/17/2025 2:14 AM EDT Body Mass Index 24.98 05/17/2025 2:14 AM EDT Plan of Treatment Health Maintenance Due Date Last Done Comments Diabetes: Annual Foot Exam 1955 Diabetes: Annual Retina Eye Exam 1955 DTaP,Tdap,and Td Vaccines (1 - Tdap) 01/12/1964 Pneumococcal Vaccine: 50+ Years (1 of 2 - PCV) 01/12/1964 Zoster Vaccines (1 of 2) 1995 RSV Immunization Adult Patients (1 - 1-dose 75+ series) 01/12/2020 Depression Screening 08/31/2024 Cholesterol Screening (Lipid Panel) 02/10/2025 Diabetes: Annual Urine Albumin-Creatinine Ratio (uACR) 02/10/2025 Diabetes: Blood Sugar Contro l Test (HGBA1C) 02/10/2025 Falls Risk Assessment 02/10/2025 Medicare Annual Wellness Visit 02/10/2025 Osteoporosis Screening (Bone Density Screening) 02/10/2025 Social Influencers of Health Screening 02/10/2025 COVID-19 Vaccine (3 - 2024-2 6 season) 2025 07/22/2021, 06/28/2021 Influenza Vaccine (#1) 2025 08/05/2007 Diabetes: Annual GFR (Glomerular Filtration Rate) 05/17/2026 05/17/2025, 02/10/2025 Hypertension/CHF/CAD Annual BMP Blood Test 05/17/2026 05/17/2025, 02/10/2025 HIB Vaccines Aged Out No longer [...] to complete this topic RSV Immunization Patients Under 20 months Aged Out No longer eligible b ased on patient's age to complete this topic Varicella Vaccines Aged Out No longer eligible based on patient's age to complete this topic Procedures Procedure Name Priority Date/Time Associated Diagnosis Comments ECG ANNOTATED 05/18/2025 TROPONIN I HIGH SENSITIVITY Timed 05/17/2025 4:12 AM EDT XR CHEST 2 VIEWS STAT 05/17/2025 2:35 AM EDT CBC WITH AUTO DIFFERENTIAL STAT 05/17/2025 2:10 AM EDT TROPONIN I HIGH SENSITIVITY Timed 05/17/2025 2:10 AM EDT MAGNESIUM STAT 05/17/2025 2:10 AM EDT BASIC METABOLIC PANEL STAT 05/17/2025 2:10 AM EDT CBC AND DIFFERENTIAL STAT 05/17/2025 2:10 AM EDT ECG 12-LEAD STAT 05/17/2025 1:28 AM EDT from Last 3 Months Results * ECG-Annotated (05/18/2025) us Provider Onbase MD ECG ORDERABLES Final Result * Troponin I high sensitivity (05/17/2025 4:12 AM EDT) Only the most recent of2 resultswithin the time period is included. [facility] Signature High Sensitivity Troponin I 31 <=54 ng/L LAB CHEMISTRY METHOD 05/17/2025 4:45 AM EDT [facility] Blood Venous blood specimen / Unknown Venipuncture / Unknown 05/17/2025 4:12 AM EDT 05/17/2025 4:17 AM EDT Narrative [facility] - 05/17/2025 4:45 AM EDT High levels of biotin in samples may falsely decrease hsTroponin values. Use caution when interpreting hsTroponin results in patients taking biotin who exhibit renal impairment (eGFR <60) or in patients taking more than 20 mg/day of biotin. us Alivia Landry MD LAB BLOOD ORDERABLES Final Res ult [facility] [address] [place] [address], [place] [phone] * XR Chest 2 Views (05/17/2025 2:35 AM EDT) Anatomical Region Laterality Modality Body Radiographic Kiki ging 05/17/2025 8:45 AM EDT Impressions 05/17/2025 8:48 AM EDT FINDINGS/IMPRESSION: Linear atelectasis at the left lung base. No pneumonia or pulmonary edema. No pleural effusion or pneumothorax. Stable linear scarring in the right upper lobe. Cardiac silhouette is normal in size. Mild degenerative changes seen throughout the bones.. -------- FINAL REPORT -------- Dictated By: FELY STEPHENS Dictated Date: 05/17/2025 08:45 ET Assigned Physician: FELY STEPHENS Reviewed and Electronically Signed By: FELY STEPHENS Signed Date: 05/17/2025 08:48 ET Workstation ID: [id number] Transcribed By: Self Edit Transcribed Date: 05/17/2025 08:45 ET Narrative 05/17/2025 8:48 AM EDT XR CHEST 2 VIEWS INDICATION: Chest pain TECHNIQUE: XR CHEST 2 VIEWS COMPARISON: 02/10/2025 Procedure Note Fely Stephens MD - 05/17/2025 XR CHEST 2 VIEWS INDICATION: Chest pain TECHNIQUE: XR CHEST 2 VIEWS COMPARISON: 02/10/2025 IMPRESSION: FINDINGS/IMPRESSION: Linear atelectasis at the left lung base. Nopneumonia or pulmonary edema. No pleural effusion or pneumothorax.Stable linear scarring in the right upper lobe. Cardiac silhouette isnormal in size. Mild degenerative changes seen throughout the bones.. -------- FINAL REPORT -------- Dictated By: FELY STEPHENS Dictated Date: 05/17/2025 08:45 ET Assigned Physician: FELY STEPHENS Reviewed and Electronically Signed By: FELY STEPHENS Signed Date: 05/17/2025 08:48 ET Workstation ID: [id number] Transcribed By: Self Edit Transcribed Date: 05/17/2025 08:45 ET Alivia Landry MD IMG XR PROCEDURES Final Result * (ABNORMAL) CBC auto differential (05/17/2025 2:10 AM EDT) WBC 8.5 4.8 - 10.8 K/mcL LAB HEMETOLOGY METHOD 05/17/2025 2:23 AM EDT [facility] RBC 4.20 3.80 - 4.80 M/mcL LAB HEMETOLOGY METHOD 05/17/2025 2:23 AM EDT [facility] Hemoglobin 11.9 11.5 - 16.0 g/dL LAB HEMETOLOGY METHOD 05/17/2025 2:23 AM T [facility] Hematocrit 36.7 35.0 - 47.0 % LAB HEMETOLOGY METHOD 05/17/2025 2:23 AM EDT [facility] MCV 88.4 79.0 - 98.0 FL LAB HEMETOLOGY METHOD [facility]/17[facility]25 [facility] MCH 28.7 27.0 - 32.0 pcg LAB HEMETOLOGY METHOD 05/17/2025 [facility] MCHC 32.4 32.0 - 37.0 g/dL LAB HEMETOLOGY METHOD 05/17/2025 2:23 AM T [facility] RDW 12.8 11.0 - 15.0 % LAB HEMETOLOGY METHOD 05/17/2025 2:[address] [facility] Platelets 280 130 - 400 K/mcL LAB HEMETOLOGY METHOD 05/17/2025 2:[address] [facility] MPV 10.9 7.0 - 11.0 FL LAB HEMETOLOGY METHOD 05/17/2025 2:[address] [facility] NRBC 0.0 <1.0 % LAB HEMETOLOGY METHOD 05/17/2025 2:[address] [facility] NRBC Absolute 0.00 <0.10 K/mcL LAB HEMETOLOGY METHOD 05/17/2025 2:[address] [facility] Neutrophils Relative 60.1 % LAB HEMETOLOGY METHOD 05/17/2025 2:[address] [facility] Lymphocytes Relative 27.4 % LAB HEMETOLOGY METHOD 05/17/2025 2:[address] [facility] Monocytes Relative 7.1 % LAB HEMETOLOGY METHOD 05/17/2025 2:[address] [facility] Eosinophils Relative 3.8 % LAB HEMETOLOGY METHOD 05/17/2025 2:[address] [facility] Basophils Relative 1.1 % LAB HEMETOLOGY METHOD 05/17/2025 2:[address] [facility] Immature Granulocytes Relative 0.5 % LAB HEMETOLOGY METHOD 05/17/2025 2:[address] [facility] Neutrophils Absolute 5.10 1.50 - 7.00 K/mcL LAB HEMETOLOGY METHOD 05/17/2025 2:[address] [facility] Lymphocytes Absolute 2.32 1.00 - 5.00 K/mcL LAB HEMETOLOGY METHOD 05/17/2025 2:23 AM EDT [facility] Monocytes Absolute 0.60 0.20 - 1.00 K/mcL LAB HEMETOLOGY METHOD 05/17/2025 2:23 AM EDT [facility] Eosinophils Absolute 0.32 0.00 - 0.50 K/mcL LAB HEMETOLOGY METHOD 05/17/2025 2:23 AM EDT [facility] Basophils Absolute 0.09 0.00 - 0.20 K/mcL LAB HEMETOLOGY METHOD 05/17/2025 2:23 AM EDT [facility] Immature Granulocytes Absolute 0.04(H) 0.00 - 0.03 K/[facility] LAB HEMETOLOGY METHOD 05/17/2025 2:23 AM EDT [facility] Blood Venous blood specimen / Unknown Venipuncture / Unknown 05/17/2025 2:10 AM EDT 05/17/2025 2:17 AM EDT us Alivia Landry MD LAB BLOOD ORDERABLES Final Res ult [facility] [address] [place] [address], [place] [phone] * Magnesium (05/17/2025 2:10 AM EDT) Magnesium 2.0 1.9 - 2.6 mg/dL LAB CHEMISTRY METHOD 05/17/2025 2:39 AM EDT [facility] Blood Venous blood specimen / Unknown Venipuncture / Unknown 05/17/2025 2:10 AM EDT 05/17/2025 2:17 AM EDT us Alivia Landry MD LAB BLOOD ORDERABLES Final Res ult [facility] [address] [place] [address], [place] [phone] * (ABNORMAL) Basic metabolic panel (05/17/2025 2:10 AM EDT) Sodium 136 133 - 145 mmol/L LAB CHEMISTRY METHOD 05/17/2025 2:[address] [facility] Potassium 4.0 3.5 - 5.5 mmol/L LAB CHEMISTRY METHOD 05/17/2025 2:[address] [facility] Chloride 105 96 - 110 mmol/L LAB CHEMISTRY METHOD 05/17/2025 2:[address] [facility] CO2 25 21 - 32 mmol/L LAB CHEMISTRY METHOD 05/17/2025 2:[address] [facility] Anion Gap 6 3 - 11 LAB CHEMISTRY METHOD 05/17/2025 2:[address] [facility] Glucose 210(H) 70 - 100 mg/dL LAB CHEMISTRY METHOD 05/17/2025 2:[address] [facility] BUN 18 5 - 25 mg/dL LAB CHEMISTRY METHOD 05/17/2025 2:[address] [facility] Creatinine 0.95 0.50 - 1.10 mg/dL LAB CHEMISTRY METHOD 05/17/2025 2:[address] [facility] eGFR 61 >=60 mL/min/1. 73m2 LAB CHEMISTRY METHOD 05/17/2025 2:[address] [facility] Comment:Calculation based on the Chronic Kidney Disease Epidemiology Collaboration (CKD-EPI) equation refit without adjustment for race. BUN/Creatinine Ratio 18.9 LAB CHEMISTRY METHOD 05/17/2025 2:[address] [facility] Calcium 9.4 8.5 - 10.5 mg/dL LAB CHEMISTRY METHOD 05/17/2025 2:[address] [facility] Blood Venous blood specimen / Unknown Venipuncture / Unknown 05/17/2025 2:10 AM EDT 05/17/2025 2:17 AM EDT us Alivia Landry MD LAB BLOOD ORDERABLES Final Res [facility] ([email or web address] [address] [place] [address], * ECG 12 lead (05/17/2025 1:28 AM EDT) Ventricular Rate ECG 70 BPM G[facility] Atrial Rate 70 BPM GEM[facility] P-R Interval 170 ms GEMUSE QRS Duration 98 ms GEMUSE Q-T Interval 408 ms GEMUSE QTc 440 ms GEMUSE P Wave [place] 51 degrees GEMUSE T [place] 47 degrees GEMUSE ECG Interpretation Normal sinus rhythm Normal ECG When compared with ECG of 10-FEB-2025 12:40, No significant change was found Confirmed by MD PONCE JOHN ([id number]) on 05/17/2025 5:21:42 PM GEMUSE 05/17/2025 1:28 AM EDT 05/17/2025 5:21 PM EDT us Alivia Landry MD ECG ORDERABLES Final Result Performing Organization Address City/[facility]/ZIP Co de Phone Number GEMUSE from Last 3 Months Insurance [facility] MEDIC[facility] Member Subscriber Plan / Payer (Ef fective 2013-Present) Name:Meredith Carranza Relation to Subscriber:Self Name:Meredith Carranza Payer ID:[id number] Group ID:[id number] Type:Not on file Address: [place] [address] [address] [address] Care Teams Claims Investigator Relationship Specialty Start Date End Date Jonatan Cardoso MD [address] [place] [address] Dr [address] [place] PCP - General Internal Medicine 05/17/25
--- OUTSIDE RECORDS SUMMARY | 2025-06-29 11:44 | XMS_ITS | Clinical Summary ---
Author Organization [facility] Address [address] [place] [phone] Phone Care Team Providers Care Tube Sizer Operator Name Role Phone Pcp, Unknown Primary [...] (#1) 2025 08/05/2007 COVID-19 VACCINE ( - 2024-2 6 season) 2025 HEPATITIS A VACCINES Aged Out [...] file Insurance MEDICARE PART A & B [facility] MEDICARE REPLACEMENT [facility] MEDICARE PART A & B [facility] MEDICARE REPLAC[place] MED[place] PART A & B [facility] MEDICARE [facility]AC[place] MED[place] A & B [facility] MEDIC[facility]PLACEMENT [facility] MEDICARE PART A & B [facility] MEDICARE REPLACEMENT MEDICARE PART A & B [facility] MEDICARE [facility]PLACEMENT [facility] MEDICARE PART A & B [facility] MEDICARE REPLACEMENT [address] MEDICARE PART A & B Member Subscriber Plan / Payer (Ef fective 2009-Present) Name:Meredith Carranza Member ID:[id number] Relation to Subscriber:Self Name:Meredith Carranza Subscriber ID:[id number] Payer ID:[id number] Group ID:Not on file Type:Medicare [facility] [address] [place] [id number] MEDICARE REPLAC[place] [address] MEDICARE PART A & B [facility] MEDICARE REPLACEMENT [facility] Care Teams Tube Sizer Operator Relationship Specialty Start Date End Date Pcp, Unknown PCP - General 12/21/21 Additional Source Comments The information contained in this document represents components of the legal health record. It is not the complete legal health record.[facility]
[2025-06-29 13:14] LABS: Hematocrit 39.7 % (37.0-47.0); Hemoglobin 12.3 g/dl (12.0-16.0); Imm Gran Abs Auto 0.01 X10*3/uL (0.00-0.03); Imm Gran Pct Auto 0.2 % (0.0-0.4); Lymphocytes Absolute Auto 1.7 X10*3/uL (1.2-4.9); MANUAL DIFF FLAG SCAN; Mean Corpuscular HGB Conc 31.0 g/dl (31.0-35.0); Mean Corpuscular Hemoglobin 28.3 pg (27.0-33.0); Mean Corpuscular Volume 91.5 fL (80.0-98.0); NRBC Abs Auto 0.000 X10*3/uL (0.0-0.012); NRBC Pct Auto 0.0 /100WBC (0.0-0.2); PLT CLUMP 1; Red Blood Count 4.34 X10*6/uL (4.20-5.50); SCAN SMEAR FLAG 1
[2025-06-29 13:15] LABS: White Blood Count 5.4 X10*3/uL (4.8-10.8)
[2025-06-29 13:28] LABS: Platelet Count 225 X10*3/uL (160-400)
[2025-06-29 13:59] LABS: Alanine Aminotransferase 22 U/L (0-31); Albumin Level 4.5 g/dL (3.5-5.0); Alkaline Phosphatase 66 U/L (39-117); Anion Gap 11 (12-20); Aspartate Amino Transferase 22 U/L (5-31); Blood Urea Nitrogen 12 mg/dL (9-16); Calcium 9.9 mg/dL (8.4-10.2); Carbon Dioxide 29 mmol/L (22-29); Chloride 107 mmol/L (96-108); Cholesterol 135 mg/dL (<200); Estimated Glomerular Filt Rate > 60; HDL Cholesterol 46 mg/dL (>40); Potassium 4.3 mmol/L (3.3-5.1); Sodium 143 mmol/L (135-145); Total Protein 7.6 g/dL (6.5-8.0); Triglycerides 114 mg/dL (<150)
[2025-06-29 14:08] LABS: Appearance Urine Clear; Glucose Urine UA Negative (Negative); PH 8.0 (5.0-9.0); Specific Gravity - Urine <= 1.005 (1.005-1.025)
[2025-06-29 14:48] LABS: Folate 12.1 ng/mL (> or = 4.0); Vitamin B12 418 pg/mL (200-900)
== END 2025-06-29 09:55 | disposition home or self-care (01) ==
LOC: HO.US 09:54
PROVIDERS: PCP Internal Medicine
DX: I65.22 Occlusion and stenosis of left carotid artery (principal); I10 Essential (primary) hypertension; I25.10 Atherosclerotic heart disease of native coronary artery without angina pectoris; I25.2 Old myocardial infarction; R07.2 Precordial pain; E78.2 Mixed hyperlipidemia; E11.9 Type 2 diabetes mellitus without complications; E66.3 Overweight; M81.0 Age-related osteoporosis without current pathological fracture; H10.30 Unspecified acute conjunctivitis, unspecified eye; K21.9 Gastro-esophageal reflux disease without esophagitis; F41.8 Other specified anxiety disorders
CPT/HCPCS: 36415; 80053; 80061; 81003; 82306; 82607; 82746; 83036; 84443; 85025; 93880

== ENCOUNTER → 2025-06-29 10:33 | Outpatient (BNV) | payer OTHER, SELFPAY | PROVIDERS: PCP Internal Medicine; Visit Provider Specialist | DX: I65.22 Occlusion and stenosis of left carotid artery (principal) | CPT/HCPCS: 93880 ==

== ENCOUNTER 2025-07-03 10:19 | Outpatient (AMB) | payer OTHER, SELFPAY ==
[2025-07-03 10:38] VITALS: BP 130/70; PULSE 71; TEMP 36.2; O2SAT 97; BMI 26.9
--- NOTE | 2025-07-03 10:38 | MHC.PC.OV ---
Vital Signs 07/03/25 10:38 Height 5 ft 3 in Weight 152 lb BMI 26.9 BP 130/70 Blood Pressure Location Lt brachial Position Sitting Pulse 71 Pulse Source Pulse Oximeter Temp 97.1 F Temp Source Temporal Artery Scan Pulse Oximetry (%) 97 Oxygen Delivery Method Room Air Intake Visit Reasons: copd/dm/gerd/pancreatic mass Roofing Subcontractor Required: Yes Roofing Subcontractor Name: [id number] Allergies clarithromycin (From PREVPAC) Allergy (Mild, Verified 07/03/25 10:55) hives lansoprazole (From PREVPAC) Allergy (Mild, Verified 07/03/25 10:55) hives lisinopril (LISINOPRIL) Allergy (Mild, Verified 07/03/25 10:55) COUGHING, cough, cough amoxicillin (AMOXICILLIN) Allergy (Unknown, Verified 07/03/25 10:55) RASH cephalexin Allergy (Unknown, Verified 07/03/25 10:55) rash clavulanic acid (Augmentin) Allergy (Unknown, Verified 07/03/25 10:55) rash duloxetine (Cymbalta) Allergy (Unknown, Verified 07/03/25 10:55) weight gain, increase appetite levofloxacin (From LEVAQUIN) Allergy (Unknown, Verified 07/03/25 10:55) RASH linaclotide (Linzess) Allergy (Unknown, Verified 07/03/25 10:55) nausea penicillin V Allergy (Unknown, Verified 07/03/25 10:55) rash Penicillins (PENICILLINS) Allergy (Unknown, Verified 07/03/25 10:55) RASH Sulfa (Sulfonamide Antibiotics) Allergy (Unknown, Verified 07/03/25 10:55) rash tramadol Allergy (Unknown, Verified 07/03/25 10:55) pruritus triamcinolone (Kenalog) Allergy (Unknown, Verified 07/03/25 10:55) Unknown meclizine Adverse Reaction (Intermediate, Verified 07/03/25 10:55) fatigue, somnolence prednisone (Prednisone) Adverse Reaction (Mild, Verified 07/03/25 10:55) YEAST INFECTION cetirizine Adverse Reaction (Unknown, Verified 07/03/25 10:55) dizziness? Medication List - Last Reconciled 07/03/25 by SUJEY Pineda albuterol sulfate 90 mcg/actuation 2 puffs PO Q6H PRN alprazolam 0.25 mg PO BID PRN aspirin 81 mg PO DAILY [BLADDER PADS As directed] blood pressure monitor As directed blood sugar diagnostic (FreeStyle Lite Strips) As directed once a day blood-glucose meter (FreeStyle Lite Meter kit) daily budesonide 32 mcg/actuation 1 spray intranasal DAILY PRN commode (bedside commode) As directed fluoxetine (Prozac) 10 mg PO DAILY nntosrpviqd-nzjedrjzw-kcythlpo 100-62.5-25 mcg (Trelegy Ellipta) 1 inh inhalation DAILY 30 days gabapentin 100 mg PO DAILY PRN 90 days [HANDHELD SHOWER HEAD As directed] metformin 1,000 mg PO BEDTIME nitroglycerin 0.4 mg sublingual Q5M PRN nystatin 2.5 mL PO DAILY 30 days omeprazole 20 mg PO DAILY 90 days rosuvastatin 40 mg PO DAILY 90 days [SHOWER CHAIR As directed] umeclidinium-vilanterol 62.5-25 mcg/actuation (Anoro Ellipta) 1 inh inhalation DAILY 30 days Tobacco use date assessed: 04/26/25 Fall risk assessment: No Falls in past year Dental Screening Dental Screen Date: 07/03/25 Did you have a dental visit in the last 12 months?: Yes Did you have a dental problem in the last 6 months where you did not have access to dental care?: No Was dental information given to patient?: Patient has dentist HPI copd/dm/gerd/pancreatic mass HPI Details The patient is an 80-year-old female presenting with management of her chronic conditions, including diabetes and hypertension. She has a history of Type 2 Diabetes Mellitus, currently managed with metformin 1000 mg at bedtime. Previously, she was prescribed Jardiance, but discontinued it due to a vaginal infection, a known side effect of the medication. The patient's hypertension was noted during an episode of dizziness and headache, where her blood pressure was found to be elevated by EMS and at the hospital. She was not prescribed any new antihypertensive medications during her hospital visit, as it was considered a long-term issue. The patient was given IV fluids with positive effect; dizziness and headache resolved and blood pressure normalized She has a history of coronary artery disease, with a stent placement and experiences angina, for which she uses nitroglycerin. She smoked for 55 years, starting at the age of 8, which has contributed to her chronic obstructive pulmonary disease (COPD). Her recent lab results showed an A1c of 8.1%, which has increased from 7.2% slightly since self-discontinuing Jardiance in the past and his now only on metformin 1000mg once a day. Her cholesterol levels are within normal limits, her LDL at 67-goal for less than 70 Asthma-COPD overlap. Former smoker, quit 15 years ago. Right pulmonary nodule with no significant change. Increase interstitial changes suspected due to previous COVID infection. Patient was seen by pulmonology an inhaler was search to [facility] for increased coverage. This could be switched back to Anoro, per pulmonology (Dr. 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 Per [facility] records, pt was seen by Dr Hammond and declined surgery at that time (03/2023). MRI abdomen with contrast performed July 2024 showed no significant interval change in 1.1 cm heterogeneously enhancing mass in the body of the pancreas. Followed by oncology, Dr. Olivas. Iron-deficiency anemia. She received Venofer infusion in 03/19/2024 with good response denies chest pain, sob, dizziness or lightheadedness denies abdominal pain/change in bowel habits Reports some difficulty sleeping Denies snoring or apneic episodes Reports eating late and being used staying up late [facility] Medical History Pulmonary fibrosis Asthma-COPD overlap syndrome Allergic rhinitis Vaginal discharge Rash Left low back pain Dizziness Osteoporosis Hypercalcemia GERD without esophagitis Constipation Lumbar degenerative disc disease Overweight (BMI 25.0-29.9) Vitamin D deficiency Mixed hyperlipidemia Atherosclerotic cardiovascular disease Pulmonary emphysema Diabetes mellitus Vertigo Degenerative lumbar disc Irritable bowel syndrome Fibromyalgia Borderline diabetes Hypercholesteremia Asthma Chronic headache Anxiety Surgical History History of biopsy History of loop electrical excision procedure (LEEP) H/O heart artery stent Hx of colonoscopy H/O angioplasty H/O Spinal surgery Hx of tubal ligation Family History Father No problems noted. Mother Depression S/P CABG x 4 Diabetes Hypertension Sister Poor high blood pressure control Cervical cancer Breast cancer Social History Household Members: None Housing: Apartment Alcohol intake: former Patient Tobacco Use Status: Never used Tobacco Tobacco use type: Cigarette e-Cigarette/Vaping Use: Never Used Second Hand Smoke Exposure: No service: No Current occupational status: retired and disabled Cognitive needs: No Hearing needs: No Vision needs: Yes (glasses) Female Reproductive History Menstrual Age of Menarche: 13 Questionnaire PHQ-9 Over the last 2 weeks, how often have you been bothered by any of the following problems? 1. Little interest or pleasure in doing things: more than half the days 2. Feeling down, depressed, or hopeless: nearly every day 3. Trouble falling or staying asleep, or sleeping too much: nearly every day (sleeping too much ) 4. Feeling tired or having little energy: nearly every day 5. Poor appetite or overeating: several days 6. Feeling bad about yourself - or that you are a failure or have let yourself or your family down: more than half the days 7. Trouble concentrating on things, such as reading the newspaper or watching television: nearly every day 8. Moving or speaking so slowly that other people could have noticed. Or the opposite - being so fidgety or restless that you have been moving around a lot more than usual: nearly every day 9. Thoughts that you would be better off or of hurting yourself in some way: not at all Total score: 20 Depression Screening Interpretation: Positive Depression Screening Follow-up: Existing condition and In treatment Depression Screening Done: Yes Source: Developed by Drs. Anthony Whelan, Chayo Romano, Vivek Avila and colleagues, with an educational irena from [employer]. Thrive Questionnaire Date Thrive assessed: 07/03/25 I am a: Patient What is your living situation today?: I have a steady place to live Within the past 12 months, did the food you bought not last and you didn't have the money to get more?: Never true Within the past 12 months, did you worry whether your food would run out before you got money to buy more?: Never true Do you have trouble paying for medicines?: No Do you have trouble getting transportation to medical appointments?: No Do you have trouble paying your heating and electricity bill?: No Do you have trouble taking care of your child, family member or friend?: No Do you have trouble with day-to-day activities such as bathing, preparing meals, shopping, managing finances, etc.?: No Are you currently unemployed and looking for a job?: I choose not to answer this question Are you interested in more education?: No Please select the resources that you would like help with: None Currently or been in a relationship where the following occur: No concerns reported THRIVE Score: 0 AUDIT C Alcohol Use Questionnaire (AUDIT-C) 1. How often do you have a drink containing alcohol?: Never Total Score: 0 Score Reviewed/Action Taken: No VIOLET-7 AMB Questionnaire VIOLET-7 Date VIOLET - 7 assessed: 07/03/25 Feeling nervous, anxious, or on edge: 0 = Not at all Not being able to stop or control worryin = Not at all Worrying too much about different things: 0 = Not at all Trouble relaxin = Not at all Being so restless that it is hard to sit still: 0 = Not at all Becoming easily annoyed or irritable: 0 = Not at all Feeling afraid as if something awful might happen: 0 = Not at all Total VIOLET-7 score (0-4 normal; 5-9 mild; 10-14 moderate; 15-21 severe): 0 Source: Developed by Drs. Anthony Whelan, Chayo Romano, Vivek Avila and colleagues, with an educational irena from [employer]. Review of Systems Const Reports headache(s) (intermittent) Eyes Denies loss of vision ENT Denies vertigo, Reports dizziness (intermittent), Reports headache(s) (intermittent) and Denies sore throat Card Denies chest pain, Denies leg edema and Reports lightheadedness (intermittent) Resp Denies cough, Denies hemoptysis and Denies wheezing GI Denies abdominal pain, Denies melena, Denies constipation, Denies diarrhea and Denies vomiting Denies urinary frequency, Denies dysuria and Denies urinary urgency Musc Denies arthralgias, Denies joint swelling, Denies numbness and Denies tingling Neuro Denies Abnormal speech present, Denies behavioral changes, Denies vertigo, Reports dizziness (intermittent), Reports headache(s) (intermittent), Denies loss of vision, Denies memory loss, Denies numbness and Denies tingling Psych Denies anxiety, Denies behavioral changes, Denies depression, Denies memory loss and Denies panic attacks Wayne/Lymph Denies easy bleeding and Denies easy bruising Aller/Immun Denies wheezing Physical exam (Primary Care) Vital Signs: Last Vital Signs Temp 97.1 F 07/03/25 10:38 Pulse 71 07/03/25 10:38 BP 130/70 07/03/25 10:38 Pulse Ox 97 07/03/25 10:38 Oxygen Delivery Method Room Air 07/03/25 10:38 BMI result Body Mass Index 26.9 Tobacco/Smoking Status: Tobacco use Status Tobacco use date assessed 04/26/25 07/03/25 10:39 Patient Tobacco Use Status Never used Tobacco 07/03/25 10:48 Tobacco use type Cigarette 07/03/25 10:48 e-Cigarette/Vaping Use Never Used 07/03/25 10:39 PHQ-9: PHQ-9 Score PHQ-9: Total score 20 07/06/25 14:38 Depression Screening Interpretation: Positive Depression Screening Follow-up: Existing condition and In treatment Thrive Assessment: Date of Thrive Assessment Date Thrive assessed 07/03/25 07/03/25 10:48 Currently or been in a relationship where the following occur: No concerns reported Const General: healthy appearing, no acute distress, alert and awake Nutritional Appearance: well nourished Orientation/consciousness: oriented to person, oriented to place and oriented to time HENMT Ears: TM's normal bilaterally General nose exam: Normal nasal mucous membranes and turbinates present Eyes Conjunctivae: conjunctivae normal Sclerae: sclerae normal Pupils: Equal, round and reactive pupils present Neck Neck: Yes no lymphadenopathy and Yes no JVD Thyroid: Thyroid normal Carotids: no bruits Resp Effort & Inspection: normal respiratory effort and not tachypneic Auscultation: no crackles, no rales, no rhonchi and no wheezes Cardio Rate: regular rate Rhythm: regular rhythm Heart sounds: no murmurs and normal S1 and S2 GI Palpation (GI): Soft to palpation, nontender, no hepatomegaly and no splenomegaly Auscultation: normal bowel sounds Skin General skin exam: no rashes or lesions noted and dry skin Neuro General: oriented to person, oriented to place and oriented to time Cranial nerves: Yes Equal, round and reactive pupils present Speech: No Abnormal speech present Gait exam (Neuro): Normal gait present Motor exam (neuro): no tremor noted Extrem Right upper extremity: full ROM Left upper extremity: full ROM Right lower extremity: full ROM; no edema Left lower extremity: full ROM; no edema Psych Mental Status: mental status grossly normal Speech and movement: Normal speech and movement present Affect: normal affect Attitude: cooperative Thought process: Normal thought process present Results Reviewed Results Reviewed: Laboratory Tests 06/29/25 06/29/25 12:13 12:18 WBC 5.4 RBC 4.34 Hgb 12.3 Hct 39.7 MCV 91.5 MCH 28.3 MCHC 31.0 RDW 13.2 Plt Count 225 MPV 11.9 Sodium 143 Potassium 4.3 Chloride 107 Carbon Dioxide 29 Anion Gap 11 L BUN 12 Creatinine 0.74 Estimated GFR > 60 Fasting Glucose 139 H Estimat Average Glucose 186 Hemoglobin A1c % 8.1 H Calcium 9.9 Total Bilirubin 0.3 AST 22 ALT 22 Alkaline Phosphatase 66 Total Protein 7.6 Albumin 4.5 Triglycerides 114 Cholesterol 135 LDL Cholesterol, Calc 67 HDL Cholesterol 46 Vitamin B12 418 25-OH Vitamin D Total 43.9 Folate 12.1 TSH 3.19 Urine Color Yellow Urine Appearance Clear Urine pH 8.0 Ur Specific [place] <= 1.005 Urine Protein Negative Urine Glucose (UA) Negative Urine Ketones Negative Urine Blood Negative Urine Nitrite Negative Ur Leukocyte Esterase Negative Coding Level of Care Code Est Pt Level 4 (07487) Diagnoses Atherosclerotic cardiovascular disease I25.10 History of non-ST elevation myocardial infarction (NSTEMI) I25.2 Mixed hyperlipidemia E78.2 Type 2 diabetes mellitus without complication, without long-term current use of insulin E11.9 Diabetes mellitus type: type 2 Diabetes mellitus halfway insulin use: without halfway use Diabetes mellitus complication status: without complication Vitamin D deficiency E55.9 Overweight (BMI 25.0-29.9) E66.3 Primary hypertension I10 Stenosis of left carotid artery I65.22 Laterality: left Pancreatic mass K86.89 Anemia, unspecified type D64.9 Anemia type: unspecified type Asthma-COPD overlap syndrome J44.89 Multiple pulmonary nodules R91.8 Insomnia, unspecified type G47.00 Insomnia type: unspecified Time Spent (min) 41 Assessment & Plan Assessment & Plan (1) Atherosclerotic cardiovascular disease: Code(s): I25.10 - Atherosclerotic heart disease of [place] coronary artery without angina pectoris Category: Medical Plan: Echocardiogram from 2020 with LVEF of 60-65%. Mild aortic valve calcification. Mild tricuspid regurgitation otherwise unremarkable. Cardiac catheterization from 2019-mid LAD distal 90% stenosis status post stenting; distal circumflex 90% stenosis, not intervened; no significant disease in right coronary artery. Overall, she has got stable coronary disease and no angina continue nitroglycerin PRN as needed (2) History of non-ST elevation myocardial infarction (NSTEMI): Code(s): I25.2 - Old myocardial infarction Category: Medical Plan: HX of NSTEMI Denies chest pain/sob. Recent hospital visit due elevated blood pressure and dizziness and headaches. Symptoms resolved with IV fluids. No BP meds were started. BP 130/70 today in office. Reports that she eats a lot of salt in general. Reinforced a low sodium diet to aid with bp management. No new treatment started today, will continue to monitor. (3) Mixed hyperlipidemia: Code(s): E78.2 - Mixed hyperlipidemia Category: Medical Plan: Triglycerides 114, total cholesterol 135, LDL 67, HDL 46 Discussed lifestyle modifications including dietary changes and physical activity continue rosuvastatin 40 mg daily will recheck lipid panel in 3 months (4) Diabetes mellitus: Code(s): E11.9 - Type 2 diabetes mellitus without complications Category: Medical Qualifiers: Diabetes mellitus type: type 2 Diabetes mellitus halfway insulin use: without terminal gauger use Diabetes mellitus complication status: without complication Qualified Code(s): E11.9 - Type 2 diabetes mellitus without complications Plan: A1c 8.1% increase from 7.2% increased from 6.6%, goal less than 7% self-stopped jardiance in the past Currently on metformin 1000mg daily Metformin increased to do a 1000 mg b.i.d., then placed on hold, per patient request to try the extended release Metformin ER 1500 mg daily ordered We will rechecked fasting glucose and A1c in 3 months (5) Vitamin D deficiency: Code(s): E55.9 - Vitamin D deficiency, unspecified Category: Medical Plan: Continue vitamin-D OTC (6) Overweight (BMI 25.0-29.9): Code(s): E66.3 - Overweight Category: Medical Plan: Discussed lifestyle modifications including dietary changes and physical activity (7) Primary hypertension: Code(s): I10 - Essential (primary) hypertension Category: Medical Plan: The patient had an episode in the past of dizziness/headaches and was found to be hypertensive by EMT ED visit, IV fluids was given and patient symptoms resolved. No other treatment was implemented Patient was seen by Cardiology and was placed on amlodipine 2.5 mg. However, the patient has stopped taking this medication stating that her high blood pressure was not persistence and felt like the medication was causing dizziness. 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 Per [facility] records, pt was seen by Dr Hammond and declined surgery at that time (03/2023). MRI abdomen with contrast performed July 2024 showed no significant interval change in 1.1 cm heterogeneously enhancing mass in the body of the pancreas. Followed by oncology, Dr. Olivas. (10) Anemia: Code(s): D64.9 - Anemia, unspecified Category: Medical Qualifiers: Anemia type: unspecified type Qualified Code(s): D64.9 - Anemia, unspecified Plan: Iron-deficiency anemia. She received Venofer infusion in 03/19/2024 with good response. Normal H&H, we will continue to monitor CBC with (11) Asthma-COPD overlap syndrome: Code(s): J44.89 - Other specified chronic obstructive pulmonary disease Category: Medical Plan: Former smoker, quit 15 years ago. Right pulmonary nodule with no significant change. Increase interstitial changes suspected due to previous COVID infection. Patient was seen by pulmonology an inhaler was search to [facility] for increased coverage. This could be switched back to [facility], per pulmonology (Dr. Márquez) (12) Multiple pulmonary nodules: Code(s): R91.8 - Other nonspecific abnormal finding of lung field Category: Medical Plan: Former smoker Quit 15 years ago Lung screening in 2021 showed emphysematous changes in additional to pulmonary nodule. She has a nodule in the right upper lobe and also small calcified nodule in the left lower area. Patient was noted to have evidence of atelectasis. CT scan of the chest in 2023 showed no significant change. Follow up with pulmonology as scheduled (13) Insomnia: Code(s): G47.00 - Insomnia, unspecified Category: Medical Qualifiers: Insomnia type: unspecified Qualified Code(s): G47.00 - Insomnia, unspecified Plan: Sleep hygiene: Exercise regularly, but not within 4 hour of bedtime. Limit fluid intake and avoid large meals in the evening hours. Limit overall caffeine, tobacco, and alcohol intake; no night cap. Maintain a regular sleep-wake cycle without naps in the daytime. Lie down to sleep only when feeling sleepy; leave the bed if unable to fall asleep within 20 minutes; stay in bed for only the hours actually sleeping(but not less than 5 hour in 24 hours). Orders: Orders Hemoglobin A1c 3 Months E11.9 - Type 2 diabetes mellitus without complications, E55.9 - Vitamin D deficiency, unspecified, E66.3 - Overweight, E78.2 - Mixed hyperlipidemia, F41.9 - Anxiety disorder, unspecified, I10 - Essential (primary) hypertension, R07.2 - Precordial pain Complete Blood Count Auto Diff 3 Months E11.9 - Type 2 diabetes mellitus without complications, E55.9 - Vitamin D deficiency, unspecified, E66.3 - Overweight, E78.2 - Mixed hyperlipidemia, F41.9 - Anxiety disorder, unspecified, I10 - Essential (primary) hypertension, R07.2 - Precordial pain Comprehensive [place]. Panel Fast 3 Months E11.9 - Type 2 diabetes mellitus without complications, E55.9 - Vitamin D deficiency, unspecified, E66.3 - Overweight, E78.2 - Mixed hyperlipidemia, F41.9 - Anxiety disorder, unspecified, I10 - Essential (primary) hypertension, R07.2 - Precordial pain UA CC w/rflx Micro + Cult 3 Months E11.9 - Type 2 diabetes mellitus without complications, E55.9 - Vitamin D deficiency, unspecified, E66.3 - Overweight, E78.2 - Mixed hyperlipidemia, F41.9 - Anxiety disorder, unspecified, I10 - Essential (primary) hypertension, R07.2 - Precordial pain TSH reflex Free T4 3 Months E11.9 - Type 2 diabetes mellitus without complications, E55.9 - Vitamin D deficiency, unspecified, E66.3 - Overweight, E78.2 - Mixed hyperlipidemia, F41.9 - Anxiety disorder, unspecified, I10 - Essential (primary) hypertension, R07.2 - Precordial pain Vitamin D 25-OH Total 3 Months E11.9 - Type 2 diabetes mellitus without complications, E55.9 - Vitamin D deficiency, unspecified, E66.3 - Overweight, E78.2 - Mixed hyperlipidemia, F41.9 - Anxiety disorder, unspecified, I10 - Essential (primary) hypertension, R07.2 - Precordial pain Medications: New loratadine (Allergy Relief (loratadine)) 10 mg PO DAILY PRN 60 tabs 0RF allergy symptoms metformin ER 1,500 mg (2 x 750 mg) PO DAILY 180 tabs 3RF 90 days E11.9 - Type 2 diabetes mellitus without complications fluoxetine (Prozac) 10 mg PO DAILY 90 caps 3RF Refilled fluoxetine (Prozac) 10 mg PO DAILY 90 caps 3RF On Hold metformin Hold Comment: Doctor's Order 1,000 mg PO BID 180 tabs 3RF 90 days
--- OUTSIDE RECORDS SUMMARY | 2025-07-03 12:23 | XMS_ITS | Data Portability ---
Author Organization [employer], [facility] Address [address] [place] [phone] Care Team Providers Care Statement Distribution Clerk Name Role Phone HIM CCA OTHER RUSLAN [...] sxs with honey and abdiel. Precautions reviewed. [email or web address] Not available 10/24/2024 16:40:04 04/30/2025 04/30/2025 I have reviewed and agree with the assessment and plan as documented by the automobile drivers. I provided real-time medical direction for this encounter and was immediately available to provide additional phone-based assistance as needed. HPI: 80F presenting with hypertension. BP was 170 systolic earlier today, now improved to 142/64. No chest pain or SOB. No blurry vision, no headache. Was started on amlodipine last week but stopped it because felt dizzy while taking it. Pt is scheduled to see PCP soon for follow up. O/E: Pt alert and oriented. Exam otherwise unremarkable per the automobile drivers Impression/Plan : Given BP has normalized, recommend supportive care and ongoing monitoring. Pt will benefit from following up with PCP to determine appropriate antihypertensiv e. We discussed the diagnostic uncertainty of home visits and the risk associated with this. In this case, the patient and I felt this to be an acceptable and reasonable amount of risk given the benefit of avoiding an ED visit. We discussed the need to seek care urgently/emerge ntly in the setting of any new or worsening serious symptoms, particularly weakness, dizziness, fever, chills, CP, SOB, worsening diarrhea, nausea, vomiting or any other concerns. paysola Not available 04/30/2025 16:39:45 Plan of Treatment Reminders Order Date Submit Date Provider Last Modified By Organization Details Last Modified Time Details Appointments None recorded. Lab rapid SARS CoV 2 Ag, QL IA, respiratory specimen 2024 [facility], [address] [place] [address], [id number] 5 08:00:20 rapid flu (A+B) 2024 [facility], [address] [place] [address], [id number] 5 08:00:20 rapid strep group A, throat 2024 [facility], [address] [place] [address], [id number] 5 08:00:21 rapid SARS CoV 2 Ag, QL IA, respiratory specimen [address], [address] [place] [address], [id number] 5 16:40:09 rapid flu (A+B) 2024 0[address] [place] [address] [facility], [address] [place] [address], [id number] 5 16:40:09 Referral None recorded. Procedures None recorded. Surgeries None recorded. Imaging None recorded. Medication Orders azelastine 0.05 % eye drops 2024 [id number], [address] [place], [place], [id number], 18:31:37 doxycycline hyclate 100 mg tablet 2024 [id number], [address] [place], [place], [id number], 21:06:13 doxycycline hyclate 100 mg tablet 2024 [facility], [address] [place], [place], [id number], 21:06:21 Patient TargetsNo targets recorded. Patient InstructionsNo instructions recorded. Reason for Referral None Reported. Results Created Date Observation Date Name Description Value Unit Range Abnormal Flag Note LastModifiedBy Organization Detail LastModifiedTime 10/24/1910/24/2024 rapid flu (A+B) Flu negati ve Not Available [facility] ed [address] [place] [address], [id number] 10/24/2024 16:38:31 10/24/19 25 10/24/2024 rapid SARS CoV 2 Ag, QL IA, respi rator y speci men rapid SARS CoV 2 Ag, QL IA, respiratory specimen negati ve Not Available [facility] ed [address] [place] [address], [id number] 10/24/2024 16:38:28 Result Notes None recorded. Medical Equipment None Reported. Allergies Allergen ID Allergen Name Allergen Category Reaction Reaction Severity Criticality Documentation Date Start Date Code Code System Note Provider Name and Address Organization Details Recorded Time 76600 Product containin g penicilli n (product) medicatio n Not available Not available Not available 07/30/2024 83504 8001 SNOMED Not Available [facility] 4 17:01:25 09571 Bactrim medicatio n Not available Not available Not available 07/30/2024 01523 9 RxNorm Not Available [facility] 17:01:25 31920 Levaquin medicatio n Not available Not available Not available 07/30/2024 47426 2 RxNorm Not Available [facility] 17:01:25 13238 lisinopri l medicatio n Not available Not available Not available 07/30/2024 88548 RxNorm Not Available [facility] 17:01:25 35833 Prevacid medicatio n Not available Not available Not available 07/30/2024 63352 RxNorm Not Available [facility] - production 17:01:25 75830 zolpidem medicatio n Not available Not available Not available 06/24/20252021 39832 RxNorm Not Available [facility] - External [employer] - prod 17:58:18 80206 amoxicill in / clavulana te medicatio n Not available Not available Not available 06/24/20252021 06951 RxNorm Not Available [facility] - External [employer] - prod 17:58:18 11119 diphenhyd ramine hydrochlo ride medicatio n Not available Not available Not available 06/24/20252021 1362 RxNorm Not Available [facility] - External [employer] - prod 17:58:18 06157 codeine medicatio n Not available Not available Not available 06/24/20252021 2670 RxNorm Not Available [facility] - External [employer] - prod 17:58:18 83188 levofloxa sylwia medicatio n Not available Not available Not available 06/24/20252021 84486 RxNorm Not Available [facility] - External Data [employer] - prod 17:58:18 52229 cyprohept adine medicatio n Not available Not available Not available 06/24/20252021 3013 RxNorm Not Available [facility] - External [employer] - prod 17:58:18 05210 pseudoeph edrine hydrochlo ride medicatio n Not available Not available Not available 06/24/20252021 42687 RxNorm Not Available [facility] - External [employer] - prod 17:58:18 83992 hydroxyzi ne hydrochlo ride medicatio n Not available Not available Not available 06/24/20252021 96981 7 RxNorm Not Available [facility] - External [employer] - prod 17:58:18 94594 cetirizin e medicatio n Not available Not available Not available 06/24/20252021 89933 RxNorm Not Available [facility] - [employer] - prod 17:58:18 04331 neomycin / polymyxin B medicatio n Not available Not available Not available 06/24/20252013 15624 1 RxNorm All antib iotic s Not Available [facility] - External [employer] - prod 17:58:19 4170 Augmentin medicatio n Not available Not available Not available 08/26/2023 18466 2 RxNorm Not Available [facility] - production 4 17:01:25 Medications Name Sig Start Date Stop Date Status Note LastModified by Organization Details LastModified Time Prescription - Change active Not Available Not Available Not Available budesonide 32 mcg/actuatio n nasal spray SHAKE LIQUID AND USE 1 SPRAY IN EACH NOSTRIL DAILY NEEDED FOR ALLERGY SYMPTOMS active Not Available Not Available No t Available atorvastatin 80 mg tablet TAKE 1 TABLET BY MOUTH AT BEDTIME active Not Available Not Available No t Available azelastine 0.05 % eye drops Instill 1 drop twice a day by ophthalmic route for 7 days. 2024 active Not Available Not Available Not Avai lable doxycycline hyclate 100 mg capsule TAKE 1 [...] Not Available Not Available No t Available amlodipine 2.5 mg tablet TAKE 1 TABLET BY MOUTH DAILY active Not Available Not Available Not Available metronidazol e 500 mg tablet active [...] 1 TABLET BY MOUTH TWICE DAILY FOR 7 DAYS [...] Available No t Available FreeStyle Lite Strips USE DIRECTED ONCE A DAY active Not Available [...] blood by Pulse oximetry Body temperature Systolic And Diastolic Provider Name and Address Organization Details Last Updated DateTime 5 68 /min 14 /min 98 % 98 % 97.5 [degF] 143/71 mm[Hg] Not Available [facility] - production 5 16:37:14 Date Recorded Heart rate Respiratory rate Oxygen saturation Oxygen saturation in Arterial blood by Pulse oximetry Body temperature Systolic And Diastolic Provider Name and Address Organization Details Last Updated DateTime 5 78 /min 16 /min 97 % 97 % 97.7 [degF] 143/81 mm[Hg] Not Available [facility] - production 5 21:03:54 Date Recorded Oxygen saturation Oxygen saturation in Arterial blood by Pulse oximetry Heart rate Respiratory rate Body temperature Systolic And Diastolic Provider Name and Address Organization Details Last Updated DateTime 5 96 % 96 % 71 /min 14 /min 98.1 [degF] 149/69 mm[Hg] Not Available [facility] - production 19:47:38 Date Recorded Heart rate Body height Respiratory rate Oxygen saturation Oxygen saturation in Arterial blood by Pulse oximetry Body weight Body temperature Systolic And Diastolic Provider Name and Address Organization Details Last Updated DateTime 73 /min 160.02 cm 17 /min 95 % 95 % 62939.2 08 g 98.4 [degF] 142/64 mm[Hg] Not Available [facility] - production 15:59:57 Date Recorded Oxygen saturation Oxygen saturation in Arterial blood by Pulse oximetry Heart rate Respiratory rate Body temperature Systolic And Diastolic Provider Name and Address Organization Details Last Updated DateTime 96 % 96 % 76 /min 18 /min 98.5 [degF] 174/66 mm[Hg] Not Available [facility] - production 17:58:04 Social History None recorded. Functional Status None recorded. Mental Status None recorded. Family History Nothing Reported. Medical History No medical history recorded. Gynecological HistoryNo gynecological history recorded. Obstetrics History GPAL:G 0 P 0 0 0 0 Past Encounters Encounter ID Performer Location Encounter Start Date Encounter Closed Date Diagnosis/Indication Diagnosis SNOMED-CT Code Diagnosis ICD10 Code Diagnosis IMO Codes Diagnosis Note [id number] Tito Carmen MD [facility] [address] [place] [phone] 08/28/2022 11:08:27 09/02/2022 14:48:59 COVID-19 077961703 U07.1 [id number] Alfredo Ridley MD [facility] [address] [place] [phone] 04/13/2023 22:21:11 07/13/2023 14:48:59 Acute rhinosinusitis [id number] J00 [id number] KJ SALDANA MD [facility] - [facility] [address] [place] [id number] 08/13/2023 17:34:54 08/14/2023 10:22:37 Pain of left hand [id number] 19962 M79.642 [id number] Judy Metzger MD [facility] - [facility] [address] [place] [phone] 08/26/2023 14:01:38 08/27/2023 09:33:05 Acute pharyngitis [id number] J02.9 [id number] Efraín Zamora MD [facility] - [address] [address] 08/27/2023 15:59:10 08/28/2023 13:09:36 Acute upper respiratory infection [id number] J06.9 Patient presents with two days of [...] the allergies) .Plan: supportive care, maintain hydration [id number] Judy Metzger MD Main - [address] [address] 09/01/2023 15:31:56 09/02/2023 14:23:41 Upper respiratory infection [id number] J06.9 [id number] Trisha Chavarria MD [facility] - [address] [phone] 09/25/2023 18:05:35 09/27/2023 15:07:12 Viral upper respiratory tract infection [id number] J06.9 Evaluation in the field was performed by my automobile drivers colleague, as noted above, I provided real-time [...] shortness of breath, cough, chest pain, fever. [id number] Cisco Beaulieu MD [facility] - [facility] [address] [place] [phone] 01/16/2024 12:22:38 01/18/2024 11:13:21 Dizziness [id number] R42 Dizziness for two days; constant, difficulty walking. VItals stable and EKG with no st-t wave changes, BMP and H/H performed. Given persistenc e of symptoms over 2 days and inability to ambulate without distress/i mbalance, will send to ED for further evaluation and likely CT of head. Patient in agreement. [id number] Trisha Chavarria MD [facility] [address] [place] [phone] 04/16/2024 15:18:28 04/16/2024 18:57:15 Chronic cough [id number] R05.3 Evaluation in the field was performed by my automobile drivers colleague, as noted above, I provided real-time direction and supervisio n for this visit. 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 Today has sternal chest pain iso cough, now resolved, denies nausea, radiation of pain, dyspnea, other new sx. Denies fevers, hemoptysis . Has not tried allergy tx. Takes inhalers w/o improvemen t. On automobile drivers eval VS wnl, lungs CTA b/l. POC [...] shortness of breath, cough, chest pain, fever. [id number] Judy Metzger MD Main - [address] [phone] 05/01/2024 18:56:18 05/03/2024 00:05:49 Cough 29431008 R05.9 Pain in throat [id number] R07.0 [id number] Fabiola Cameron MD Main - [address] [address] 06/07/2024 12:39:53 06/07/2024 23:32:21 Viral upper respiratory tract infection [id number] J06.9 79 year old female being evaluated [...] Script for tylenol sent to patient's pharmacy. [id number] Julissa Morales MD Main - [address] [phone] 07/30/2024 20:07:59 07/30/2024 21:21:18 Cellulitis [id number] L03.90 As noted, we were called to see this patient regarding concerns of arm redness. Evaluation in the field was performed by my automobile drivers colleague, as noted above, I provided real-time [...] changes to consciousn ess, chest pain, dyspnea. [id number] Trisha Chavarria MD Main - [address] [phone] 09/17/2024 15:35:21 09/19/2024 20:50:37 Pain of ear [id number] H92.09 Evaluation in the field was performed by my automobile drivers colleague, as noted above, I provided real-time direction and supervisio n for this visit. 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 Reports hx AOM in that ear requiring abx last year. Denies fevers, otorrhea, trauma, URI sx, tooth complaints , known mastoiditi s. On automobile drivers eval VS wnl, exam w/o external erythema [...] shortness of breath, cough, chest pain, fever. [id number] MISTY WEISS MD [facility] [address] [place] [phone] 10/24/2024 16:37:12 10/24/2024 17:23:10 Viral upper respiratory tract infection [id number] J06.9 [id number] MARCIANO LEY MD [facility] [address] [place] [phone] 10/30/2024 21:03:52 10/31/2024 09:43:47 Acute sinusitis 72771210 J01.90 Evaluation in the field was performed by my automobile drivers colleague, as noted above, I provided real-time direction and supervisio n for this visit. The evaluation revealed 79-year-ol d female with a history of COPD, HLD, MO, cancer, DM type II, and emphysema requested a visit today to address ongoing sinus congestion . The patient was seen by us on 10/24 with similar complaints , including cold, congestion , sinus pain, and headache. During that visit, both Flu and Covid tests were negative, and the patient did not want any medication for her symptoms at the time. The patient reports a history of sinus infections requiring antibiotic s, with the last infection occurring several years ago. The patient denies any chest pain, shortness of breath, dyspnea on exertion, fevers, nausea, vomiting, or diarrhea. The patient was recently exposed to strep throat and is requesting a strep test. VS: Stable, afebrileEx am:Awake and alert, in no acute distress, and speaking in full sentences. Normal oropharynx exam. Right-side d sinus tenderness . Lungs clear throughout auscultati on. Abdomen is soft, nontender, nondistend ed. Nonfocal neurologic al exam.Leonarda l gait. No lower extremity edemaRapid tests: COVID, flu, and strep tests are all negative.A llergies reviewed. Impression :Acute sinus infection Plan:-Give n the patient s history of sinus infections and current right-side d sinus tenderness , treatment with Doxycyclin e was initiated, considerin g the patient s allergies to other antibiotic s.-Recomme nded supportive care for sinus congestion (e.g., saline nasal spray, humidifier , adequate hydration) .Pt was advised patient to monitor for any signs of worsening symptoms, such as fever, increased facial swelling, or purulent nasal discharge. -Follow-up with PCP if symptoms do not improve or worsen in the next 5-7 days, or sooner if new symptoms arise.-Red Flags were discussed with the patient including : Severe headache or vision changes, facial swelling, severe pain in the sinus region, or teeth pain, fever greater than 101 F, or persistent fever, new onset of neurologic al symptoms (e.g., confusion, weakness, changes in speech or gait), shortness of breath, chest pain, or signs of systemic infection. Primary care, consider__ _ Dispositio n: We discussed the diagnostic uncertaint [...] new or worsening serious symptoms, particular ly severe headache or vision changes, facial swelling, severe pain in the sinus region, or teeth pain, fever greater than 101 F, or persistent fever, new onset of neurologic al symptoms (e.g., confusion, weakness, changes in speech or gait), shortness of breath, chest pain, or signs of systemic infection. [id number] MARCIANO LEY MD [facility] ED Medical [address] [phone] 02/11/2025 19:45:15 02/13/2025 19:23:45 Hypertensive disorder [id number] I10 [id number] Evaluation in the field was performed by my automobile drivers colleague, as noted above, I provided real-time direction and supervisio n for this visit. The evaluation revealed an 80-year-ol d female presenting with a complaint of elevated blood pressure. The patient s daughter reports that the patient went to the emergency department yesterday for headache and dizziness, where elevated blood pressure was noted. The ED advised outpatient follow-up. Today, the daughter reports persistent elevated BP readings around 179/80 throughout the day.The patient denies dizziness today but reports mild headache and increased fatigue earlier in the day. She denies chest pain, shortness of breath, or visual changes. The patient has no known history of hypertensi on and is not currently on antihypert ensive medication . She does report previously being prescribed amlodipine 2.5 mg, which was discontinu ed due to symptomati c hypotensio n. Vital Signs:BP: 149/69 HR: 71 RR: 14 SpO : 96% on room airTempera ture: 98.1 FExam: AAO, NAD, speaking in full sentences. Lungs clear to auscultati on bilaterall y. No focal neurologic al deficits noted.Almas rgies reviewed Impression :Elevated blood pressure in a patient without known chronic hypertensi on, now asymptomat ic, but with recent headache and dizziness. No current signs of hypertensi ve emergency. BP today is lower than home readings, and the patient is currently normotensi ve. Recent history of hypotensiv e response to low-dose amlodipine noted. Plan:Marilia nue to monitor blood pressure at home twice daily (morning and evening) and keep a logAdvised to rest quietly for 5 minutes before checking BP, avoid caffeine or recent activity before measuremen tHold off on restarting antihypert ensive therapy at this time given current BP of 149/69 and lack of symptoms todayEncou rage patient to share BP log with PCPIf BP remains consistent ly >160 systolic or if symptoms (headache, dizziness, vision changes, chest pain, shortness of breath) return, advised to call PCP sooner or return to EDEducated on non-pharma cologic measures: Low-sodium diet, adequate hydration, avoid NSAIDs and decongesta ntsRed flags discussed, including: chest pain or pressure, new or worsening headache, visual changes, difficulty speaking, facial droop, or weakness, dizziness or syncope Primary care, consider__ _ Dispositio n: We discussed the diagnostic uncertaint [...] new or worsening serious symptoms, particular ly chest pain or pressure, new or worsening headache, visual changes, difficulty speaking, facial droop, or weakness, dizziness or syncope [id number] Carolee Michaud MD [facility] Medical [address] [phone] 04/30/2025 15:59:54 05/02/2025 11:04:42 Essential hypertension [id number] I10 42096 [id number] MARCIANO LEY MD [facility] Medical [address] [phone] 06/24/2025 17:57:59 06/25/2025 20:41:14 Conjunctivitis of right eye [id number] 5550691 H10.9 [id number] Evaluation in the field was performed by my automobile drivers colleague, as noted above, I provided real-time direction and supervisio n for this visit. The evaluation revealed an 80-year-ol d female with a past medical history of COPD/asthm a, hypertensi on, hyperlipid emia, myocardial infarction , cancer, diabetes mellitus type 2, emphysema, and fibromyalg ia, who presents with right-eye itching and redness for the past three days. The patient reports worsening itching today along with tearing and irritation . She denies vision changes, eye pain, photophobi a, or known injury. States the eye is b othering her a lot. She recalls similar symptoms in the past and was prescribed eye drops that were effective - antibiotic + steroid ? No contact lens use reported. Vital Signs: BP: 174/66 , Pulse: 76 , RR: 18 , Temp: 98.5 F, SpO2: 96% on room airExam: General: Alert, oriented, no acute distress.R ight Eye: Conjunctiv al injection with mild tearing; no purulent discharge, photophobi a, or lid edema. Extraocula r movements intact.Lef t Eye: Normal.Haider gs: Clear to auscultati on bilaterall y.Cardio/N euro: Stable; no focal findings.A llergies reviewed Impression :Right-eye allergic conjunctiv itis. No signs of bacterial infection or corneal involvemen t.Elevated BP Plan:Rx for Azelastine ophthalmic drops, 1 drop to right eye twice daily sent to her pharmacy.P t advised to apply cool compresses as needed for comfort.Av oid eye rubbing and maintain hand hygiene.Gi shannan multiple drug allergies, will avoid empiric antibiotic -steroid combinatio ns unless bacterial infection suspected and cleared by ophthalmol ogy ( pharmacy called so could not verify what she has used in the past ) .Given multiple drug allergies, avoid empiric antibiotic -steroid combinatio ns unless bacterial infection suspected and cleared by ophthalmol ogy.Red flags reviewed including : eye pain, photophobi a, visual changes, purulent discharge, or eyelid swelling [facility] if these develop.Fo llow up with PCP or ophthalmol ogy if no improvemen t in 3 5 days or sooner if symptoms worsen. Primary care, consider__ _ Dispositio n: We discussed the diagnostic uncertaint [...] new or worsening serious symptoms, particular ly eye pain, photophobi a, visual changes, purulent discharge, or eyelid swelling [facility] if these develop. Health Concerns Section Related Observation LastModified by Organization Detai ls LastModified Time None Recorded Concern Status LastModified by Organization Details LastModified Time None Recorded Advance Directives Directive None Recorded Payers Insurance Date Sequence Insurance Name Policy Number Policy [place] Covered Member ID [place] Member ID Guarantor Name 04/13/2023 1 [facility] - DOS PRIOR TO 2022 - DUAL ELIGIBLE (MEDICARE REPLACEMENT/ADV ANTAGE - HMO) Meredith Carranza [id number] Meredith Carranza 06/24/2025 1 [facility] ON OR AFTER 2022 - DUAL ELIGIBLE - ALF OPTIONS AND ONE CARE (MEDICARE REPLACEMENT/ADV ANTAGE - HMO) Meredith Carranza [id number] Meredith Carranza Notes Date Note Type Note [...] Reviewed at 10/24/2024:35 Allergies Reviewed at 10/24/2024 - :35 Comments: Referral taken Machine Former. Patient calling in to place a referral, [...] heart. She would like to be evaluated. Staff Electrical Engineer Organization Information for [facility] Martinez Business Legal Name: [facility] Transportation Address: [address] [place] [address], [place] [address], Genetic Counsellor: Chung Schmidt MD CLIA No.: [id number] Staff Electrical Engineer POC Test Results from [facility] Rapid COVID antigen (16:27:24) COVID: - Rapid influenza antigen (::24) Flu: - .................... .................... .................... .................... .................... .................... .................... . Staff Electrical Engineer Note From Alejandro Martinez: This 79-year-old female with a history including but not limited to COPD, HLD, MO, cancer, DM type II requested a visit [...] Patient states she will not use any [id number] cold/flu remedies. Patient states she will use [...] .................... .................... .................... .................... .................... .................... . [facility] Consulted: Misty Weiss .................... .................... .................... .................... .................... .................... .................... . Disposition: Fulfilled MISTY WEISS MD [address] [place] [address],[address], [place], [phone], [employer] 10/24/2024 17:00:43 10/30/2024 text/html ROS as noted in the [facility] CRC Nurse Triage Notes (Zachary Pettit): Reason For Request: congestion /sinus pain Patient Reports: History of asthma, increased use of inhaler; COPD; Sputum increase ; Cough Denies: Increased work of breathing/labored with or without fever Unable to speak in full sentences without distress Discoloration of skin -cyanosis Needs to sleep sitting up, can t catch breath Shortness of breath in setting of confusion Cough, fever greater than 2 days Lower extremity swelling Shortness of breath with exertion Pain with inspiration Chief Complaints: Common Cold PMH: COPD/Asthma, Hyperlipidemia, Myocardial Infarction, Cancer, Diabetes Mellitus Type 2, Emphysema PMH Reviewed at 10/30/2024: Allergies Reviewed at 10/30/2024:19 Comments: Outside Sales Representative Insurance verified the Pt.'s name//address and phone number. Education provided on the response time and the Pt. was advised to monitor reported s/s and seek emergency treatment if needed. Pt reports feeling unwell with a cough/cold and congestion - Sinus pain - Headache - Denies SOB - Speaking full sentences -Denies fever - S/S started 2 weeks ago - Reports taking Tylenol and Motrin with no relief - Wellness check requested Staff Electrical Engineer Organization Information for JesseAlejandro kan [employer] Legal Name: [facility] Address: [address] [place] [address], [place] [address], Genetic Counsellor: Chung Schmidt MD [place] No.: [id number] Staff Electrical Engineer POC Test Results from Alejandro Martinez Rony ADDISON Rapid COVID antigen (21:02:53) COVID: - Rapid influenza antigen (21:02:54) Flu: - Rapid strep test (21:02:56) Strep: - .................... .................... .................... .................... .................... .................... .................... . Staff Electrical Engineer Note From Alejandro Martinez: This 79-year-old female with a history including but not limited to COPD, HLD, MO, cancer, DM type II, emphysema requested a visit today to address ongoing sinus congestion. I visited this patient one week ago for the same, she was COVID and flu negative at the time and patient did not want any medication for her symptoms. Patient reports history of sinus infections requiring antibiotics, last was several years ago. Patient denies any chest pain, shortness of breath, dyspnea on exertion, fevers, nausea, vomiting, diarrhea. Patient was recently exposed to strep throat and is requesting a strep test. Patient presents awake and alert, in no acute distress and speaking full sentences. Her vital signs are reasonably stable and she is afebrile. Nonfocal neurological exam. Normal gait. Normal oropharynx exam. Right sided sinus tenderness. Lungs are clear throughout auscultation. Abdomen is soft, nontender, nondistended. No lower extremity edema. Rapid COVID, flu and strep tests are all negative. I treated this patient with doxycycline 100 mg PO. We discussed the diagnostic uncertainty of home visits and the risk associated with this. In this case, the patient and I felt this to be an acceptable and reasonable amount of risk given the benefit of avoiding an ED visit. I provided education on the patient's prescriptions as well as additional supportive care/OTC therapy. I recommend she follows up with her primary care physician this week and present to the emergency department for any new or worsening severe symptoms such as chest pain, shortness of breath, high fever, altered mental status. The patient and her daughter were given the opportunity to ask questions and are agreeable to this plan. [facility] Lab Orders: rapid SARS CoV 2 Ag, QL IA, respiratory specimen: Performed rapid flu (A+B): Performed rapid strep group A, throat: Performed [facility] Medication Orders: doxycycline hyclate 100 mg tablet: Administered .................... .................... .................... .................... .................... .................... .................... . [facility] Consulted: Marciano Ley .................... .................... .................... .................... .................... .................... .................... . Disposition: David MARCIANO LEY MD [address] [place] [address],[address], [place], [phone], [employer] 10/30/2024 22:28:18 02/11/2025 text/html ROS as noted in the [facility] CRC Nurse Triage Notes (Ron Davidson): Reason For Request: Patient has high blood pressure. Denies: Worst Headache of life New onset of vision loss Sudden onset -unilateral weakness/gait disturbance Fall with head strike and altered LOC New onset of Slurred speech or difficulty finding words Sudden Mental status changes Head pain with fever chills and neck pain Seizure activity Chief Complaints: High Blood Pressure PMH: COPD/Asthma, Hyperlipidemia, Myocardial Infarction, Cancer, Diabetes Mellitus Type 2, Emphysema, Fibromyalgia PMH Reviewed at 02/11/2025 - :14 Allergies Reviewed at 02/11/2025 - :14 Comments: 80 y.o female complains of High Blood Pressure Patient's daughter calling reporting patient went to the ER yesterday for headache and dizziness and found patient to have elevated BP. ER instructed patient to follow up with PCP about elevated BP. Daughter reports patient has checked her blood pressure multiple times today and reports BP 179/80 something all day. Patient reports no dizziness today [...] to seek emergency care -Micaela Davidson RN .................... .................... .................... .................... .................... .................... .................... . Staff Electrical Engineer Note From Alejandro Martinez: This 80-year-old female with a history including but not limited to COPD, HLD, MO, cancer, DM type II, emphysema, fibromyalgia requested [...] the benefit of avoiding an ED visit. I provided education on keeping a log of her blood pressures, with dates and times and to present that information to her PCP. I recommend follow-up with her PCP on Thursday to schedule an appointment and present to the emergency department for any new or worsening severe symptoms such as chest pain, shortness of breath, severe headache, blood pressure readings over 200 systolic. The patient and her family were given the opportunity to ask questions and are agreeable to this plan. .................... .................... .................... .................... .................... .................... .................... . [facility] Consulted: Marciano Ley .................... .................... .................... .................... .................... .................... .................... . Disposition: Fulfilled MARCIANO LEY MD [address] [place] [address],[address] [facility], [place], [phone], [employer] 02/11/2025 20:33:23 04/30/2025 text/html CRC Nurse Triage Notes (Carole Dee): Reason For Request: Patient has high Blood Pressure. Denies: History of Heart Attack, in the setting of active chest pain Active Chest pain, radiates to neck jaw and or arm Diaphoretic/Sweating Describes as c rushing Sudden onset of nausea/Vomiting and shortness of breath. Shortness of Breath Unable to speak in full sentences without distress Chief Complaints: High Blood Pressure PMH: COPD/Asthma, Hyperlipidemia, Myocardial Infarction, Cancer, Diabetes Mellitus Type 2, Emphysema, Fibromyalgia, Hypertension PMH Reviewed at 04/30/2025 - 11:10 Allergies Reviewed at 04/30/2025 - 11:10 Comments: 80 y.o female complains of High Blood Pressure Patient notes elevated blood pressure. Patient reports starting her on amlodipine a while ago, she took it for a week and self discontinued. Her director instrumentation is not aware she stopped medication and is having elevated blood pressures. She denies chest pain, no shortness of breath, does not wear home o2, does not take any blood thinners, and has not checked her blood sugars today. Has a mild headache, but states is chronic, no dizziness, no nausea, vomiting or diarrhea, no diaphoresis. She would like to be evaluated. I provided information on the mobile health provider response time and advised the patient and/or caregiver to monitor reported signs and symptoms. I discussed the warning signs of when to seek emergency care. .................... .................... .................... .................... .................... .................... .................... . Staff Electrical Engineer Note From Anni Banegas: Pt chief complaint today of hypertension as well a frontal one headache. Pt states that headache is at a 5/10 and has been going on approx 1 week since stopping her Amlodipine prescription. Pt states that she has stopped taking the medication due to side effects which made her tired. Pt has noted a [place] increase in her blood pressure with readings [...] of 15. Positive csm in all extremities. [facility] maya santiago consulted, Pt informed of findings. Pt informed to call her pcp and or director instrumentation for potential change in hypertensive of choice. Pt is educated on red flag S&S and told to call emergency services if any present. .................... .................... .................... .................... .................... .................... .................... . [facility] Consulted: Carolee Michaud .................... .................... .................... .................... .................... .................... .................... . Disposition: Fulfilled Carolee Michaud MD [address] [place] [address],[address], [place], [phone], [employer] 04/30/2025 16:40:09 06/24/2025 text/html ROS as noted in the [facility] CRC Nurse Triage Notes (Ron Davidson): Reason For Request: Patient has an ich in her right eye, and today her eye is red and not comfortable, watering. Denies: Sudden onset of dental pain, unable to manage own secretions Nosebleed lasting longer than one hour; unable to stop bleeding Throat swelling/difficult swallowing Chief Complaints: Eye Complaint PMH: COPD/Asthma, Hyperlipidemia, Myocardial Infarction, Cancer, Diabetes Mellitus Type 2, Emphysema, Fibromyalgia, Hypertension PMH Reviewed at 06/24/2025 - 17:21 Allergies Reviewed at 06/24/2025 17:21 Comments: 80 y.o female complains of Eye Complaint Patient is Azerbaijani speaking primarily, cheese cutter# [id number] used for triage assessment. Patient calling reporting itching in her R eye for the last three days. Patient states itching is worse today and eye is red in color. Patient also reports eye is tearing. Patient denies changes in her vision; states the eye is bothering her a lot . Patient denies any known injury to the eye. I provided information on the mobile health provider response time and advised the patient and/or caregiver to monitor reported signs and symptoms. I discussed the warning signs of when to seek emergency care -Micaela Davidson RN .................... .................... .................... .................... .................... .................... .................... . Staff Electrical Engineer Note From Jose Calderon: arrived to find female in her residence. Patient aox4. GCS 15 skin pink warm and dry. Patient stated that 3 days ago she developed itching and redness on her right eye. Minor swelling. No vision changes. No discharge. Patient VS as noted. HTN with history of HTN. Sclera noted to be red. afebrile. [facility] contacted agreed with differential and is sending over RX for eye drops. Red flag symptoms discussed with patient. Patient in agreement. .................... .................... .................... .................... .................... .................... .................... . [facility] Consulted: Marciano Ley .................... .................... .................... .................... .................... .................... .................... . Disposition: David LEY MD [address] [facility],[address], [place], [address], Robin - [employer] 06/24/2025 18:42:55 OBGyn Episode No OBEpisode recorded.
--- OUTSIDE RECORDS SUMMARY | 2025-07-03 12:23 | XMS_ITS | Encounter Summary ---
Author Organization [facility] Address [address] [place] [phone] Phone Care Team Providers Care Senior Linux Systems Administrator Name Role Phone Pcp, Unknown Primary Care Provider Unavailabl e Encounter Details Date Type Department Care Team (Late st Contact Info) Description 12/22/2021 Procedure [facility], Ct Scan - [facility] [address] [place] [address] Social History Tobacco Use Types Packs/Day Years [...] on filedocumented in this encounter Care Teams Senior Linux Systems Administrator Relationship Specialty Start Date End Date Pcp, Unknown PCP - General 12/21/21 documented as of this encounter Additional Source Comments The information contained in this document represents components of the legal health record. It is not the complete legal health record.[facility]
--- OUTSIDE RECORDS SUMMARY | 2025-07-03 12:23 | XMS_ITS | Clinical Summary ---
Author Organization [facility] Address [address] [facility] [address] [place] [phone] Phone Care Team Providers Care Developer Support Engineer Name Role Phone Pcp, Unknown Primary Care [...] file Insurance MEDICARE PART A & B [facility] MEDICARE REPLACEMENT [facility] MEDICARE PART A & B [facility] MEDICARE [facility]PLACEMENT [place] MEDICARE PART A & B [facility] MEDICARE [place]PLAC[place] [facility] A [facility] MEDICARE PART A & B [facility] MEDICARE REPLACEMENT MEDICARE PART A & B [facility] MEDICARE REPLACEMENT [facility] MEDICARE PART A & B [facility] MEDICARE REPLACEMENT [address] MEDICARE PART A & B Member Subscriber Plan / Payer (Ef fective 2009-Present) Name:Meredith Carranza Member ID:[id number] Relation to Subscriber:Self Name:Meredith Carranza Subscriber ID:[id number] Payer ID:[id number] Group ID:Not on file Type:Medicare [facility] [address] [place] [address] [address] MEDICARE [place]PLAC[place] [address] MEDICARE PART A & B [facility] MEDICARE REPLACEMENT [facility] Care Teams Developer Support Engineer Relationship Specialty Start Date End Date Pcp, Unknown PCP - General 12/21/21 Additional Source Comments The information contained in this document represents components of the legal health record. It is not the complete legal health record.[facility]
== END 2025-07-03 11:42 | disposition home or self-care (01) ==
LOC: HO.HMCH 10:20
PROVIDERS: PCP Internal Medicine
DX: I25.10 Atherosclerotic heart disease of native coronary artery without angina pectoris (principal); E11.9 Type 2 diabetes mellitus without complications; J44.89 Other specified chronic obstructive pulmonary disease; I25.2 Old myocardial infarction; E78.2 Mixed hyperlipidemia; E55.9 Vitamin D deficiency, unspecified; E66.3 Overweight; I10 Essential (primary) hypertension; K86.89 Other specified diseases of pancreas; I65.22 Occlusion and stenosis of left carotid artery; D64.9 Anemia, unspecified; R91.8 Other nonspecific abnormal finding of lung field; G47.00 Insomnia, unspecified

== ENCOUNTER → 2025-07-03 10:19 | Outpatient (BNVA) | payer OTHER, SELFPAY | PROVIDERS: PCP Internal Medicine | DX: E11.9 Type 2 diabetes mellitus without complications (principal); I10 Essential (primary) hypertension; I25.10 Atherosclerotic heart disease of native coronary artery without angina pectoris; J44.89 Other specified chronic obstructive pulmonary disease; I25.2 Old myocardial infarction; E78.2 Mixed hyperlipidemia; E55.9 Vitamin D deficiency, unspecified; E66.3 Overweight; I65.22 Occlusion and stenosis of left carotid artery; K86.89 Other specified diseases of pancreas; D64.9 Anemia, unspecified; R91.8 Other nonspecific abnormal finding of lung field; G47.00 Insomnia, unspecified; Z87.891 Personal history of nicotine dependence; Z79.84 Long term (current) use of oral hypoglycemic drugs; Z68.26 Body mass index [BMI] 26.0-26.9, adult | CPT/HCPCS: 96127; 99212 ==

== ENCOUNTER 2025-08-14 10:30 | Outpatient (AMB) | payer OTHER, SELFPAY ==
--- NOTE | 2025-08-14 10:37 | A.OFFPC_ITS ---
Vital Signs 08/14/25 10:38 Height 5 ft 3 in Weight 150 lb 4 oz BMI 26.6 BP 144/62 H Blood Pressure Location Lt brachial Position Sitting Respiration 18 Pulse 96 Pulse Source Pulse Oximeter Temp Source Temporal Artery Scan Pulse Oximetry (%) 95 Oxygen Delivery Method Room Air Intake Visit Reasons: follow up-Diverticulitis Radiation Control Specialist Required: Yes Radiation Control Specialist Language: Pocket Operator Name: [id number] Allergies clarithromycin (From PREVPAC) Allergy (Mild, Verified 08/14/25 11:01) hives lansoprazole (From PREVPAC) Allergy (Mild, Verified 08/14/25 11:01) hives lisinopril (LISINOPRIL) Allergy (Mild, Verified 08/14/25 11:01) COUGHING, cough, cough amoxicillin (AMOXICILLIN) Allergy (Unknown, Verified 08/14/25 11:01) RASH cephalexin Allergy (Unknown, Verified 08/14/25 11:01) rash clavulanic acid (Augmentin) Allergy (Unknown, Verified 08/14/25 11:01) rash duloxetine (Cymbalta) Allergy (Unknown, Verified 08/14/25 11:01) weight gain, increase appetite levofloxacin (From LEVAQUIN) Allergy (Unknown, Verified 08/14/25 11:01) RASH linaclotide (Linzess) Allergy (Unknown, Verified 08/14/25 11:01) nausea penicillin V Allergy (Unknown, Verified 08/14/25 11:01) rash Penicillins (PENICILLINS) Allergy (Unknown, Verified 08/14/25 11:01) RASH Sulfa (Sulfonamide Antibiotics) Allergy (Unknown, Verified 08/14/25 11:01) rash tramadol Allergy (Unknown, Verified 08/14/25 11:01) pruritus triamcinolone (Kenalog) Allergy (Unknown, Verified 08/14/25 11:01) Unknown meclizine Adverse Reaction (Intermediate, Verified 08/14/25 11:01) fatigue, somnolence prednisone (Prednisone) Adverse Reaction (Mild, Verified 08/14/25 11:01) YEAST INFECTION cetirizine Adverse Reaction (Unknown, Verified 08/14/25 11:01) dizziness? Medication List - Last Reconciled 08/14/25 by SUJEY Pineda albuterol sulfate 90 mcg/actuation 2 puffs PO Q6H PRN alprazolam 0.25 mg PO BID PRN aspirin 81 mg PO DAILY [BLADDER PADS As directed] blood pressure monitor As directed blood sugar diagnostic (FreeStyle Lite Strips) As directed once a day blood-glucose meter (FreeStyle Lite Meter kit) daily budesonide 32 mcg/actuation 1 spray intranasal DAILY PRN commode (bedside commode) As directed fluoxetine (Prozac) 10 mg PO DAILY isljlxshmrw-oqchlbwwo-zizmeypx 100-62.5-25 mcg (Trelegy Ellipta) 1 inh inhalation DAILY 30 days gabapentin 100 mg PO DAILY PRN 90 days [HANDHELD SHOWER HEAD As directed] loratadine (Allergy Relief (loratadine)) 10 mg PO DAILY PRN metformin 1,000 mg PO BID 90 days Held on 07/03/25. Instructions: Doctor's Order metformin ER 1,500 mg (2 x 750 mg) PO DAILY 90 days nitroglycerin 0.4 mg sublingual Q5M PRN nystatin 2.5 mL PO DAILY 30 days omeprazole 20 mg PO DAILY 90 days rosuvastatin 40 mg PO DAILY 90 days [SHOWER CHAIR As directed] umeclidinium-vilanterol 62.5-25 mcg/actuation (Anoro Ellipta) 1 inh inhalation DAILY 30 days Tobacco use date assessed: 08/14/25 Fall risk assessment: 1 Fall in past year Last assessed Fall Risk: 08/14/25 Dental Screening Dental Screen Date: 08/14/25 Did you have a dental visit in the last 12 months?: Yes Did you have a dental problem in the last 6 months where you did not have access to dental care?: No Was dental information given to patient?: Patient has dentist HPI HPI Comments History of Present Illness Details The patient is an 80-year-old citizen of [place] speaking female presenting with intermittent left lower abdominal pain. She reports the pain began some time ago, comes and goes, and is similar to the pain she experienced with a past episode of diverticulitis. She has a history of a pancreatic issue on the same side as the pain. The patient also reports chronic constipation, stating she feels constipated almost all the time and feels heavy. Her bowel movements occur daily or every other day, and the stool is hard. Additionally, the patient has a history of Irritable Bowel Syndrome (IBS), for which she was previously prescribed a medication that she believes confirmed the diagnosis, but she does not recall the medication's name or why she stopped it. She has never had diarrhea associated with her IBS. The patient inquired about her pneumonia vaccine status, as her regional economist advised her to check. She recalls receiving three vaccines in one arm from a previous doctor in [place], which caused a significant local reaction, and she wonders if the pneumonia vaccine was one of them. She has not received any vaccines from a pharmacy, with the exception of the COVID-19 vaccine. Health Maintenance The patient's pneumonia vaccine status was reviewed. Since the vaccination record is not in the current system, the patient was instructed to sign a release form to request her medical records from her previous provider in [place] ([address] [place] [address]) to confirm her vaccination history. She has a follow-up appointment scheduled for October, by which time the records should be available for review. Social History Results [facility] Medical History Pulmonary fibrosis Asthma-COPD overlap syndrome Allergic rhinitis Vaginal discharge Rash Left low back pain Dizziness Osteoporosis Hypercalcemia GERD without esophagitis Constipation Lumbar degenerative disc disease Overweight (BMI 25.0-29.9) Vitamin D deficiency Mixed hyperlipidemia Atherosclerotic cardiovascular disease Pulmonary emphysema Diabetes mellitus Vertigo Degenerative lumbar disc Irritable bowel syndrome Fibromyalgia Borderline diabetes Hypercholesteremia Asthma Chronic headache Anxiety Surgical History History of biopsy History of loop electrical excision procedure (LEEP) H/O heart artery stent Hx of colonoscopy H/O angioplasty H/O Spinal surgery Hx of tubal ligation Family History Father No problems noted. Mother Depression S/P CABG x 4 Diabetes Hypertension Sister Poor high blood pressure control Cervical cancer Breast cancer Social History Household Members: None Housing: Apartment Alcohol intake: former Patient Tobacco Use Status: Never used Tobacco Tobacco use type: Cigarette e-Cigarette/Vaping Use: Never Used Second Hand Smoke Exposure: No service: No Current occupational status: retired and disabled Cognitive needs: No Hearing needs: No Vision needs: Yes (glasses) Female Reproductive History Menstrual Age of Menarche: 13 Questionnaire PHQ-9 Over the last 2 weeks, how often have you been bothered by any of the following problems? Depression Screening Interpretation: Positive Depression Screening Follow-up: Existing condition and In treatment Depression Screening Done: Yes Source: Developed by Drs. Anthony Whelan, Chayo Romano, Vivek Avila and colleagues, with an educational irena from [employer]. Thrive Questionnaire Date Thrive assessed: 07/03/25 Currently or been in a relationship where the following occur: No concerns reported THRIVE Score: 0 VIOLET-7 AMB Questionnaire VIOLET-7 Date VIOLET - 7 assessed: 07/03/25 Source: Developed by Drs. Anthony Whelan, Chayo Romano, Vivek Avila and colleagues, with an educational irena from [employer]. Review of Systems Narrative Review of Systems - Gastrointestinal: Reports intermittent, mild, left lower abdominal pain. - Reports chronic constipation with hard stools and a sensation of feeling heavy. - Denies diarrhea. - Denies pain during abdominal examination. - Constitutional: Denies feeling weak or overly tired. Eyes Denies loss of vision ENT Denies vertigo and Denies sore throat Card Denies chest pain, Denies leg edema and Reports lightheadedness (intermittent) Resp Denies cough, Denies hemoptysis and Denies wheezing GI Reports abdominal pain (on and off in LLQ), Denies melena, Reports constipation, Denies diarrhea and Denies vomiting Denies urinary frequency, Denies dysuria and Denies urinary urgency Musc Denies arthralgias, Denies joint swelling, Denies numbness and Denies tingling Neuro Denies Abnormal speech present, Denies behavioral changes, Denies vertigo, Denies loss of vision, Denies memory loss, Denies numbness and Denies tingling Psych Denies anxiety, Denies behavioral changes, Denies depression, Denies memory loss and Denies panic attacks Wayne/Lymph Denies easy bleeding and Denies easy bruising Aller/Immun Denies wheezing Physical exam (Primary Care) Vital Signs: Last Vital Signs Pulse 96 08/14/25 10:38 Resp 18 08/14/25 10:38 BP 144/62 H 08/14/25 10:38 Pulse Ox 95 08/14/25 10:38 Oxygen Delivery Method Room Air 08/14/25 10:38 BMI result Body Mass Index 26.6 Tobacco/Smoking Status: Tobacco use Status Tobacco use date assessed 08/14/25 08/14/25 10:48 Patient Tobacco Use Status Never used Tobacco 08/14/25 10:40 Tobacco use type Cigarette 08/14/25 10:40 e-Cigarette/Vaping Use Never Used 08/14/25 10:40 Depression Screening Interpretation: Positive Depression Screening Follow-up: Existing condition and In treatment Thrive Assessment: Date of Thrive Assessment Date Thrive assessed 07/03/25 08/14/25 10:40 Currently or been in a relationship where the following occur: No concerns reported Narrative Physical Exam - Abdomen: Soft, non-tender to palpation in all quadrants, including the left lower quadrant. - Respiratory: Lungs are clear to auscultation bilaterally. Const General: healthy appearing, no acute distress, alert and awake Nutritional Appearance: well nourished Orientation/consciousness: oriented to person, oriented to place and oriented to time HENMT Ears: hearing grossly normal bilaterally General nose exam: Normal external nose present Eyes Conjunctivae: conjunctivae normal Sclerae: sclerae normal Pupils: Equal, round and reactive pupils present Neck Neck: Yes no lymphadenopathy and Yes no JVD Thyroid: Thyroid normal Carotids: no bruits Resp Effort & Inspection: normal respiratory effort and not tachypneic Auscultation: no crackles, no rales, no rhonchi and no wheezes Cardio Rate: regular rate Rhythm: regular rhythm Heart sounds: S1 normal heart sound present, S2 normal heart sound present, no murmurs and normal S1 and S2 GI Palpation (GI): Soft to palpation, nontender, no hepatomegaly and no splenomegaly Auscultation: normal bowel sounds Skin General skin exam: no rashes or lesions noted and dry skin Neuro General: oriented to person, oriented to place and oriented to time Cranial nerves: Yes Equal, round and reactive pupils present Speech: No Abnormal speech present Gait exam (Neuro): Normal gait present Motor exam (neuro): no tremor noted Extrem Right upper extremity: full ROM Left upper extremity: full ROM Right lower extremity: full ROM; no edema Left lower extremity: full ROM; no edema Psych Mental Status: mental status grossly normal Speech and movement: Normal speech and movement present Affect: normal affect Attitude: cooperative Thought process: Normal thought process present Coding Level of Care Code Est Pt Level 4 (94655) Diagnoses Constipation, unspecified constipation type K59.00 Constipation type: unspecified constipation type Diverticulitis K57.92 Time Spent (min) 37 Assessment & Plan Assessment & Plan (1) Constipation: Code(s): K59.00 - Constipation, unspecified Category: Medical Qualifiers: Constipation type: unspecified constipation type Qualified Code(s): K59.00 - Constipation, unspecified (2) Diverticulitis: Code(s): K57.92 - Diverticulitis of intestine, part unspecified, without perforation or abscess without bleeding Category: Medical Plan Plan Patient was informed and verbally consented to the use of an ambient scribe for clinic note documentation during this visit. 1. Constipation The patient presented with intermittent left lower abdominal pain, raising suspicion for diverticulitis, especially given her history. However, the physical exam was benign, with no tenderness on palpation, making acute diverticulitis less likely. The pain is now thought to be secondary to her chronic constipation. An abdominal X-ray will be ordered to assess the severity of constipation and rule out any blockage. Prescribed senna, two tablets at bedtime as needed, to stimulate bowel movements. MiraLAX was discussed as a stool softener to be used in conjunction with a stimulant, but the patient declined due to aversion to its taste and texture. Discussion Notes I initially considered diverticulitis as a cause for the patient's pain, given her history. I explained that if it were diverticulitis, antibiotics would be necessary, and I discussed the risks of delaying treatment, including the pot ential for sepsis, characterized by weakness, increased fatigue, and worsening pain, which would require an emergency room visit. The patient expressed hesitation about taking antibiotics for mild, intermittent pain. After the physical exam revealed no tenderness, I explained that diverticulitis was unlikely and that her symptoms are more likely due to constipation. I recommended an abdominal X-ray to confirm the extent of the constipation. We discussed treatment options, and the patient declined MiraLAX due to aversion to it, but agreed to take senna. I also discussed her pneumonia vaccination status and advised her on the process to obtain her past medical records. Patient Instructions - Go for an abdominal X-ray to check for constipation. - You can go for the X-ray anytime, as the order has been placed. - Take two tablets of Senna at bedtime as needed for constipation. - If you start feeling very sick, weak, overly tired, or if your pain gets much worse, you need to go to the emergency room immediately. - Before you leave today, sign the release form so we can request your vaccination records from your previous doctor's office in [place]. - Keep your follow-up appointment in October. Orders: Orders XR abdomen min 2V 08/14/25 K59.00 - Constipation, unspecified, R10.32 - Left lower quadrant pain Medications: New sennosides-docusate sodium 8.6-50 mg (Senna Plus) 2 tab-caps (2 x 8.6-50 mg) PO BEDTIME PRN 60 tabs 3RF constipation
[2025-08-14 10:38] VITALS: BP 144/62; PULSE 96; RESP 18; O2SAT 95; BMI 26.6
== END 2025-08-14 12:08 | disposition home or self-care (01) ==
LOC: HO.HMCH 10:31
PROVIDERS: PCP Internal Medicine
DX: K59.00 Constipation, unspecified (principal); K57.92 Diverticulitis of intestine, part unspecified, without perforation or abscess without bleeding

== ENCOUNTER → 2025-08-14 10:30 | Outpatient (BNVA) | payer OTHER, SELFPAY | PROVIDERS: PCP Internal Medicine | DX: K57.92 Diverticulitis of intestine, part unspecified, without perforation or abscess without bleeding (principal); K59.00 Constipation, unspecified | CPT/HCPCS: 99212 ==